=== PATIENT | male | born 1945 | race African-American/Black ===

== ENCOUNTER 2018-04-06 10:53 | Inpatient (IN) | payer MEDICARE, MEDICAID ==
[~2018-04-06] VITALS: Ht 198.1 cm; Wt 65.8 kg
[2018-04-06] VITALS (20 sets, daily range): BP systolic 74–128; BP diastolic 50–76
[2018-04-06] MEDS ORDERED: Acetaminophen 650 MG SUPP RECTAL ONE ×2 (11:09→11:15)
[2018-04-06] MEDS ORDERED: Vancomycin 1 GM in NS 275 ML IV ONE (11:15)
[2018-04-06] MEDS ORDERED: Cefepime HCl 1 GM in NS 55 ML IV SCH (11:15)
[2018-04-06] MEDS ORDERED: SENNA8.6 M2 PO (11:18)
[2018-04-06] MEDS ORDERED: POTASSIUM 25 M25 ME1 PO (11:18)
[2018-04-06] MEDS ORDERED: AMOX TR-K CLV1 EAC2 ORAL (11:18)
[2018-04-06] MEDS ORDERED: ALBUTEROL2.5 MG/3 M INH (11:18)
[2018-04-06] MEDS ORDERED: ASCORBIC ACID500 MG ORAL (11:18)
[2018-04-06] MEDS ORDERED: XIFAXAN550 MG ORAL (11:18)
[2018-04-06] MEDS ORDERED: ACETAMINOPHEN325 M1 ORAL (11:18)
[2018-04-06] MEDS ORDERED: PROTONIX40 MG ORAL (11:18)
[2018-04-06] MEDS ORDERED: LACTULOSE20 GM/301 ORAL (11:18)
[2018-04-06] MEDS ORDERED: COLACE100 MG ORAL (11:18)
[2018-04-06] MEDS ORDERED: VITAMIN B-1100 MG ORAL (11:18)
[2018-04-06 11:26] LABS: APPEARANCE,URINE SLIGHTLY CLOUDY; BILIRUBIN, URINE NEGATIVE (NEGATIVE); GLUCOSE, URINE (UA) NEGATIVE (NEGATIVE); KETONES,URINE 1+ (NEGATIVE); LEUKOCYTE ESTERASE ,URINE 2+ (NEGATIVE); NITRITE,URINE NEGATIVE (NEGATIVE); PH,URINE 5 (4.5-8.0); PROTEIN,URINE 3+ (NEGATIVE); UROBILINOGEN,URINE NORMAL MG/DL (0.0-1.0)
[2018-04-06 11:27] LABS: COLOR,URINE YELLOW
[2018-04-06] MEDS ORDERED: dilTIAZem HCl 25mg/5ml Inj IVP ONE ×2 (11:30→12:15)
[2018-04-06 11:31] LABS: HEMATOCRIT 33.4 % (42.0-52.0); HEMOGLOBIN 11.2 G/DL (14.2-18.0); MEAN CORPUSCULAR VOLUME 97 FL (80-99); PLATELET COUNT 102 K/UL (150-450); RED BLOOD COUNT 3.45 M/UL (4.70-6.10); RED CELL DISTRIBUTION WIDTH 13.7 % (11.6-14.8); WHITE BLOOD COUNT 20.8 K/UL (4.8-10.8)
[2018-04-06 11:38] LABS: ANION GAP 11 mmol/L (5-15); BLOOD UREA NITROGEN 17 mg/dL (7-18); CARBON DIOXIDE 19 MMOL/L (21-32); CHLORIDE 124 MMOL/L (98-107); CREATININE 1.5 MG/DL (0.55-1.30); POTASSIUM 3.8 MMOL/L (3.5-5.1); SODIUM 154 MMOL/L (136-145)
[2018-04-06 11:50] LABS: ALANINE AMINOTRANSFERASE 10 U/L (12-78); ALBUMIN 1.5 G/DL (3.4-5.0); ALBUMIN/GLOBULIN RATIO 0.3 (1.0-2.7); ALKALINE PHOSPHATASE 96 U/L (46-116); ASPARTATE AMINO TRANSFERASE 30 U/L (15-37); BILIRUBIN,DIRECT 0.2 MG/DL (0.0-0.3); BILIRUBIN,TOTAL 1.1 MG/DL (0.2-1.0); CKMB 0.9 NG/ML (0.0-3.6); CREATINE KINASE 66 U/L (26-308); INR 1.5 (0.9-1.1)
--- NOTE | 2018-04-06 12:09 | Diagnostic Imaging Report ---
Indication: Shortness of breath Technique: One view of the chest Comparison: none Findings: The right hemidiaphragm is elevated. This results in crowding of the bronchovascular markings. There is borderline interstitial congestion bilaterally. The heart is mildly enlarged Impression: Mild cardiomegaly Borderline interstitial congestive changes. Elevated right hemidiaphragm
[2018-04-06] MEDS ORDERED: dilTIAZem HCl 125mg/25ml Inj IVPB ONE (13:30)
[2018-04-06] MEDS ORDERED: Lidocaine 1% Plain 30 ml INJ ONE (13:45)
[2018-04-06] MEDS ORDERED: Heparin 2000 units/Ns 1000ml INJ ONE (13:45)
--- NOTE | 2018-04-06 14:51 | Emergency Room Report ---
History of Present Illness General Chief Complaint: Altered Level of Consciousness Source: Patient Present Illness HPI [facility]. The patient was recently discharged from [facility]. The patient has a history of cirrhosis and hepatic encephalopathy. He also has a history of pneumonia. He has a history of persistent hypernatremia. He has a history of GI bleed. Per report he has a history of alcoholism. He presents for being more altered than usual. EMS report that on their arrival at the [facility] facility he was hypotensive and tachycardic. The patient is unable to give a history. Allergies: Coded Allergies: No Known Allergies (Unverified , 04/06/18) Patient History Past Medical History: see triage record, HTN, CAD, pneumonia, psych hx, other - cirrhosis, encephalopathy Past Surgical History: unable to obtain Reviewed Nursing Documentation: PMH: Agreed; PSxH: Agreed Nursing Documentation-PMH Hx Hypertension: Yes Hx Gastrointestinal Problems: Yes - gi bleed,chronic alcoholism Review of Systems All Other Systems: limited Physical Exam Vital Signs Date Time Temp Pulse Resp B/P (MAP) Pulse Ox O2 Delivery O2 Flow Rate FiO2 04/06/18 10:49 160 22 74/56 96 Room Air 04/06/18 11:00 101.5 101.5 04/06/18 12:00 2.0 Sp02 EP Interpretation: reviewed, normal General Appearance: no apparent distress, other - Frail, elderly, minimally response, Chronically Ill Head: normocephalic, atraumatic Eyes: bilateral eye normal inspection, bilateral eye PERRL ENT: no angioedema Neck: full range of motion, supple/symm/no masses Respiratory: chest non-tender, no respiratory distress, no retraction, no accessory muscle use, speaking full sentences Cardiovascular #1: tachycardia, irregularly irregular Gastrointestinal: normal bowel sounds, non tender, soft, non-distended, no guarding, no rebound Rectal: deferred Musculoskeletal: back normal, gait/station normal, normal range of motion, non- tender Neurologic: other - Non-focal. Awake, mumbling words. Skin: warm/dry, well hydrated, other - See RN skin exam Lymphatic: no adenopathy Procedures Central Line Central Line : Consent: Emergent Central Line Lumen: triple Maximal Sterile Barrier Tech: yes cap, yes mask, yes sterile gown, yes sterile gloves, yes large sterile sheet, yes hand hygiene, yes chlorhexidine prep Central Line Postion: femoral (R) Anesthesia: local cc's of anesthesia: 10 Complications: none Central Line Post Position: sutured Attempts: One Patient Tolerated: Well Complications: None Medical Decision Making Diagnostic Impression: Primary Impression: Septic shock Additional Impressions: Pyelonephritis Leukocytosis Fever Hypernatremia Lactic acidosis ER Course This patient presents in septic shock. He appears to have urosepsis. He presented and atrial fibrillation with a rapid ventricular rate. His heart rate was in the 180s on arrival. He was hypotensive with systolic blood pressures in the high 60s. He was given aggressive IV fluids, broad-spectrum antibiotics, multiple doses of diltiazem and then started on a diltiazem drip because his heart rate continued to be out of control. His blood pressure improved but continued to be moderately low with systolics in the 80s. A central line was placed. The patient is admitted to the ICU. This patient is critically ill. This patient required complex medical decision- making, aggressive intervention, extensive laboratory workup and monitoring. Critical care time: 40 minutes. Laboratory Tests Test 04/06/18 10:55 04/06/18 11:00 White Blood Count 20.8 K/UL (4.8-10.8) H Red Blood Count 3.45 M/UL (4.70-6.10) L Hemoglobin 11.2 G/DL (14.2-18.0) L Hematocrit 33.4 % (42.0-52.0) L Mean Corpuscular Volume 97 FL (80-99) Mean Corpuscular Hemoglobin 32.4 PG (27.0-31.0) H Mean Corpuscular Hemoglobin Concent 33.6 G/DL (32.0-36.0) Red Cell Distribution Width 13.7 % (11.6-14.8) Platelet Count 102 K/UL (150-450) L Mean Platelet Volume 9.0 FL (6.5-10.1) Neutrophils (%) (Auto) % (45.0-75.0) Lymphocytes (%) (Auto) % (20.0-45.0) Monocytes (%) (Auto) % (1.0-10.0) Eosinophils (%) (Auto) % (0.0-3.0) Basophils (%) (Auto) % (0.0-2.0) Differential Total Cells Counted 100 Neutrophils % (Manual) 65 % (45-75) Lymphocytes % (Manual) 22 % (20-45) Monocytes % (Manual) 7 % (1-10) Eosinophils % (Manual) 6 % (0-3) H Basophils % (Manual) 0 % (0-2) Band Neutrophils 0 % (0-8) Platelet Estimate Decreased L Platelet Morphology Normal Hypochromasia 1+ Anisocytosis 1+ Prothrombin Time 15.3 SEC (9.30-11.50) H Prothrombin Time INR 1.5 (0.9-1.1) H PTT 23 SEC (23-33) Sodium Level 154 MMOL/L (136-145) H Potassium Level 3.8 MMOL/L (3.5-5.1) Chloride Level 124 MMOL/L (98-107) H Carbon Dioxide Level 19 MMOL/L (21-32) L Anion Gap 11 mmol/L (5-15) Blood Urea Nitrogen 17 mg/dL (7-18) Creatinine 1.5 MG/DL (0.55-1.30) H Estimate Glomerular Filtration Rate 46.3 mL/min (>60) Glucose Level 99 MG/DL (74-106) Lactic Acid Level 2.70 mmol/L (0.4-2.0) H Calcium Level 8.0 MG/DL (8.5-10.1) L Total Bilirubin 1.1 MG/DL (0.2-1.0) H Direct Bilirubin 0.2 MG/DL (0.0-0.3) Aspartate Amino Transferase (AST) 30 U/L (15-37) Alanine Aminotransferase (ALT) 10 U/L (12-78) L Alkaline Phosphatase 96 U/L (46-116) Ammonia 15 umol/L (11-32) Total Creatine Kinase 66 U/L (26-308) Creatine Kinase MB 0.9 NG/ML (0.0-3.6) Creatine Kinase MB Relative Index 1.3 Troponin I 0.027 ng/mL (0.000-0.056) Total Protein 6.4 G/DL (6.4-8.2) Albumin 1.5 G/DL (3.4-5.0) L Globulin 4.9 g/dL Albumin/Globulin Ratio 0.3 (1.0-2.7) L Urine Color Yellow Urine Appearance Slightly cloudy Urine pH 5 (4.5-8.0) Urine Specific [place] 1.015 (1.005-1.035) Urine Protein 3+ (NEGATIVE) H Urine Glucose (UA) Negative (NEGATIVE) Urine Ketones 1+ (NEGATIVE) H Urine Occult Blood 4+ (NEGATIVE) H Urine Nitrite Negative (NEGATIVE) Urine Bilirubin Negative (NEGATIVE) Urine Urobilinogen Normal MG/DL (0.0-1.0) Urine Leukocyte Esterase 2+ (NEGATIVE) H Urine RBC 20-30 /HPF (0 - 0) H Urine WBC Tntc /HPF (0 - 0) H Urine Squamous Epithelial Cells Occasional /LPF Urine Bacteria Occasional /HPF (NONE) Urine Yeast Few /HPF (NONE) H Microbiology Date/Time Source Procedure Growth Status 04/06/18 11:10 Nasal Nares Influenza Types A,B Antigen (STACY) - Final Complete EKG Diagnostic Results Rate: tachycardiac Rhythm: other - A.fib ST Segments: no acute changes Rhythm Strip Diag. Results EP Interpretation: yes Rate: 180's Rhythm: other - A.fib Chest X-Ray Diagnostic Results Chest X-Ray Diagnostic Results : Chest X-Ray Ordered: Yes # of Views/Limited/Complete: 1 View Indication: Other EP Interpretation: No Interpretation: other - Cardiomegaly. Impression: Other - See official report. Electronically Signed by: Moises Last Vital Signs Date Time Temp Pulse Resp B/P (MAP) Pulse Ox O2 Delivery O2 Flow Rate FiO2 04/06/18 13:33 148 88/60 04/06/18 12:50 24 99 04/06/18 12:12 Nasal Cannula 2.0 04/06/18 11:30 101.5 Status: improved Disposition: ADMITTED INPATIENT Condition: Critical Referrals: NON PHYSICIAN (PCP) WILLIE GARCÍA D.O. Apr 06, 2018 14:51
--- NOTE | 2018-04-06 16:07 | History & Physical ---
History and Physical History & Physicial dict ICU abx IVF pressors IV dilt Gene Wood MD Apr 06, 2018 16:07
[2018-04-06] MEDS ORDERED: Levophed 4mg/4mL Inj IV ONE (16:26)
--- NOTE | 2018-04-06 18:30 | History and Physical Report ---
DATE OF ADMISSION: 04/06/2018 CHIEF COMPLAINT: Weakness, transferred from a long-term. HISTORY OF PRESENT ILLNESS: The patient became poorly responsive at his long-term where he was recently admitted after discharge from [facility]. He has a history of cirrhosis and hepatic encephalopathy as well as pneumonia. He was evaluated in the emergency department and found to have hypotension and signs of septic shock with a high white blood count and lactic acidosis. He had rapid atrial fibrillation, was given intravenous medications to slow his heart rate. He can provide no additional history. The records were reviewed. PAST MEDICAL HISTORY: Pneumonia, cirrhosis with hepatic encephalopathy, coronary artery disease, pneumoniae, GI bleeding, alcoholism, and hypernatremia. MEDICATIONS: In the facility, he was on Tylenol, albuterol, Augmentin, vitamins, lactulose, Protonix, potassium, rifaximin, Senna and vitamin B. Since admission to the emergency department, he was given intravenous diltiazem, cefepime, vancomycin and heparin. ALLERGIES: None. REVIEW OF SYSTEMS: Cannot be obtained. PHYSICAL EXAMINATION: GENERAL: The patient is poorly responsive, moaning, lying in bed. VITAL SIGNS: Blood pressure of 78/55, the temperature is normal, the heart rate was 162 on admission, but came down to 118 at this time, in atrial fibrillation, respirations 24, and saturation is 100% on nasal oxygen. HEENT: The head is normocephalic. NECK: No jugular venous distention. CHEST: Rales. CARDIAC: Cardiac rhythm is rapid and irregular. ABDOMEN: Soft and nontender. EXTREMITIES: No clubbing, cyanosis, or edema. The Moreno catheter was in place, but was removed in the emergency department. LABORATORY AND DIAGNOSTIC DATA: The white count 20,800, hemoglobin 11.2, and platelets 102,000. Chemistry shows sodium 154, BUN 17, creatinine 1.5, and bicarbonate 19. Lactic acid 2.7. Albumin is 1.5. Liver enzymes are not elevated. INR is 1.5. Urine shows too numerous to count white cells. A chest x-ray shows carotid markings with an elevated right hemidiaphragm, but no focal infiltrates. IMPRESSIONS: 1. Septic shock. 2. Urinary tract infection causing sepsis. 3. Hypotension. 4. Lactic acidosis. 5. Hepatic encephalopathy. 6. Cirrhosis. 7. Coronary artery disease. 8. Rapid atrial fibrillation. PLAN: The patient will be admitted to ICU. He will be given intravenous fluids, vasopressors and diltiazem to slow the heart rate. Cardiology consultation has been requested. Antibiotics will be continued. His prognosis is guarded. He is currently Full Code. Gene Wood M.D. DR: JOVANI JOB#: [id number] CC: Gene Wood M.D.; Fax#: [phone] Lawrence Han M.D.
[2018-04-06] MEDS ORDERED: D5 1/2NS w/KCl 20mEq 1,000 ML IV SCH (19:00)
[2018-04-06] MEDS ORDERED: Vancomycin 500mg/D5W 110ml IVPB ONE ×2 (19:30)
[2018-04-06] MEDS ORDERED: Dyna-Hex 2% Top Sol 2oz TOPIC SCH (20:00)
[2018-04-06] MEDS: D5 1/2NS w/KCl 20mEq 1,000 ML IV SCH (20:09)
[2018-04-06] MEDS: Piperacillin/Tazobactam 3.375 GM in D5W 110 ML IVPB SCH (21:24)
--- NOTE | 2018-04-06 23:30 | Consultation ---
DATE OF CONSULTATION: 04/06/2018 CARDIOLOGY CONSULTATION CONSULTING PHYSICIAN: Lawrence Han M.D. REQUESTING PHYSICIAN: Gene Wood M.D. REASON FOR CONSULTATION: Atrial fibrillation with rapid ventricular response in the setting of shock. HISTORY OF PRESENT ILLNESS: This is a 72-year-old male. He has been convalescing at a prison facility. He became poorly responsive and was transferred to this emergency room for evaluation. On arrival, he was hypotensive, tachycardic, and noted to have rapid atrial fibrillation. He apparently was recently hospitalized at an outside facility. PAST MEDICAL HISTORY: Includes hepatic encephalopathy, cirrhosis, paroxysmal atrial fibrillation, alcoholism, and coronary artery disease. MEDICATIONS: Reviewed and reconciled. SOCIAL HISTORY: Not obtainable at this time. Although, there is a known history of alcohol abuse in the past. PHYSICAL EXAMINATION: VITAL SIGNS: Temperature 101.5, blood pressure 74/56, heart rate 160, and respiratory rate 22. GENERAL: Poorly responsive. HEENT: Temporal wasting. Dry mucous membranes. NECK: Supple. LUNGS: With coarse breath sounds. Scattered rhonchi. CARDIAC: Irregularly irregular rhythm. Rapid rate. Normal S1, S2. ABDOMEN: Soft. There is no obvious ascites. EXTREMITIES: Without edema. Capillary refill is diminished with the right femoral central line in place with no active bleeding noted. LABORATORY DATA: White count 20.8 and hemoglobin 11.2. Sodium 154, potassium 3.8, chloride 124, bicarb 19, BUN 17, and creatinine 1.5. Lactic acid 2.7. Ammonia is 15. Albumin 1.5. Urinalysis with too numerous to count white cells. EKG reveals atrial fibrillation with rapid ventricular response and nonspecific ST-T wave changes. Chest x-ray with cardiomegaly and no acute process. IMPRESSION: 1. Critical condition. 2. Guarded prognosis. 3. Case discussed with his daughter at bedside. 4. Sepsis. 5. Shock. 6. Urinary tract infection. 7. Hypovolemia. 8. Dehydration. 9. Severe protein-calorie malnutrition. 10. History of alcoholic cirrhosis. 11. Rapid atrial fibrillation. 12. Acute myocardial ischemia. 13. Lactic acidosis. 14. Sepsis with shock. PLAN: 1. Intensive care unit monitoring. 2. Intravenous fluid volume resuscitation. 3. Pressor support if as above has shown to be inadequate presently. 4. We will consider digitalization. 5. For now, the patient was given IV Cardizem x1. Until blood pressure stabilizes, additional doses cannot be given. 6. Broad-spectrum antibiotics. 7. DVT and stress ulcer prophylaxis. 8. Serial troponin levels. Lawrence Han M.D. DR: JED JOB#: [id number] CC:
[2018-04-07] VITALS (19 sets, daily range): BP systolic 84–132; BP diastolic 56–78
[2018-04-07] MEDS: Piperacillin/Tazobactam 3.375 GM in D5W 110 ML IVPB SCH ×4 (05:54→22:31)
[2018-04-07] MEDS: D5 1/2NS w/KCl 20mEq 1,000 ML IV SCH (05:54)
[2018-04-07 06:45] LABS: BASOPHILS % (AUTO) 0.8 % (0.0-2.0); EOSINOPHILS % (AUTO) 4.9 % (0.0-3.0); HEMATOCRIT 26.1 % (42.0-52.0); HEMOGLOBIN 8.8 G/DL (14.2-18.0); MEAN CORPUSCULAR VOLUME 95 FL (80-99); MONOCYTES % (AUTO) 8.3 % (1.0-10.0); PLATELET COUNT 102 K/UL (150-450); RED BLOOD COUNT 2.76 M/UL (4.70-6.10); RED CELL DISTRIBUTION WIDTH 13.7 % (11.6-14.8); WHITE BLOOD COUNT 14.1 K/UL (4.8-10.8)
[2018-04-07 07:15] LABS: ALANINE AMINOTRANSFERASE 11 U/L (12-78); ALBUMIN 1.3 G/DL (3.4-5.0); ALBUMIN/GLOBULIN RATIO 0.3 (1.0-2.7); ALKALINE PHOSPHATASE 85 U/L (46-116); ANION GAP 8 mmol/L (5-15); ASPARTATE AMINO TRANSFERASE 13 U/L (15-37); BILIRUBIN,TOTAL 0.7 MG/DL (0.2-1.0); BLOOD UREA NITROGEN 15 mg/dL (7-18); CALCIUM 7.2 MG/DL (8.5-10.1); CARBON DIOXIDE 21 MMOL/L (21-32); CHLORIDE 125 MMOL/L (98-107); CREATININE 1.2 MG/DL (0.55-1.30); POTASSIUM 2.7 MMOL/L (3.5-5.1); SODIUM 155 MMOL/L (136-145)
[2018-04-07] MEDS ORDERED: Pantoprazole Inj IVP SCH (09:00)
--- NOTE | 2018-04-07 09:11 | Pulmonology Progress Note ---
Assessment/Plan Assessment/Plan IMPRESSIONS: 1. Septic shock. 2. Urinary tract infection causing sepsis. 3. Hypotension. 4. Lactic acidosis. 5. Hepatic encephalopathy. 6. Cirrhosis. 7. Coronary artery disease. 8. Rapid atrial fibrillation. Now in NSR 9. Hypokalemia 10. Troponin leak. PLAN: Continue intravenous fluids, and vasopressors prn Seen by Cardiology Antibiotics will be continued. His prognosis is guarded. He is currently Full Code. Respiratory status is stable Discussed with RN Kannan Rogers M.D. Subjective Interval Events: Now in NSR; hypokalemic; Hgb down to 8.8 Constitutional: Reports: no symptoms HEENT: Repors: no symptoms Respiratory: Reports: no symptoms Cardiovascular: Reports: no symptoms Gastrointestinal/Abdominal: Reports: no symptoms Genitourinary: Reports: no symptoms Allergies: Coded Allergies: No Known Allergies (Unverified , 04/06/18) Objective Last 24 Hour Vital Signs Date Time Temp Pulse Resp B/P (MAP) Pulse Ox O2 Delivery O2 Flow Rate FiO2 04/07/18 07:00 91 16 128/78 100 Nasal Cannula 2.0 04/07/18 06:00 89 16 131/71 100 Nasal Cannula 2.0 04/07/18 05:00 88 15 125/72 100 Nasal Cannula 2.0 04/07/18 04:00 97.7 93 23 124/76 98 Nasal Cannula 2.0 97.7 04/07/18 04:00 92 04/07/18 03:00 89 17 110/64 100 Nasal Cannula 2.0 04/07/18 02:00 87 15 102/59 100 Nasal Cannula 2.0 04/07/18 01:00 81 15 98/58 100 Nasal Cannula 2.0 04/07/18 00:00 97.9 81 17 84/56 100 Nasal Cannula 2.0 97.9 04/07/18 00:00 83 04/06/18 23:00 86 17 91/52 100 Nasal Cannula 2.0 04/06/18 22:30 87 16 93/53 100 Nasal Cannula 2.0 04/06/18 22:21 95 Nasal Cannula 2.0 04/06/18 22:21 Nasal Cannula 2.0 04/06/18 22:15 90 20 92/56 100 Nasal Cannula 2.0 04/06/18 22:00 90 16 95/54 100 Nasal Cannula 2.0 04/06/18 21:45 92 17 97/61 100 Nasal Cannula 2.0 04/06/18 21:30 94 17 90/57 100 Nasal Cannula 2.0 04/06/18 21:15 96 20 122/72 100 Nasal Cannula 2.0 04/06/18 21:00 92 16 122/72 100 Nasal Cannula 2.0 04/06/18 21:00 122/72 04/06/18 20:45 94 19 125/75 100 Nasal Cannula 2.0 04/06/18 20:30 92 18 128/69 100 Nasal Cannula 2.0 04/06/18 20:15 95 18 117/67 100 Nasal Cannula 2.0 04/06/18 20:00 98.0 96 17 121/73 100 Nasal Cannula 2.0 98.0 04/06/18 20:00 96 04/06/18 20:00 121/73 04/06/18 19:45 96 18 128/76 100 Nasal Cannula 2.0 04/06/18 19:00 128/76 18 18:00 108/55 04/06/18 17:20 96.2 116 24 89/61 100 Room Air 2.0 98.0 04/06/18 16:47 89/61 04/06/18 16:42 80/55 18 15:46 98.0 118 24 80/55 100 Room Air 98.0 18 14:43 121 24 80/54 99 7/18 13:33 148 88/60 18 12:50 150 24 77/50 99 04/06/18 12:42 159 82/61 18 12:12 162 22 86/58 98 Nasal Cannula 2.0 18 12:00 156 24 88/57 100 Nasal Cannula 2.0 18 11:30 152 24 76/60 99 04/06/18 11:30 101.5 18 11:29 160 74/56 18 11:00 101.5 160 22 74/56 96 Room Air 101.5 04/06/18 10:49 160 22 74/56 96 Room Air Intake and Output 04/06/18 04/07/18 19:00 07:00 Intake Total 6 ml 1132.5 ml Output Total 80 ml 600 ml Balance -74 ml 532.5 ml Intake IV Total 6 ml 1132.5 ml Output Urine Total 80 ml 600 ml # Voids 1 General Appearance: no acute distress HEENT: normocephalic Respiratory/Chest: chest wall non-tender, lungs clear Cardiovascular: normal peripheral pulses, normal rate Abdomen: normal bowel sounds Microbiology Date/Time Source Procedure Growth Status 04/06/18 11:10 Nasal Nares Influenza Types A,B Antigen (STACY) - Final Complete 04/06/18 11:00 Urine,Clean Catch Urine Culture - Preliminary NO GROWTH Resulted Laboratory Tests 04/06/18 10:55: White Blood Count 20.8H, Red Blood Count 3.45L, Hemoglobin 11.2L, Hematocrit 33.4L, Mean Corpuscular Volume 97, Mean Corpuscular Hemoglobin 32.4H, Mean Corpuscular Hemoglobin Concent 33.6, Red Cell Distribution Width 13.7, Platelet Count 102L, Mean Platelet Volume 9.0, Neutrophils (%) (Auto) , Lymphocytes (%) ( Auto) , Monocytes (%) (Auto) , Eosinophils (%) (Auto) , Basophils (%) (Auto) , Differential Total Cells Counted 100, Neutrophils % (Manual) 65, Lymphocytes % ( Manual) 22, Monocytes % (Manual) 7, Eosinophils % (Manual) 6H, Basophils % ( Manual) 0, Band Neutrophils 0, Platelet Estimate DecreasedL, Platelet Morphology Normal, Hypochromasia 1+, Anisocytosis 1+, Prothrombin Time 15.3H, Prothromb Time International Ratio 1.5H, Activated Partial Thromboplast Time 23 , Sodium Level 154H, Potassium Level 3.8, Chloride Level 124H, Carbon Dioxide Level 19L, Anion Gap 11, Blood Urea Nitrogen 17, Creatinine 1.5H, Estimat Glomerular Filtration Rate 46.3, Glucose Level 99, Lactic Acid Level 2.70H, Calcium Level 8.0L, Total Bilirubin 1.1H, Direct Bilirubin 0.2, Aspartate Amino Transf (AST/SGOT) 30, Alanine Aminotransferase (ALT/SGPT) 10L, Alkaline Phosphatase 96, Ammonia 15, Total Creatine Kinase 66, Creatine Kinase MB 0.9, Creatine Kinase MB Relative Index 1.3, Troponin I 0.027, Total Protein 6.4, Albumin 1.5L, Globulin 4.9, Albumin/Globulin Ratio 0.3L 04/06/18 11:00: Urine Color Yellow, Urine Appearance Slightly cloudy, Urine pH 5, Urine Specific [place] 1.015, Urine Protein 3+H, Urine Glucose (UA) Negative, Urine Ketones 1+H, Urine Occult Blood 4+H, Urine Nitrite Negative, Urine Bilirubin Negative, Urine Urobilinogen Normal, Urine Leukocyte Esterase 2+H, Urine RBC 20- 30H, Urine WBC TntcH, Urine Squamous Epithelial Cells Occasional, Urine Bacteria Occasional, Urine Yeast FewH 04/06/18 16:00: Lactic Acid Level 1.20 04/07/18 05:00: White Blood Count 14.1H, Red Blood Count 2.76L, Hemoglobin 8.8L, Hematocrit 26.1L, Mean Corpuscular Volume 95, Mean Corpuscular Hemoglobin 31.9H, Mean Corpuscular Hemoglobin Concent 33.8, Red Cell Distribution Width 13.7, Platelet Count 102L, Mean Platelet Volume 6.8, Neutrophils (%) (Auto) 73.0, Lymphocytes ( %) (Auto) 13.0L, Monocytes (%) (Auto) 8.3, Eosinophils (%) (Auto) 4.9H, Basophils (%) (Auto) 0.8, Sodium Level 155H, Potassium Level 2.7*L, Chloride Level 125H, Carbon Dioxide Level 21, Anion Gap 8, Blood Urea Nitrogen 15, Creatinine 1.2, Estimat Glomerular Filtration Rate > 60, Glucose Level 112H, Lactic Acid Level 1.20, Calcium Level 7.2L, Total Bilirubin 0.7, Aspartate Amino Transf (AST/SGOT) 13L, Alanine Aminotransferase (ALT/SGPT) 11L, Alkaline Phosphatase 85, Troponin I 0.331H, Total Protein 5.5L, Albumin 1.3L, Globulin 4.2, Albumin/Globulin Ratio 0.3L, Magnesium Level 1.6L, Prostate Specific Antigen < 0.10L Current Medications Medications (Trade) Dose Ordered Sig/Anna Route PRN Reason Start Time Stop Time Status Last Admin Dose Admin Chlorhexidine Gluconate (Nel-Hex 2%) 1 applic DAILY@1999 TOPIC 04/07/18 20:00 05/07/18 19:59 Dextrose/ Electrolytes 1,000 ml @ 100 mls/hr Q10H IV 04/06/18 20:00 05/06/18 18:59 04/07/18 05:54 Norepinephrine Bitartrate 4 mg/ Dextrose 250 ml @ 0 mls/hr Q24H IV 04/07/18 20:00 05/06/18 19:59 04/06/18 19:00 Pantoprazole (Protonix) 40 mg DAILY IVP 04/07/18 09:00 05/07/18 08:59 Piperacillin Sod/ Tazobactam Sod 3.375 gm/Dextrose 110 ml @ 27.5 mls/hr Q8HR IVPB 04/06/18 21:00 04/13/18 20:59 04/07/18 05:54 Vancomycin HCl (Vanco rx to dose) 1 ea DAILY PRN MISC Per rx protocol 04/06/18 17:45 05/06/18 17:44 Kannan Rogers MD Apr 07, 2018 09:11
[2018-04-07 10:15] LABS: EOSINOPHILS % (AUTO) 4.6 % (0.0-3.0); HEMATOCRIT 28.5 % (42.0-52.0); HEMOGLOBIN 9.6 G/DL (14.2-18.0); MEAN CORPUSCULAR VOLUME 95 FL (80-99); MONOCYTES % (AUTO) 8.8 % (1.0-10.0); NEUTROPHILS % (AUTO) 71.6 % (45.0-75.0); PLATELET COUNT 115 K/UL (150-450); RED CELL DISTRIBUTION WIDTH 13.7 % (11.6-14.8); WHITE BLOOD COUNT 13.8 K/UL (4.8-10.8)
[2018-04-07 10:36] LABS: ANION GAP 11 mmol/L (5-15); BLOOD UREA NITROGEN 14 mg/dL (7-18); CALCIUM 7.5 MG/DL (8.5-10.1); CARBON DIOXIDE 20 MMOL/L (21-32); CHLORIDE 125 MMOL/L (98-107); CREATININE 1.3 MG/DL (0.55-1.30); POTASSIUM 2.9 MMOL/L (3.5-5.1); SODIUM 156 MMOL/L (136-145)
--- NOTE | 2018-04-07 12:40 | Diagnostic Imaging Report ---
Indication: Dyspnea Comparison: 04/06/2018 A single view chest radiograph was obtained. Findings: Accounting for some differences in technique there is little to no change. Interstitial edema is present with some minor airspace disease involving the right perihilar and left basilar regions. Heart size is stable. IMPRESSION: No significant change
[2018-04-07] MEDS ORDERED: D5W w/KCl 20mEq 1,000 ML IV SCH (13:00)
[2018-04-07] MEDS ORDERED: Vancomycin 1250mg/D5W 250ml IVPB SCH (17:00)
[2018-04-07] MEDS: Potassium Chloride 40 MEQ in D5 1/4NS 1000ml 1,000 ML IV SCH ×3 (17:30→22:21)
[2018-04-07] MEDS ORDERED: Lactulose 20gm/30ml UDC NG SCH (18:00)
[2018-04-07] MEDS ORDERED: Dyna-Hex 2% Top Sol 2oz TOPIC SCH (20:00)
[2018-04-07] MEDS: Dyna-Hex 2% Top Sol 2oz TOPIC SCH (22:20)
--- NOTE | 2018-04-08 00:45 | Consultation ---
DATE OF CONSULTATION: 04/07/2018 NEPHROLOGY CONSULTATION CONSULTING PHYSICIAN: Greg Hager M.D. REFERRING PHYSICIAN: Gene Wood M.D. REASON FOR CONSULTATION: Hypernatremia and hypokalemia. HISTORY OF PRESENT ILLNESS: The patient admitted for lethargy and confusion. He was recently in [facility] with cirrhosis and hepatic encephalopathy and pneumonia. In the emergency room, he was hypotensive and likely septic shock with leukocytosis and lactic acidosis and he had rapid atrial fibrillation. The patient is unreliable historian. In addition to the above problems, he has had coronary artery disease, prior gastrointestinal bleeding, and alcoholism. Past history, review of systems, again, the patient is unreliable historian. The transfer records could not give much of further insight. MEDICATIONS: From the long-term facility include Tylenol, albuterol inhalation, Augmentin, ascorbic acid, DSS, lactulose, Protonix, potassium, rifaximin, Senna, and . PHYSICAL EXAMINATION: GENERAL: The patient is lying in bed in the intensive care unit, in no acute distress. VITAL SIGNS: Temperature 98.3, pulse 94, respirations 16, and blood pressure 129/70. HEENT: Head, eyes, ears, nose, and throat, sclerae are nonicteric. Ocular motions intact in all directions. Oral mucosa slightly dry. NECK: No adenopathy or thyroid enlargement. LUNGS: Clear. HEART: Regular rhythm. No murmur. ABDOMEN: Soft. I am unable to feel liver or spleen. EXTREMITIES: Trace edema. NEUROLOGIC: There appears to be a left hemiparesis. He is alert, but slightly dysarthric and disoriented. LABORATORY AND DIAGNOSTIC DATA: Pertinent labs show white count 28.8, hemoglobin 11.2. On admission, sodium 154, potassium 3.8, chloride 17, CO2 is 1.5 with an albumin of 1.5. Most recent sodium 156, potassium 2.9, chloride 125, CO2 of 20, BUN 14, and creatinine 1.3. Troponin is 0.357. IMPRESSION: 1. Dehydration. 2. Hypernatremia, secondary to dehydration, likely lactulose contributes. 3. Hypokalemia. 4. Pyuria, possibly urinary tract infection. 5. Cirrhosis. 6. History of hepatic encephalopathy. 7. Left hemiparesis. PLAN: The patient will be hydrated with gradual correction of serum sodium event edema. We will try and replace his potassium. Watch him closely in view of his comorbidities. Continue treatment for sepsis. Greg Hager M.D. DR: YUNI JOB#: [id number] CC:
[2018-04-08] MEDS: Potassium Chloride 40 MEQ in D5 1/4NS 1000ml 1,000 ML IV SCH ×3 (03:40→20:52)
--- NOTE | 2018-04-08 04:15 | Progress Note ---
DATE: 04/07/2018 CARDIOLOGY PROGRESS NOTE SUBJECTIVE: The patient remains in the intensive care unit in critical condition with guarded prognosis. Pressor support is slowly being tapered off this morning. OBJECTIVE: VITAL SIGNS: Blood pressure 125/72, pulse 88, and respiratory rate 15. Earlier this morning, blood pressure is down to 84/56. Monitored rhythm, sinus. No recurring atrial fibrillation. Frequent atrial ectopics are noted. LUNGS: Coarse breath sounds with rhonchi. HEART: Regular rhythm and rate. Normal S1 and S2 with a fourth heart sound. ABDOMEN: Soft and nontender. EXTREMITIES: Trace edema. LABORATORY DATA: White count down from 20.8 to 13.8 and hemoglobin 9.6. Sodium 156, potassium 2.9, chloride 125, bicarbonate 20, BUN 14, and creatinine 1.3. Magnesium 1.6. Troponin is 0.357. IMPRESSION: 1. Acute myocardial infarction. 2. Hypomagnesemia. 3. Hypokalemia. 4. Dehydration. 5. Hypernatremia. 6. Hyperchloremia . 7. Lactic acidosis, recovering. 8. Metabolic acidosis and sepsis with shock, resolving. 9. History of alcoholic liver disease. PLAN: 1. Continue ICU care. 2. Hypotonic hydration. 3. Potassium and magnesium repletion. 4. Once taper off pressors and once stable, can have beta-isabel. 5. Continue anti-platelet therapy. 6. Swallow evaluation. 7. Continue antimicrobials with adjustments based on culture. Lawrence Han M.D. DR: BRANDON JOB#: [id number] CC:
[2018-04-08] MEDS: Piperacillin/Tazobactam 3.375 GM in D5W 110 ML IVPB SCH ×4 (06:19→21:49)
[2018-04-08 06:32] LABS: BASOPHILS % (AUTO) 1.1 % (0.0-2.0); EOSINOPHILS % (AUTO) 4.7 % (0.0-3.0); HEMATOCRIT 26.7 % (42.0-52.0); HEMOGLOBIN 9.3 G/DL (14.2-18.0); LYMPHOCYTES % (AUTO) 17.9 % (20.0-45.0); MEAN CORPUSCULAR VOLUME 95 FL (80-99); MONOCYTES % (AUTO) 10.2 % (1.0-10.0); PLATELET COUNT 116 K/UL (150-450); RED BLOOD COUNT 2.82 M/UL (4.70-6.10); WHITE BLOOD COUNT 14.6 K/UL (4.8-10.8)
[2018-04-08 06:45] LABS: ANION GAP 10 mmol/L (5-15); BLOOD UREA NITROGEN 11 mg/dL (7-18); CALCIUM 7.3 MG/DL (8.5-10.1); CARBON DIOXIDE 20 MMOL/L (21-32); CHLORIDE 124 MMOL/L (98-107); CREATININE 1.1 MG/DL (0.55-1.30); SODIUM 154 MMOL/L (136-145)
[2018-04-08 08:00] VITALS: BP 138/87
[2018-04-08] MEDS: Lactulose 20gm/30ml UDC NG SCH ×3 (08:32→16:20)
[2018-04-08] MEDS: Aspirin Baby 81mg ORAL SCH (08:34)
[2018-04-08] MEDS: Pantoprazole Inj IVP SCH (08:35)
[2018-04-08] MEDS ORDERED: Aspirin Baby 81mg ORAL SCH (09:00)
[2018-04-08] MEDS ORDERED: NS 500ML ONE ×2 (10:51→10:52)
[2018-04-08] MEDS ORDERED: Tubing IV Secondary IV ONE ×2 (10:52→16:17)
[2018-04-08 12:00] VITALS: BP 120/69
[2018-04-08 16:00] VITALS: BP 124/78
[2018-04-08] MEDS ORDERED: Sterile Water For Irrig 2000ml IRRIG ONE (16:17)
[2018-04-08] MEDS: Vancomycin 1250mg/D5W 250ml 250 ML IVPB SCH (16:26)
[2018-04-08 20:00] VITALS: BP 129/79
--- NOTE | 2018-04-08 20:28 | Pulmonology Progress Note ---
Assessment/Plan Assessment/Plan 1. Septic shock. 2. Urinary tract infection causing sepsis. 3. Hypotension. 4. Lactic acidosis. 5. Hepatic encephalopathy. 6. Cirrhosis. 7. Coronary artery disease. 8. Rapid atrial fibrillation. Now in NSR 9. Hypokalemia 10. Troponin leak. PLAN: watch io monitor uop IV abx cxr and labs in am prn abg Fu cutures nebs adn suction His prognosis is guarded. He is currently Full Code. Discussed with RN Subjective ROS Limited/Unobtainable: No Allergies: Coded Allergies: No Known Allergies (Unverified , 04/06/18) Subjective lethargic no distress no cp vn or bleeding no fever noted not getting oob Objective Last 24 Hour Vital Signs Date Time Temp Pulse Resp B/P (MAP) Pulse Ox O2 Delivery O2 Flow Rate FiO2 04/08/18 16:29 82 04/08/18 16:00 98.5 87 21 124/78 100 Nasal Cannula 3.0 98.5 04/08/18 12:00 98.1 87 20 120/69 98 Nasal Cannula 2.0 98.1 04/08/18 12:00 84 04/08/18 08:33 91 138/87 04/08/18 08:00 92 04/08/18 08:00 98.3 91 20 138/87 99 Nasal Cannula 2.0 98.3 04/08/18 04:00 89 04/08/18 00:00 93 04/07/18 22:20 92 101/63 Intake and Output 04/07/18 04/08/18 19:00 07:00 Intake Total 110 ml 1000.0 ml Output Total 980 ml 800 ml Balance -870 ml 200.0 ml Intake Oral 15 ml IV Total 110 ml 985.0 ml Output Urine Total 980 ml 550 ml Stool Total 250 ml # Bowel Movements 1 General Appearance: WD/WN Respiratory/Chest: rhonchi Cardiovascular: normal rate, murmur systolic, edema Abdomen: soft, non tender, no organomegaly Skin: no rash, no ulcers Neurologic/Psychiatric: disoriented Microbiology Date/Time Source Procedure Growth Status 04/06/18 10:55 Blood Blood Culture - Preliminary NO GROWTH AFTER 24 HOURS Resulted 04/06/18 10:50 Blood Blood Culture - Preliminary NO GROWTH AFTER 24 HOURS Resulted 04/06/18 11:10 Nasal Nares Influenza Types A,B Antigen (STACY) - Final Complete 04/06/18 11:00 Urine,Clean Catch Urine Culture - Final NO GROWTH AFTER 48 HOURS Complete Laboratory Tests 04/08/18 04:50: White Blood Count 14.6H, Red Blood Count 2.82L, Hemoglobin 9.3L, Hematocrit 26.7L, Mean Corpuscular Volume 95, Mean Corpuscular Hemoglobin 33.0H, Mean Corpuscular Hemoglobin Concent 34.9, Red Cell Distribution Width 14.0, Platelet Count 116L, Mean Platelet Volume 6.6, Neutrophils (%) (Auto) 66.0, Lymphocytes ( %) (Auto) 17.9L, Monocytes (%) (Auto) 10.2H, Eosinophils (%) (Auto) 4.7H, Basophils (%) (Auto) 1.1, Sodium Level 154H, Potassium Level 3.0L, Chloride Level 124H, Carbon Dioxide Level 20L, Anion Gap 10, Blood Urea Nitrogen 11, Creatinine 1.1, Estimat Glomerular Filtration Rate > 60, Glucose Level 68L, Calcium Level 7.3L, Ammonia 20, Troponin I 0.198H, Pro-B-Type Natriuretic Peptide 2504H Current Medications Medications (Trade) Dose Ordered Sig/Anna Route PRN Reason Start Time Stop Time Status Last Admin Dose Admin Aspirin (ASA) 81 mg DAILY ORAL 04/08/18 09:00 05/08/18 08:59 04/08/18 08:34 Carvedilol (Coreg) 6.25 mg EVERY 12 HOURS ORAL 04/08/18 21:00 05/08/18 20:59 Chlorhexidine Gluconate (Nel-Hex 2%) 1 applic DAILY@1999 TOPIC 04/07/18 20:00 05/07/18 19:59 04/07/18 22:20 Lactulose (Cephulac) 30 gm THREE TIMES A DAY NG 04/08/18 09:00 05/07/18 17:59 04/08/18 08:32 Pantoprazole (Protonix) 40 mg DAILY IVP 04/08/18 09:00 05/07/18 08:59 04/08/18 08:35 Piperacillin Sod/ Tazobactam Sod 3.375 gm/Dextrose 110 ml @ 27.5 mls/hr Q8HR IVPB 04/07/18 22:00 04/13/18 20:59 04/08/18 14:01 Potassium Chloride 40 meq/ Dextrose/Sodium Chloride 1,020 ml @ 125 mls/hr Q8H10M IV 04/07/18 19:30 05/07/18 19:29 04/08/18 12:41 Vancomycin HCl (Vanco rx to dose) 1 ea DAILY PRN MISC Per rx protocol 04/07/18 18:30 05/07/18 18:29 Vancomycin HCl/ Dextrose 250 ml @ 166.667 mls/hr Q24H IVPB 04/08/18 17:00 04/12/18 16:59 04/08/18 16:26 Gerda Oquendo DO Apr 08, 2018 20:28
[2018-04-08] MEDS: Dyna-Hex 2% Top Sol 2oz TOPIC SCH (20:51)
[2018-04-08] MEDS: Carvedilol 6.25mg Tab ORAL SCH (20:51)
[2018-04-09] VITALS: BP 108/68
[2018-04-09 04:00] VITALS: BP 122/77
--- NOTE | 2018-04-09 04:30 | Progress Note ---
DATE: 04/08/2018 CARDIOLOGY PROGRESS NOTE SUBJECTIVE: The patient remains in the intensive care unit. Condition remains critical. Prognosis guarded. The patient is off pressors. Blood pressure is improved. He continued to have significant metabolic abnormalities, but remains in sinus rhythm. OBJECTIVE: VITAL SIGNS: Blood pressure 120/69, pulse 87, respirations 20, and afebrile. LUNGS: Bilateral breath sounds. No wheezing. CARDIAC: Regular rhythm and rate. Normal S1 and S2. ABDOMEN: Soft. EXTREMITIES: Trace edema. LABORATORY DATA: White count 14.6, hemoglobin 9.3. Sodium 154, potassium , chloride 124, bicarbonate 20, BUN 11, and creatinine 1.1. Troponin 0.118. Pro-natriuretic peptide 2500. Ammonia 20. IMPRESSION: 1. Sepsis with recovered shock due to urinary tract infection. 2. Dehydration. 3. Hypernatremia. 4. Hypovolemia. 5. Acute on chronic renal failure. 6. Acute myocardial ischemia. 7. Paroxysmal atrial fibrillation. 8. Hypokalemia. PLAN: 1. Hypotonic IV fluids. 2. Potassium repletion. 3. Recheck magnesium. 4. Broad-spectrum antibiotics. 5. Off pressors. 6. DVT and stress ulcer prophylaxes. 7. Titrate beta-isabel. 8. Continue anti-platelet therapy with aspirin. Lawrence Han M.D. DR: CJ JOB#: [id number] CC:
[2018-04-09] MEDS: Potassium Chloride 40 MEQ in D5 1/4NS 1000ml 1,000 ML IV SCH ×3 (05:03→20:00)
[2018-04-09] MEDS: Piperacillin/Tazobactam 3.375 GM in D5W 110 ML IVPB SCH ×3 (05:03→21:24)
[2018-04-09 05:31] LABS: BASOPHILS % (AUTO) 0.7 % (0.0-2.0); EOSINOPHILS % (AUTO) 4.2 % (0.0-3.0); HEMATOCRIT 23.1 % (42.0-52.0); HEMOGLOBIN 8.2 G/DL (14.2-18.0); LYMPHOCYTES % (AUTO) 24.1 % (20.0-45.0); MEAN CORPUSCULAR VOLUME 93 FL (80-99); NEUTROPHILS % (AUTO) 61.9 % (45.0-75.0); PLATELET COUNT 123 K/UL (150-450); RED BLOOD COUNT 2.49 M/UL (4.70-6.10); RED CELL DISTRIBUTION WIDTH 14.1 % (11.6-14.8); WHITE BLOOD COUNT 14.9 K/UL (4.8-10.8)
[2018-04-09 06:02] LABS: ALANINE AMINOTRANSFERASE 12 U/L (12-78); ALBUMIN 1.2 G/DL (3.4-5.0); ALBUMIN/GLOBULIN RATIO 0.3 (1.0-2.7); ALKALINE PHOSPHATASE 92 U/L (46-116); ANION GAP 9 mmol/L (5-15); ASPARTATE AMINO TRANSFERASE 9 U/L (15-37); BILIRUBIN,TOTAL 0.7 MG/DL (0.2-1.0); BLOOD UREA NITROGEN 7 mg/dL (7-18); CALCIUM 6.9 MG/DL (8.5-10.1); CARBON DIOXIDE 20 MMOL/L (21-32); CHLORIDE 119 MMOL/L (98-107); POTASSIUM 3.8 MMOL/L (3.5-5.1); SODIUM 147 MMOL/L (136-145)
[2018-04-09 08:00] VITALS: BP 101/70
[2018-04-09] MEDS: Aspirin Baby 81mg ORAL SCH (08:50)
[2018-04-09] MEDS: Pantoprazole Inj IVP SCH (08:50)
[2018-04-09] MEDS: Lactulose 20gm/30ml UDC NG SCH ×3 (08:50→16:22)
[2018-04-09] MEDS: Carvedilol 6.25mg Tab ORAL SCH ×2 (08:51→20:02)
--- NOTE | 2018-04-09 09:05 | Diagnostic Imaging Report ---
PORTABLE AP CXR: HISTORY: 72-year-old male with COPD. COMPARISON: 04/07/2018, 04/06/2018. FINDINGS: Compared to the prior exams, and allowing for differences in patient position/technique, there has been no definite significant interval change. Lung volumes remain mildly low. There is ill-defined bilateral perihilar "fullness", as before, likely at least partially secondary to perihilar/infrahilar subsegmental atelectasis. There is a possible small amount of fluid in the right major fissure, versus minimal airspace opacity in the posterior segment of the right upper lobe abutting the fissure, as before. No definite evidence of significant interstitial edema. Heart size is grossly stable. No obvious pneumothorax. IMPRESSION: No significant interval change.
[2018-04-09 12:00] VITALS: BP 136/88
[2018-04-09 16:00] VITALS: BP 147/78
[2018-04-09] MEDS: Vancomycin 1250mg/D5W 250ml 250 ML IVPB SCH (16:22)
[2018-04-09] MEDS ORDERED: NS 500ML ONE (17:17)
--- NOTE | 2018-04-09 17:47 | Pulmonology Progress Note ---
Assessment/Plan Assessment/Plan 1. Septic shock. 2. Urinary tract infection causing sepsis. 3. Hypotension. 4. Lactic acidosis. 5. Hepatic encephalopathy. 6. Cirrhosis. 7. Coronary artery disease. 8. Rapid atrial fibrillation. Now in NSR 9. Hypokalemia 10. Troponin leak. PLAN: watch io may need prbc if hbg continues to decline monitor uop IV abx cxr and labs in am prn abg Fu cultures nebs andsuction His prognosis is slowly improving He is currently Full Code. Discussed with RN Subjective ROS Limited/Unobtainable: No Allergies: Coded Allergies: No Known Allergies (Unverified , 04/06/18) Subjective awake but confused follows some commands no distress no cp vn or bleeding no fever noted not getting oob Objective Last 24 Hour Vital Signs Date Time Temp Pulse Resp B/P (MAP) Pulse Ox O2 Delivery O2 Flow Rate FiO2 04/09/18 16:00 92 04/09/18 16:00 98.9 93 21 147/78 99 Nasal Cannula 3.0 98.9 04/09/18 12:00 98.5 88 22 136/88 99 Nasal Cannula 3.0 98.5 04/09/18 12:00 86 04/09/18 08:51 80 101/70 04/09/18 08:00 98.0 83 20 101/70 97 Nasal Cannula 3.0 98.0 04/09/18 08:00 89 04/09/18 04:00 81 04/09/18 04:00 98.1 85 20 122/77 97 Nasal Cannula 3.0 98.1 04/09/18 00:00 98.0 81 20 108/68 98 Nasal Cannula 3.0 98.0 04/09/18 00:00 82 04/08/18 20:51 90 129/75 04/08/18 20:00 98.0 90 18 129/79 100 Nasal Cannula 3.0 98.0 04/08/18 20:00 91 Intake and Output 04/08/18 04/09/18 19:00 07:00 Intake Total 1510.000 ml 1517.5 ml Output Total 400 ml 800 ml Balance 1110.000 ml 717.5 ml IV Total 1510.000 ml 1517.5 ml Output Urine Total 400 ml 800 ml # Bowel Movements 1 General Appearance: cachetic Respiratory/Chest: rhonchi Cardiovascular: normal rate, regular rhythm, murmur systolic, edema Abdomen: soft, non tender, no organomegaly Neurologic/Psychiatric: alert, disoriented Lymphatic: no groin adenopathy Laboratory Tests 04/09/18 04:00: White Blood Count 14.9H, Red Blood Count 2.49L, Hemoglobin 8.2L, Hematocrit 23.1L, Mean Corpuscular Volume 93, Mean Corpuscular Hemoglobin 33.0H, Mean Corpuscular Hemoglobin Concent 35.5, Red Cell Distribution Width 14.1, Platelet Count 123L, Mean Platelet Volume 6.8, Neutrophils (%) (Auto) 61.9, Lymphocytes ( %) (Auto) 24.1, Monocytes (%) (Auto) 9.0, Eosinophils (%) (Auto) 4.2H, Basophils (%) (Auto) 0.7, Sodium Level 147H, Potassium Level 3.8, Chloride Level 119H, Carbon Dioxide Level 20L, Anion Gap 9, Blood Urea Nitrogen 7, Creatinine 1.0, Estimat Glomerular Filtration Rate > 60, Glucose Level 151H, Calcium Level 6.9L, Magnesium Level 1.9, Total Bilirubin 0.7, Aspartate Amino Transf (AST/SGOT) 9L, Alanine Aminotransferase (ALT/SGPT) 12, Alkaline Phosphatase 92, Troponin I 0.079H, Total Protein 5.5L, Albumin 1.2L, Globulin 4.3, Albumin/Globulin Ratio 0.3L Current Medications Medications (Trade) Dose Ordered Sig/Anna Route PRN Reason Start Time Stop Time Status Last Admin Dose Admin Aspirin (ASA) 81 mg DAILY ORAL 04/08/18 09:00 05/08/18 08:59 04/09/18 08:50 Carvedilol (Coreg) 6.25 mg EVERY 12 HOURS ORAL 04/08/18 21:00 05/08/18 20:59 04/08/18 20:51 Chlorhexidine Gluconate (Nel-Hex 2%) 1 applic DAILY@1999 TOPIC 04/07/18 20:00 05/07/18 19:59 04/08/18 20:51 Lactulose (Cephulac) 30 gm THREE TIMES A DAY NG 04/08/18 09:00 05/07/18 17:59 04/08/18 08:32 Pantoprazole (Protonix) 40 mg DAILY IVP 04/08/18 09:00 7/8/18 08:59 04/09/18 08:50 Piperacillin Sod/ Tazobactam Sod 3.375 gm/Dextrose 110 ml @ 27.5 mls/hr Q8HR IVPB 04/07/18 22:00 04/13/18 20:59 04/09/18 13:15 Potassium Chloride 40 meq/ Dextrose/Sodium Chloride 1,020 ml @ 125 mls/hr Q8H10M IV 04/07/18 19:30 05/07/18 19:29 04/09/18 13:15 Vancomycin HCl (Vanco rx to dose) 1 ea DAILY PRN MISC Per rx protocol 04/07/18 18:30 05/07/18 18:29 Vancomycin HCl/ Dextrose 250 ml @ 166.667 mls/hr Q24H IVPB 04/08/18 17:00 04/12/18 16:59 04/09/18 16:22 Gerda Oquendo DO Apr 09, 2018 17:47
[2018-04-09] MEDS: Dyna-Hex 2% Top Sol 2oz TOPIC SCH (19:58)
[2018-04-09 20:00] VITALS: BP 135/77
[2018-04-10] VITALS: BP 125/70
--- NOTE | 2018-04-10 00:45 | Progress Note ---
DATE: 04/09/2018 CARDIOLOGY PROGRESS NOTE SUBJECTIVE: The patient is more alert. He is in no respiratory distress. He is remaining afebrile. Monitored rhythm sinus. Rare atrial ectopics, but no recurring episodes of atrial fibrillation. OBJECTIVE: VITAL SIGNS: Blood pressure 147/78, pulse 93, and respirations 21. LUNGS: Good breath sounds. HEART: Regular rhythm and rate. Normal S1, S2. ABDOMEN: Soft. EXTREMITIES: No edema. LABORATORY DATA: White count 14.9 and hemoglobin 8.2. Sodium 147, potassium 3.8, bicarbonate 20, BUN 7, and creatinine 1. Troponin 0.079. Albumin 1.2. IMPRESSION: 1. Sepsis with shock. 2. Paroxysmal atrial fibrillation. 3. Dehydration. 4. Hypernatremia. 5. Hyperchloremia. 6. Metabolic acidosis. 7. Acute myocardial infarction. 8. Severe protein-calorie malnutrition. 9. Acute on chronic diastolic congestive heart failure, which is clinically compensated now. 10. Remains with serious condition and guarded prognosis, but improved. PLAN: 1. Continue with hypotonic IV fluids. 2. No pressors. 3. Titrate beta-isabel. 4. Continue anti-platelet therapy with aspirin. 5. Follow up lipid panel. 6. Recheck magnesium. 7. Antimicrobials. 8. DVT prophylaxis. Lawrence Han M.D. DR: JED JOB#: [id number] CC:
[2018-04-10 04:00] VITALS: BP 122/71
[2018-04-10] MEDS: Potassium Chloride 40 MEQ in D5 1/4NS 1000ml 1,000 ML IV SCH ×4 (05:15→22:31)
[2018-04-10] MEDS: Piperacillin/Tazobactam 3.375 GM in D5W 110 ML IVPB SCH ×3 (05:15→22:32)
[2018-04-10 08:00] VITALS: BP 122/80
[2018-04-10 08:21] LABS: HEMATOCRIT 27.1 % (42.0-52.0); MEAN CORPUSCULAR VOLUME 93 FL (80-99); PLATELET COUNT 149 K/UL (150-450); RED BLOOD COUNT 2.92 M/UL (4.70-6.10); RED CELL DISTRIBUTION WIDTH 13.9 % (11.6-14.8); WHITE BLOOD COUNT 18.7 K/UL (4.8-10.8)
[2018-04-10 08:51] LABS: ANION GAP 11 mmol/L (5-15); BLOOD UREA NITROGEN 4 mg/dL (7-18); CALCIUM 7.3 MG/DL (8.5-10.1); CARBON DIOXIDE 19 MMOL/L (21-32); CHLORIDE 115 MMOL/L (98-107); CREATININE 0.9 MG/DL (0.55-1.30); PHOSPHORUS 2.8 MG/DL (2.5-4.9); POTASSIUM 3.8 MMOL/L (3.5-5.1); SODIUM 145 MMOL/L (136-145)
--- NOTE | 2018-04-10 09:38 | Pulmonology Progress Note ---
Assessment/Plan Assessment/Plan IMPRESSIONS: 1. Septic shock. Resolved 2. Urinary tract infection causing sepsis. 3. Hypotension. resolved. 4. Lactic acidosis. Monitored 5. Hepatic encephalopathy. 6. Cirrhosis. 7. Coronary artery disease. 8. Rapid atrial fibrillation. Now in NSR 9. Hypokalemia 10. Troponin leak. PLAN: Continue intravenous fluids WIll consult ID shiv worsening leucocytosis (Iftikhar) Seen by Cardiology Antibiotics will be continued. His prognosis is guarded. He is currently Full Code. Respiratory status is stable Discussed with RN Kannan Rogers M.D. Subjective Interval Events: Now in [facility] Constitutional: Reports: no symptoms HEENT: Repors: no symptoms Respiratory: Reports: no symptoms Cardiovascular: Reports: no symptoms Gastrointestinal/Abdominal: Reports: no symptoms Allergies: Coded Allergies: No Known Allergies (Unverified , 04/06/18) Objective Last 24 Hour Vital Signs Date Time Temp Pulse Resp B/P (MAP) Pulse Ox O2 Delivery O2 Flow Rate FiO2 04/10/18 08:00 98.1 87 18 122/80 100 Nasal Cannula 3.0 98.1 04/10/18 04:00 86 04/10/18 04:00 97.4 78 24 122/71 99 Nasal Cannula 3.0 97.4 04/10/18 00:00 87 04/10/18 00:00 98.2 94 18 125/70 99 Nasal Cannula 3.0 98.2 04/09/18 20:07 97 Nasal Cannula 2.0 28 04/09/18 20:07 Nasal Cannula 2.0 28 04/09/18 20:02 88 135/77 04/09/18 20:00 94 04/09/18 20:00 98.4 94 20 135/77 99 Nasal Cannula 3.0 98.4 04/09/18 16:00 92 04/09/18 16:00 98.9 93 21 147/78 99 Nasal Cannula 3.0 98.9 04/09/18 12:00 98.5 88 22 136/88 99 Nasal Cannula 3.0 98.5 04/09/18 12:00 86 Intake and Output 04/09/18 04/10/18 19:00 07:00 Intake Total 1692.5 ml 1512.5 ml Output Total 1000 ml 875 ml Balance 692.5 ml 637.5 ml IV Total 1692.5 ml 1512.5 ml Output Urine Total 1000 ml 875 ml # Bowel Movements 2 4 General Appearance: no acute distress HEENT: normocephalic Respiratory/Chest: chest wall non-tender, lungs clear Cardiovascular: normal peripheral pulses, normal rate Abdomen: normal bowel sounds Laboratory Tests 04/10/18 06:17: White Blood Count 18.7H, Red Blood Count 2.92L, Hemoglobin 9.0L, Hematocrit 27.1L, Mean Corpuscular Volume 93, Mean Corpuscular Hemoglobin 30.8, Mean Corpuscular Hemoglobin Concent 33.1, Red Cell Distribution Width 13.9, Platelet Count 149L, Mean Platelet Volume 6.3L, Neutrophils (%) (Auto) , Lymphocytes (%) (Auto) , Monocytes (%) (Auto) , Eosinophils (%) (Auto) , Basophils (%) (Auto) , Neutrophils % (Manual) [Pending], Lymphocytes % (Manual) [Pending], Platelet Estimate [Pending], Platelet Morphology [Pending], Sodium Level 145, Potassium Level 3.8, Chloride Level 115H, Carbon Dioxide Level 19L, Anion Gap 11, Blood Urea Nitrogen 4L, Creatinine 0.9, Estimat Glomerular Filtration Rate > 60, Glucose Level 77, Calcium Level 7.3L, Phosphorus Level 2.8, Magnesium Level 1.5L Current Medications Medications (Trade) Dose Ordered Sig/Anna Route PRN Reason Start Time Stop Time Status Last Admin Dose Admin Aspirin (ASA) 81 mg DAILY ORAL 04/08/18 09:00 05/08/18 08:59 04/09/18 08:50 Carvedilol (Coreg) 6.25 mg EVERY 12 HOURS ORAL 04/08/18 21:00 05/08/18 20:59 04/09/18 20:02 Chlorhexidine Gluconate (Nel-Hex 2%) 1 applic DAILY@1999 TOPIC 04/07/18 20:00 05/07/18 19:59 04/09/18 19:58 Lactulose (Cephulac) 30 gm THREE TIMES A DAY NG 04/08/18 09:00 05/07/18 17:59 04/08/18 08:32 Pantoprazole (Protonix) 40 mg DAILY IVP 04/08/18 09:00 05/07/18 08:59 04/09/18 08:50 Piperacillin Sod/ Tazobactam Sod 3.375 gm/Dextrose 110 ml @ 27.5 mls/hr Q8HR IVPB 04/07/18 22:00 04/13/18 20:59 04/10/18 05:15 Potassium Chloride 40 meq/ Dextrose/Sodium Chloride 1,020 ml @ 125 mls/hr Q8H10M IV 04/07/18 19:30 05/07/18 19:29 04/10/18 05:15 Vancomycin HCl (Vanco rx to dose) 1 ea DAILY PRN MISC Per rx protocol 04/07/18 18:30 05/07/18 18:29 Vancomycin HCl/ Dextrose 250 ml @ 166.667 mls/hr Q24H IVPB 04/08/18 17:00 04/12/18 16:59 04/09/18 16:22 Kannan Rogers MD Apr 10, 2018 09:38
[2018-04-10] MEDS: Lactulose 20gm/30ml UDC NG SCH ×3 (10:21→18:08)
[2018-04-10] MEDS: Aspirin Baby 81mg ORAL SCH (10:22)
[2018-04-10] MEDS: Carvedilol 6.25mg Tab ORAL SCH ×2 (10:22→20:48)
[2018-04-10] MEDS: Pantoprazole Inj IVP SCH (10:22)
[2018-04-10 12:00] VITALS: BP 102/68
[2018-04-10] MEDS ORDERED: metroNIDAZOLE 500mg tab ORAL SCH (14:00)
[2018-04-10 16:00] VITALS: BP 126/70
[2018-04-10] MEDS: Vancomycin 1250mg/D5W 250ml 250 ML IVPB SCH (18:07)
--- NOTE | 2018-04-10 19:15 | Consultation ---
DATE OF CONSULTATION: 04/10/2018 INFECTIOUS DISEASES CONSULTATION CONSULTING PHYSICIAN: Chester Buitrago M.D. REFERRING PHYSICIAN: Kannan Rogers M.D. REASON FOR CONSULTATION: Leukocytosis and urinary tract infection. HISTORY OF PRESENTING ILLNESS: This is a 72-year-old gentleman with history of cirrhosis and hepatic encephalopathy who came in with hypotension and septic shock, now he has increasing leukocytosis and an Infectious Diseases consultation has been obtained for antibiotics. PAST MEDICAL HISTORY: 1. History of pneumonia. 2. History of cirrhosis. 3. Hepatic encephalopathy. 4. Coronary artery disease. 5. Gastrointestinal bleeding. SOCIAL HISTORY: Unknown. FAMILY HISTORY: Unknown. REVIEW OF SYSTEMS: Unable to obtain currently. MEDICATIONS: As an inpatient, he is on carvedilol, vancomycin, aspirin, lactulose, Protonix, Zosyn, chlorhexidine, gluconate, and potassium. ALLERGIES: No known drug allergies. PHYSICAL EXAMINATION: VITAL SIGNS: Temperature of 98.1, T-max of 98.9, pulse of 87, respiratory rate of 18, blood pressure 122/80, and O2 saturation of 100%. HEENT: Pupils equally reactive to light and accommodation. Mouth appears clean without thrush. NECK: Supple. No adenopathy. No JVD. CARDIOVASCULAR: Regular rate and rhythm. No murmurs. LUNGS: Clear to auscultation bilaterally. No crackles. No wheezes. ABDOMEN: Soft and nontender. No organomegaly. EXTREMITIES: No cyanosis, no clubbing, no edema. LABORATORY AND DIAGNOSTIC DATA: White count of 18.7, hemoglobin 9, hematocrit 27, MCV 93, and platelet count of 149. Sodium 145, potassium 3.8, chloride 115, bicarbonate 19, BUN 4, creatinine 0.9, and glucose 77. Calcium 7.3. UA is showing too numerous to count white cells. Blood cultures are negative from 04/06/2018. 04/06/2018 urine cultures are negative. 04/06/2018 nasal swab was negative for influenza A and B. Chest x-ray is showing bilateral perihilar fullness with atelectasis. ASSESSMENT: This is a 72-year-old gentleman with history of cirrhosis and pneumonia who comes in with, 1. Pneumonia. 2. Increasing leukocytosis. 3. Gastrointestinal bleeding. 4. Rule out Clostridium difficile colitis as a possibility. PLAN: 1. We will order sputum for Gram stain and culture. 2. We will order stool for C. difficile colitis. 3. We will start the patient on Flagyl. 4. We will follow up cultures and adjust antibiotics. 5. Continue vancomycin and Zosyn. 6. We will follow up cultures and adjust antibiotics accordingly. I would like to thank Dr. Rogers for this consultation. Chester Buitrago M.D. DR: CECIL JOB#: [id number] CC: Kannan Rogers M.D.; Fax#: [phone]
[2018-04-10 20:00] VITALS: BP 121/83
[2018-04-10] MEDS: Dyna-Hex 2% Top Sol 2oz TOPIC SCH (20:47)
--- NOTE | 2018-04-10 21:25 | Nephrology Progress Note ---
Assessment/Plan Problem List: (1) Hepatic encephalopathy (2) Cirrhosis (3) Hypokalemia (4) Hypernatremia (5) Sepsis (6) Hypotension (7) Atrial fibrillation with RVR Plan lab trending better, continue hydration, Subjective ROS Limited/Unobtainable: Yes Objective Objective Last 24 Hour Vital Signs Date Time Temp Pulse Resp B/P (MAP) Pulse Ox O2 Delivery O2 Flow Rate FiO2 04/10/18 20:48 94 121/83 04/10/18 20:00 97.7 94 19 121/83 100 Nasal Cannula 3.0 97.7 04/10/18 16:00 97.5 95 18 126/70 99 Nasal Cannula 3.0 97.5 04/10/18 16:00 91 04/10/18 12:00 85 04/10/18 12:00 97.9 93 22 102/68 96 Nasal Cannula 3.0 97.9 04/10/18 10:22 87 122/80 04/10/18 08:00 98.1 87 18 122/80 100 Nasal Cannula 3.0 98.1 04/10/18 08:00 90 04/10/18 04:00 86 04/10/18 04:00 97.4 78 24 122/71 99 Nasal Cannula 3.0 97.4 04/10/18 00:00 87 04/10/18 00:00 98.2 94 18 125/70 99 Nasal Cannula 3.0 98.2 Intake and Output 04/09/18 04/10/18 19:00 07:00 Intake Total 1692.5 ml 1512.5 ml Output Total 1000 ml 875 ml Balance 692.5 ml 637.5 ml IV Total 1692.5 ml 1512.5 ml Output Urine Total 1000 ml 875 ml # Bowel Movements 2 4 Laboratory Tests 04/10/18 06:17: White Blood Count 18.7H, Red Blood Count 2.92L, Hemoglobin 9.0L, Hematocrit 27.1L, Mean Corpuscular Volume 93, Mean Corpuscular Hemoglobin 30.8, Mean Corpuscular Hemoglobin Concent 33.1, Red Cell Distribution Width 13.9, Platelet Count 149L, Mean Platelet Volume 6.3L, Neutrophils (%) (Auto) , Lymphocytes (%) (Auto) , Monocytes (%) (Auto) , Eosinophils (%) (Auto) , Basophils (%) (Auto) , Differential Total Cells Counted 100, Neutrophils % (Manual) 62, Lymphocytes % ( Manual) 24, Monocytes % (Manual) 13H, Eosinophils % (Manual) 0, Basophils % ( Manual) 1, Band Neutrophils 0, Reactive Lymphocytes 2+, Platelet Estimate DecreasedL, Platelet Morphology Normal, Sodium Level 145, Potassium Level 3.8, Chloride Level 115H, Carbon Dioxide Level 19L, Anion Gap 11, Blood Urea Nitrogen 4L, Creatinine 0.9, Estimat Glomerular Filtration Rate > 60, Glucose Level 77, Calcium Level 7.3L, Phosphorus Level 2.8, Magnesium Level 1.5L 04/10/18 17:00: Vancomycin Level Trough 16.3H Height (Feet): 6 Height (Inches): 0.00 Weight (Pounds): 181 General Appearance: alert, lethargic EENT: normal ENT inspection Neck: normal alignment Cardiovascular: normal rate Respiratory/Chest: lungs clear Abdomen: soft Extremities: trace edema Neurologic: motor weakness, disoriented CASSIE DIAZ Apr 10, 2018 21:25
[2018-04-10] MEDS: metroNIDAZOLE 500mg tab ORAL SCH (22:32)
[2018-04-11] VITALS: BP 130/77
--- NOTE | 2018-04-11 01:15 | Progress Note ---
DATE: 04/10/2018 CARDIOLOGY PROGRESS NOTE SUBJECTIVE: The patient is alert. No apparent distress. OBJECTIVE: VITAL SIGNS: Blood pressure 121/83, pulse 94, respirations 19, and afebrile. LUNGS: Bilateral breath sounds. HEART: Regular rhythm and rate. Normal S1, S2. No murmur. ABDOMEN: Soft. Slight distention. No ascites. EXTREMITIES: Trace edema. LABORATORY DATA: White count 18.7 and hemoglobin 9. Sodium 145, potassium 3.8, chloride 115, bicarb 19, BUN 4, and creatinine 0.9. Magnesium 1.5. Troponin yesterday 0.079. Albumin 1.2. IMPRESSION: 1. Acute myocardial infarction. 2. Paroxysmal atrial fibrillation. 3. Sepsis with shock. 4. Alcoholic liver disease. 5. Hepatic encephalopathy. 6. Urinary sepsis. 7. Healthcare-acquired pneumonia. 8. Dehydration. 9. Hypernatremia, improved. 10. Metabolic acidosis. 11. Hypomagnesemia. PLAN: 1. Antimicrobials per Infectious Disease business travel consultant. 2. IV magnesium. 3. Continue beta-blockade. 4. Anti-platelet therapy. 5. Adjust IV fluids. 6. DVT and stress ulcer prophylaxes. Lawrence Han M.D. DR: JDE JOB#: [id number] CC:
[2018-04-11 04:00] VITALS: BP 124/81
[2018-04-11] MEDS: Potassium Chloride 40 MEQ in D5 1/4NS 1000ml 1,000 ML IV SCH ×2 (06:07→14:25)
[2018-04-11] MEDS: Piperacillin/Tazobactam 3.375 GM in D5W 110 ML IVPB SCH ×3 (06:08→21:46)
[2018-04-11] MEDS: metroNIDAZOLE 500mg tab ORAL SCH ×3 (06:09→21:46)
[2018-04-11 07:37] LABS: ANION GAP 8 mmol/L (5-15); BLOOD UREA NITROGEN 4 mg/dL (7-18); CALCIUM 7.3 MG/DL (8.5-10.1); CARBON DIOXIDE 19 MMOL/L (21-32); CHLORIDE 115 MMOL/L (98-107); CREATININE 0.8 MG/DL (0.55-1.30); HEMATOCRIT 24.2 % (42.0-52.0); HEMOGLOBIN 8.2 G/DL (14.2-18.0); MEAN CORPUSCULAR VOLUME 92 FL (80-99); PLATELET COUNT 158 K/UL (150-450); POTASSIUM 3.9 MMOL/L (3.5-5.1); RED BLOOD COUNT 2.64 M/UL (4.70-6.10); RED CELL DISTRIBUTION WIDTH 13.6 % (11.6-14.8); SODIUM 142 MMOL/L (136-145); WHITE BLOOD COUNT 18.8 K/UL (4.8-10.8)
[2018-04-11 08:00] VITALS: BP 119/76
[2018-04-11] MEDS: Lactulose 20gm/30ml UDC NG SCH ×3 (08:30→18:39)
[2018-04-11] MEDS: Pantoprazole Inj IVP SCH (08:30)
[2018-04-11] MEDS: Aspirin Baby 81mg ORAL SCH (08:30)
[2018-04-11] MEDS: Carvedilol 6.25mg Tab ORAL SCH ×2 (08:31→20:59)
--- NOTE | 2018-04-11 10:54 | Infectious Diseases Prog Note ---
Assessment/Plan Assessment/Plan A: Pneumonia Cirrhosis Diarrhea Anemia Paroxysmal A fib P: Continue Vancomycin, Zosyn & Flagyl Will f/u cultures Subjective ROS Limited/Unobtainable: No Constitutional: Reports: no symptoms Respiratory: Reports: no symptoms Cardiovascular: Reports: no symptoms Gastrointestinal/Abdominal: Reports: no symptoms Genitourinary: Reports: no symptoms Allergies: Coded Allergies: No Known Allergies (Unverified , 04/06/18) Objective Vital Signs Last 24 Hour Vital Signs Date Time Temp Pulse Resp B/P (MAP) Pulse Ox O2 Delivery O2 Flow Rate FiO2 04/11/18 08:31 86 119/76 04/11/18 08:00 97.0 86 20 119/76 100 Nasal Cannula 3.0 97.0 04/11/18 04:00 97.1 89 19 124/81 100 Nasal Cannula 3.0 97.1 04/11/18 03:37 80 04/11/18 00:00 97.3 84 19 130/77 100 Nasal Cannula 3.0 97.3 04/10/18 23:45 87 04/10/18 20:48 94 121/83 04/10/18 20:00 97.7 94 19 121/83 100 Nasal Cannula 3.0 97.7 04/10/18 19:25 93 04/10/18 16:00 97.5 95 18 126/70 99 Nasal Cannula 3.0 97.5 04/10/18 16:00 91 04/10/18 12:00 85 04/10/18 12:00 97.9 93 22 102/68 96 Nasal Cannula 3.0 97.9 Height (Feet): 6 Height (Inches): 0.00 Weight (Pounds): 178 General Appearance: no acute distress HEENT: mucous membranes moist Respiratory/Chest: lungs clear Cardiovascular: normal rate Abdomen: soft, non tender Extremities: no edema Neurologic/Psychiatric: alert, responsive Laboratory Tests Test 04/10/18 17:00 04/11/18 06:05 Vancomycin Level Trough 16.3 ug/mL (5.0-12.0) H White Blood Count 18.8 K/UL (4.8-10.8) H Red Blood Count 2.64 M/UL (4.70-6.10) L Hemoglobin 8.2 G/DL (14.2-18.0) L Hematocrit 24.2 % (42.0-52.0) L Mean Corpuscular Volume 92 FL (80-99) Mean Corpuscular Hemoglobin 31.3 PG (27.0-31.0) H Mean Corpuscular Hemoglobin Concent 34.0 G/DL (32.0-36.0) Red Cell Distribution Width 13.6 % (11.6-14.8) Platelet Count 158 K/UL (150-450) Mean Platelet Volume 6.7 FL (6.5-10.1) Neutrophils (%) (Auto) % (45.0-75.0) Lymphocytes (%) (Auto) % (20.0-45.0) Monocytes (%) (Auto) % (1.0-10.0) Eosinophils (%) (Auto) % (0.0-3.0) Basophils (%) (Auto) % (0.0-2.0) Neutrophils % (Manual) Pending Lymphocytes % (Manual) Pending Platelet Estimate Pending Platelet Morphology Pending Sodium Level 142 MMOL/L (136-145) Potassium Level 3.9 MMOL/L (3.5-5.1) Chloride Level 115 MMOL/L (98-107) H Carbon Dioxide Level 19 MMOL/L (21-32) L Anion Gap 8 mmol/L (5-15) Blood Urea Nitrogen 4 mg/dL (7-18) L Creatinine 0.8 MG/DL (0.55-1.30) Estimat Glomerular Filtration Rate > 60 mL/min (>60) Glucose Level 113 MG/DL (74-106) H Calcium Level 7.3 MG/DL (8.5-10.1) L Ammonia 19 umol/L (11-32) Current Medications Medications (Trade) Dose Ordered Sig/Anna Route PRN Reason Start Time Stop Time Status Last Admin Dose Admin Aspirin (ASA) 81 mg DAILY ORAL 04/11/18 09:00 05/08/18 08:59 04/11/18 08:30 Carvedilol (Coreg) 6.25 mg EVERY 12 HOURS ORAL 04/10/18 21:00 05/08/18 20:59 04/11/18 08:31 Chlorhexidine Gluconate (Nel-Hex 2%) 1 applic DAILY@1999 TOPIC 04/10/18 20:00 05/07/18 19:59 04/10/18 20:47 Lactulose (Cephulac) 30 gm THREE TIMES A DAY NG 04/11/18 09:00 05/07/18 17:59 04/11/18 08:30 Metronidazole (Flagyl) 500 mg EVERY 8 HOURS ORAL 04/10/18 22:00 04/17/18 13:59 04/11/18 06:09 Pantoprazole (Protonix) 40 mg DAILY IVP 04/11/18 09:00 05/07/18 08:59 04/11/18 08:30 Piperacillin Sod/ Tazobactam Sod 3.375 gm/Dextrose 110 ml @ 27.5 mls/hr Q8HR IVPB 04/10/18 22:00 04/13/18 20:59 04/11/18 06:08 Potassium Chloride 40 meq/ Dextrose/Sodium Chloride 1,020 ml @ 125 mls/hr Q8H10M IV 04/10/18 21:31 05/07/18 21:30 04/11/18 06:07 Vancomycin HCl (Vanco rx to dose) 1 ea DAILY PRN MISC Per rx protocol 04/10/18 19:00 05/10/18 18:59 Vancomycin HCl/ Dextrose 250 ml @ 166.667 mls/hr Q24H IVPB 04/11/18 17:00 04/12/18 16:59 Dale Galindo MD Apr 11, 2018 10:54
--- NOTE | 2018-04-11 11:46 | Pulmonology Progress Note ---
Assessment/Plan Assessment/Plan 1. Acute myocardial infarction. 2. Paroxysmal atrial fibrillation. 3. Sepsis with shock. 4. Alcoholic liver disease. 5. Hepatic encephalopathy. 6. Urinary sepsis. 7. Healthcare-acquired pneumonia. 8. Dehydration. 9. Hypernatremia, improved. 10. Metabolic acidosis. 11. Hypomagnesemia. tolerates thickened diet; advance OT/PT cont abx, WBC still high CXR reviewed Subjective Constitutional: Denies: fever Respiratory: Reports: no symptoms Cardiovascular: Reports: no symptoms Allergies: Coded Allergies: No Known Allergies (Unverified , 04/06/18) Objective Last 24 Hour Vital Signs Date Time Temp Pulse Resp B/P (MAP) Pulse Ox O2 Delivery O2 Flow Rate FiO2 04/11/18 08:31 86 119/76 04/11/18 08:00 97.0 86 20 119/76 100 Nasal Cannula 3.0 97.0 04/11/18 04:00 97.1 89 19 124/81 100 Nasal Cannula 3.0 97.1 04/11/18 03:37 80 04/11/18 00:00 97.3 84 19 130/77 100 Nasal Cannula 3.0 97.3 04/10/18 23:45 87 04/10/18 20:48 94 121/83 04/10/18 20:00 97.7 94 19 121/83 100 Nasal Cannula 3.0 97.7 04/10/18 19:25 93 04/10/18 16:00 97.5 95 18 126/70 99 Nasal Cannula 3.0 97.5 04/10/18 16:00 91 04/10/18 12:00 85 04/10/18 12:00 97.9 93 22 102/68 96 Nasal Cannula 3.0 97.9 Intake and Output 04/10/18 04/11/18 19:00 07:00 Intake Total 1831.667 ml 769.167 ml Output Total 900 ml Balance 1831.667 ml -130.833 ml IV Total 1831.667 ml 769.167 ml Output Urine Total 900 ml # Voids 5 # Bowel Movements 3 1 General Appearance: no acute distress Respiratory/Chest: lungs clear Cardiovascular: normal rate Abdomen: soft, non tender Laboratory Tests 04/10/18 17:00: Vancomycin Level Trough 16.3H 04/11/18 06:05: White Blood Count 18.8H, Red Blood Count 2.64L, Hemoglobin 8.2L, Hematocrit 24.2L, Mean Corpuscular Volume 92, Mean Corpuscular Hemoglobin 31.3H, Mean Corpuscular Hemoglobin Concent 34.0, Red Cell Distribution Width 13.6, Platelet Count 158, Mean Platelet Volume 6.7, Neutrophils (%) (Auto) , Lymphocytes (%) ( Auto) , Monocytes (%) (Auto) , Eosinophils (%) (Auto) , Basophils (%) (Auto) , Differential Total Cells Counted 100, Neutrophils % (Manual) 47, Lymphocytes % ( Manual) 32, Monocytes % (Manual) 12H, Eosinophils % (Manual) 7H, Basophils % ( Manual) 2, Band Neutrophils 0, Platelet Estimate Adequate, Platelet Morphology Normal, Hypochromasia 2+, Anisocytosis 1+, Spherocytes 1+, Sodium Level 142, Potassium Level 3.9, Chloride Level 115H, Carbon Dioxide Level 19L, Anion Gap 8 , Blood Urea Nitrogen 4L, Creatinine 0.8, Estimat Glomerular Filtration Rate > 60, Glucose Level 113H, Calcium Level 7.3L, Ammonia 19 Current Medications Medications (Trade) Dose Ordered Sig/Anna Route PRN Reason Start Time Stop Time Status Last Admin Dose Admin Aspirin (ASA) 81 mg DAILY ORAL 04/11/18 09:00 05/08/18 08:59 04/11/18 08:30 Carvedilol (Coreg) 6.25 mg EVERY 12 HOURS ORAL 04/10/18 21:00 05/08/18 20:59 04/11/18 08:31 Chlorhexidine Gluconate (Nel-Hex 2%) 1 applic DAILY@1999 TOPIC 04/10/18 20:00 05/07/18 19:59 04/10/18 20:47 Lactulose (Cephulac) 30 gm THREE TIMES A DAY NG 04/11/18 09:00 05/07/18 17:59 04/11/18 08:30 Metronidazole (Flagyl) 500 mg EVERY 8 HOURS ORAL 04/10/18 22:00 04/17/18 13:59 04/11/18 06:09 Pantoprazole (Protonix) 40 mg DAILY IVP 04/11/18 09:00 05/07/18 08:59 04/11/18 08:30 Piperacillin Sod/ Tazobactam Sod 3.375 gm/Dextrose 110 ml @ 27.5 mls/hr Q8HR IVPB 04/10/18 22:00 04/13/18 20:59 04/11/18 06:08 Potassium Chloride 40 meq/ Dextrose/Sodium Chloride 1,020 ml @ 125 mls/hr Q8H10M IV 04/10/18 21:31 05/07/18 21:30 04/11/18 06:07 Vancomycin HCl (Vanco rx to dose) 1 ea DAILY PRN MISC Per rx protocol 04/10/18 19:00 05/10/18 18:59 Vancomycin HCl/ Dextrose 250 ml @ 166.667 mls/hr Q24H IVPB 04/11/18 17:00 04/12/18 16:59 Gene Wood MD Apr 11, 2018 11:46
[2018-04-11 12:00] VITALS: BP 121/82
[2018-04-11] MEDS ORDERED: Tubing IV Secondary IV ONE (15:50)
[2018-04-11 16:00] VITALS: BP 134/92
[2018-04-11] MEDS ORDERED: Vancomycin 1250mg/D5W 250ml 250 ML IVPB SCH (17:00)
[2018-04-11 20:00] VITALS: BP 151/88
--- NOTE | 2018-04-11 20:58 | Nephrology Progress Note ---
Assessment/Plan Problem List: (1) Hepatic encephalopathy (2) Cirrhosis (3) Hypokalemia (4) Hypernatremia (5) Sepsis (6) Hypotension (7) Atrial fibrillation with RVR (8) Acute myocardial infarction (9) Healthcare-associated pneumonia Plan lab trending better, reduce iv fluids Subjective ROS Limited/Unobtainable: Yes Objective Objective Last 24 Hour Vital Signs Date Time Temp Pulse Resp B/P (MAP) Pulse Ox O2 Delivery O2 Flow Rate FiO2 04/11/18 16:00 97.5 89 20 134/92 100 Nasal Cannula 3.0 97.5 04/11/18 16:00 93 04/11/18 12:00 83 04/11/18 12:00 98.0 64 20 121/82 100 Nasal Cannula 3.0 98.0 04/11/18 08:31 86 119/76 04/11/18 08:00 97.0 86 20 119/76 100 Nasal Cannula 3.0 97.0 04/11/18 08:00 81 04/11/18 04:00 97.1 89 19 124/81 100 Nasal Cannula 3.0 97.1 04/11/18 03:37 80 04/11/18 00:00 97.3 84 19 130/77 100 Nasal Cannula 3.0 97.3 04/10/18 23:45 87 Intake and Output 04/10/18 04/11/18 19:00 07:00 Intake Total 1831.667 ml 769.167 ml Output Total 900 ml Balance 1831.667 ml -130.833 ml IV Total 1831.667 ml 769.167 ml Output Urine Total 900 ml # Voids 5 # Bowel Movements 3 1 Laboratory Tests 04/11/18 06:05: White Blood Count 18.8H, Red Blood Count 2.64L, Hemoglobin 8.2L, Hematocrit 24.2L, Mean Corpuscular Volume 92, Mean Corpuscular Hemoglobin 31.3H, Mean Corpuscular Hemoglobin Concent 34.0, Red Cell Distribution Width 13.6, Platelet Count 158, Mean Platelet Volume 6.7, Neutrophils (%) (Auto) , Lymphocytes (%) ( Auto) , Monocytes (%) (Auto) , Eosinophils (%) (Auto) , Basophils (%) (Auto) , Differential Total Cells Counted 100, Neutrophils % (Manual) 47, Lymphocytes % ( Manual) 32, Monocytes % (Manual) 12H, Eosinophils % (Manual) 7H, Basophils % ( Manual) 2, Band Neutrophils 0, Platelet Estimate Adequate, Platelet Morphology Normal, Hypochromasia 2+, Anisocytosis 1+, Spherocytes 1+, Sodium Level 142, Potassium Level 3.9, Chloride Level 115H, Carbon Dioxide Level 19L, Anion Gap 8 , Blood Urea Nitrogen 4L, Creatinine 0.8, Estimat Glomerular Filtration Rate > 60, Glucose Level 113H, Calcium Level 7.3L, Ammonia 19 Height (Feet): 6 Height (Inches): 0.00 Weight (Pounds): 178 General Appearance: no apparent distress, confused EENT: normal ENT inspection Neck: normal alignment Cardiovascular: normal rate, regular rhythm Respiratory/Chest: lungs clear Abdomen: non tender Extremities: trace edema Neurologic: motor weakness CASSIE DIAZ Apr 11, 2018 20:58
[2018-04-11] MEDS: Dyna-Hex 2% Top Sol 2oz TOPIC SCH (20:59)
[2018-04-11] MEDS ORDERED: Potassium Chloride 40 MEQ in D5 1/4NS 1000ml 1,000 ML IV SCH (22:30)
[2018-04-12] VITALS: BP 121/77
[2018-04-12 04:00] VITALS: BP 137/76
--- NOTE | 2018-04-12 05:00 | Progress Note ---
DATE: 04/11/2018 SUBJECTIVE: The patient remains without any distress, still with congestion. OBJECTIVE: VITAL SIGNS: Blood pressure 119/76, pulse 86, respirations 20, and afebrile. LUNGS: With rhonchi. CARDIAC: Regular rhythm and rate. Normal S1, S2. ABDOMEN: Soft. EXTREMITIES: Trace edema. LABORATORY AND DIAGNOSTIC DATA: Monitor, sinus rhythm with rare atrial ectopics. White count 18.8, hemoglobin 8.2. Bicarbonate 19, BUN 4, and creatinine 0.8. IMPRESSION: 1. Acute myocardial infarction precipitated by septic shock. 2. Healthcare-acquired pneumonia. 3. Sepsis. 4. Leukocytosis. 5. Paroxysmal atrial fibrillation. PLAN: 1. Antimicrobials. 2. Maintenance hydration. 3. Continue and titrate beta-isabel. 4. Aspirin prophylaxis. Lawrence Han M.D. DR: CJ JOB#: [id number] CC:
[2018-04-12] MEDS: Piperacillin/Tazobactam 3.375 GM in D5W 110 ML IVPB SCH ×3 (05:42→21:37)
[2018-04-12] MEDS: metroNIDAZOLE 500mg tab ORAL SCH (05:42)
[2018-04-12 07:18] LABS: ALANINE AMINOTRANSFERASE 9 U/L (12-78); ALBUMIN 1.2 G/DL (3.4-5.0); ALBUMIN/GLOBULIN RATIO 0.3 (1.0-2.7); ALKALINE PHOSPHATASE 95 U/L (46-116); ANION GAP 8 mmol/L (5-15); ASPARTATE AMINO TRANSFERASE 14 U/L (15-37); BILIRUBIN,TOTAL 0.7 MG/DL (0.2-1.0); BLOOD UREA NITROGEN 3 mg/dL (7-18); CALCIUM 7.4 MG/DL (8.5-10.1); CARBON DIOXIDE 22 MMOL/L (21-32); CHLORIDE 113 MMOL/L (98-107); CREATININE 0.9 MG/DL (0.55-1.30); POTASSIUM 4.3 MMOL/L (3.5-5.1); SODIUM 143 MMOL/L (136-145)
[2018-04-12 07:33] LABS: HEMATOCRIT 24.8 % (42.0-52.0); HEMOGLOBIN 8.4 G/DL (14.2-18.0); MEAN CORPUSCULAR VOLUME 91 FL (80-99); PLATELET COUNT 189 K/UL (150-450); RED BLOOD COUNT 2.71 M/UL (4.70-6.10); RED CELL DISTRIBUTION WIDTH 13.8 % (11.6-14.8); WHITE BLOOD COUNT 19.7 K/UL (4.8-10.8)
[2018-04-12 08:00] VITALS: BP 146/99
[2018-04-12] MEDS: Lactulose 20gm/30ml UDC NG SCH ×3 (08:32→18:00)
[2018-04-12] MEDS: Pantoprazole Inj IVP SCH (08:36)
[2018-04-12] MEDS: Aspirin Baby 81mg ORAL SCH (08:36)
[2018-04-12] MEDS: Carvedilol 12.5mg tab ORAL SCH ×2 (08:36→20:40)
--- NOTE | 2018-04-12 10:37 | Infectious Diseases Prog Note ---
"Assessment/Plan Assessment/Plan antibiotics : vancomycin iv, zosyn, flagyl A 1. pneumonia 2. leucocytosis 3. cirrhosis 4. atrial fibrillation P 1. continue vancomycin iv, zosyn, flagyl 2. CT chest | abdomen | pelvis 3. will follow up cultures Subjective ROS Limited/Unobtainable: Yes Allergies: Coded Allergies: No Known Allergies (Unverified , 04/06/18) Objective Vital Signs Last 24 Hour Vital Signs Date Time Temp Pulse Resp B/P (MAP) Pulse Ox O2 Delivery O2 Flow Rate FiO2 04/12/18 08:36 86 146/99 04/12/18 08:00 88 04/12/18 08:00 97.2 86 20 146/99 100 Nasal Cannula 3.0 97.2 04/12/18 07:35 Nasal Cannula 2.0 28 04/12/18 07:35 96 Nasal Cannula 2.0 28 04/12/18 04:00 97.3 87 20 137/76 100 Nasal Cannula 3.0 97.3 04/12/18 03:49 88 04/12/18 00:00 87 04/12/18 00:00 97.2 87 20 121/77 97 Nasal Cannula 3.0 97.2 04/11/18 20:59 93 148/85 04/11/18 20:00 Nasal Cannula 2.0 28 04/11/18 20:00 97.7 93 22 151/88 100 Nasal Cannula 3.0 97.7 04/11/18 20:00 95 Nasal Cannula 2.0 28 04/11/18 19:52 95 04/11/18 16:00 97.5 89 20 134/92 100 Nasal Cannula 3.0 97.5 04/11/18 16:00 93 04/11/18 12:00 83 04/11/18 12:00 98.0 64 20 121/82 100 Nasal Cannula 3.0 98.0 Height (Feet): 6 Height (Inches): 0.00 Weight (Pounds): 177 Respiratory/Chest: lungs clear Cardiovascular: normal rate, regular rhythm, no gallop/murmur Abdomen: soft, non tender Extremities: no edema Laboratory Tests Test 04/12/18 05:50 White Blood Count 19.7 K/UL (4.8-10.8) H Red Blood Count 2.71 M/UL (4.70-6.10) L Hemoglobin 8.4 G/DL (14.2-18.0) L Hematocrit 24.8 % (42.0-52.0) L Mean Corpuscular Volume 91 FL (80-99) Mean Corpuscular Hemoglobin 31.1 PG (27.0-31.0) H Mean Corpuscular Hemoglobin Concent 34.0 G/DL (32.0-36.0) Red Cell Distribution Width 13.8 % (11.6-14.8) Platelet Count 189 K/UL (150-450) Mean Platelet Volume 7.3 FL (6.5-10.1) Neutrophils (%) (Auto) % (45.0-75.0) Lymphocytes (%) (Auto) % (20.0-45.0) Monocytes (%) (Auto) % (1.0-10.0) Eosinophils (%) (Auto) % (0.0-3.0) Basophils (%) (Auto) % (0.0-2.0) Differential Total Cells Counted 100 Neutrophils % (Manual) 34 % (45-75) L Lymphocytes % (Manual) 49 % (20-45) H Monocytes % (Manual) 13 % (1-10) H Eosinophils % (Manual) 3 % (0-3) Basophils % (Manual) 1 % (0-2) Band Neutrophils 0 % (0-8) Platelet Estimate Adequate Platelet Morphology Normal Hypochromasia 2+ Anisocytosis 1+ Spherocytes 1+ Sodium Level 143 MMOL/L (136-145) Potassium Level 4.3 MMOL/L (3.5-5.1) Chloride Level 113 MMOL/L (98-107) H Carbon Dioxide Level 22 MMOL/L (21-32) Anion Gap 8 mmol/L (5-15) Blood Urea Nitrogen 3 mg/dL (7-18) L Creatinine 0.9 MG/DL (0.55-1.30) Estimat Glomerular Filtration Rate > 60 mL/min (>60) Glucose Level 91 MG/DL (74-106) Calcium Level 7.4 MG/DL (8.5-10.1) L Total Bilirubin 0.7 MG/DL (0.2-1.0) Aspartate Amino Transf (AST/SGOT) 14 U/L (15-37) L Alanine Aminotransferase (ALT/SGPT) 9 U/L (12-78) L Alkaline Phosphatase 95 U/L (46-116) Total Protein 5.8 G/DL (6.4-8.2) L Albumin 1.2 G/DL (3.4-5.0) L Globulin 4.6 g/dL Albumin/Globulin Ratio 0.3 (1.0-2.7) L Current Medications Medications (Trade) Dose Ordered Sig/Anna Route PRN Reason Start Time Stop Time Status Last Admin Dose Admin Aspirin (ASA) 81 mg DAILY ORAL 04/11/18 09:00 05/08/18 08:59 04/12/18 08:36 Carvedilol (Coreg) 12.5 mg EVERY 12 HOURS ORAL 04/12/18 09:00 05/12/18 08:59 04/12/18 08:36 Chlorhexidine Gluconate (Nel-Hex 2%) 1 applic DAILY@2000 TOPIC 04/10/18 20:00 05/07/18 19:59 04/11/18 20:59 Lactulose (Cephulac) 30 gm THREE TIMES A DAY NG 04/11/18 09:00 05/07/18 17:59 04/11/18 18:39 Metronidazole (Flagyl) 500 mg EVERY 8 HOURS ORAL 04/10/18 22:00 04/17/18 13:59 04/12/18 05:42 Pantoprazole (Protonix) 40 mg DAILY IVP 04/11/18 09:00 05/07/18 08:59 04/12/18 08:36 Piperacillin Sod/ Tazobactam Sod 3.375 gm/Dextrose 110 ml @ 27.5 mls/hr Q8HR IVPB 04/10/18 22:00 04/13/18 20:59 04/12/18 05:42 Potassium Chloride 40 meq/ Dextrose/Sodium Chloride 1,020 ml @ 25 mls/hr Q24H IV 04/11/18 22:30 05/11/18 22:29 04/11/18 22:53 Vancomycin HCl (Vanco rx to dose) 1 ea DAILY PRN MISC Per rx protocol 04/10/18 19:00 05/10/18 18:59 Vancomycin HCl/ Dextrose 250 ml @ 166.667 mls/hr Q24H IVPB 04/11/18 17:00 04/12/18 16:59 04/11/18 18:39 Vancomycin HCl/ Dextrose 250 ml @ 166.667 mls/hr Q24H IVPB 04/12/18 17:00 04/13/18 16:59 VALENTINE ZARATE Apr 12, 2018 10:37"
[2018-04-12] MEDS ORDERED: Isovue-300 100ml vial INJ PRN (10:45)
--- NOTE | 2018-04-12 11:50 | Diagnostic Imaging Report ---
APPROVED REPORT CPT Code: 93289 Present Symptoms Shortness of breath Comments: Screening BILATERAL: Imaging reveals a patent deep venous system bilaterally. There is no evidence of thrombus within the femoral, popliteal or tibial segments. The greater saphenous veins are also within normal limits. Doppler indicates normal spontaneous flow within these segments.
[2018-04-12 11:59] VITALS: BP 121/72
--- NOTE | 2018-04-12 13:04 | Pulmonology Progress Note ---
Assessment/Plan Assessment/Plan 1. Acute myocardial infarction. 2. Paroxysmal atrial fibrillation. 3. Sepsis with shock. 4. Alcoholic liver disease. 5. Hepatic encephalopathy. 6. Urinary sepsis. 7. Healthcare-acquired pneumonia. 8. Dehydration. 9. Hypernatremia, improved. 10. Metabolic acidosis. 11. Hypomagnesemia. tolerates diet OT/PT cont abx WBC still high, high lymphocytes called heme dc plan to snf when bed available Subjective Constitutional: Reports: no symptoms Allergies: Coded Allergies: No Known Allergies (Unverified , 04/06/18) Objective Last 24 Hour Vital Signs Date Time Temp Pulse Resp B/P (MAP) Pulse Ox O2 Delivery O2 Flow Rate FiO2 04/12/18 12:00 81 04/12/18 11:59 97.2 83 20 121/72 97 Nasal Cannula 3.0 97.2 04/12/18 08:36 86 146/99 04/12/18 08:00 88 04/12/18 08:00 97.2 86 20 146/99 100 Nasal Cannula 3.0 97.2 04/12/18 07:35 Nasal Cannula 2.0 28 04/12/18 07:35 96 Nasal Cannula 2.0 28 04/12/18 04:00 97.3 87 20 137/76 100 Nasal Cannula 3.0 97.3 04/12/18 03:49 88 04/12/18 00:00 87 04/12/18 00:00 97.2 87 20 121/77 97 Nasal Cannula 3.0 97.2 04/11/18 20:59 93 148/85 04/11/18 20:00 Nasal Cannula 2.0 28 04/11/18 20:00 97.7 93 22 151/88 100 Nasal Cannula 3.0 97.7 04/11/18 20:00 95 Nasal Cannula 2.0 28 04/11/18 19:52 95 04/11/18 16:00 97.5 89 20 134/92 100 Nasal Cannula 3.0 97.5 04/11/18 16:00 93 Intake and Output 04/11/18 04/12/18 19:00 07:00 Intake Total 498.33 ml 333.334 ml Output Total 1200 ml 2000 ml Balance -701.67 ml -1666.666 ml Intake Oral 440 ml IV Total 58.33 ml 333.334 ml Output Urine Total 1200 ml 2000 ml # Bowel Movements 3 3 General Appearance: no acute distress Respiratory/Chest: lungs clear Cardiovascular: normal rate Laboratory Tests 04/12/18 05:50: White Blood Count 19.7H, Red Blood Count 2.71L, Hemoglobin 8.4L, Hematocrit 24.8L, Mean Corpuscular Volume 91, Mean Corpuscular Hemoglobin 31.1H, Mean Corpuscular Hemoglobin Concent 34.0, Red Cell Distribution Width 13.8, Platelet Count 189, Mean Platelet Volume 7.3, Neutrophils (%) (Auto) , Lymphocytes (%) ( Auto) , Monocytes (%) (Auto) , Eosinophils (%) (Auto) , Basophils (%) (Auto) , Differential Total Cells Counted 100, Neutrophils % (Manual) 34L, Lymphocytes % (Manual) 49H, Monocytes % (Manual) 13H, Eosinophils % (Manual) 3, Basophils % ( Manual) 1, Band Neutrophils 0, Platelet Estimate Adequate, Platelet Morphology Normal, Hypochromasia 2+, Anisocytosis 1+, Spherocytes 1+, Sodium Level 143, Potassium Level 4.3, Chloride Level 113H, Carbon Dioxide Level 22, Anion Gap 8, Blood Urea Nitrogen 3L, Creatinine 0.9, Estimat Glomerular Filtration Rate > 60 , Glucose Level 91, Calcium Level 7.4L, Total Bilirubin 0.7, Aspartate Amino Transf (AST/SGOT) 14L, Alanine Aminotransferase (ALT/SGPT) 9L, Alkaline Phosphatase 95, Total Protein 5.8L, Albumin 1.2L, Globulin 4.6, Albumin/ Globulin Ratio 0.3L Current Medications Medications (Trade) Dose Ordered Sig/Anna Route PRN Reason Start Time Stop Time Status Last Admin Dose Admin Aspirin (ASA) 81 mg DAILY ORAL 04/11/18 09:00 05/08/18 08:59 04/12/18 08:36 Carvedilol (Coreg) 12.5 mg EVERY 12 HOURS ORAL 04/12/18 09:00 05/12/18 08:59 04/12/18 08:36 Chlorhexidine Gluconate (Nel-Hex 2%) 1 applic DAILY@1999 TOPIC 04/10/18 20:00 05/07/18 19:59 04/11/18 20:59 Lactulose (Cephulac) 30 gm THREE TIMES A DAY NG 04/11/18 09:00 05/07/18 17:59 04/11/18 18:39 Metronidazole (Flagyl) 500 mg EVERY 8 HOURS ORAL 04/10/18 22:00 04/17/18 13:59 04/12/18 05:42 Pantoprazole (Protonix) 40 mg DAILY IVP 04/11/18 09:00 05/07/18 08:59 04/12/18 08:36 Piperacillin Sod/ Tazobactam Sod 3.375 gm/Dextrose 110 ml @ 27.5 mls/hr Q8HR IVPB 04/12/18 14:00 04/15/18 12:59 Potassium Chloride 40 meq/ Dextrose/Sodium Chloride 1,020 ml @ 25 mls/hr Q24H IV 04/11/18 22:30 05/11/18 22:29 04/11/18 22:53 Vancomycin HCl (Vanco rx to dose) 1 ea DAILY PRN MISC Per rx protocol 04/10/18 19:00 05/10/18 18:59 Vancomycin HCl/ Dextrose 250 ml @ 166.667 mls/hr Q24H IVPB 04/11/18 17:00 04/12/18 16:59 04/11/18 18:39 Vancomycin HCl/ Dextrose 250 ml @ 166.667 mls/hr Q24H IVPB 04/12/18 18:00 04/13/18 17:59 Gene Wood MD Apr 12, 2018 13:04
[2018-04-12] MEDS ORDERED: metroNIDAZOLE 500mg tab ORAL ONE (15:00)
[2018-04-12 16:00] VITALS: BP 129/84
--- NOTE | 2018-04-12 16:34 | Diagnostic Imaging Report ---
Indication: Reason For Exam: ABSCESS TECHNIQUE: No oral contrast, patient unable to tolerate. IV administration nonionic contrast. Multiphasic spiral acquisitions obtained through the chest, abdomen, and pelvis Multiplanar reconstructions were generated. Total dose length product 1063.13 mGycm. CTDIvol(s) 11.8,12.77 mGy. Radiation dose was minimized using automated exposure control COMPARISON: none FINDINGS Chest: There are small to moderate-sized bilateral pleural effusions. The lungs demonstrate mild interstitial septal thickening. There is some areas of groundglass opacity bilaterally. Some reticular opacities in the anterior right upper lobe are noted. There are compressive atelectatic changes at both lung bases. A few small nodular opacities measuring under 6 mm are seen in the left lower lobe. There is right hilar adenopathy, with a right hilar node measuring 21 mm in diameter. There are also prominent borderline enlarged based on those, with a precarinal node measuring 32 mm diameter, subcarinal node measuring 24 mm in diameter, and a prominent prevascular space node.. No axillary or chest wall mass or adenopathy. There is a moderate to large hiatal hernia. This appears to be a paraesophageal hiatal hernia. There is thoracolumbar dextroscoliotic deformity. Abdomen pelvis: The pancreas is markedly abnormal. Ill-defined area of low-attenuation is seen involving the pancreatic head and body, complex in shape and therefore difficult to measure. Main component of this measures approximately 4 cm long axis dimension. This is seen at and inferior to the pancreatic head body junction, extends caudad around the superior mesenteric vein and reaches the anterior aspect of the uncinate process. This has nodular superficial borders. There is also a minimal amount of peripancreatic fluid. There is peripancreatic lymphadenopathy, largest node measuring 4.3 x 2.3 cm, as well as numerous other nodes surrounding the pancreatic head and body. Prominent nodes are also seen posterior to the pancreatic tail. The gallbladder is distended and equivocally mildly thick-walled. It contains sludge and possible subtle gallstones. No biliary ductal dilatation. The liver is unremarkable. The spleen, adrenals are unremarkable. The right kidney demonstrates some renal sinus calculi. It is uncertain whether these are arterial or calyceal. No hydronephrosis. The left kidney demonstrates a 2.4 cm upper pole cyst. There is a lower pole parapelvic cysts. Renal sinus calcifications are probably arterial Other smaller subcentimeter low-attenuation renal lesions most likely represent benign simple cysts. There are prominent borderline enlarged periaortic and pericaval lymph nodes. These measure up to 13 mm in diameter. No pelvic mass or adenopathy. The bladder is empty, contains a Moreno catheter. An irregular near metallic density is seen within the rectal lumen, measures 2 cm in diameter. There is evidence of prior prostatectomy. There is edema of the right buttock subcutaneous fat and of the left flank subcutaneous fat. There is colonic diverticulosis. No evidence of diverticulitis. The appendix is not definitely demonstrated, but no findings to suggest acute appendicitis are evident. No small bowel distention. No free intraperitoneal air. No intraperitoneal fluid other than the minimal peripancreatic changes There is a small fat-containing right inguinal hernia. There is a right groin central venous catheter Impression: Unusual pancreatic head and body lesion. The shape is not that of a typical mass lesion, but the presence of extensive surrounding lymphadenopathy indicates that this is probably a pancreatic malignancy. The possibility of pancreatitis with surrounding phlegmon and reactive lymphadenopathy should also be considered. Borderline lymphadenopathy elsewhere, in the retroperitoneum and mediastinum and right pulmonary hilum. Although possibly related to the pancreatic process, distribution is not typical, and the possibility of a lymphoproliferative disorder should be considered. Distended equivocally mildly thick-walled gallbladder, without infiltration of the pericholecystic fat. There is evidence of gallbladder sludge and equivocal subtle gallstones. If there is clinical suspicion for acute cholecystitis, consider ultrasound for further evaluation [id number]-[id number] bilateral pleural effusions. Mild interstitial septal thickening and areas of groundglass opacity could indicate pulmonary edema, although are nonspecific Moderate to large paraesophageal hiatal hernia Unusual rectal density, appears to be intraluminal and likely reflects some sort of foreign body combination of which is uncertain. This could also represent inspissated contrast material if there is been a prior contrast study Left renal cysts. Subcentimeter low-attenuation renal lesions most likely represent benign simple cysts. No further follow-up necessary. Thoracolumbar scoliotic deformity. Other findings as noted, including small fat-containing right inguinal hernia, right groin central venous catheter, Moreno catheter Findings discussed by phone with Dr. Wood at the time of interpretation The CT scanner at [facility] is accredited by the [employer] and the scans are performed using protocols designed to limit radiation exposure to as low as reasonably achievable to attain images of sufficient resolution adequate for diagnostic evaluation.
[2018-04-12] MEDS ORDERED: Vancomycin 1250mg/D5W 250ml 250 ML IVPB SCH ×2 (17:00→18:00)
[2018-04-12] MEDS ORDERED: Tubing IV Secondary IV ONE (19:21)
[2018-04-12 20:00] VITALS: BP 136/83
[2018-04-12] MEDS: Dyna-Hex 2% Top Sol 2oz TOPIC SCH (20:38)
[2018-04-12] MEDS ORDERED: metroNIDAZOLE 500mg tab ORAL SCH (22:00)
--- NOTE | 2018-04-12 23:30 | Progress Note ---
DATE: 04/12/2018 CARDIOLOGY PROGRESS NOTE SUBJECTIVE: The patient is tolerating diet. OBJECTIVE: VITAL SIGNS: Vitals are stable. Blood pressure 121/72 to 151/88, heart rate 80 to 90, respiratory rate 20, and afebrile. LUNGS: Clear. CARDIAC: Regular. Normal S1, S2. ABDOMEN: Soft. EXTREMITIES: No edema. LABORATORY DATA: White count 19.7 and hemoglobin 8.4. Potassium 4.3, BUN 3, and creatinine 0.9. Albumin 1.2. CT scan of the chest, abdomen, and pelvis reviewed. IMPRESSION: 1. Possible pancreatic mass and associated adenopathy. 2. Acute myocardial infarction. 3. Paroxysmal atrial fibrillation. 4. Sepsis with shock, recovered. 5. Dehydration and hypernatremia, resolved. 6. Metabolic acidosis, corrected. 7. Hypomagnesemia, repleted. PLAN: 1. Antimicrobials. 2. Anti-platelet therapy with aspirin. 3. Titrate and advance beta isabel. 4. Consider statin therapy long-term once malignancy workup is completed. Lawrence Han M.D. DR: JED JOB#: [id number] CC:
[2018-04-13] VITALS: BP 115/70
[2018-04-13 04:00] VITALS: BP 117/71
[2018-04-13] MEDS: Piperacillin/Tazobactam 3.375 GM in D5W 110 ML IVPB SCH ×3 (05:44→21:40)
[2018-04-13] MEDS: metroNIDAZOLE 500mg tab ORAL SCH ×3 (05:44→21:41)
--- NOTE | 2018-04-13 06:33 | Consultation ---
Consult Note Consult Note [id number] job ID Parish Trevino MD Apr 13, 2018 06:33
[2018-04-13] MEDS ORDERED: Lidocaine 1% Plain 30 ml INJ PRN (07:00)
[2018-04-13 08:02] LABS: HEMATOCRIT 24.1 % (42.0-52.0); HEMOGLOBIN 7.9 G/DL (14.2-18.0); MEAN CORPUSCULAR VOLUME 91 FL (80-99); PLATELET COUNT 211 K/UL (150-450); RED BLOOD COUNT 2.64 M/UL (4.70-6.10); RED CELL DISTRIBUTION WIDTH 13.7 % (11.6-14.8); WHITE BLOOD COUNT 20.8 K/UL (4.8-10.8)
[2018-04-13 08:19] LABS: % IRON SATURATION 84 % (15-50); IRON 54 ug/dL (50-175); TOTAL IRON BINDING CAPACITY 64 ug/dL (250-450)
[2018-04-13 08:22] VITALS: BP 112/69
[2018-04-13 08:40] LABS: FERRITIN 1343 NG/ML (8-388)
[2018-04-13] MEDS: Lactulose 20gm/30ml UDC NG SCH ×3 (09:19→18:47)
[2018-04-13] MEDS: Aspirin Baby 81mg ORAL SCH (09:19)
[2018-04-13] MEDS: Pantoprazole Inj IVP SCH (09:19)
[2018-04-13] MEDS: Carvedilol 12.5mg tab ORAL SCH ×2 (09:20→21:41)
[2018-04-13 11:52] VITALS: BP 105/67
--- NOTE | 2018-04-13 12:01 | Infectious Diseases Prog Note ---
Assessment/Plan Assessment/Plan A: Pneumonia Leukocytosis with Lymphocytosis Peripancreatic adenopathy Cirrhosis Diarrhea Anemia Paroxysmal A fib P: Continue Vancomycin, Zosyn & Flagyl Will f/u cultures Subjective ROS Limited/Unobtainable: No Constitutional: Reports: no symptoms Respiratory: Reports: no symptoms Gastrointestinal/Abdominal: Reports: no symptoms Genitourinary: Reports: no symptoms Allergies: Coded Allergies: No Known Allergies (Unverified , 04/06/18) Objective Vital Signs Last 24 Hour Vital Signs Date Time Temp Pulse Resp B/P (MAP) Pulse Ox O2 Delivery O2 Flow Rate FiO2 04/13/18 11:52 96.8 88 18 105/67 100 Nasal Cannula 2.0 96.8 04/13/18 09:20 88 112/69 04/13/18 08:22 97.2 88 18 112/69 99 Nasal Cannula 2.0 97.2 04/13/18 04:00 97.3 83 20 117/71 100 Nasal Cannula 3.0 97.3 04/13/18 00:00 97.2 83 20 115/70 100 Nasal Cannula 3.0 97.2 04/12/18 20:40 90 136/83 04/12/18 20:00 98 Nasal Cannula 2.0 28 04/12/18 20:00 Nasal Cannula 2.0 28 04/12/18 20:00 97.9 90 20 136/83 100 Nasal Cannula 3.0 97.9 04/12/18 16:00 97.1 85 20 129/84 99 Nasal Cannula 3.0 97.1 04/12/18 16:00 86 04/12/18 12:00 81 04/12/18 11:59 97.2 83 20 121/72 97 Nasal Cannula 3.0 97.2 Height (Feet): 6 Height (Inches): 0.00 Weight (Pounds): 177 General Appearance: no acute distress HEENT: mucous membranes moist Respiratory/Chest: lungs clear Cardiovascular: normal rate Abdomen: soft, non tender Extremities: no edema Neurologic/Psychiatric: alert, responsive Laboratory Tests Test 04/13/18 06:50 White Blood Count 20.8 K/UL (4.8-10.8) H Red Blood Count 2.64 M/UL (4.70-6.10) L Hemoglobin 7.9 G/DL (14.2-18.0) L Hematocrit 24.1 % (42.0-52.0) L Mean Corpuscular Volume 91 FL (80-99) Mean Corpuscular Hemoglobin 29.9 PG (27.0-31.0) Mean Corpuscular Hemoglobin Concent 32.7 G/DL (32.0-36.0) Red Cell Distribution Width 13.7 % (11.6-14.8) Platelet Count 211 K/UL (150-450) Mean Platelet Volume 6.4 FL (6.5-10.1) L Neutrophils (%) (Auto) % (45.0-75.0) Lymphocytes (%) (Auto) % (20.0-45.0) Monocytes (%) (Auto) % (1.0-10.0) Eosinophils (%) (Auto) % (0.0-3.0) Basophils (%) (Auto) % (0.0-2.0) Differential Total Cells Counted 100 Neutrophils % (Manual) 35 % (45-75) L Lymphocytes % (Manual) 52 % (20-45) H Monocytes % (Manual) 9 % (1-10) Eosinophils % (Manual) 4 % (0-3) H Basophils % (Manual) 0 % (0-2) Band Neutrophils 0 % (0-8) Platelet Estimate Adequate Platelet Morphology Normal Hypochromasia 3+ Anisocytosis 1+ Spherocytes 1+ Reticulocyte Count 4.0 % (0.0-2.0) H Fibrinogen 326 mg/dL (200-400) Iron Level 54 ug/dL (50-175) Total Iron Binding Capacity 64 ug/dL (250-450) L Percent Iron Saturation 84 % (15-50) H Unsaturated Iron Binding 10 ug/dL (112-346) L Ferritin 1343 NG/ML (8-388) H Carcinoembryonic Antigen Pending CA 15-3 Antigen Pending CA 19-9 Antigen Pending Vitamin B12 Level 707 PG/ML (193-986) Methylmalonic Acid Pending Folate 2.9 NG/ML (8.6-58.9) L Homocystine Pending Thyroid Stimulating Hormone (TSH) 6.359 uiU/mL (0.358-3.740) Current Medications Medications (Trade) Dose Ordered Sig/Anna Route PRN Reason Start Time Stop Time Status Last Admin Dose Admin Aspirin (ASA) 81 mg DAILY ORAL 04/13/18 09:00 05/08/18 08:59 04/13/18 09:19 Carvedilol (Coreg) 12.5 mg EVERY 12 HOURS ORAL 04/13/18 09:00 05/12/18 08:59 04/13/18 09:20 Chlorhexidine Gluconate (Nel-Hex 2%) 1 applic DAILY@2000 TOPIC 04/13/18 20:00 05/07/18 19:59 Lactulose (Cephulac) 30 gm THREE TIMES A DAY NG 04/13/18 09:00 05/07/18 17:59 04/13/18 09:19 Metronidazole (Flagyl) 500 mg Q8HR ORAL 04/13/18 06:00 04/19/18 21:59 04/13/18 05:44 Pantoprazole (Protonix) 40 mg DAILY IVP 04/13/18 09:00 05/07/18 08:59 04/13/18 09:19 Piperacillin Sod/ Tazobactam Sod 3.375 gm/Dextrose 110 ml @ 27.5 mls/hr Q8HR IVPB 04/13/18 06:00 04/15/18 12:59 04/13/18 05:44 Vancomycin HCl (Vanco rx to dose) 1 ea DAILY PRN MISC Per rx protocol 04/13/18 09:00 05/10/18 18:59 Vancomycin HCl/ Dextrose 250 ml @ 166.667 mls/hr Q24H IVPB 04/13/18 18:00 04/13/18 19:00 Dale Galindo MD Apr 13, 2018 12:01
[2018-04-13 16:00] VITALS: BP 120/60
[2018-04-13 16:24] LABS: INR 1.5 (0.9-1.1)
--- NOTE | 2018-04-13 16:37 | Pulmonology Progress Note ---
Assessment/Plan Assessment/Plan 1. Acute myocardial infarction. 2. Paroxysmal atrial fibrillation. 3. Sepsis with shock. 4. Alcoholic liver disease. 5. Hepatic encephalopathy. 6. Urinary sepsis. 7. Healthcare-acquired pneumonia. 8. Dehydration. 9. Hypernatremia, improved. 10. Metabolic acidosis. 11. Hypomagnesemia. 12. Lymphocytosis w retroperitoneal lymphadenopathy 13. Pancreatic mass 14. Rectal mass vs foreign body 15. Pleural effusions tolerates diet OT/PT cont abx seen by joann, rec GI to bx pancreatic mass via endo US called GI Subjective Constitutional: Reports: fatigue, anorexia; Denies: fever Allergies: Coded Allergies: No Known Allergies (Unverified , 04/06/18) Objective Last 24 Hour Vital Signs Date Time Temp Pulse Resp B/P (MAP) Pulse Ox O2 Delivery O2 Flow Rate FiO2 04/13/18 11:52 96.8 88 18 105/67 100 Nasal Cannula 2.0 96.8 04/13/18 09:20 88 112/69 04/13/18 08:22 97.2 88 18 112/69 99 Nasal Cannula 2.0 97.2 04/13/18 04:00 97.3 83 20 117/71 100 Nasal Cannula 3.0 97.3 04/13/18 00:00 97.2 83 20 115/70 100 Nasal Cannula 3.0 97.2 04/12/18 20:40 90 136/83 04/12/18 20:00 98 Nasal Cannula 2.0 28 04/12/18 20:00 Nasal Cannula 2.0 28 04/12/18 20:00 97.9 90 20 136/83 100 Nasal Cannula 3.0 97.9 Intake and Output 04/12/18 04/13/18 19:00 07:00 Intake Total 27.5 ml 27.5 ml Output Total 1500 ml 450 ml Balance -1472.5 ml -422.5 ml IV Total 27.5 ml 27.5 ml Output Urine Total 1500 ml 450 ml General Appearance: no acute distress Respiratory/Chest: lungs clear, decreased breath sounds Cardiovascular: normal rate Abdomen: soft, non tender, no organomegaly Laboratory Tests 04/13/18 06:50: White Blood Count 20.8H, Red Blood Count 2.64L, Hemoglobin 7.9L, Hematocrit 24.1L, Mean Corpuscular Volume 91, Mean Corpuscular Hemoglobin 29.9, Mean Corpuscular Hemoglobin Concent 32.7, Red Cell Distribution Width 13.7, Platelet Count 211, Mean Platelet Volume 6.4L, Neutrophils (%) (Auto) , Lymphocytes (%) ( Auto) , Monocytes (%) (Auto) , Eosinophils (%) (Auto) , Basophils (%) (Auto) , Differential Total Cells Counted 100, Neutrophils % (Manual) 35L, Lymphocytes % (Manual) 52H, Monocytes % (Manual) 9, Eosinophils % (Manual) 4H, Basophils % ( Manual) 0, Band Neutrophils 0, Platelet Estimate Adequate, Platelet Morphology Normal, Hypochromasia 3+, Anisocytosis 1+, Spherocytes 1+, Reticulocyte Count 4.0H, Fibrinogen 326, Iron Level 54, Total Iron Binding Capacity 64L, Percent Iron Saturation 84H, Unsaturated Iron Binding 10L, Ferritin 1343H, Carcinoembryonic Antigen [Pending], CA 15-3 Antigen [Pending], CA 19-9 Antigen [ Pending], Vitamin B12 Level 707, Methylmalonic Acid [Pending], Folate 2.9L, Homocystine [Pending], Thyroid Stimulating Hormone (TSH) 6.359H 04/13/18 15:35: Prothrombin Time 15.8H, Prothromb Time International Ratio 1.5H Current Medications Medications (Trade) Dose Ordered Sig/Anna Route PRN Reason Start Time Stop Time Status Last Admin Dose Admin Aspirin (ASA) 81 mg DAILY ORAL 04/13/18 09:00 05/08/18 08:59 04/13/18 09:19 Carvedilol (Coreg) 12.5 mg EVERY 12 HOURS ORAL 04/13/18 09:00 05/12/18 08:59 04/13/18 09:20 Chlorhexidine Gluconate (Nel-Hex 2%) 1 applic DAILY@1999 TOPIC 04/13/18 20:00 05/07/18 19:59 Lactulose (Cephulac) 30 gm THREE TIMES A DAY NG 04/13/18 09:00 05/07/18 17:59 04/13/18 14:15 Metronidazole (Flagyl) 500 mg Q8HR ORAL 04/13/18 06:00 04/19/18 21:59 04/13/18 14:15 Pantoprazole (Protonix) 40 mg DAILY IVP 04/13/18 09:00 05/07/18 08:59 04/13/18 09:19 Piperacillin Sod/ Tazobactam Sod 3.375 gm/Dextrose 110 ml @ 27.5 mls/hr Q8HR IVPB 04/13/18 06:00 04/15/18 12:59 04/13/18 14:16 Vancomycin HCl (Vanco rx to dose) 1 ea DAILY PRN MISC Per rx protocol 04/13/18 09:00 05/10/18 18:59 Vancomycin HCl/ Dextrose 250 ml @ 166.667 mls/hr Q24H IVPB 04/13/18 18:00 04/17/18 17:59 Gene Wood MD Apr 13, 2018 16:37
--- NOTE | 2018-04-13 17:30 | Consultation ---
DATE OF CONSULTATION: 04/13/2018 HEMATOLOGY/ONCOLOGY CONSULTATION CONSULTING PHYSICIAN: Parish Trevino M.D. REQUESTING PHYSICIAN: Gene Wood M.D. REASON FOR CONSULTATION: Evaluation of pancreatic mass. IDENTIFYING DATA: Dear Dr. Wood: The patient is a pleasant 72-year-old male with past medical history, which is significant for pneumonia, cirrhosis, encephalopathy, CAD, history of GI bleeding at this time presents with encephalopathy to [facility]. He has been here for approximately a week and reviewed the patient's medical record at this time. He was initially with [facility] with shock, presented from [facility]. Poorly responsive. A CAT scan showed the patient did have evidence of malignancy potentially versus lymphoproliferative disorder with the main pancreatic mass. Tumor markers have been ordered. PAST MEDICAL HISTORY: Hepatic encephalopathy, cirrhosis, paroxysmal AFib, alcoholism, and CAD. MEDICATIONS: Reviewed. SOCIAL HISTORY: Difficult to obtain. The patient lives in a [facility] facility. History of alcohol abuse in the past. PAST SURGICAL HISTORY: None reported. REVIEW OF SYSTEMS: CONSTITUTIONAL: No fever or chills at this time, but did initially have them on presentation. HEENT: No headache, hearing or vision changes. BREASTS: No lumps, pain, or discharge. PULMONARY: No cough, sputum, or shortness of breath. GASTROINTESTINAL: No nausea, vomiting, or diarrhea. GENITOURINARY: No dysuria, frequency, or urgency. MUSCULOSKELETAL: No joint swelling, muscle pain, or trauma. PHYSICAL EXAMINATION: VITAL SIGNS: Reviewed. GENERAL: No distress. PULMONARY: Decreased breath sounds. CARDIOVASCULAR: Regular rate. No S3 or S4. ABDOMEN: Soft, nontender, and nondistended. EXTREMITIES: No cyanosis, swelling, or edema reported. LABORATORY AND DIAGNOSTIC DATA: Labs reviewed. Specifically did INR 1.5. WBC of 19.7, hemoglobin 8.4, hematocrit 25, and platelet count 189,000, initial platelet count 116,000. Toxicology reviewed. Vancomycin trough 16. INR 1.5. Imaging, CAT scan of the chest, abdomen, and pelvis shows borderline lymphadenopathy, unusual pancreatic head and body lesion. Shape is not that of a typical mass. Presence of extensive surrounding lymphadenopathy indicates probably pancreatic malignancy, possibly pancreatitis with surrounding including mild reactive lymphadenopathy should also to be considered. This can be equivocally mildly thickened wall of gallbladder without infiltration. ASSESSMENT AND RECOMMENDATIONS: 1. Pancreatic mass with borderline enlarged periaortic and pericaval lymph nodes, concerning for potential malignancy. Pancreatic lymphadenopathy noted. Most node is 4.3 x 2.3 cm as well as numerous other lymph nodes surrounding pancreatic body and head. At this time, obtain CT-guided biopsy as well as tumor markers. 2. Lymphadenopathy potentially related to malignancy versus lymphoproliferative disorder. We will order a flow cytometry and closely monitor for evaluation. 3. Coagulopathy likely secondary to underlying cirrhosis. 4. Anemia secondary to underlying chronic disease. Continue to closely monitor. We will obtain anemia workup, has not been completed yet. 5. Fever and chills, septic shock. 6. Atrial fibrillation initially has been treated. Dr. Han is on the case. I appreciate consultation. Parish Trevino M.D. DR: MARK ANTHONY JOB#: [id number] CC:
[2018-04-13] MEDS: Vancomycin 1250mg/D5W 250ml 250 ML IVPB SCH (18:47)
--- NOTE | 2018-04-13 19:59 | General Progress Note ---
Assessment/Plan Assessment/Plan GI CONSULT ATSP for abnormal pancreas and ? rectal mass Dictated Discussed with daughter, Ronan, re CT findings and recommendation of EUS/FNA to r/o pancreatic CA Daughter concerned about his deterioration and not willing to give consent for GI procedure at this time. Daughter to discuss matter with her sister tomorrow and get back to me with a decision. Rectal exam negative for mass. Will give laxative and repeat pelvic CT in few days. Thank you. Deepak Palma MD Subjective Allergies: Coded Allergies: No Known Allergies (Unverified , 04/06/18) Objective Last 24 Hour Vital Signs Date Time Temp Pulse Resp B/P (MAP) Pulse Ox O2 Delivery O2 Flow Rate FiO2 04/13/18 19:35 99 Nasal Cannula 2.0 28 04/13/18 19:35 Nasal Cannula 2.0 28 04/13/18 16:00 97.3 87 18 120/60 100 Nasal Cannula 2.0 97.3 04/13/18 11:52 96.8 88 18 105/67 100 Nasal Cannula 2.0 96.8 04/13/18 09:20 88 112/69 04/13/18 08:22 97.2 88 18 112/69 99 Nasal Cannula 2.0 97.2 04/13/18 04:00 97.3 83 20 117/71 100 Nasal Cannula 3.0 97.3 04/13/18 00:00 97.2 83 20 115/70 100 Nasal Cannula 3.0 97.2 04/12/18 20:40 90 136/83 04/12/18 20:00 98 Nasal Cannula 2.0 28 04/12/18 20:00 Nasal Cannula 2.0 28 04/12/18 20:00 97.9 90 20 136/83 100 Nasal Cannula 3.0 97.9 Intake and Output 04/12/18 04/13/18 19:00 07:00 Intake Total 27.5 ml 27.5 ml Output Total 1500 ml 450 ml Balance -1472.5 ml -422.5 ml IV Total 27.5 ml 27.5 ml Output Urine Total 1500 ml 450 ml Laboratory Tests 04/13/18 06:50: White Blood Count 20.8H, Red Blood Count 2.64L, Hemoglobin 7.9L, Hematocrit 24.1L, Mean Corpuscular Volume 91, Mean Corpuscular Hemoglobin 29.9, Mean Corpuscular Hemoglobin Concent 32.7, Red Cell Distribution Width 13.7, Platelet Count 211, Mean Platelet Volume 6.4L, Neutrophils (%) (Auto) , Lymphocytes (%) ( Auto) , Monocytes (%) (Auto) , Eosinophils (%) (Auto) , Basophils (%) (Auto) , Differential Total Cells Counted 100, Neutrophils % (Manual) 35L, Lymphocytes % (Manual) 52H, Monocytes % (Manual) 9, Eosinophils % (Manual) 4H, Basophils % ( Manual) 0, Band Neutrophils 0, Platelet Estimate Adequate, Platelet Morphology Normal, Hypochromasia 3+, Anisocytosis 1+, Spherocytes 1+, Reticulocyte Count 4.0H, Fibrinogen 326, Iron Level 54, Total Iron Binding Capacity 64L, Percent Iron Saturation 84H, Unsaturated Iron Binding 10L, Ferritin 1343H, Carcinoembryonic Antigen [Pending], CA 15-3 Antigen [Pending], CA 19-9 Antigen [ Pending], Vitamin B12 Level 707, Methylmalonic Acid [Pending], Folate 2.9L, Homocystine [Pending], Thyroid Stimulating Hormone (TSH) 6.359H 04/13/18 15:35: Prothrombin Time 15.8H, Prothromb Time International Ratio 1.5H Height (Feet): 6 Height (Inches): 0.00 Weight (Pounds): 177 Lina Palma MD Apr 13, 2018 19:59
[2018-04-13 20:00] VITALS: BP 153/91
[2018-04-13] MEDS ORDERED: Phytonadione 10 mg/mL 1ml amp SUBQ ONE ×2 (21:00→21:30)
[2018-04-13] MEDS ORDERED: Lactulose 20gm/30ml UDC ORAL ONE (21:00)
[2018-04-13] MEDS: Dyna-Hex 2% Top Sol 2oz TOPIC SCH (21:41)
[2018-04-14] VITALS: BP 110/67
--- NOTE | 2018-04-14 | Consultation ---
DATE OF CONSULTATION: 04/13/2018 GASTROENTEROLOGY CONSULTATION CONSULTING PHYSICIAN: Lina Palma M.D. REFERRING PHYSICIAN: Gene Wood M.D. CHIEF COMPLAINT: I was asked to see this patient by Dr. Gene Wood for evaluation of abnormal CT scan. HISTORY OF PRESENT ILLNESS: The patient is an unfortunate, debilitated, 72-year-old man, who became poorly responsive at the halfway and was brought into the hospital. He does have a history of cirrhosis and hepatic encephalopathy, but the details are not clear. The patient came in with elevated white count and lactic acidosis. He is doing better now, but the CT scan of the abdomen and pelvis done showed pancreatic mass or lymphadenopathy and also some other lymphadenopathy. There was also a questionable rectal density mass or possibly residual contrast. The patient himself is a poor historian and hardly provides much useful history. Most of the information is only available from the chart. PAST MEDICAL HISTORY: History of pneumonia, cirrhosis, hepatic encephalopathy, coronary artery disease, gastrointestinal bleeding, alcoholism, and hypernatremia. MEDICATIONS: See the chart list for details. ALLERGIES: None. FAMILY HISTORY: Noncontributory. SOCIAL HISTORY: The patient currently resides in a halfway. His daughter looks after his affairs, her name is Latisha. REVIEW OF SYSTEMS: Otherwise negative. PHYSICAL EXAMINATION: GENERAL: Debilitated man, seen in his room. HEENT: Normocephalic and atraumatic. Dentition was fair. NECK: Supple. CHEST: Clear to auscultation. CARDIOVASCULAR: Revealed regular rate. ABDOMEN: Soft. Good bowel sounds. There is no organomegaly or tenderness. EXTREMITIES: Revealed no edema. RECTAL: Did not show any mass. LABORATORY AND DIAGNOSTIC DATA: Laboratory data and CT scan were noted. ASSESSMENT: This patient presents with a worrisome picture on the CT scan concerning for possible pancreatic malignancy. Given the appearance of the pancreas and the surrounding lymphadenopathy, endoscopic ultrasound of the pancreas with fine-needle aspiration would be indicated to obtain tissue pathology to rule out cancer. This was discussed with the patient's daughter at length and all questions were answered. Daughter, Latisha, is somewhat concerned with her father's poor health and deterioration and wants to hold off on any endoscopy until she has had a chance to discuss the matter with her sister and with her father. The density seen on the rectum on CT scan is likely artifactual. It may represent old contrast material. I will give the patient some lactulose and repeat a CT of the pelvis to document this. The patient's cirrhosis can be evaluated with alpha fetoprotein level and pneumonia measurements and the usual medications needed for this indication. RECOMMENDATIONS: Per above discussion and per orders written in the chart. Thank you for asking me to participate in the care of this patient. Lina Palma M.D. DR: WOODY JOB#: [id number] CC: [email or web address]
[2018-04-14 04:00] VITALS: BP 111/77
[2018-04-14] MEDS: Piperacillin/Tazobactam 3.375 GM in D5W 110 ML IVPB SCH ×3 (05:49→21:33)
[2018-04-14] MEDS: metroNIDAZOLE 500mg tab ORAL SCH ×3 (05:49→21:33)
[2018-04-14 06:36] LABS: BASOPHILS % (AUTO) 1.2 % (0.0-2.0); EOSINOPHILS % (AUTO) 1.8 % (0.0-3.0); HEMATOCRIT 24.8 % (42.0-52.0); HEMOGLOBIN 8.2 G/DL (14.2-18.0); LYMPHOCYTES % (AUTO) 54.8 % (20.0-45.0); MEAN CORPUSCULAR VOLUME 91 FL (80-99); MONOCYTES % (AUTO) 8.2 % (1.0-10.0); PLATELET COUNT 207 K/UL (150-450); RED BLOOD COUNT 2.74 M/UL (4.70-6.10); RED CELL DISTRIBUTION WIDTH 13.6 % (11.6-14.8); WHITE BLOOD COUNT 15.1 K/UL (4.8-10.8)
[2018-04-14 07:00] LABS: ALANINE AMINOTRANSFERASE 10 U/L (12-78); ALBUMIN 1.3 G/DL (3.4-5.0); ALBUMIN/GLOBULIN RATIO 0.3 (1.0-2.7); ALKALINE PHOSPHATASE 94 U/L (46-116); ANION GAP 9 mmol/L (5-15); ASPARTATE AMINO TRANSFERASE 18 U/L (15-37); BILIRUBIN,TOTAL 0.8 MG/DL (0.2-1.0); BLOOD UREA NITROGEN 4 mg/dL (7-18); CALCIUM 7.6 MG/DL (8.5-10.1); CARBON DIOXIDE 21 MMOL/L (21-32); CHLORIDE 113 MMOL/L (98-107); CREATININE 0.9 MG/DL (0.55-1.30); POTASSIUM 3.4 MMOL/L (3.5-5.1); SODIUM 143 MMOL/L (136-145)
[2018-04-14 08:00] VITALS: BP 126/77
--- NOTE | 2018-04-14 08:43 | General Progress Note ---
Assessment/Plan Status: unchanged Assessment/Plan 1. Pancreatic mass noted on CT abdomen and chest --> Unusual pancreatic head and body lesion. The shape is not that of a typical mass lesion, but the presence of extensive surrounding lymphadenopathy indicates that this is probably a pancreatic malignancy. The possibility of pancreatitis with surrounding phlegmon and reactive lymphadenopathy should also be considered. --> eus with egd have discussed with Dr. Wood and RN --> tumor markers have been sent and are pending 2. Lymphadenopathy --> potentially related to malignancy --> ordered a flow cytometry and closely monitor for evaluation --> f/u and have discussed with pathology 3. Coagulopathy likely secondary to underlying cirrhosis. --> INR elevated, given vit K 4. Anemia secondary to underlying chronic disease. --> Continue to closely monitor. hgb at 8.2 04/14/18 --> Anemia w/u has been reviewed. Will trend cbc prn --> consider transfusion if hgb <7 5. Fever and chills, septic shock. --> improving 6. Atrial fibrillation initially has been treated. Dr. Han is on the case. Subjective Date patient seen: Apr 14, 2018 ROS Limited/Unobtainable: Yes Allergies: Coded Allergies: No Known Allergies (Unverified , 04/06/18) All Systems: reviewed and negative except above Subjective Pt is awake and in no apparent distress. No c/o pain or distress. No overnight events. CT of abd, chest performed. Objective Last 24 Hour Vital Signs Date Time Temp Pulse Resp B/P (MAP) Pulse Ox O2 Delivery O2 Flow Rate FiO2 04/14/18 04:00 97.0 80 18 111/77 98 Nasal Cannula 2.0 97.0 04/14/18 00:00 96.4 82 18 110/67 96 Nasal Cannula 2.0 96.4 04/13/18 21:41 87 120/60 04/13/18 20:00 96.1 81 18 153/91 100 Nasal Cannula 2.0 96.1 04/13/18 19:35 99 Nasal Cannula 2.0 28 04/13/18 19:35 Nasal Cannula 2.0 28 04/13/18 16:00 97.3 87 18 120/60 100 Nasal Cannula 2.0 97.3 04/13/18 11:52 96.8 88 18 105/67 100 Nasal Cannula 2.0 96.8 04/13/18 09:20 88 112/69 Intake and Output 04/13/18 04/14/18 19:00 07:00 Intake Total 137.5 ml Output Total 300 ml 800 ml Balance -300 ml -662.5 ml IV Total 137.5 ml Output Urine Total 300 ml 800 ml # Bowel Movements 1 Laboratory Tests 04/13/18 15:35: Prothrombin Time 15.8H, Prothromb Time International Ratio 1.5H 04/14/18 04:30: Stool Occult Blood [Pending] 04/14/18 06:00: White Blood Count 15.1H, Red Blood Count 2.74L, Hemoglobin 8.2L, Hematocrit 24.8L, Mean Corpuscular Volume 91, Mean Corpuscular Hemoglobin 29.8, Mean Corpuscular Hemoglobin Concent 32.9, Red Cell Distribution Width 13.6, Platelet Count 207, Mean Platelet Volume 6.7, Neutrophils (%) (Auto) 34.0L, Lymphocytes ( %) (Auto) 54.8H, Monocytes (%) (Auto) 8.2, Eosinophils (%) (Auto) 1.8, Basophils (%) (Auto) 1.2, Sodium Level 143, Potassium Level 3.4L, Chloride Level 113H, Carbon Dioxide Level 21, Anion Gap 9, Blood Urea Nitrogen 4L, Creatinine 0.9, Estimat Glomerular Filtration Rate > 60, Glucose Level 94, Calcium Level 7.6L, Total Bilirubin 0.8, Aspartate Amino Transf (AST/SGOT) 18, Alanine Aminotransferase (ALT/SGPT) 10L, Alkaline Phosphatase 94, Total Protein 5.6L, Albumin 1.3L, Globulin 4.3, Albumin/Globulin Ratio 0.3L, Alpha Fetoprotein [Pending] Height (Feet): 6 Height (Inches): 0.00 Weight (Pounds): 177 General Appearance: WD/WN, no apparent distress EENT: PERRL/EOMI Neck: normal alignment Cardiovascular: normal peripheral pulses Respiratory/Chest: no respiratory distress Abdomen: normal bowel sounds Parish Trevino MD Apr 14, 2018 08:43
--- NOTE | 2018-04-14 08:48 | Pulmonology Progress Note ---
Assessment/Plan Assessment/Plan 1. Acute myocardial infarction. 2. Paroxysmal atrial fibrillation. 3. Sepsis with shock. 4. Alcoholic liver disease. 5. Hepatic encephalopathy. 6. Urinary sepsis. 7. Healthcare-acquired pneumonia. 8. Dehydration. 9. Hypernatremia, improved. 10. Metabolic acidosis. 11. Hypomagnesemia. 12. Lymphocytosis w retroperitoneal lymphadenopathy 13. Pancreatic mass 14. Rectal mass vs foreign body 15. Pleural effusions tolerates diet OT/PT cont abx not competent to make decisions spoke with dtr and consents to EGD/EUS w bx pancreas or CT bx disc w RN, GI, insurance MD Subjective ROS Limited/Unobtainable: Yes Allergies: Coded Allergies: No Known Allergies (Unverified , 04/06/18) Objective Last 24 Hour Vital Signs Date Time Temp Pulse Resp B/P (MAP) Pulse Ox O2 Delivery O2 Flow Rate FiO2 04/14/18 04:00 97.0 80 18 111/77 98 Nasal Cannula 2.0 97.0 04/14/18 00:00 96.4 82 18 110/67 96 Nasal Cannula 2.0 96.4 04/13/18 21:41 87 120/60 04/13/18 20:00 96.1 81 18 153/91 100 Nasal Cannula 2.0 96.1 04/13/18 19:35 99 Nasal Cannula 2.0 28 04/13/18 19:35 Nasal Cannula 2.0 28 04/13/18 16:00 97.3 87 18 120/60 100 Nasal Cannula 2.0 97.3 04/13/18 11:52 96.8 88 18 105/67 100 Nasal Cannula 2.0 96.8 04/13/18 09:20 88 112/69 Intake and Output 04/13/18 04/14/18 19:00 07:00 Intake Total 137.5 ml Output Total 300 ml 800 ml Balance -300 ml -662.5 ml IV Total 137.5 ml Output Urine Total 300 ml 800 ml # Bowel Movements 1 General Appearance: no acute distress Respiratory/Chest: lungs clear Cardiovascular: normal rate Abdomen: soft, non tender, no organomegaly Laboratory Tests 04/13/18 15:35: Prothrombin Time 15.8H, Prothromb Time International Ratio 1.5H 04/14/18 04:30: Stool Occult Blood [Pending] 04/14/18 06:00: White Blood Count 15.1H, Red Blood Count 2.74L, Hemoglobin 8.2L, Hematocrit 24.8L, Mean Corpuscular Volume 91, Mean Corpuscular Hemoglobin 29.8, Mean Corpuscular Hemoglobin Concent 32.9, Red Cell Distribution Width 13.6, Platelet Count 207, Mean Platelet Volume 6.7, Neutrophils (%) (Auto) 34.0L, Lymphocytes ( %) (Auto) 54.8H, Monocytes (%) (Auto) 8.2, Eosinophils (%) (Auto) 1.8, Basophils (%) (Auto) 1.2, Sodium Level 143, Potassium Level 3.4L, Chloride Level 113H, Carbon Dioxide Level 21, Anion Gap 9, Blood Urea Nitrogen 4L, Creatinine 0.9, Estimat Glomerular Filtration Rate > 60, Glucose Level 94, Calcium Level 7.6L, Total Bilirubin 0.8, Aspartate Amino Transf (AST/SGOT) 18, Alanine Aminotransferase (ALT/SGPT) 10L, Alkaline Phosphatase 94, Total Protein 5.6L, Albumin 1.3L, Globulin 4.3, Albumin/Globulin Ratio 0.3L, Alpha Fetoprotein [Pending] Current Medications Medications (Trade) Dose Ordered Sig/Anna Route PRN Reason Start Time Stop Time Status Last Admin Dose Admin Aspirin (ASA) 81 mg DAILY ORAL 04/13/18 09:00 05/08/18 08:59 04/13/18 09:19 Carvedilol (Coreg) 12.5 mg EVERY 12 HOURS ORAL 04/13/18 09:00 05/12/18 08:59 04/13/18 21:41 Chlorhexidine Gluconate (Nel-Hex 2%) 1 applic DAILY@1999 TOPIC 04/13/18 20:00 05/07/18 19:59 04/13/18 21:41 Lactulose (Cephulac) 30 gm THREE TIMES A DAY NG 04/13/18 09:00 05/07/18 17:59 04/13/18 18:47 Metronidazole (Flagyl) 500 mg Q8HR ORAL 04/13/18 06:00 04/19/18 21:59 04/14/18 05:49 Pantoprazole (Protonix) 40 mg DAILY IVP 04/13/18 09:00 05/07/18 08:59 04/13/18 09:19 Piperacillin Sod/ Tazobactam Sod 3.375 gm/Dextrose 110 ml @ 27.5 mls/hr Q8HR IVPB 04/13/18 06:00 04/15/18 12:59 04/14/18 05:49 Vancomycin HCl (Vanco rx to dose) 1 ea DAILY PRN MISC Per rx protocol 04/13/18 09:00 05/10/18 18:59 Vancomycin HCl/ Dextrose 250 ml @ 166.667 mls/hr Q24H IVPB 04/13/18 18:00 04/17/18 17:59 04/13/18 18:47 Gene Wood MD Apr 14, 2018 08:48
[2018-04-14] MEDS: Aspirin Baby 81mg ORAL SCH (09:00)
[2018-04-14] MEDS: Lactulose 20gm/30ml UDC NG SCH ×3 (09:02→17:32)
[2018-04-14] MEDS: Carvedilol 12.5mg tab ORAL SCH ×2 (09:02→20:54)
[2018-04-14] MEDS: Pantoprazole Inj IVP SCH (09:03)
[2018-04-14 12:00] VITALS: BP_SYST 116; BP_SYST 134; BP_DIAS 67; BP_DIAS 79
--- NOTE | 2018-04-14 12:21 | Infectious Diseases Prog Note ---
Assessment/Plan Assessment/Plan A: Pneumonia Leukocytosis with Lymphocytosis Peripancreatic adenopathy, ? malignancy Cirrhosis Diarrhea Anemia Paroxysmal A fib P: Continue Vancomycin, Zosyn & Flagyl Will f/u cultures Subjective ROS Limited/Unobtainable: Yes Allergies: Coded Allergies: No Known Allergies (Unverified , 04/06/18) Objective Vital Signs Last 24 Hour Vital Signs Date Time Temp Pulse Resp B/P (MAP) Pulse Ox O2 Delivery O2 Flow Rate FiO2 04/14/18 09:02 80 126/77 04/14/18 08:00 97.1 80 20 126/77 97 Nasal Cannula 2.0 97.1 04/14/18 04:00 97.0 80 18 111/77 98 Nasal Cannula 2.0 97.0 04/14/18 00:00 96.4 82 18 110/67 96 Nasal Cannula 2.0 96.4 04/13/18 21:41 87 120/60 04/13/18 20:00 96.1 81 18 153/91 100 Nasal Cannula 2.0 96.1 04/13/18 19:35 99 Nasal Cannula 2.0 28 04/13/18 19:35 Nasal Cannula 2.0 28 04/13/18 16:00 97.3 87 18 120/60 100 Nasal Cannula 2.0 97.3 Height (Feet): 6 Height (Inches): 0.00 Weight (Pounds): 170 General Appearance: no acute distress HEENT: mucous membranes moist Respiratory/Chest: lungs clear Cardiovascular: normal rate Abdomen: soft, non tender Extremities: no edema Neurologic/Psychiatric: alert, responsive Laboratory Tests Test 04/13/18 15:35 04/14/18 04:30 04/14/18 06:00 Prothrombin Time 15.8 SEC (9.30-11.50) H Prothromb Time International Ratio 1.5 (0.9-1.1) H Stool Occult Blood Negative (NEGATIVE) White Blood Count 15.1 K/UL (4.8-10.8) H Red Blood Count 2.74 M/UL (4.70-6.10) L Hemoglobin 8.2 G/DL (14.2-18.0) L Hematocrit 24.8 % (42.0-52.0) L Mean Corpuscular Volume 91 FL (80-99) Mean Corpuscular Hemoglobin 29.8 PG (27.0-31.0) Mean Corpuscular Hemoglobin Concent 32.9 G/DL (32.0-36.0) Red Cell Distribution Width 13.6 % (11.6-14.8) Platelet Count 207 K/UL (150-450) Mean Platelet Volume 6.7 FL (6.5-10.1) Neutrophils (%) (Auto) 34.0 % (45.0-75.0) L Lymphocytes (%) (Auto) 54.8 % (20.0-45.0) H Monocytes (%) (Auto) 8.2 % (1.0-10.0) Eosinophils (%) (Auto) 1.8 % (0.0-3.0) Basophils (%) (Auto) 1.2 % (0.0-2.0) Sodium Level 143 MMOL/L (136-145) Potassium Level 3.4 MMOL/L (3.5-5.1) L Chloride Level 113 MMOL/L (98-107) H Carbon Dioxide Level 21 MMOL/L (21-32) Anion Gap 9 mmol/L (5-15) Blood Urea Nitrogen 4 mg/dL (7-18) L Creatinine 0.9 MG/DL (0.55-1.30) Estimat Glomerular Filtration Rate > 60 mL/min (>60) Glucose Level 94 MG/DL (74-106) Calcium Level 7.6 MG/DL (8.5-10.1) L Total Bilirubin 0.8 MG/DL (0.2-1.0) Aspartate Amino Transf (AST/SGOT) 18 U/L (15-37) Alanine Aminotransferase (ALT/SGPT) 10 U/L (12-78) L Alkaline Phosphatase 94 U/L (46-116) Total Protein 5.6 G/DL (6.4-8.2) L Albumin 1.3 G/DL (3.4-5.0) L Globulin 4.3 g/dL Albumin/Globulin Ratio 0.3 (1.0-2.7) L Alpha Fetoprotein Pending Current Medications Medications (Trade) Dose Ordered Sig/Anna Route PRN Reason Start Time Stop Time Status Last Admin Dose Admin Aspirin (ASA) 81 mg DAILY ORAL 04/13/18 09:00 05/08/18 08:59 04/13/18 09:19 Carvedilol (Coreg) 12.5 mg EVERY 12 HOURS ORAL 04/13/18 09:00 05/12/18 08:59 04/14/18 09:02 Chlorhexidine Gluconate (Nel-Hex 2%) 1 applic DAILY@2000 TOPIC 04/13/18 20:00 05/07/18 19:59 04/13/18 21:41 Lactulose (Cephulac) 30 gm THREE TIMES A DAY NG 04/13/18 09:00 05/07/18 17:59 04/14/18 09:02 Metronidazole (Flagyl) 500 mg Q8HR ORAL 04/13/18 06:00 04/19/18 21:59 04/14/18 05:49 Pantoprazole (Protonix) 40 mg DAILY IVP 04/13/18 09:00 05/07/18 08:59 04/14/18 09:03 Piperacillin Sod/ Tazobactam Sod 3.375 gm/Dextrose 110 ml @ 27.5 mls/hr Q8HR IVPB 04/13/18 06:00 04/17/18 05:59 04/14/18 05:49 Vancomycin HCl (Vanco rx to dose) 1 ea DAILY PRN MISC Per rx protocol 04/13/18 09:00 05/10/18 18:59 Vancomycin HCl/ Dextrose 250 ml @ 166.667 mls/hr Q24H IVPB 04/13/18 18:00 04/17/18 17:59 04/13/18 18:47 Dale Galindo MD Apr 14, 2018 12:21
[2018-04-14] MEDS ORDERED: NS 275ml ONE (15:56)
[2018-04-14 16:00] VITALS: BP 110/59
[2018-04-14] MEDS: Vancomycin 1250mg/D5W 250ml 250 ML IVPB SCH (17:32)
--- NOTE | 2018-04-14 19:33 | General Progress Note ---
Assessment/Plan Assessment/Plan Assessment - abnormal pancreas CT - negative tumor markers - ? autoimmune pancreatitis Recommendations - check autoimmune markers and IgG4 - EUS/FNA Tuesday Subjective Allergies: Coded Allergies: No Known Allergies (Unverified , 04/06/18) Subjective Did not get EUS/FNA or CT/FNA today no new complaints Objective Last 24 Hour Vital Signs Date Time Temp Pulse Resp B/P (MAP) Pulse Ox O2 Delivery O2 Flow Rate FiO2 04/14/18 16:00 98.3 70 19 110/59 99 Nasal Cannula 2.0 98.3 04/14/18 12:00 97.0 70 18 116/67 97 Nasal Cannula 2.0 97.0 04/14/18 09:02 80 126/77 04/14/18 08:00 97.1 80 20 126/77 97 Nasal Cannula 2.0 97.1 04/14/18 04:00 97.0 80 18 111/77 98 Nasal Cannula 2.0 97.0 04/14/18 00:00 96.4 82 18 110/67 96 Nasal Cannula 2.0 96.4 04/13/18 21:41 87 120/60 04/13/18 20:00 96.1 81 18 153/91 100 Nasal Cannula 2.0 96.1 04/13/18 19:35 99 Nasal Cannula 2.0 28 04/13/18 19:35 Nasal Cannula 2.0 28 Intake and Output 04/13/18 04/14/18 19:00 07:00 Intake Total 137.5 ml Output Total 300 ml 800 ml Balance -300 ml -662.5 ml IV Total 137.5 ml Output Urine Total 300 ml 800 ml # Bowel Movements 1 Laboratory Tests 04/14/18 04:30: Stool Occult Blood Negative 04/14/18 06:00: White Blood Count 15.1H, Red Blood Count 2.74L, Hemoglobin 8.2L, Hematocrit 24.8L, Mean Corpuscular Volume 91, Mean Corpuscular Hemoglobin 29.8, Mean Corpuscular Hemoglobin Concent 32.9, Red Cell Distribution Width 13.6, Platelet Count 207, Mean Platelet Volume 6.7, Neutrophils (%) (Auto) 34.0L, Lymphocytes ( %) (Auto) 54.8H, Monocytes (%) (Auto) 8.2, Eosinophils (%) (Auto) 1.8, Basophils (%) (Auto) 1.2, Sodium Level 143, Potassium Level 3.4L, Chloride Level 113H, Carbon Dioxide Level 21, Anion Gap 9, Blood Urea Nitrogen 4L, Creatinine 0.9, Estimat Glomerular Filtration Rate > 60, Glucose Level 94, Calcium Level 7.6L, Total Bilirubin 0.8, Aspartate Amino Transf (AST/SGOT) 18, Alanine Aminotransferase (ALT/SGPT) 10L, Alkaline Phosphatase 94, Total Protein 5.6L, Albumin 1.3L, Globulin 4.3, Albumin/Globulin Ratio 0.3L, Alpha Fetoprotein [Pending] Height (Feet): 6 Height (Inches): 0.00 Weight (Pounds): 170 Objective Thin AA man NCAT supple CTA RRR soft NT ND no edema OBS Lina Palma MD Apr 14, 2018 19:32
[2018-04-14 20:00] VITALS: BP 103/58
[2018-04-14] MEDS: Dyna-Hex 2% Top Sol 2oz TOPIC SCH (20:54)
[2018-04-15] VITALS: BP 117/69
[2018-04-15 04:00] VITALS: BP 114/70
[2018-04-15] MEDS: metroNIDAZOLE 500mg tab ORAL SCH ×3 (05:31→21:11)
[2018-04-15] MEDS: Piperacillin/Tazobactam 3.375 GM in D5W 110 ML IVPB SCH ×3 (05:31→21:12)
[2018-04-15 08:00] VITALS: BP 109/72
[2018-04-15] MEDS: Carvedilol 12.5mg tab ORAL SCH ×2 (09:00→21:12)
[2018-04-15] MEDS: Pantoprazole Inj IVP SCH (09:43)
[2018-04-15] MEDS: Aspirin Baby 81mg ORAL SCH (09:44)
[2018-04-15] MEDS: Lactulose 20gm/30ml UDC NG SCH ×3 (09:44→17:32)
--- NOTE | 2018-04-15 10:13 | Pulmonology Progress Note ---
Assessment/Plan Assessment/Plan 1. Acute myocardial infarction. 2. Paroxysmal atrial fibrillation. 3. Sepsis with shock. 4. Alcoholic liver disease. 5. Hepatic encephalopathy. 6. Urinary sepsis. 7. Healthcare-acquired pneumonia. 8. Dehydration. 9. Hypernatremia, improved. 10. Metabolic acidosis. 11. Hypomagnesemia. 12. Lymphocytosis w retroperitoneal lymphadenopathy 13. Pancreatic mass 14. Rectal mass vs foreign body 15. Pleural effusions NPO OT/PT cont abx not competent to make decisions consents to EGD/EUS w bx pancreas bx tuesday check am labs disc w RN, GI, insurance MD Subjective ROS Limited/Unobtainable: Yes Constitutional: Reports: no symptoms HEENT: Repors: no symptoms Respiratory: Reports: no symptoms Gastrointestinal/Abdominal: Reports: diarrhea Genitourinary: Reports: no symptoms Neurologic: Reports: no symptoms Allergies: Coded Allergies: No Known Allergies (Unverified , 04/06/18) Subjective awake but confused follows some commands no distress no cp vn or bleeding no fever noted not getting oob estrella in place Objective Last 24 Hour Vital Signs Date Time Temp Pulse Resp B/P (MAP) Pulse Ox O2 Delivery O2 Flow Rate FiO2 04/15/18 09:00 76 109/72 04/15/18 08:00 93.4 76 16 109/72 98 Nasal Cannula 2.0 93.4 04/15/18 04:00 97.0 75 20 114/70 98 Room Air 97.0 04/15/18 00:00 96.6 79 20 117/69 100 Nasal Cannula 2.0 96.6 04/14/18 21:25 99 Nasal Cannula 2.0 28 04/14/18 21:25 Nasal Cannula 2.0 28 04/14/18 20:54 82 103/58 04/14/18 20:00 97.8 82 20 103/58 100 Nasal Cannula 2.0 97.8 04/14/18 16:00 98.3 70 19 110/59 99 Nasal Cannula 2.0 98.3 04/14/18 12:00 97.0 70 18 116/67 97 Nasal Cannula 2.0 97.0 Intake and Output 04/14/18 04/15/18 19:00 07:00 Intake Total 432.5 ml 110.0 ml Output Total 1400 ml 400 ml Balance -967.5 ml -290.0 ml Intake Oral 240 ml IV Total 192.5 ml 110.0 ml Output Urine Total 1400 ml 400 ml # Bowel Movements 2 2 General Appearance: cachetic HEENT: normocephalic, atraumatic, anicteric Respiratory/Chest: normal breath sounds, no respiratory distress, no accessory muscle use Cardiovascular: normal rate, regular rhythm Extremities: no clubbing Skin: no rash Neurologic/Psychiatric: alert, disoriented Lymphatic: no neck adenopathy, no groin adenopathy Laboratory Tests 04/15/18 05:40: Erythrocyte Sedimentation Rate 78H, C-Reactive Protein, Quantitative 1.5H, Immunoglobulin G [Pending], Immunoglobulin G1 [Pending], Immunoglobulin G2 [ Pending], Immunoglobulin G3 [Pending], Immunoglobulin G4 [Pending] Current Medications Medications (Trade) Dose Ordered Sig/Anna Route PRN Reason Start Time Stop Time Status Last Admin Dose Admin Aspirin (ASA) 81 mg DAILY ORAL 04/13/18 09:00 05/08/18 08:59 04/15/18 09:44 Carvedilol (Coreg) 12.5 mg EVERY 12 HOURS ORAL 04/13/18 09:00 05/12/18 08:59 04/14/18 20:54 Chlorhexidine Gluconate (Nel-Hex 2%) 1 applic DAILY@2000 TOPIC 04/13/18 20:00 05/07/18 19:59 04/14/18 20:54 Folic Acid (Folate) 1 mg DAILY ORAL 04/15/18 09:00 05/15/18 08:59 04/15/18 09:44 Lactulose (Cephulac) 30 gm THREE TIMES A DAY NG 04/13/18 09:00 05/07/18 17:59 04/15/18 09:44 Metronidazole (Flagyl) 500 mg Q8HR ORAL 04/13/18 06:00 04/19/18 21:59 04/15/18 05:31 Pantoprazole (Protonix) 40 mg DAILY IVP 04/13/18 09:00 05/07/18 08:59 04/15/18 09:43 Piperacillin Sod/ Tazobactam Sod 3.375 gm/Dextrose 110 ml @ 27.5 mls/hr Q8HR IVPB 04/13/18 06:00 04/17/18 05:59 04/15/18 05:31 Potassium Chloride (K-Dur) 20 meq TWICE A DAY ORAL 04/14/18 18:00 04/17/18 17:59 04/15/18 09:44 Vancomycin HCl (Vanco rx to dose) 1 ea DAILY PRN MISC Per rx protocol 04/13/18 09:00 05/10/18 18:59 Vancomycin HCl/ Dextrose 250 ml @ 166.667 mls/hr Q24H IVPB 04/13/18 18:00 04/17/18 17:59 04/14/18 17:32 Gerda Oquendo DO Apr 15, 2018 10:13
--- NOTE | 2018-04-15 11:01 | Infectious Diseases Prog Note ---
Assessment/Plan Assessment/Plan antibiotics : vancomycin iv, zosyn A 1. pneumonia 2. leucocytosis improving 3. cirrhosis 4. atrial fibrillation 5. UTI 6. pancreatic mass P 1. continue zosyn 2. d/c iv vancomycin 3. will follow up cultures Subjective ROS Limited/Unobtainable: Yes Allergies: Coded Allergies: No Known Allergies (Unverified , 04/06/18) Objective Vital Signs Last 24 Hour Vital Signs Date Time Temp Pulse Resp B/P (MAP) Pulse Ox O2 Delivery O2 Flow Rate FiO2 04/15/18 09:00 76 109/72 04/15/18 08:00 93.4 76 16 109/72 98 Nasal Cannula 2.0 93.4 04/15/18 04:00 97.0 75 20 114/70 98 Room Air 97.0 04/15/18 00:00 96.6 79 20 117/69 100 Nasal Cannula 2.0 96.6 04/14/18 21:25 99 Nasal Cannula 2.0 28 04/14/18 21:25 Nasal Cannula 2.0 28 04/14/18 20:54 82 103/58 04/14/18 20:00 97.8 82 20 103/58 100 Nasal Cannula 2.0 97.8 04/14/18 16:00 98.3 70 19 110/59 99 Nasal Cannula 2.0 98.3 04/14/18 12:00 97.0 70 18 116/67 97 Nasal Cannula 2.0 97.0 Height (Feet): 6 Height (Inches): 0.00 Weight (Pounds): 166 Respiratory/Chest: lungs clear Cardiovascular: normal rate, regular rhythm, no gallop/murmur Abdomen: soft, non tender Extremities: no edema Laboratory Tests Test 04/15/18 05:40 Erythrocyte Sedimentation Rate 78 MM/HR (0-20) H C-Reactive Protein, Quantitative 1.5 mg/dL (0.00-0.90) H Immunoglobulin G Pending Immunoglobulin G1 Pending Immunoglobulin G2 Pending Immunoglobulin G3 Pending Immunoglobulin G4 Pending Current Medications Medications (Trade) Dose Ordered Sig/Anna Route PRN Reason Start Time Stop Time Status Last Admin Dose Admin Aspirin (ASA) 81 mg DAILY ORAL 04/13/18 09:00 05/08/18 08:59 04/15/18 09:44 Carvedilol (Coreg) 12.5 mg EVERY 12 HOURS ORAL 04/13/18 09:00 05/12/18 08:59 04/14/18 20:54 Chlorhexidine Gluconate (Nel-Hex 2%) 1 applic DAILY@2000 TOPIC 04/13/18 20:00 05/07/18 19:59 04/14/18 20:54 Folic Acid (Folate) 1 mg DAILY ORAL 04/15/18 09:00 05/15/18 08:59 04/15/18 09:44 Lactulose (Cephulac) 30 gm THREE TIMES A DAY NG 04/13/18 09:00 05/07/18 17:59 04/15/18 09:44 Metronidazole (Flagyl) 500 mg Q8HR ORAL 04/13/18 06:00 04/19/18 21:59 04/15/18 05:31 Pantoprazole (Protonix) 40 mg DAILY IVP 04/13/18 09:00 05/07/18 08:59 04/15/18 09:43 Piperacillin Sod/ Tazobactam Sod 3.375 gm/Dextrose 110 ml @ 27.5 mls/hr Q8HR IVPB 04/13/18 06:00 04/17/18 05:59 04/15/18 05:31 Potassium Chloride (K-Dur) 20 meq TWICE A DAY ORAL 04/14/18 18:00 04/17/18 17:59 04/15/18 09:44 Vancomycin HCl (Vanco rx to dose) 1 ea DAILY PRN MISC Per rx protocol 04/13/18 09:00 05/10/18 18:59 Vancomycin HCl/ Dextrose 250 ml @ 166.667 mls/hr Q24H IVPB 04/13/18 18:00 04/17/18 17:59 04/14/18 17:32 VALENTINE ZARATE Apr 15, 2018 11:01
[2018-04-15 12:00] VITALS: BP 108/70
--- NOTE | 2018-04-15 12:51 | General Progress Note ---
Assessment/Plan Assessment/Plan Assessment - abnormal pancreas CT - negative tumor markers - ? autoimmune pancreatitis Recommendations - check autoimmune markers and IgG4 (ESR elevated at 78) - EUS/FNA Tuesday Subjective Allergies: Coded Allergies: No Known Allergies (Unverified , 04/06/18) Subjective NAD no new complaints Objective Last 24 Hour Vital Signs Date Time Temp Pulse Resp B/P (MAP) Pulse Ox O2 Delivery O2 Flow Rate FiO2 04/15/18 09:00 76 109/72 04/15/18 08:00 93.4 76 16 109/72 98 Nasal Cannula 2.0 93.4 04/15/18 04:00 97.0 75 20 114/70 98 Room Air 97.0 04/15/18 00:00 96.6 79 20 117/69 100 Nasal Cannula 2.0 96.6 04/14/18 21:25 99 Nasal Cannula 2.0 28 04/14/18 21:25 Nasal Cannula 2.0 28 04/14/18 20:54 82 103/58 04/14/18 20:00 97.8 82 20 103/58 100 Nasal Cannula 2.0 97.8 04/14/18 16:00 98.3 70 19 110/59 99 Nasal Cannula 2.0 98.3 Intake and Output 04/14/18 04/15/18 19:00 07:00 Intake Total 432.5 ml 110.0 ml Output Total 1400 ml 400 ml Balance -967.5 ml -290.0 ml Intake Oral 240 ml IV Total 192.5 ml 110.0 ml Output Urine Total 1400 ml 400 ml # Bowel Movements 2 2 Laboratory Tests 04/15/18 05:40: Erythrocyte Sedimentation Rate 78H, C-Reactive Protein, Quantitative 1.5H, Immunoglobulin G [Pending], Immunoglobulin G1 [Pending], Immunoglobulin G2 [ Pending], Immunoglobulin G3 [Pending], Immunoglobulin G4 [Pending] Height (Feet): 6 Height (Inches): 0.00 Weight (Pounds): 166 Objective Thin AA man NCAT supple CTA RRR soft NT ND no edema OBS Lina Palma MD Apr 15, 2018 12:51
[2018-04-15] MEDS ORDERED: NS 500ML ONE (15:12)
[2018-04-15] MEDS ORDERED: Tubing IV Secondary IV ONE (15:12)
[2018-04-15 15:52] VITALS: BP 123/84
[2018-04-15] MEDS ORDERED: Vancomycin 1250mg/D5W 250ml 250 ML IVPB SCH (18:00)
[2018-04-15 20:00] VITALS: BP 133/87
[2018-04-15] MEDS: Dyna-Hex 2% Top Sol 2oz TOPIC SCH (21:11)
[2018-04-16] VITALS: BP 111/75
[2018-04-16 04:00] VITALS: BP 129/88
[2018-04-16 04:48] LABS: BASOPHILS % (AUTO) 1.7 % (0.0-2.0); EOSINOPHILS % (AUTO) 2.5 % (0.0-3.0); HEMATOCRIT 25.6 % (42.0-52.0); HEMOGLOBIN 8.3 G/DL (14.2-18.0); LYMPHOCYTES % (AUTO) 52.8 % (20.0-45.0); MEAN CORPUSCULAR VOLUME 91 FL (80-99); MONOCYTES % (AUTO) 8.9 % (1.0-10.0); NEUTROPHILS % (AUTO) 34.2 % (45.0-75.0); PLATELET COUNT 248 K/UL (150-450); RED BLOOD COUNT 2.81 M/UL (4.70-6.10); RED CELL DISTRIBUTION WIDTH 13.4 % (11.6-14.8); WHITE BLOOD COUNT 12.7 K/UL (4.8-10.8)
[2018-04-16] MEDS: metroNIDAZOLE 500mg tab ORAL SCH ×3 (05:43→21:39)
[2018-04-16] MEDS: Piperacillin/Tazobactam 3.375 GM in D5W 110 ML IVPB SCH (05:44)
[2018-04-16 06:12] LABS: ANION GAP 9 mmol/L (5-15); BLOOD UREA NITROGEN 3 mg/dL (7-18); CALCIUM 8.3 MG/DL (8.5-10.1); CARBON DIOXIDE 22 MMOL/L (21-32); CHLORIDE 119 MMOL/L (98-107); CREATININE 0.9 MG/DL (0.55-1.30); POTASSIUM 3.3 MMOL/L (3.5-5.1); SODIUM 149 MMOL/L (136-145)
[2018-04-16 08:00] VITALS: BP 135/86
--- NOTE | 2018-04-16 08:12 | General Progress Note ---
Assessment/Plan Status: stable Assessment/Plan 1. Pancreatic mass noted on CT abdomen and chest --> Unusual pancreatic head and body lesion. The shape is not that of a typical mass lesion, but the presence of extensive surrounding lymphadenopathy indicates that this is probably a pancreatic malignancy. The possibility of pancreatitis with surrounding phlegmon and reactive lymphadenopathy should also be considered. --> eus with egd have discussed with Dr. Wood and RN potentially tuesday --> tumor markers have been sent and are pending 2. Lymphadenopathy --> potentially related to malignancy --> ordered a flow cytometry and closely monitor for evaluation --> f/u and have discussed with pathology 3. Coagulopathy likely secondary to underlying cirrhosis. --> INR elevated, given vit K 4. Anemia secondary to underlying chronic disease. --> Continue to closely monitor. hgb at 8.2 04/14/18 --> Anemia w/u has been reviewed. Will trend cbc prn --> consider transfusion if hgb <7 5. Fever and chills, septic shock. --> resolved 6. Atrial fibrillation initially has been treated. Dr. Han is on the case. Subjective Date patient seen: Apr 15, 2018 ROS Limited/Unobtainable: Yes Allergies: Coded Allergies: No Known Allergies (Unverified , 04/06/18) All Systems: reviewed and negative except above Subjective Pt is awake and confused but in no apparent distress. No c/o pain or distress. No overnight events. Objective Last 24 Hour Vital Signs Date Time Temp Pulse Resp B/P (MAP) Pulse Ox O2 Delivery O2 Flow Rate FiO2 04/16/18 04:00 97.1 83 20 129/88 100 Nasal Cannula 2.0 97.1 04/16/18 00:00 97.4 81 19 111/75 100 Nasal Cannula 2.0 97.4 04/15/18 21:12 92 133/87 04/15/18 20:00 98.2 92 20 133/87 100 Nasal Cannula 2.0 98.2 04/15/18 19:30 Nasal Cannula 2.0 28 04/15/18 19:30 99 Nasal Cannula 2.0 28 04/15/18 15:52 98.0 92 20 123/84 99 Nasal Cannula 2.0 98.0 04/15/18 12:00 98.2 85 19 108/70 98 Nasal Cannula 2.0 98.2 04/15/18 09:00 76 109/72 Intake and Output 04/15/18 04/16/18 19:00 07:00 Intake Total 571.2 ml Output Total 600 ml 950 ml Balance -28.8 ml -950 ml Intake Oral 420 ml IV Total 151.2 ml Output Urine Total 600 ml 950 ml # Bowel Movements 3 3 Laboratory Tests 04/16/18 03:30: White Blood Count 12.7H, Red Blood Count 2.81L, Hemoglobin 8.3L, Hematocrit 25.6L, Mean Corpuscular Volume 91, Mean Corpuscular Hemoglobin 29.5, Mean Corpuscular Hemoglobin Concent 32.4, Red Cell Distribution Width 13.4, Platelet Count 248, Mean Platelet Volume 6.5, Neutrophils (%) (Auto) 34.2L, Lymphocytes ( %) (Auto) 52.8H, Monocytes (%) (Auto) 8.9, Eosinophils (%) (Auto) 2.5, Basophils (%) (Auto) 1.7, Sodium Level 149H, Potassium Level 3.3L, Chloride Level 119H, Carbon Dioxide Level 22, Anion Gap 9, Blood Urea Nitrogen 3L, Creatinine 0.9, Estimat Glomerular Filtration Rate > 60, Glucose Level 95, Calcium Level 8.3L Height (Feet): 6 Height (Inches): 0.00 Weight (Pounds): 166 General Appearance: no apparent distress, alert EENT: PERRL/EOMI Neck: normal alignment Cardiovascular: normal peripheral pulses Respiratory/Chest: no respiratory distress Abdomen: soft Parish Trevino MD Apr 16, 2018 08:12
[2018-04-16] MEDS: Aspirin Baby 81mg ORAL SCH (09:56)
[2018-04-16] MEDS: Pantoprazole Inj IVP SCH (09:56)
[2018-04-16] MEDS: Lactulose 20gm/30ml UDC NG SCH ×3 (09:56→18:02)
[2018-04-16] MEDS: Carvedilol 12.5mg tab ORAL SCH ×2 (09:56→21:39)
--- NOTE | 2018-04-16 10:03 | Infectious Diseases Prog Note ---
Assessment/Plan Assessment/Plan A: Pneumonia Leukocytosis with Lymphocytosis Peripancreatic adenopathy/mass ? malignancy Cirrhosis Diarrhea Anemia Paroxysmal A fib P: Continue Zosyn Will f/u cultures Subjective ROS Limited/Unobtainable: Yes Allergies: Coded Allergies: No Known Allergies (Unverified , 04/06/18) Objective Vital Signs Last 24 Hour Vital Signs Date Time Temp Pulse Resp B/P (MAP) Pulse Ox O2 Delivery O2 Flow Rate FiO2 04/16/18 09:56 79 135/86 04/16/18 08:00 97.9 79 20 135/86 100 Nasal Cannula 2.0 97.9 04/16/18 04:00 97.1 83 20 129/88 100 Nasal Cannula 2.0 97.1 04/16/18 00:00 97.4 81 19 111/75 100 Nasal Cannula 2.0 97.4 04/15/18 21:12 92 133/87 04/15/18 20:00 98.2 92 20 133/87 100 Nasal Cannula 2.0 98.2 04/15/18 19:30 Nasal Cannula 2.0 28 04/15/18 19:30 99 Nasal Cannula 2.0 28 04/15/18 15:52 98.0 92 20 123/84 99 Nasal Cannula 2.0 98.0 04/15/18 12:00 98.2 85 19 108/70 98 Nasal Cannula 2.0 98.2 Height (Feet): 6 Height (Inches): 0.00 Weight (Pounds): 166 General Appearance: no acute distress HEENT: other - poor dentitian Respiratory/Chest: lungs clear Cardiovascular: normal rate Abdomen: soft, non tender Extremities: no edema Neurologic/Psychiatric: alert, responsive Laboratory Tests Test 04/16/18 03:30 White Blood Count 12.7 K/UL (4.8-10.8) H Red Blood Count 2.81 M/UL (4.70-6.10) L Hemoglobin 8.3 G/DL (14.2-18.0) L Hematocrit 25.6 % (42.0-52.0) L Mean Corpuscular Volume 91 FL (80-99) Mean Corpuscular Hemoglobin 29.5 PG (27.0-31.0) Mean Corpuscular Hemoglobin Concent 32.4 G/DL (32.0-36.0) Red Cell Distribution Width 13.4 % (11.6-14.8) Platelet Count 248 K/UL (150-450) Mean Platelet Volume 6.5 FL (6.5-10.1) Neutrophils (%) (Auto) 34.2 % (45.0-75.0) L Lymphocytes (%) (Auto) 52.8 % (20.0-45.0) H Monocytes (%) (Auto) 8.9 % (1.0-10.0) Eosinophils (%) (Auto) 2.5 % (0.0-3.0) Basophils (%) (Auto) 1.7 % (0.0-2.0) Sodium Level 149 MMOL/L (136-145) H Potassium Level 3.3 MMOL/L (3.5-5.1) L Chloride Level 119 MMOL/L (98-107) H Carbon Dioxide Level 22 MMOL/L (21-32) Anion Gap 9 mmol/L (5-15) Blood Urea Nitrogen 3 mg/dL (7-18) L Creatinine 0.9 MG/DL (0.55-1.30) Estimat Glomerular Filtration Rate > 60 mL/min (>60) Glucose Level 95 MG/DL (74-106) Calcium Level 8.3 MG/DL (8.5-10.1) L Current Medications Medications (Trade) Dose Ordered Sig/Anna Route PRN Reason Start Time Stop Time Status Last Admin Dose Admin Aspirin (ASA) 81 mg DAILY ORAL 04/13/18 09:00 05/08/18 08:59 04/16/18 09:56 Carvedilol (Coreg) 12.5 mg EVERY 12 HOURS ORAL 04/13/18 09:00 05/12/18 08:59 04/16/18 09:56 Chlorhexidine Gluconate (Nel-Hex 2%) 1 applic DAILY@1999 TOPIC 04/13/18 20:00 05/07/18 19:59 04/15/18 21:11 Folic Acid (Folate) 1 mg DAILY ORAL 04/15/18 09:00 05/15/18 08:59 04/16/18 09:56 Lactulose (Cephulac) 30 gm THREE TIMES A DAY NG 04/13/18 09:00 05/07/18 17:59 04/16/18 09:56 Metronidazole (Flagyl) 500 mg Q8HR ORAL 04/13/18 06:00 04/19/18 21:59 04/16/18 05:43 Pantoprazole (Protonix) 40 mg DAILY IVP 04/13/18 09:00 05/07/18 08:59 04/16/18 09:56 Piperacillin Sod/ Tazobactam Sod 3.375 gm/Dextrose 110 ml @ 27.5 mls/hr Q8HR IVPB 04/15/18 14:00 04/19/18 13:59 04/16/18 05:44 Potassium Chloride (K-Dur) 20 meq TWICE A DAY ORAL 04/14/18 18:00 04/17/18 17:59 04/16/18 09:56 Dale Galindo MD Apr 16, 2018 10:03
[2018-04-16 12:00] VITALS: BP 110/86
[2018-04-16 13:50] LABS: AMYLASE 35 U/L (25-115)
[2018-04-16] MEDS: Piperacillin/Tazobactam 3.375 GM in NS 110 ML IVPB SCH ×2 (14:03→21:39)
--- NOTE | 2018-04-16 14:12 | General Progress Note ---
Assessment/Plan Assessment/Plan Assessment - abnormal pancreas CT - negative tumor markers - ? autoimmune pancreatitis Recommendations - check autoimmune markers and IgG4 (ESR elevated at 78) - EUS/FNA Tuesday - check pelvic film, 1 view Subjective Allergies: Coded Allergies: No Known Allergies (Unverified , 04/06/18) Subjective NAD no new complaints Objective Last 24 Hour Vital Signs Date Time Temp Pulse Resp B/P (MAP) Pulse Ox O2 Delivery O2 Flow Rate FiO2 04/16/18 12:00 97.7 70 20 110/86 100 Nasal Cannula 2.0 97.7 04/16/18 09:56 79 135/86 04/16/18 08:00 97.9 79 20 135/86 100 Nasal Cannula 2.0 97.9 04/16/18 07:30 Nasal Cannula 2.0 28 04/16/18 07:30 99 Nasal Cannula 2.0 28 04/16/18 04:00 97.1 83 20 129/88 100 Nasal Cannula 2.0 97.1 04/16/18 00:00 97.4 81 19 111/75 100 Nasal Cannula 2.0 97.4 04/15/18 21:12 92 133/87 04/15/18 20:00 98.2 92 20 133/87 100 Nasal Cannula 2.0 98.2 04/15/18 19:30 Nasal Cannula 2.0 28 04/15/18 19:30 99 Nasal Cannula 2.0 28 04/15/18 15:52 98.0 92 20 123/84 99 Nasal Cannula 2.0 98.0 Intake and Output 04/15/18 04/16/18 19:00 07:00 Intake Total 571.2 ml Output Total 600 ml 950 ml Balance -28.8 ml -950 ml Intake Oral 420 ml IV Total 151.2 ml Output Urine Total 600 ml 950 ml # Bowel Movements 3 3 Laboratory Tests 04/16/18 03:30: White Blood Count 12.7H, Red Blood Count 2.81L, Hemoglobin 8.3L, Hematocrit 25.6L, Mean Corpuscular Volume 91, Mean Corpuscular Hemoglobin 29.5, Mean Corpuscular Hemoglobin Concent 32.4, Red Cell Distribution Width 13.4, Platelet Count 248, Mean Platelet Volume 6.5, Neutrophils (%) (Auto) 34.2L, Lymphocytes ( %) (Auto) 52.8H, Monocytes (%) (Auto) 8.9, Eosinophils (%) (Auto) 2.5, Basophils (%) (Auto) 1.7, Sodium Level 149H, Potassium Level 3.3L, Chloride Level 119H, Carbon Dioxide Level 22, Anion Gap 9, Blood Urea Nitrogen 3L, Creatinine 0.9, Estimat Glomerular Filtration Rate > 60, Glucose Level 95, Calcium Level 8.3L, Amylase Level 35, Lipase 85 Height (Feet): 6 Height (Inches): 0.00 Weight (Pounds): 164 Objective Thin AA man NCAT supple CTA RRR soft NT ND no edema OBS Lina Palma MD Apr 16, 2018 14:12
--- NOTE | 2018-04-16 14:50 | Pulmonology Progress Note ---
Assessment/Plan Assessment/Plan 1. Acute myocardial infarction. 2. Paroxysmal atrial fibrillation. 3. Sepsis with shock. 4. Alcoholic liver disease. 5. Hepatic encephalopathy. 6. Urinary sepsis. 7. Healthcare-acquired pneumonia. 8. Dehydration. 9. Hypernatremia, improved. 10. Metabolic acidosis. 11. Hypomagnesemia. 12. Lymphocytosis w retroperitoneal lymphadenopathy 13. Pancreatic mass 14. Rectal mass vs foreign body 15. Pleural effusions NPO OT/PT cont abx for uti replaced lytes not competent to make decisions consents to EGD/EUS w bx pancreas bx tuesday check am labs disc w RN, GI, insurance MD Subjective ROS Limited/Unobtainable: Yes Allergies: Coded Allergies: No Known Allergies (Unverified , 04/06/18) Subjective awake but confused follows some commands no distress no cp vn or bleeding no fever noted not getting oob estrella in place Objective Last 24 Hour Vital Signs Date Time Temp Pulse Resp B/P (MAP) Pulse Ox O2 Delivery O2 Flow Rate FiO2 04/16/18 12:00 97.7 70 20 110/86 100 Nasal Cannula 2.0 97.7 04/16/18 09:56 79 135/86 04/16/18 08:00 97.9 79 20 135/86 100 Nasal Cannula 2.0 97.9 04/16/18 07:30 Nasal Cannula 2.0 28 04/16/18 07:30 99 Nasal Cannula 2.0 28 04/16/18 04:00 97.1 83 20 129/88 100 Nasal Cannula 2.0 97.1 04/16/18 00:00 97.4 81 19 111/75 100 Nasal Cannula 2.0 97.4 04/15/18 21:12 92 133/87 04/15/18 20:00 98.2 92 20 133/87 100 Nasal Cannula 2.0 98.2 04/15/18 19:30 Nasal Cannula 2.0 28 04/15/18 19:30 99 Nasal Cannula 2.0 28 04/15/18 15:52 98.0 92 20 123/84 99 Nasal Cannula 2.0 98.0 Intake and Output 04/15/18 04/16/18 19:00 07:00 Intake Total 571.2 ml Output Total 600 ml 950 ml Balance -28.8 ml -950 ml Intake Oral 420 ml IV Total 151.2 ml Output Urine Total 600 ml 950 ml # Bowel Movements 3 3 General Appearance: cachetic HEENT: atraumatic Respiratory/Chest: normal breath sounds, no accessory muscle use Cardiovascular: regular rhythm, regularly irregular Abdomen: soft, non tender, no organomegaly Extremities: no clubbing Skin: no rash Neurologic/Psychiatric: responsive Laboratory Tests 04/16/18 03:30: White Blood Count 12.7H, Red Blood Count 2.81L, Hemoglobin 8.3L, Hematocrit 25.6L, Mean Corpuscular Volume 91, Mean Corpuscular Hemoglobin 29.5, Mean Corpuscular Hemoglobin Concent 32.4, Red Cell Distribution Width 13.4, Platelet Count 248, Mean Platelet Volume 6.5, Neutrophils (%) (Auto) 34.2L, Lymphocytes ( %) (Auto) 52.8H, Monocytes (%) (Auto) 8.9, Eosinophils (%) (Auto) 2.5, Basophils (%) (Auto) 1.7, Sodium Level 149H, Potassium Level 3.3L, Chloride Level 119H, Carbon Dioxide Level 22, Anion Gap 9, Blood Urea Nitrogen 3L, Creatinine 0.9, Estimat Glomerular Filtration Rate > 60, Glucose Level 95, Calcium Level 8.3L, Amylase Level 35, Lipase 85 Current Medications Medications (Trade) Dose Ordered Sig/Anna Route PRN Reason Start Time Stop Time Status Last Admin Dose Admin Aspirin (ASA) 81 mg DAILY ORAL 04/13/18 09:00 05/08/18 08:59 04/16/18 09:56 Carvedilol (Coreg) 12.5 mg EVERY 12 HOURS ORAL 04/13/18 09:00 05/12/18 08:59 04/16/18 09:56 Chlorhexidine Gluconate (Nel-Hex 2%) 1 applic DAILY@1999 TOPIC 04/13/18 20:00 05/07/18 19:59 04/15/18 21:11 Folic Acid (Folate) 1 mg DAILY ORAL 04/15/18 09:00 05/15/18 08:59 04/16/18 09:56 Lactulose (Cephulac) 30 gm THREE TIMES A DAY NG 04/13/18 09:00 05/07/18 17:59 04/16/18 14:03 Metronidazole (Flagyl) 500 mg Q8HR ORAL 04/13/18 06:00 04/19/18 21:59 04/16/18 14:04 Pantoprazole (Protonix) 40 mg DAILY IVP 04/13/18 09:00 05/07/18 08:59 04/16/18 09:56 Piperacillin Sod/ Tazobactam Sod 3.375 gm/Sodium Chloride 110 ml @ 27.5 mls/hr Q8HR IVPB 04/16/18 14:00 04/23/18 13:59 04/16/18 14:03 Potassium Chloride (K-Dur) 20 meq TWICE A DAY ORAL 04/14/18 18:00 04/17/18 17:59 04/16/18 09:56 Potassium Chloride (K-Dur) 40 meq ONCE ORAL 04/16/18 14:30 04/16/18 16:30 Gerda Oquendo DO Apr 16, 2018 14:50
[2018-04-16 16:00] VITALS: BP 112/72
--- NOTE | 2018-04-16 17:36 | General Progress Note ---
Assessment/Plan Status: unchanged Assessment/Plan 1. Pancreatic mass noted on CT abdomen and chest --> Unusual pancreatic head and body lesion. The shape is not that of a typical mass lesion, but the presence of extensive surrounding lymphadenopathy indicates that this is probably a pancreatic malignancy. The possibility of pancreatitis with surrounding phlegmon and reactive lymphadenopathy should also be considered. --> eus with egd have discussed with Dr. Wood and RN potentially tuesday --> tumor markers have been sent and are pending 2. Lymphadenopathy --> potentially related to malignancy --> ordered a flow cytometry and closely monitor for evaluation --> f/u and have discussed with pathology 3. Coagulopathy likely secondary to underlying cirrhosis. --> INR elevated, given vit K 4. Anemia secondary to underlying chronic disease. --> Continue to closely monitor. hgb at 8.2 04/14/18 --> Anemia w/u has been reviewed. Will trend cbc prn --> consider transfusion if hgb <7 5. Fever and chills, septic shock. --> resolved 6. Atrial fibrillation initially has been treated. Dr. Han is on the case. Subjective Date patient seen: Apr 16, 2018 ROS Limited/Unobtainable: Yes Allergies: Coded Allergies: No Known Allergies (Unverified , 04/06/18) All Systems: reviewed and negative except above Subjective No overnight events. No c/o pain or discomfort. Objective Last 24 Hour Vital Signs Date Time Temp Pulse Resp B/P (MAP) Pulse Ox O2 Delivery O2 Flow Rate FiO2 04/16/18 16:00 97.0 76 20 112/72 100 Nasal Cannula 2.0 97.0 04/16/18 12:00 97.7 70 20 110/86 100 Nasal Cannula 2.0 97.7 04/16/18 09:56 79 135/86 04/16/18 08:00 97.9 79 20 135/86 100 Nasal Cannula 2.0 97.9 04/16/18 07:30 Nasal Cannula 2.0 28 04/16/18 07:30 99 Nasal Cannula 2.0 28 04/16/18 04:00 97.1 83 20 129/88 100 Nasal Cannula 2.0 97.1 04/16/18 00:00 97.4 81 19 111/75 100 Nasal Cannula 2.0 97.4 04/15/18 21:12 92 133/87 04/15/18 20:00 98.2 92 20 133/87 100 Nasal Cannula 2.0 98.2 04/15/18 19:30 Nasal Cannula 2.0 28 04/15/18 19:30 99 Nasal Cannula 2.0 28 Intake and Output 04/15/18 04/16/18 19:00 07:00 Intake Total 571.2 ml Output Total 600 ml 950 ml Balance -28.8 ml -950 ml Intake Oral 420 ml IV Total 151.2 ml Output Urine Total 600 ml 950 ml # Bowel Movements 3 3 Laboratory Tests 04/16/18 03:30: White Blood Count 12.7H, Red Blood Count 2.81L, Hemoglobin 8.3L, Hematocrit 25.6L, Mean Corpuscular Volume 91, Mean Corpuscular Hemoglobin 29.5, Mean Corpuscular Hemoglobin Concent 32.4, Red Cell Distribution Width 13.4, Platelet Count 248, Mean Platelet Volume 6.5, Neutrophils (%) (Auto) 34.2L, Lymphocytes ( %) (Auto) 52.8H, Monocytes (%) (Auto) 8.9, Eosinophils (%) (Auto) 2.5, Basophils (%) (Auto) 1.7, Sodium Level 149H, Potassium Level 3.3L, Chloride Level 119H, Carbon Dioxide Level 22, Anion Gap 9, Blood Urea Nitrogen 3L, Creatinine 0.9, Estimat Glomerular Filtration Rate > 60, Glucose Level 95, Calcium Level 8.3L, Amylase Level 35, Lipase 85 Height (Feet): 6 Height (Inches): 0.00 Weight (Pounds): 164 General Appearance: WD/WN, no apparent distress, confused EENT: PERRL/EOMI Neck: normal alignment, supple Cardiovascular: normal peripheral pulses, regular rhythm Respiratory/Chest: normal breath sounds, no respiratory distress Abdomen: soft Parish Trevino MD Apr 16, 2018 17:36
[2018-04-16 20:00] VITALS: BP 130/84
[2018-04-16] MEDS: Dyna-Hex 2% Top Sol 2oz TOPIC SCH (20:16)
[2018-04-16] MEDS ORDERED: Piperacillin/Tazobactam 3.375 GM in NS 110 ML IVPB SCH (22:00)
[2018-04-17] VITALS (9 sets, daily range): BP systolic 93–147; BP diastolic 66–93
[2018-04-17] MEDS: metroNIDAZOLE 500mg tab ORAL SCH ×3 (05:34→22:00)
[2018-04-17] MEDS: Piperacillin/Tazobactam 3.375 GM in NS 110 ML IVPB SCH (05:34)
--- NOTE | 2018-04-17 08:02 | General Progress Note ---
Assessment/Plan Assessment/Plan Assessment - abnormal pancreas CT - negative tumor markers - ? autoimmune pancreatitis Recommendations - check autoimmune markers and IgG4 (ESR elevated at 78) - EUS/FNA Today - check pelvic film, 1 view - pending Subjective Allergies: Coded Allergies: No Known Allergies (Unverified , 04/06/18) Subjective NAD no new complaints Objective Last 24 Hour Vital Signs Date Time Temp Pulse Resp B/P (MAP) Pulse Ox O2 Delivery O2 Flow Rate FiO2 04/17/18 04:00 97.5 73 19 132/86 100 Nasal Cannula 2.0 97.5 04/17/18 00:00 97.9 78 20 110/71 100 Nasal Cannula 2.0 97.9 04/16/18 21:39 72 130/84 04/16/18 20:00 98.1 72 17 130/84 100 Nasal Cannula 2.0 98.1 04/16/18 19:30 Nasal Cannula 2.0 28 04/16/18 19:30 99 Nasal Cannula 2.0 28 04/16/18 16:00 97.0 76 20 112/72 100 Nasal Cannula 2.0 97.0 04/16/18 12:00 97.7 70 20 110/86 100 Nasal Cannula 2.0 97.7 04/16/18 09:56 79 135/86 Intake and Output 04/16/18 04/17/18 19:00 07:00 Intake Total 120 ml 237.5 ml Output Total 400 ml 550 ml Balance -280 ml -312.5 ml Intake Oral 120 ml 100 ml IV Total 137.5 ml Output Urine Total 400 ml 550 ml # Bowel Movements 1 3 Height (Feet): 6 Height (Inches): 0.00 Weight (Pounds): 164 Objective Thin AA man NCAT supple CTA RRR soft NT ND no edema OBS Lina Palma MD Apr 17, 2018 08:02
--- NOTE | 2018-04-17 08:51 | Anethesia Preoperative Eval ---
Anesthesia Pre-op PMH/ROS General Date of Evaluation: Apr 17, 2018 Time of Evaluation: 10:14 Anesthesiologist: Stella ASA Score: ASA 4 Mallampati Score Class I : Soft palate, uvula, fauces, pillars visible Class II: Soft palate, uvula, fauces visible Class III: Soft palate, base of uvula visible Class IV: Only hard plate visible Mallampati Classification: Class III Surgeon: Perico Diagnosis: Abd Pain Surgical Procedure: EGD/EUS Anesthesia History: none Family History: no anesthesia problems Allergies: Coded Allergies: No Known Allergies (Unverified , 04/06/18) Medications: see eMAR Past Medical History Cardiovascular: Reports: HTN, arrhythmia Pulmonary: Reports: other - Pneumonia Gastrointestinal/Genitourinary: Reports: other - Cirrhosis, Toxic Enchephalopathy Neurologic/Psychiatric: Reports: dementia - AMS Hematology/Immune: Reports: anemia, other - Hyponatremia Anesthesia Pre-op Phys. Exam Physician Exam Last Vital Signs Date Time Temp Pulse Resp B/P (MAP) Pulse Ox O2 Delivery O2 Flow Rate FiO2 04/17/18 08:00 97.1 86 22 140/92 100 Nasal Cannula 2.0 97.1 04/16/18 19:30 28 Constitutional: NAD Neurologic: CN 2-12 intact Cardiovascular: RRR Respiratory: CTA Gastrointestinal: S/NT/ND Airway Exam Mallampati Score: Class III MO: limited ROM: limited Teeth: missing, intact Anesthesia Pre-op A/P Risk Assessment & Plan Assessment: ASA 4 Plan: GA Status Change Before Surgery: No Nuno Douglas MD Apr 17, 2018 08:51
--- NOTE | 2018-04-17 08:57 | General Progress Note ---
Assessment/Plan Assessment/Plan 1. Pancreatic mass noted on CT abdomen and chest --> Unusual pancreatic head and body lesion. The shape is not that of a typical mass lesion, but the presence of extensive surrounding lymphadenopathy indicates that this is probably a pancreatic malignancy. The possibility of pancreatitis with surrounding phlegmon and reactive lymphadenopathy should also be considered. --> eus with egd have discussed with Dr. Wood and RN heronyl today --> tumor markers have been sent and are pending --> autoimmune markers are pending 2. Lymphadenopathy --> potentially related to malignancy --> flow reviewed and final results pending --> f/u and have discussed with pathology 3. Coagulopathy likely secondary to underlying cirrhosis. --> INR elevated, given vit K 4. Anemia secondary to underlying chronic disease. --> Continue to closely monitor. hgb at 8.2 04/14/18 --> Anemia w/u has been reviewed. Will trend cbc prn --> consider transfusion if hgb <7 5. Fever and chills, septic shock. --> resolved 6. Atrial fibrillation initially has been treated. Dr. Han is on the case. Subjective Allergies: Coded Allergies: No Known Allergies (Unverified , 04/06/18) All Systems: reviewed and negative except above Subjective No overnight events. No c/o pain or discomfort. Objective Last 24 Hour Vital Signs Date Time Temp Pulse Resp B/P (MAP) Pulse Ox O2 Delivery O2 Flow Rate FiO2 04/17/18 08:00 97.1 86 22 140/92 100 Nasal Cannula 2.0 97.1 04/17/18 04:00 97.5 73 19 132/86 100 Nasal Cannula 2.0 97.5 04/17/18 00:00 97.9 78 20 110/71 100 Nasal Cannula 2.0 97.9 04/16/18 21:39 72 130/84 04/16/18 20:00 98.1 72 17 130/84 100 Nasal Cannula 2.0 98.1 04/16/18 19:30 Nasal Cannula 2.0 28 04/16/18 19:30 99 Nasal Cannula 2.0 28 04/16/18 16:00 97.0 76 20 112/72 100 Nasal Cannula 2.0 97.0 04/16/18 12:00 97.7 70 20 110/86 100 Nasal Cannula 2.0 97.7 04/16/18 09:56 79 135/86 Intake and Output 04/16/18 04/17/18 19:00 07:00 Intake Total 120 ml 237.5 ml Output Total 400 ml 550 ml Balance -280 ml -312.5 ml Intake Oral 120 ml 100 ml IV Total 137.5 ml Output Urine Total 400 ml 550 ml # Bowel Movements 1 3 Height (Feet): 6 Height (Inches): 0.00 Weight (Pounds): 164 General Appearance: alert EENT: TMs normal Neck: normal alignment Cardiovascular: regular rhythm Respiratory/Chest: lungs clear Abdomen: soft Extremities: non-tender Edema: 1+ Leg (L), 1+ Leg (R) Neurologic: alert Skin: warm/dry Parish Trevino MD Apr 17, 2018 08:57
[2018-04-17] MEDS: Lactulose 20gm/30ml UDC NG SCH ×3 (09:00→18:49)
[2018-04-17] MEDS: Pantoprazole Inj IVP SCH (09:00)
[2018-04-17] MEDS: Aspirin Baby 81mg ORAL SCH (09:00)
--- NOTE | 2018-04-17 09:07 | Immediate Post-Op Evaluation ---
Immediate Post-Op Evalulation Immediate Post-Op Evalulation Procedure: EGD/EUS Date of Evaluation: Apr 17, 2018 Time of Evaluation: 11:59 IV Fluids: 400 LR Blood Products: 0 Estimated Blood Loss: 4 Urinary Output: 0 Blood Pressure Systolic: 99 Blood Pressure Diastolic: 70 Pulse Rate: 67 Respiratory Rate: 16 O2 Sat by Pulse Oximetry: 100 Pain Score (1-10): 3 Nausea: No Vomiting: No Complications 0 Patient Status: awake, reacts, patent, none Hydration Status: adequate Nuno Douglas MD Apr 17, 2018 09:07
--- NOTE | 2018-04-17 09:08 | 48 Hour Post Anesthesia Eval ---
Post Anesthesia Evaluation Procedure: EGD/EUS Date of Evaluation: Apr 17, 2018 Time of Evaluation: 13:59 Blood Pressure Systolic: 134 0: 89 Pulse Rate: 78 Respiratory Rate: 18 Temperature (Fahrenheit): 97.4 O2 Sat by Pulse Oximetry: 100 Airway: patent Nausea: No Vomiting: No Pain Intensity: 3 Hydration Status: adequate Cardiopulmonary Status: Stable Mental Status/LOC: patient returned to baseline Follow-up Care/Observations: 0 Post-Anesthesia Complications: 0 Follow-up care needed: N/A Nuno Douglas MD Apr 17, 2018 09:08
[2018-04-17] MEDS ORDERED: LR 1000ml 1,000 ML IVLG SCH (09:12)
[2018-04-17] MEDS ORDERED: Atropine Inj 1mg/10ml Syr IV PRN (09:15)
[2018-04-17] MEDS ORDERED: Hydromorphone 0.5mg/0.5ml inj IVP PRN (09:15)
[2018-04-17] MEDS ORDERED: HYDROcodone/Acetamin 7.5/325 tab ORAL PRN (09:15)
[2018-04-17] MEDS ORDERED: DiphenhydrAMINE 50mg/ml Inj IVP PRN (09:15)
[2018-04-17] MEDS ORDERED: Metoclopramide 10mg/2ml Inj IVP PRN (09:15)
[2018-04-17] MEDS ORDERED: fentaNYL 100 mcg/2 mL IV PRN (09:15)
[2018-04-17] MEDS ORDERED: Labetalol 5mg/ml 20ml vial IV PRN (09:15)
[2018-04-17] MEDS ORDERED: LORazepam Inj 2mg/ml 1ml IV PRN (09:15)
[2018-04-17] MEDS ORDERED: oxyCODONE HCL/Acetaminophen 5/325mg ORAL PRN (09:15)
[2018-04-17] MEDS ORDERED: Norco 5mg/325mg tab ORAL PRN (09:15)
[2018-04-17] MEDS ORDERED: Midazolam 2mg/2ml Inj IVP PRN (09:15)
[2018-04-17] MEDS: Carvedilol 12.5mg tab ORAL SCH ×2 (09:17→20:39)
--- NOTE | 2018-04-17 09:47 | Pre-Procedure Note/Attestation ---
Pre-Procedure Note/Attestation Complete Prior to Procedure Planned Procedure: not applicable Procedure Narrative: eus/FNA Indications for Procedure Pre-Operative Diagnosis: pancreatic mass Attestation I attest that I discussed the nature of the procedure; its benefits; risks and complications; and alternatives (and the risks and benefits of such alternatives ), prior to the procedure, with the patient (or the patient's legal international representative). I attest that, if there was a reasonable possibility of needing a blood transfusion, the patient (or the patient's legal international representative) was given the [facility] standardized written summary, pursuant to the [place] Blood Safety Act ([place] Health and Safety Code # 1645, as amended). I attest that I re-evaluated the patient just prior to the surgery and that there has been no change in the patient's H&P, except as documented below: Bonifacio River MD Apr 17, 2018 09:47
[2018-04-17] MEDS ORDERED: LR 1000ml ONE (10:00)
[2018-04-17] MEDS ORDERED: Midazolam 2mg/2ml Inj ONE (10:00)
[2018-04-17] MEDS ORDERED: Propofol 200mg/20ml IV ONE (10:00)
[2018-04-17] MEDS ORDERED: Lidocaine 1% MPF 10mg/ml 5ml ONE (10:00)
[2018-04-17] MEDS ORDERED: Alfentanil 2ml Inj ONE (10:00)
[2018-04-17] MEDS ORDERED: Heplock Flush 100 units/ml 3 ml syr ONE (10:29)
[2018-04-17] MEDS ORDERED: NS 500ML IVPB ONE (10:40)
--- NOTE | 2018-04-17 12:19 | Endoscopy Procedure Note ---
Endoscopy Procedure Note General Indication for Procedure: panc mass Procedures Performed: other - EUS Operative Findings/Diagnosis: pancreatitis Specimen: yes Pt Tolerated Procedure Well: Yes Estimated Blood Loss: none Anesthesia Anesthesiologist: fina Anesthesia: MAC Inserted Devices Implant(s) used?: No GI Core Measures 50 yrs or older w/o bx or poly: Not Applicable 10yrs. F/U not recommended: Not Applicable Bonifacio River MD Apr 17, 2018 12:19
--- NOTE | 2018-04-17 12:39 | Infectious Diseases Prog Note ---
Assessment/Plan Assessment/Plan A: Pneumonia Leukocytosis with Lymphocytosis Peripancreatic adenopathy, pancreatitis Cirrhosis Diarrhea Anemia Paroxysmal A fib P: discontinue Zosyn observe off antibiotic Subjective ROS Limited/Unobtainable: Yes Gastrointestinal/Abdominal: Reports: other - had EUS today Allergies: Coded Allergies: No Known Allergies (Unverified , 04/06/18) Objective Vital Signs Last 24 Hour Vital Signs Date Time Temp Pulse Resp B/P (MAP) Pulse Ox O2 Delivery O2 Flow Rate FiO2 04/17/18 12:15 97.2 68 17 101/69 98 Room Air 97.2 04/17/18 12:00 67 17 93/66 100 Nasal Cannula 3 04/17/18 11:55 68 15 94/66 100 Nasal Cannula 3 04/17/18 11:49 207.3 78 18 100 04/17/18 11:48 97 67 16 99/70 100 Nasal Cannula 3 97.0 04/17/18 09:17 86 140/92 04/17/18 08:00 97.1 86 22 140/92 100 Nasal Cannula 2.0 97.1 04/17/18 04:00 97.5 73 19 132/86 100 Nasal Cannula 2.0 97.5 04/17/18 00:00 97.9 78 20 110/71 100 Nasal Cannula 2.0 97.9 04/16/18 21:39 72 130/84 04/16/18 20:00 98.1 72 17 130/84 100 Nasal Cannula 2.0 98.1 04/16/18 19:30 Nasal Cannula 2.0 28 04/16/18 19:30 99 Nasal Cannula 2.0 28 04/16/18 16:00 97.0 76 20 112/72 100 Nasal Cannula 2.0 97.0 Height (Feet): 6 Height (Inches): 3.00 Weight (Pounds): 163 HEENT: mucous membranes moist Respiratory/Chest: lungs clear Cardiovascular: normal rate Abdomen: soft, non tender Extremities: no edema Neurologic/Psychiatric: other - sleeping Current Medications Medications (Trade) Dose Ordered Sig/Anna Route PRN Reason Start Time Stop Time Status Last Admin Dose Admin Acetaminophen/ Hydrocodone Bitart (Agate 5/325) 1 tab Q1H PRN ORAL Mild Pain (Pain Scale 1-3) 04/17/18 09:15 04/17/18 16:00 Acetaminophen/ Hydrocodone Bitart (Agate 7.5/325) 1 tab Q1H PRN ORAL Moderate Pain (Pain Scale 4-6) 04/17/18 09:15 04/17/18 16:00 Al Hydroxide/Mg Hydroxide (Mylanta) 15 ml Q1H PRN ORAL gi upset 04/17/18 09:15 04/17/18 16:00 Aspirin (ASA) 81 mg DAILY ORAL 04/13/18 09:00 05/08/18 08:59 04/16/18 09:56 Atropine Sulfate (Atropine) 0.5 mg Q5M PRN IV HR <40 04/17/18 09:15 04/17/18 16:00 Carvedilol (Coreg) 12.5 mg EVERY 12 HOURS ORAL 04/13/18 09:00 05/12/18 08:59 04/17/18 09:17 Chlorhexidine Gluconate (Nel-Hex 2%) 1 applic DAILY@2000 TOPIC 04/13/18 20:00 05/07/18 19:59 04/16/18 20:16 Diphenhydramine HCl (Benadryl) 25 mg Q15M PRN IVP Itching 04/17/18 09:15 04/17/18 16:00 Fentanyl Citrate (Sublimaze 100 mcg/2 mL) 25 mcg Q10M PRN IV Moderate Pain (Pain Scale 4-6) 04/17/18 09:15 04/17/18 16:00 Folic Acid (Folate) 1 mg DAILY ORAL 04/15/18 09:00 05/15/18 08:59 04/16/18 09:56 Hydralazine HCl (Apresoline) 5 mg Q30M PRN IV SBP>160 / DBP>90 04/17/18 09:15 04/17/18 16:00 Hydromorphone HCl (Dilaudid) 0.5 mg Q15M PRN IVP Severe Pain (Pain Scale 7-10) 04/17/18 09:15 04/17/18 16:00 Labetalol HCl (Normodyne) 5 mg Q10M PRN IV SBP>160 / DBP>90 04/17/18 09:15 04/17/18 16:00 Lactated Ringer's 1,000 ml @ 10 mls/hr Q24H IVLG 04/17/18 09:12 04/17/18 16:00 Lactulose (Cephulac) 30 gm THREE TIMES A DAY NG 04/13/18 09:00 05/07/18 17:59 04/16/18 18:02 Lorazepam (Ativan 2mg/ml 1ml) 1 mg Q15M PRN IV For Anxiety 04/17/18 09:15 04/17/18 16:00 Metoclopramide HCl (Reglan) 10 mg Q1H PRN IVP Nausea & Vomiting 04/17/18 09:15 04/17/18 16:00 Metronidazole (Flagyl) 500 mg Q8HR ORAL 04/13/18 06:00 04/19/18 21:59 04/17/18 05:34 Midazolam HCl (Versed 2mg/2ml vial) 1 mg Q15M PRN IVP For Anxiety 04/17/18 09:15 04/17/18 16:00 Ondansetron HCl (Zofran) 4 mg Q1H PRN IVP Nausea & Vomiting 04/17/18 09:15 04/17/18 16:00 Oxycodone/ Acetaminophen (Percocet 5-325) 1 tab Q1H PRN ORAL Severe Pain (Pain Scale 7-10) 04/17/18 09:15 04/17/18 16:00 Pantoprazole (Protonix) 40 mg DAILY IVP 04/13/18 09:00 05/07/18 08:59 04/16/18 09:56 Piperacillin Sod/ Tazobactam Sod 3.375 gm/Sodium Chloride 110 ml @ 27.5 mls/hr Q8HR IVPB 04/16/18 14:00 04/23/18 13:59 04/17/18 05:34 Potassium Chloride (K-Dur) 20 meq TWICE A DAY ORAL 04/14/18 18:00 04/17/18 17:59 04/17/18 09:17 Dale Galindo MD Apr 17, 2018 12:39
--- NOTE | 2018-04-17 13:05 | Pulmonology Progress Note ---
Assessment/Plan Assessment/Plan 1. Acute myocardial infarction. 2. Paroxysmal atrial fibrillation. 3. Sepsis with shock. 4. Alcoholic liver disease. 5. Hepatic encephalopathy. 6. Urinary sepsis. 7. Healthcare-acquired pneumonia. 8. Dehydration. 9. Hypernatremia, improved. 10. Metabolic acidosis. 11. Hypomagnesemia. 12. Lymphocytosis w retroperitoneal lymphadenopathy 13. Pancreatic mass 14. Rectal mass vs foreign body 15. Pleural effusions NPO for EUS and bx Na high, D5w dc plan pending biopsy result Subjective ROS Limited/Unobtainable: Yes Allergies: Coded Allergies: No Known Allergies (Unverified , 04/06/18) Objective Last 24 Hour Vital Signs Date Time Temp Pulse Resp B/P (MAP) Pulse Ox O2 Delivery O2 Flow Rate FiO2 04/17/18 12:15 97.2 68 17 101/69 98 Room Air 97.2 04/17/18 12:00 67 17 93/66 100 Nasal Cannula 3 04/17/18 11:55 68 15 94/66 100 Nasal Cannula 3 04/17/18 11:49 207.3 78 18 100 04/17/18 11:48 97 67 16 99/70 100 Nasal Cannula 3 97.0 04/17/18 09:17 86 140/92 04/17/18 08:00 97.1 86 22 140/92 100 Nasal Cannula 2.0 97.1 04/17/18 04:00 97.5 73 19 132/86 100 Nasal Cannula 2.0 97.5 04/17/18 00:00 97.9 78 20 110/71 100 Nasal Cannula 2.0 97.9 04/16/18 21:39 72 130/84 04/16/18 20:00 98.1 72 17 130/84 100 Nasal Cannula 2.0 98.1 04/16/18 19:30 Nasal Cannula 2.0 28 04/16/18 19:30 99 Nasal Cannula 2.0 28 04/16/18 16:00 97.0 76 20 112/72 100 Nasal Cannula 2.0 97.0 Intake and Output 04/16/18 04/17/18 19:00 07:00 Intake Total 120 ml 237.5 ml Output Total 400 ml 550 ml Balance -280 ml -312.5 ml Intake Oral 120 ml 100 ml IV Total 137.5 ml Output Urine Total 400 ml 550 ml # Bowel Movements 1 3 General Appearance: no acute distress Respiratory/Chest: lungs clear Cardiovascular: normal rate Abdomen: soft, non tender Current Medications Medications (Trade) Dose Ordered Sig/Anna Route PRN Reason Start Time Stop Time Status Last Admin Dose Admin Acetaminophen/ Hydrocodone Bitart ([place] 5/325) 1 tab Q1H PRN ORAL Mild Pain (Pain Scale 1-3) 04/17/18 09:15 04/17/18 16:00 Acetaminophen/ Hydrocodone Bitart ([place] 7.5/325) 1 tab Q1H PRN ORAL Moderate Pain (Pain Scale 4-6) 04/17/18 09:15 04/17/18 16:00 Al Hydroxide/Mg Hydroxide (Mylanta) 15 ml Q1H PRN ORAL gi upset 04/17/18 09:15 04/17/18 16:00 Aspirin (ASA) 81 mg DAILY ORAL 04/13/18 09:00 05/08/18 08:59 04/16/18 09:56 Atropine Sulfate (Atropine) 0.5 mg Q5M PRN IV HR <40 04/17/18 09:15 04/17/18 16:00 Carvedilol (Coreg) 12.5 mg EVERY 12 HOURS ORAL 04/13/18 09:00 05/12/18 08:59 04/17/18 09:17 Chlorhexidine Gluconate (Nel-Hex 2%) 1 applic DAILY@1999 TOPIC 04/13/18 20:00 05/07/18 19:59 04/16/18 20:16 Diphenhydramine HCl (Benadryl) 25 mg Q15M PRN IVP Itching 04/17/18 09:15 04/17/18 16:00 Fentanyl Citrate (Sublimaze 100 mcg/2 mL) 25 mcg Q10M PRN IV Moderate Pain (Pain Scale 4-6) 04/17/18 09:15 04/17/18 16:00 Folic Acid (Folate) 1 mg DAILY ORAL 04/15/18 09:00 05/15/18 08:59 04/16/18 09:56 Hydralazine HCl (Apresoline) 5 mg Q30M PRN IV SBP>160 / DBP>90 04/17/18 09:15 04/17/18 16:00 Hydromorphone HCl (Dilaudid) 0.5 mg Q15M PRN IVP Severe Pain (Pain Scale 7-10) 04/17/18 09:15 04/17/18 16:00 Labetalol HCl (Normodyne) 5 mg Q10M PRN IV SBP>160 / DBP>90 04/17/18 09:15 04/17/18 16:00 Lactated Ringer's 1,000 ml @ 10 mls/hr Q24H IVLG 04/17/18 09:12 04/17/18 16:00 Lactulose (Cephulac) 30 gm THREE TIMES A DAY NG 04/13/18 09:00 05/07/18 17:59 04/16/18 18:02 Lorazepam (Ativan 2mg/ml 1ml) 1 mg Q15M PRN IV For Anxiety 04/17/18 09:15 04/17/18 16:00 Metoclopramide HCl (Reglan) 10 mg Q1H PRN IVP Nausea & Vomiting 04/17/18 09:15 04/17/18 16:00 Metronidazole (Flagyl) 500 mg Q8HR ORAL 04/13/18 06:00 04/19/18 21:59 04/17/18 05:34 Midazolam HCl (Versed 2mg/2ml vial) 1 mg Q15M PRN IVP For Anxiety 04/17/18 09:15 04/17/18 16:00 Ondansetron HCl (Zofran) 4 mg Q1H PRN IVP Nausea & Vomiting 04/17/18 09:15 04/17/18 16:00 Oxycodone/ Acetaminophen (Percocet 5-325) 1 tab Q1H PRN ORAL Severe Pain (Pain Scale 7-10) 04/17/18 09:15 04/17/18 16:00 Pantoprazole (Protonix) 40 mg DAILY IVP 04/13/18 09:00 05/07/18 08:59 04/16/18 09:56 Potassium Chloride (K-Dur) 20 meq TWICE A DAY ORAL 04/14/18 18:00 04/17/18 17:59 04/17/18 09:17 Gene Wood MD Apr 17, 2018 13:05
[2018-04-17] MEDS ORDERED: Tubing IV Secondary IV ONE (15:41)
--- NOTE | 2018-04-17 16:30 | Procedure Note ---
DATE OF PROCEDURE: 02/15/2018 SURGEON: Bonifacio River M.D. ANESTHESIA: Per Dr. Douglas. REFERRING PHYSICIAN: Lina Palma M.D. INSTRUMENT: Olympus adult EUS scope. INDICATION: Pancreatic mass. The procedure, risks, benefits, and possible consequences, including hemorrhage, aspiration, perforation and infection, and alternative treatments, were explained to the patient/legal guardian by Dr. Bonifacio River and the patient/legal guardian understood and accepted these risks. DESCRIPTION OF PROCEDURE: After informed consent was obtained and the patient was adequately sedated, EUS radial scope was advanced from mouth into the second portion of the duodenum. Pancreatic parenchyma was carefully examined through the gastroduodenal mucosa. Starting at GE junction, celiac axis was examined. No obvious celiac axis adenopathy. No dilated pancreatic duct in the body or tail of the pancreas. Then, the scope was advanced through the pylorus into the duodenal bulb. Gallbladder was seen, full of sludge. Common bile duct was measured to be about 6 mm. No obvious stone was seen in the common bile duct. There was evidence of inflammatory changes in the pancreas, highly suspicious of pancreatitis. I doubt this is a mass, although sometimes it is difficult to differentiate. At this time, the EUS radial scope was removed and linear scope was introduced and a 25-gauge needle was used to do 2 FNA passes through the pancreatic head. The patient tolerated the procedure very well without any complication. SUMMARY OF FINDINGS: 1. Distended gallbladder with lots of sludge and stone in the gallbladder. 2. Evidence of pancreatic inflammation extending to the duodenum, bulb, highly suspicious for pancreatitis, doubt the patient has pancreatic mass 01:30 , but there was FNA x2. RECOMMENDATIONS: Follow FNA results and treat accordingly. I want to thank Dr. Palma for this kind referral. Bonifacio River M.D. DR: BUNNY JOB#: [id number] CC: Lina Palma M.D.; Fax#: [phone]
--- NOTE | 2018-04-17 18:54 | Diagnostic Imaging Report ---
Indication: Reason For Exam: MASS Technique: XRAY Pelvis 1v Comparison: CT abdomen and pelvis 04/12/2018 Findings: Right transfemoral central venous catheter has its tip projecting at the level of L5. No acute fracture or dislocation is identified. There are atherosclerotic vascular calcifications. The described density in the rectum seen on CT 04/12/2018 is not definitively identified radiographically. Impression: Rectal density described on CT 04/12/2018 not definitively identified radiographically. Correlate for interval passage.
[2018-04-17] MEDS: Dyna-Hex 2% Top Sol 2oz TOPIC SCH (20:39)
[2018-04-18] VITALS: BP 138/97
[2018-04-18 04:00] VITALS: BP 141/89
[2018-04-18] MEDS: metroNIDAZOLE 500mg tab ORAL SCH (05:10)
[2018-04-18 06:52] LABS: BASOPHILS % (AUTO) 1.7 % (0.0-2.0); EOSINOPHILS % (AUTO) 2.2 % (0.0-3.0); HEMATOCRIT 27.7 % (42.0-52.0); HEMOGLOBIN 8.8 G/DL (14.2-18.0); LYMPHOCYTES % (AUTO) 39.5 % (20.0-45.0); MEAN CORPUSCULAR VOLUME 92 FL (80-99); MONOCYTES % (AUTO) 8.5 % (1.0-10.0); NEUTROPHILS % (AUTO) 48.2 % (45.0-75.0); PLATELET COUNT 252 K/UL (150-450); RED CELL DISTRIBUTION WIDTH 13.4 % (11.6-14.8); WHITE BLOOD COUNT 10.3 K/UL (4.8-10.8)
[2018-04-18 07:15] LABS: ALANINE AMINOTRANSFERASE 12 U/L (12-78); ALBUMIN 1.8 G/DL (3.4-5.0); ALBUMIN/GLOBULIN RATIO 0.4 (1.0-2.7); ALKALINE PHOSPHATASE 94 U/L (46-116); ANION GAP 8 mmol/L (5-15); ASPARTATE AMINO TRANSFERASE 20 U/L (15-37); BILIRUBIN,TOTAL 0.7 MG/DL (0.2-1.0); BLOOD UREA NITROGEN 5 mg/dL (7-18); CALCIUM 8.4 MG/DL (8.5-10.1); CARBON DIOXIDE 23 MMOL/L (21-32); CHLORIDE 123 MMOL/L (98-107); CREATININE 0.9 MG/DL (0.55-1.30); POTASSIUM 3.1 MMOL/L (3.5-5.1); SODIUM 154 MMOL/L (136-145)
[2018-04-18 08:00] VITALS: BP 126/80
[2018-04-18] MEDS: Carvedilol 12.5mg tab ORAL SCH ×2 (09:46→21:22)
[2018-04-18] MEDS: Lactulose 20gm/30ml UDC NG SCH ×3 (09:46→17:14)
[2018-04-18] MEDS: Pantoprazole Inj IVP SCH (09:46)
[2018-04-18] MEDS: Aspirin Baby 81mg ORAL SCH (09:46)
--- NOTE | 2018-04-18 10:36 | Infectious Diseases Prog Note ---
Assessment/Plan Assessment/Plan antibiotics : flagyl A 1. pneumonia s/p rx 2. leucocytosis resolved 3. cirrhosis 4. atrial fibrillation 5. UTI s/p rx 6. pancreatic mass s/p FNA biopsy P 1. d/c flagyl 2. observe off antibiotics Subjective Constitutional: Denies: fever, chills Respiratory: Denies: shortness of breath, dry cough Gastrointestinal/Abdominal: Denies: nausea, vomiting, diarrhea Musculoskeletal: Denies: pain Allergies: Coded Allergies: No Known Allergies (Unverified , 04/06/18) Objective Vital Signs Last 24 Hour Vital Signs Date Time Temp Pulse Resp B/P (MAP) Pulse Ox O2 Delivery O2 Flow Rate FiO2 04/18/18 09:46 78 126/80 04/18/18 08:00 97.6 78 19 126/80 100 Room Air 97.6 04/18/18 04:00 97.2 69 19 141/89 100 Room Air 97.2 04/18/18 00:00 97.5 68 18 138/97 100 Room Air 97.5 04/17/18 20:39 70 147/93 04/17/18 20:00 97.9 70 19 147/93 100 Room Air 97.9 04/17/18 16:00 96.5 75 22 135/88 100 Room Air 96.5 04/17/18 12:15 97.2 68 17 101/69 98 Room Air 97.2 04/17/18 12:00 67 17 93/66 100 Nasal Cannula 3 04/17/18 11:55 68 15 94/66 100 Nasal Cannula 3 04/17/18 11:49 207.3 78 18 100 04/17/18 11:48 97 67 16 99/70 100 Nasal Cannula 3 97.0 Height (Feet): 6 Height (Inches): 3.00 Weight (Pounds): 163 Respiratory/Chest: lungs clear Cardiovascular: normal rate, regular rhythm, no gallop/murmur Abdomen: soft, non tender Extremities: no edema Laboratory Tests Test 04/18/18 04:45 White Blood Count 10.3 K/UL (4.8-10.8) Red Blood Count 3.00 M/UL (4.70-6.10) L Hemoglobin 8.8 G/DL (14.2-18.0) L Hematocrit 27.7 % (42.0-52.0) L Mean Corpuscular Volume 92 FL (80-99) Mean Corpuscular Hemoglobin 29.5 PG (27.0-31.0) Mean Corpuscular Hemoglobin Concent 32.0 G/DL (32.0-36.0) Red Cell Distribution Width 13.4 % (11.6-14.8) Platelet Count 252 K/UL (150-450) Mean Platelet Volume 6.2 FL (6.5-10.1) L Neutrophils (%) (Auto) 48.2 % (45.0-75.0) Lymphocytes (%) (Auto) 39.5 % (20.0-45.0) Monocytes (%) (Auto) 8.5 % (1.0-10.0) Eosinophils (%) (Auto) 2.2 % (0.0-3.0) Basophils (%) (Auto) 1.7 % (0.0-2.0) Sodium Level 154 MMOL/L (136-145) H Potassium Level 3.1 MMOL/L (3.5-5.1) L Chloride Level 123 MMOL/L (98-107) H Carbon Dioxide Level 23 MMOL/L (21-32) Anion Gap 8 mmol/L (5-15) Blood Urea Nitrogen 5 mg/dL (7-18) L Creatinine 0.9 MG/DL (0.55-1.30) Estimat Glomerular Filtration Rate > 60 mL/min (>60) Glucose Level 104 MG/DL (74-106) Calcium Level 8.4 MG/DL (8.5-10.1) L Total Bilirubin 0.7 MG/DL (0.2-1.0) Aspartate Amino Transf (AST/SGOT) 20 U/L (15-37) Alanine Aminotransferase (ALT/SGPT) 12 U/L (12-78) Alkaline Phosphatase 94 U/L (46-116) Total Protein 6.3 G/DL (6.4-8.2) L Albumin 1.8 G/DL (3.4-5.0) L Globulin 4.5 g/dL Albumin/Globulin Ratio 0.4 (1.0-2.7) L Current Medications Medications (Trade) Dose Ordered Sig/Anna Route PRN Reason Start Time Stop Time Status Last Admin Dose Admin Aspirin (ASA) 81 mg DAILY ORAL 04/13/18 09:00 05/08/18 08:59 04/18/18 09:46 Carvedilol (Coreg) 12.5 mg EVERY 12 HOURS ORAL 04/13/18 09:00 05/12/18 08:59 04/18/18 09:46 Chlorhexidine Gluconate (Nel-Hex 2%) 1 applic DAILY@2000 TOPIC 04/13/18 20:00 05/07/18 19:59 04/17/18 20:39 Dextrose 1,000 ml @ 50 mls/hr Q20H IV 04/17/18 13:15 05/17/18 13:14 04/18/18 04:37 Folic Acid (Folate) 1 mg DAILY ORAL 04/15/18 09:00 05/15/18 08:59 04/18/18 09:46 Lactulose (Cephulac) 30 gm THREE TIMES A DAY NG 04/13/18 09:00 05/07/18 17:59 04/18/18 09:46 Metronidazole (Flagyl) 500 mg Q8HR ORAL 04/13/18 06:00 04/19/18 21:59 04/18/18 05:10 Pantoprazole (Protonix) 40 mg DAILY IVP 04/13/18 09:00 05/07/18 08:59 04/18/18 09:46 VALENTINE ZARATE Apr 18, 2018 10:35
--- NOTE | 2018-04-18 11:51 | General Progress Note ---
Assessment/Plan Status: unchanged Assessment/Plan 1. Pancreatic mass noted on CT abdomen and chest --> Unusual pancreatic head and body lesion. The shape is not that of a typical mass lesion, but the presence of extensive surrounding lymphadenopathy indicates that this is probably a pancreatic malignancy. The possibility of pancreatitis with surrounding phlegmon and reactive lymphadenopathy should also be considered. --> eus with egd have discussed with Dr. Wood and RN heronyl today --> tumor markers have been sent and are pending --> autoimmune markers are pending 2. Lymphadenopathy --> potentially related to malignancy --> flow reviewed and final results pending --> f/u and have discussed with pathology 3. Coagulopathy likely secondary to underlying cirrhosis. --> INR elevated, given vit K 4. Anemia secondary to underlying chronic disease. --> Continue to closely monitor. hgb at 8.2 04/14/18 --> Anemia w/u has been reviewed. Will trend cbc prn --> consider transfusion if hgb <7 5. Fever and chills, septic shock. --> resolved 6. Atrial fibrillation initially has been treated. Dr. Han is on the case. Subjective Date patient seen: Apr 18, 2018 Allergies: Coded Allergies: No Known Allergies (Unverified , 04/06/18) All Systems: reviewed and negative except above Subjective No overnight events. No c/o pain or discomfort. Objective Last 24 Hour Vital Signs Date Time Temp Pulse Resp B/P (MAP) Pulse Ox O2 Delivery O2 Flow Rate FiO2 04/18/18 09:46 78 126/80 04/18/18 08:00 97.6 78 19 126/80 100 Room Air 97.6 04/18/18 04:00 97.2 69 19 141/89 100 Room Air 97.2 04/18/18 00:00 97.5 68 18 138/97 100 Room Air 97.5 04/17/18 20:39 70 147/93 04/17/18 20:00 97.9 70 19 147/93 100 Room Air 97.9 04/17/18 16:00 96.5 75 22 135/88 100 Room Air 96.5 04/17/18 12:15 97.2 68 17 101/69 98 Room Air 97.2 04/17/18 12:00 67 17 93/66 100 Nasal Cannula 3 6/18/18 11:55 68 15 94/66 100 Nasal Cannula 3 Intake and Output 04/17/18 04/18/18 19:00 07:00 Intake Total 500 ml 1003 ml Output Total 750 ml 700 ml Balance -250 ml 303 ml IV Total 500 ml 1003 ml Output Urine Total 750 ml 700 ml Estimated Blood Loss 0 ml # Bowel Movements 4 1 Laboratory Tests 04/18/18 04:45: White Blood Count 10.3, Red Blood Count 3.00L, Hemoglobin 8.8L, Hematocrit 27.7L , Mean Corpuscular Volume 92, Mean Corpuscular Hemoglobin 29.5, Mean Corpuscular Hemoglobin Concent 32.0, Red Cell Distribution Width 13.4, Platelet Count 252, Mean Platelet Volume 6.2L, Neutrophils (%) (Auto) 48.2, Lymphocytes ( %) (Auto) 39.5, Monocytes (%) (Auto) 8.5, Eosinophils (%) (Auto) 2.2, Basophils (%) (Auto) 1.7, Sodium Level 154H, Potassium Level 3.1L, Chloride Level 123H, Carbon Dioxide Level 23, Anion Gap 8, Blood Urea Nitrogen 5L, Creatinine 0.9, Estimat Glomerular Filtration Rate > 60, Glucose Level 104, Calcium Level 8.4L, Total Bilirubin 0.7, Aspartate Amino Transf (AST/SGOT) 20, Alanine Aminotransferase (ALT/SGPT) 12, Alkaline Phosphatase 94, Total Protein 6.3L, Albumin 1.8L, Globulin 4.5, Albumin/Globulin Ratio 0.4L Height (Feet): 6 Height (Inches): 3.00 Weight (Pounds): 163 General Appearance: WD/WN, no apparent distress EENT: PERRL/EOMI Neck: normal alignment, supple Cardiovascular: normal peripheral pulses, normal rate Respiratory/Chest: lungs clear, normal breath sounds Abdomen: soft Parish Trevino MD Apr 18, 2018 11:51
[2018-04-18 12:00] VITALS: BP 140/90
--- NOTE | 2018-04-18 15:05 | Pulmonology Progress Note ---
Assessment/Plan Assessment/Plan 1. Acute myocardial infarction. 2. Paroxysmal atrial fibrillation. 3. Sepsis with shock. 4. Alcoholic liver disease. 5. Hepatic encephalopathy. 6. Urinary sepsis. 7. Healthcare-acquired pneumonia. 8. Dehydration. 9. Hypernatremia, improved. 10. Metabolic acidosis. 11. Hypomagnesemia. 12. Lymphocytosis w retroperitoneal lymphadenopathy 13. Pancreatic mass 14. Rectal mass vs foreign body 15. Pleural effusions EUS and bx done yesterday resume diet per GI dc plan pending biopsy result Subjective ROS Limited/Unobtainable: Yes Allergies: Coded Allergies: No Known Allergies (Unverified , 04/06/18) Objective Last 24 Hour Vital Signs Date Time Temp Pulse Resp B/P (MAP) Pulse Ox O2 Delivery O2 Flow Rate FiO2 04/18/18 12:00 96.0 75 19 140/90 100 Room Air 96.0 04/18/18 09:46 78 126/80 04/18/18 08:00 97.6 78 19 126/80 100 Room Air 97.6 04/18/18 04:00 97.2 69 19 141/89 100 Room Air 97.2 04/18/18 00:00 97.5 68 18 138/97 100 Room Air 97.5 04/17/18 20:39 70 147/93 04/17/18 20:00 97.9 70 19 147/93 100 Room Air 97.9 04/17/18 16:00 96.5 75 22 135/88 100 Room Air 96.5 Intake and Output 04/17/18 04/18/18 19:00 07:00 Intake Total 500 ml 1003 ml Output Total 750 ml 700 ml Balance -250 ml 303 ml IV Total 500 ml 1003 ml Output Urine Total 750 ml 700 ml Estimated Blood Loss 0 ml # Bowel Movements 4 1 General Appearance: no acute distress HEENT: atraumatic Respiratory/Chest: lungs clear Cardiovascular: normal rate Abdomen: soft, non tender Laboratory Tests 04/18/18 04:45: White Blood Count 10.3, Red Blood Count 3.00L, Hemoglobin 8.8L, Hematocrit 27.7L , Mean Corpuscular Volume 92, Mean Corpuscular Hemoglobin 29.5, Mean Corpuscular Hemoglobin Concent 32.0, Red Cell Distribution Width 13.4, Platelet Count 252, Mean Platelet Volume 6.2L, Neutrophils (%) (Auto) 48.2, Lymphocytes ( %) (Auto) 39.5, Monocytes (%) (Auto) 8.5, Eosinophils (%) (Auto) 2.2, Basophils (%) (Auto) 1.7, Sodium Level 154H, Potassium Level 3.1L, Chloride Level 123H, Carbon Dioxide Level 23, Anion Gap 8, Blood Urea Nitrogen 5L, Creatinine 0.9, Estimat Glomerular Filtration Rate > 60, Glucose Level 104, Calcium Level 8.4L, Total Bilirubin 0.7, Aspartate Amino Transf (AST/SGOT) 20, Alanine Aminotransferase (ALT/SGPT) 12, Alkaline Phosphatase 94, Total Protein 6.3L, Albumin 1.8L, Globulin 4.5, Albumin/Globulin Ratio 0.4L Current Medications Medications (Trade) Dose Ordered Sig/Anna Route PRN Reason Start Time Stop Time Status Last Admin Dose Admin Aspirin (ASA) 81 mg DAILY ORAL 04/13/18 09:00 05/08/18 08:59 04/18/18 09:46 Carvedilol (Coreg) 12.5 mg EVERY 12 HOURS ORAL 04/13/18 09:00 05/12/18 08:59 04/18/18 09:46 Chlorhexidine Gluconate (Nel-Hex 2%) 1 applic DAILY@2000 TOPIC 04/13/18 20:00 05/07/18 19:59 04/17/18 20:39 Dextrose 1,000 ml @ 50 mls/hr Q20H IV 04/17/18 13:15 05/17/18 13:14 04/18/18 04:37 Folic Acid (Folate) 1 mg DAILY ORAL 04/15/18 09:00 05/15/18 08:59 04/18/18 09:46 Lactulose (Cephulac) 30 gm THREE TIMES A DAY NG 04/13/18 09:00 05/07/18 17:59 04/18/18 13:06 Pantoprazole (Protonix) 40 mg DAILY IVP 04/13/18 09:00 05/07/18 08:59 04/18/18 09:46 Gene Wood MD Apr 18, 2018 15:05
[2018-04-18 16:00] VITALS: BP 137/62
[2018-04-18 20:00] VITALS: BP 125/73
[2018-04-18] MEDS: Dyna-Hex 2% Top Sol 2oz TOPIC SCH (21:21)
--- NOTE | 2018-04-18 22:30 | General Progress Note ---
Assessment/Plan Assessment/Plan Assessment - abnormal pancreas CT - ? pancreatitis (but normal amylase and lipase) - Negative IgG4 assay for autoimmune pancreatitis - negative tumor markers Recommendations - Follow conservatively - Push po Subjective Allergies: Coded Allergies: No Known Allergies (Unverified , 04/06/18) Subjective NAD no new complaints Objective Last 24 Hour Vital Signs Date Time Temp Pulse Resp B/P (MAP) Pulse Ox O2 Delivery O2 Flow Rate FiO2 04/18/18 21:22 74 125/73 04/18/18 16:00 97.8 68 19 137/62 100 Room Air 97.8 04/18/18 12:00 96.0 75 19 140/90 100 Room Air 96.0 04/18/18 09:46 78 126/80 04/18/18 08:00 97.6 78 19 126/80 100 Room Air 97.6 04/18/18 04:00 97.2 69 19 141/89 100 Room Air 97.2 04/18/18 00:00 97.5 68 18 138/97 100 Room Air 97.5 Intake and Output 04/17/18 04/18/18 19:00 07:00 Intake Total 500 ml 1003 ml Output Total 750 ml 700 ml Balance -250 ml 303 ml IV Total 500 ml 1003 ml Output Urine Total 750 ml 700 ml Estimated Blood Loss 0 ml # Bowel Movements 4 1 Laboratory Tests 04/18/18 04:45: White Blood Count 10.3, Red Blood Count 3.00L, Hemoglobin 8.8L, Hematocrit 27.7L , Mean Corpuscular Volume 92, Mean Corpuscular Hemoglobin 29.5, Mean Corpuscular Hemoglobin Concent 32.0, Red Cell Distribution Width 13.4, Platelet Count 252, Mean Platelet Volume 6.2L, Neutrophils (%) (Auto) 48.2, Lymphocytes ( %) (Auto) 39.5, Monocytes (%) (Auto) 8.5, Eosinophils (%) (Auto) 2.2, Basophils (%) (Auto) 1.7, Sodium Level 154H, Potassium Level 3.1L, Chloride Level 123H, Carbon Dioxide Level 23, Anion Gap 8, Blood Urea Nitrogen 5L, Creatinine 0.9, Estimat Glomerular Filtration Rate > 60, Glucose Level 104, Calcium Level 8.4L, Total Bilirubin 0.7, Aspartate Amino Transf (AST/SGOT) 20, Alanine Aminotransferase (ALT/SGPT) 12, Alkaline Phosphatase 94, Total Protein 6.3L, Albumin 1.8L, Globulin 4.5, Albumin/Globulin Ratio 0.4L Height (Feet): 6 Height (Inches): 3.00 Weight (Pounds): 160 Objective Thin AA man NCAT supple CTA RRR soft NT ND no edema OBS Lina Palma MD Apr 18, 2018 22:30
[2018-04-19] VITALS (8 sets, daily range): BP systolic 90–137; BP diastolic 65–78
[2018-04-19 08:22] LABS: ANION GAP 7 mmol/L (5-15); BLOOD UREA NITROGEN 5 mg/dL (7-18); CARBON DIOXIDE 22 MMOL/L (21-32); CHLORIDE 120 MMOL/L (98-107); CREATININE 0.9 MG/DL (0.55-1.30); SODIUM 149 MMOL/L (136-145)
[2018-04-19 08:30] LABS: POTASSIUM 2.7 MMOL/L (3.5-5.1)
--- NOTE | 2018-04-19 09:30 | Pulmonology Progress Note ---
Assessment/Plan Assessment/Plan 1. Acute myocardial infarction. 2. Paroxysmal atrial fibrillation. 3. Sepsis with shock. 4. Alcoholic liver disease. 5. Hepatic encephalopathy. 6. Urinary sepsis. 7. Healthcare-acquired pneumonia. 8. Dehydration. 9. Hypernatremia, improved. 10. Metabolic acidosis. 11. Hypomagnesemia. 12. Lymphocytosis w retroperitoneal lymphadenopathy 13. Pancreatic mass 14. Rectal mass vs foreign body 15. Pleural effusions now poorly responsive although awake possible hepatic encephalopathy K low, rx will disc w consultants may need PEG not ready for dc biopsy result pdg Subjective ROS Limited/Unobtainable: Yes Allergies: Coded Allergies: No Known Allergies (Unverified , 04/06/18) Objective Last 24 Hour Vital Signs Date Time Temp Pulse Resp B/P (MAP) Pulse Ox O2 Delivery O2 Flow Rate FiO2 04/19/18 08:00 97.7 78 20 101/75 100 Room Air 97.7 04/19/18 04:00 98.2 69 20 137/78 100 Room Air 98.2 04/19/18 00:02 98.2 77 20 130/77 100 Room Air 98.2 04/18/18 21:22 74 125/73 04/18/18 20:00 97.4 74 20 125/73 100 Room Air 97.4 04/18/18 16:00 97.8 68 19 137/62 100 Room Air 97.8 04/18/18 12:00 96.0 75 19 140/90 100 Room Air 96.0 04/18/18 09:46 78 126/80 Intake and Output 04/18/18 04/19/18 19:00 07:00 Intake Total 600 ml Output Total 550 ml Balance 50 ml Intake Oral 600 ml Output Urine Total 550 ml General Appearance: no acute distress HEENT: atraumatic Cardiovascular: normal rate Abdomen: soft, non tender Neurologic/Psychiatric: motor weakness, disoriented, depressed affect Laboratory Tests 04/19/18 06:10: Sodium Level 149H, Potassium Level 2.7*L, Chloride Level 120H, Carbon Dioxide Level 22, Anion Gap 7, Blood Urea Nitrogen 5L, Creatinine 0.9, Estimat Glomerular Filtration Rate > 60, Glucose Level 94, Calcium Level 8.0L Current Medications Medications (Trade) Dose Ordered Sig/Anna Route PRN Reason Start Time Stop Time Status Last Admin Dose Admin Aspirin (ASA) 81 mg DAILY ORAL 04/13/18 09:00 05/08/18 08:59 04/18/18 09:46 Carvedilol (Coreg) 12.5 mg EVERY 12 HOURS ORAL 04/13/18 09:00 05/12/18 08:59 04/18/18 21:22 Chlorhexidine Gluconate (Nel-Hex 2%) 1 applic DAILY@2000 TOPIC 04/13/18 20:00 05/07/18 19:59 04/18/18 21:21 Folic Acid (Folate) 1 mg DAILY ORAL 04/15/18 09:00 05/15/18 08:59 04/18/18 09:46 Lactulose (Cephulac) 30 gm THREE TIMES A DAY NG 04/13/18 09:00 05/07/18 17:59 04/18/18 17:14 Pantoprazole (Protonix) 40 mg DAILY IVP 04/13/18 09:00 05/07/18 08:59 04/18/18 09:46 Potassium Chloride 40 meq/ Dextrose 1,020 ml @ 100 mls/hr [id number] IV 04/19/18 10:30 05/19/18 10:29 Gene Wood MD Apr 19, 2018 09:30
[2018-04-19] MEDS ORDERED: Isovue-300 100ml vial INJ PRN (10:15)
--- NOTE | 2018-04-19 10:20 | General Progress Note ---
Assessment/Plan Assessment/Plan Assessment - abnormal pancreas CT - ? lymphoma, ? pancreatitis - Negative IgG4 assay for autoimmune pancreatitis - negative tumor markers - h/o EtOH cirrhosis per chart records (but normal platelets and non cirrhotic liver on CT) - AMS - ? etiology - ? heptic encephalopahty (but recent NH3 normal, platelets normal, liver not cirrhotic on CT) - ? 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 RELIEF WORKER inflammatory process (elevated ESR) Recommendations - NGT for feeds for now - check swallow eval - check head CT - re check NH3, platelets, and INR - continue Lactulose - add xifaxan trial - consider neuro opinion Subjective Allergies: Coded Allergies: No Known Allergies (Unverified , 04/06/18) Subjective above noted arousable but less responsive today poor po d/w PMD Objective Last 24 Hour Vital Signs Date Time Temp Pulse Resp B/P (MAP) Pulse Ox O2 Delivery O2 Flow Rate FiO2 04/19/18 08:00 97.7 78 20 101/75 100 Room Air 97.7 04/19/18 04:00 98.2 69 20 137/78 100 Room Air 98.2 04/19/18 00:02 98.2 77 20 130/77 100 Room Air 98.2 04/18/18 21:22 74 125/73 04/18/18 20:00 97.4 74 20 125/73 100 Room Air 97.4 04/18/18 16:00 97.8 68 19 137/62 100 Room Air 97.8 04/18/18 12:00 96.0 75 19 140/90 100 Room Air 96.0 Intake and Output 04/18/18 04/19/18 19:00 07:00 Intake Total 600 ml Output Total 550 ml Balance 50 ml Intake Oral 600 ml Output Urine Total 550 ml Laboratory Tests 04/19/18 06:10: Sodium Level 149H, Potassium Level 2.7*L, Chloride Level 120H, Carbon Dioxide Level 22, Anion Gap 7, Blood Urea Nitrogen 5L, Creatinine 0.9, Estimat Glomerular Filtration Rate > 60, Glucose Level 94, Calcium Level 8.0L Height (Feet): 6 Height (Inches): 3.00 Weight (Pounds): 160 Objective Thin AA man NCAT supple CTA RRR soft NT ND no edema OBS, awake, not interactive Lina Palma MD Apr 19, 2018 10:20
[2018-04-19] MEDS: Lactulose 20gm/30ml UDC NG SCH ×3 (11:02→18:00)
[2018-04-19] MEDS: Aspirin Baby 81mg ORAL SCH (11:02)
[2018-04-19] MEDS: Carvedilol 12.5mg tab ORAL SCH ×2 (11:02→20:18)
[2018-04-19] MEDS: Pantoprazole Inj IVP SCH (11:02)
[2018-04-19 11:26] LABS: BASOPHILS % (AUTO) 0.6 % (0.0-2.0); EOSINOPHILS % (AUTO) 2.4 % (0.0-3.0); HEMATOCRIT 28.4 % (42.0-52.0); HEMOGLOBIN 8.9 G/DL (14.2-18.0); LYMPHOCYTES % (AUTO) 34.6 % (20.0-45.0); MEAN CORPUSCULAR VOLUME 92 FL (80-99); NEUTROPHILS % (AUTO) 53.4 % (45.0-75.0); PLATELET COUNT 226 K/UL (150-450); RED CELL DISTRIBUTION WIDTH 13.4 % (11.6-14.8); WHITE BLOOD COUNT 13.2 K/UL (4.8-10.8)
--- NOTE | 2018-04-19 11:29 | General Progress Note ---
Assessment/Plan Status: stable Assessment/Plan 1. Pancreatic mass noted on CT abdomen and chest --> unusual pancreatic head and body lesion. The shape is not that of a typical mass lesion, but the presence of extensive surrounding lymphadenopathy indicates that this is probably a pancreatic malignancy. The possibility of pancreatitis with surrounding phlegmon and reactive lymphadenopathy should also be considered. --> eus with egd completed and results are pending --> tumor markers have been sent and are pending --> autoimmune markers are pending 2. Lymphadenopathy --> potentially related to malignancy --> flow reviewed and final results reviewed in "pathology" is not significant at this time 3. Coagulopathy likely secondary to underlying cirrhosis. --> INR elevated, given vit K already 4. Anemia secondary to underlying chronic disease. --> Continue to closely monitor. hgb at 8.2 04/14/18 --> Anemia w/u has been reviewed. Will trend cbc prn --> consider transfusion if hgb <7 5. Fever and chills, septic shock. --> resolved 6. Atrial fibrillation initially has been treated. Dr. Han is on the case. Subjective Date patient seen: Apr 19, 2018 ROS Limited/Unobtainable: Yes Allergies: Coded Allergies: No Known Allergies (Unverified , 04/06/18) All Systems: reviewed and negative except above Subjective Pt arousable but less responsive today, poor po. Head CT pending. NAD. Objective Last 24 Hour Vital Signs Date Time Temp Pulse Resp B/P (MAP) Pulse Ox O2 Delivery O2 Flow Rate FiO2 04/19/18 11:02 78 101/75 04/19/18 08:00 97.7 78 20 101/75 100 Room Air 97.7 04/19/18 04:00 98.2 69 20 137/78 100 Room Air 98.2 04/19/18 00:02 98.2 77 20 130/77 100 Room Air 98.2 04/18/18 21:22 74 125/73 04/18/18 20:00 97.4 74 20 125/73 100 Room Air 97.4 04/18/18 16:00 97.8 68 19 137/62 100 Room Air 97.8 04/18/18 12:00 96.0 75 19 140/90 100 Room Air 96.0 Intake and Output 04/18/18 04/19/18 19:00 07:00 Intake Total 600 ml Output Total 550 ml Balance 50 ml Intake Oral 600 ml Output Urine Total 550 ml Laboratory Tests 04/19/18 06:10: Sodium Level 149H, Potassium Level 2.7*L, Chloride Level 120H, Carbon Dioxide Level 22, Anion Gap 7, Blood Urea Nitrogen 5L, Creatinine 0.9, Estimat Glomerular Filtration Rate > 60, Glucose Level 94, Calcium Level 8.0L 04/19/18 11:00: Sodium Level [Pending], Potassium Level [Pending], Chloride Level [Pending], Carbon Dioxide Level [Pending], Blood Urea Nitrogen [Pending], Creatinine [ Pending], Estimat Glomerular Filtration Rate [Pending], Glucose Level [Pending] , Calcium Level [Pending], White Blood Count [Pending], Red Blood Count [Pending ], Hemoglobin [Pending], Hematocrit [Pending], Mean Corpuscular Volume [Pending] , Mean Corpuscular Hemoglobin [Pending], Mean Corpuscular Hemoglobin Concent [ Pending], Red Cell Distribution Width [Pending], Platelet Count [Pending], Mean Platelet Volume [Pending], Neutrophils (%) (Auto) [Pending], Lymphocytes (%) ( Auto) [Pending], Monocytes (%) (Auto) [Pending], Eosinophils (%) (Auto) [Pending ], Basophils (%) (Auto) [Pending], Magnesium Level [Pending], Total Bilirubin [ Pending], Aspartate Amino Transf (AST/SGOT) [Pending], Alanine Aminotransferase (ALT/SGPT) [Pending], Alkaline Phosphatase [Pending], Ammonia [Pending], Total Protein [Pending], Albumin [Pending], Globulin [Pending] Height (Feet): 6 Height (Inches): 3.00 Weight (Pounds): 160 General Appearance: WD/WN, no apparent distress EENT: PERRL/EOMI Neck: non-tender Cardiovascular: normal peripheral pulses Respiratory/Chest: no respiratory distress Abdomen: normal bowel sounds Parish Trevino MD Apr 19, 2018 11:29
[2018-04-19 11:39] LABS: AMMONIA 22 umol/L (11-32)
[2018-04-19 11:41] LABS: ALANINE AMINOTRANSFERASE 9 U/L (12-78); ALBUMIN 1.7 G/DL (3.4-5.0); ALBUMIN/GLOBULIN RATIO 0.4 (1.0-2.7); ALKALINE PHOSPHATASE 82 U/L (46-116); ANION GAP 7 mmol/L (5-15); ASPARTATE AMINO TRANSFERASE 13 U/L (15-37); BILIRUBIN,TOTAL 0.7 MG/DL (0.2-1.0); BLOOD UREA NITROGEN 4 mg/dL (7-18); CALCIUM 7.8 MG/DL (8.5-10.1); CARBON DIOXIDE 24 MMOL/L (21-32); CHLORIDE 119 MMOL/L (98-107); CREATININE 0.8 MG/DL (0.55-1.30); POTASSIUM 2.8 MMOL/L (3.5-5.1); SODIUM 150 MMOL/L (136-145)
--- NOTE | 2018-04-19 13:37 | Infectious Diseases Prog Note ---
Assessment/Plan Assessment/Plan A: Pneumonia Leukocytosis with Lymphocytosis Peripancreatic adenopathy, pancreatitis Cirrhosis Diarrhea Anemia Paroxysmal A fib P: repeat UA & UC observe off antibiotic Subjective ROS Limited/Unobtainable: Yes Allergies: Coded Allergies: No Known Allergies (Unverified , 04/06/18) Objective Vital Signs Last 24 Hour Vital Signs Date Time Temp Pulse Resp B/P (MAP) Pulse Ox O2 Delivery O2 Flow Rate FiO2 04/19/18 12:00 97.7 76 20 115/77 100 Room Air 97.7 04/19/18 11:02 78 101/75 04/19/18 08:00 97.7 78 20 101/75 100 Room Air 97.7 04/19/18 04:00 98.2 69 20 137/78 100 Room Air 98.2 04/19/18 00:02 98.2 77 20 130/77 100 Room Air 98.2 04/18/18 21:22 74 125/73 04/18/18 20:00 97.4 74 20 125/73 100 Room Air 97.4 04/18/18 16:00 97.8 68 19 137/62 100 Room Air 97.8 Height (Feet): 6 Height (Inches): 3.00 Weight (Pounds): 160 General Appearance: no acute distress HEENT: mucous membranes moist Respiratory/Chest: lungs clear Cardiovascular: normal rate, other - R femoral line Abdomen: soft, non tender Extremities: no edema Neurologic/Psychiatric: other - lethargic Laboratory Tests Test 04/19/18 06:10 04/19/18 11:00 Sodium Level 149 MMOL/L (136-145) H 150 MMOL/L (136-145) H Potassium Level 2.7 MMOL/L (3.5-5.1) *L 2.8 MMOL/L (3.5-5.1) L Chloride Level 120 MMOL/L (98-107) H 119 MMOL/L (98-107) H Carbon Dioxide Level 22 MMOL/L (21-32) 24 MMOL/L (21-32) Anion Gap 7 mmol/L (5-15) 7 mmol/L (5-15) Blood Urea Nitrogen 5 mg/dL (7-18) L 4 mg/dL (7-18) L Creatinine 0.9 MG/DL (0.55-1.30) 0.8 MG/DL (0.55-1.30) Estimat Glomerular Filtration Rate > 60 mL/min (>60) > 60 mL/min (>60) Glucose Level 94 MG/DL (74-106) 92 MG/DL (74-106) Calcium Level 8.0 MG/DL (8.5-10.1) L 7.8 MG/DL (8.5-10.1) L White Blood Count 13.2 K/UL (4.8-10.8) H Red Blood Count 3.10 M/UL (4.70-6.10) L Hemoglobin 8.9 G/DL (14.2-18.0) L Hematocrit 28.4 % (42.0-52.0) L Mean Corpuscular Volume 92 FL (80-99) Mean Corpuscular Hemoglobin 28.7 PG (27.0-31.0) Mean Corpuscular Hemoglobin Concent 31.3 G/DL (32.0-36.0) L Red Cell Distribution Width 13.4 % (11.6-14.8) Platelet Count 226 K/UL (150-450) Mean Platelet Volume 6.0 FL (6.5-10.1) L Neutrophils (%) (Auto) 53.4 % (45.0-75.0) Lymphocytes (%) (Auto) 34.6 % (20.0-45.0) Monocytes (%) (Auto) 9.0 % (1.0-10.0) Eosinophils (%) (Auto) 2.4 % (0.0-3.0) Basophils (%) (Auto) 0.6 % (0.0-2.0) Magnesium Level 1.6 MG/DL (1.8-2.4) L Total Bilirubin 0.7 MG/DL (0.2-1.0) Aspartate Amino Transf (AST/SGOT) 13 U/L (15-37) L Alanine Aminotransferase (ALT/SGPT) 9 U/L (12-78) L Alkaline Phosphatase 82 U/L (46-116) Ammonia 22 umol/L (11-32) Total Protein 5.7 G/DL (6.4-8.2) L Albumin 1.7 G/DL (3.4-5.0) L Globulin 4.0 g/dL Albumin/Globulin Ratio 0.4 (1.0-2.7) L Current Medications Medications (Trade) Dose Ordered Sig/Anna Route PRN Reason Start Time Stop Time Status Last Admin Dose Admin Aspirin (ASA) 81 mg DAILY ORAL 04/13/18 09:00 05/08/18 08:59 04/19/18 11:02 Carvedilol (Coreg) 12.5 mg EVERY 12 HOURS ORAL 04/13/18 09:00 05/12/18 08:59 04/19/18 11:02 Chlorhexidine Gluconate (Enl-Hex 2%) 1 applic DAILY@2000 TOPIC 04/13/18 20:00 05/07/18 19:59 04/18/18 21:21 Folic Acid (Folate) 1 mg DAILY ORAL 04/15/18 09:00 05/15/18 08:59 04/19/18 11:02 Iopamidol (Isovue-300 100ml) 100 ml NOW PRN INJ Radiology Procedure 04/19/18 10:15 04/21/18 10:01 Lactulose (Cephulac) 30 gm THREE TIMES A DAY NG 04/13/18 09:00 05/07/18 17:59 04/19/18 12:44 Pantoprazole (Protonix) 40 mg DAILY IVP 04/13/18 09:00 05/07/18 08:59 04/19/18 11:02 Potassium Chloride 40 meq/ Dextrose 1,020 ml @ 100 mls/hr [id number] IV 04/19/18 10:30 05/19/18 10:29 04/19/18 11:01 Rifaximin (Xifaxan) 550 mg EVERY 12 HOURS ORAL 04/19/18 10:30 04/26/18 10:29 04/19/18 11:02 Dale Galindo MD Apr 19, 2018 13:37
--- NOTE | 2018-04-19 16:45 | Diagnostic Imaging Report ---
Indication: Altered level of consciousness Technique: Spiral acquisitions obtained through the brain pre- and post-IV contrast administration. Angled axial and coronal 5 x 5 mm slices reconstructed. Total dose length product 3005.37 mGycm. CTDIvol(s) 70.38,70.38 mGy. Dose reduction achieved using automated exposure control Comparison: none Findings: There is encephalomalacia of the bilateral inferior frontal lobes. No acute intrarenal hemorrhage or edema. No mass effect nor midline shift. There is minimal encephalomalacia in the high right parasagittal parietal lobe near the vertex. Old lacunar infarcts are seen in the region of the right external capsule. There is age-related enlargement of the ventricles and extra-axial CSF spaces. There is periventricular deep white matter chronic low-attenuation. No acute intracranial hemorrhage or edema. No mass effect nor midline shift. Otherwise normal emanuel-white differentiation. No unusual contrast enhancing lesion demonstrated. The sinuses demonstrate minimal disease within the right sphenoid sinus. The mastoids are clear. The calvarium is intact. Impression: Bilateral frontal encephalomalacia. This could represent old bilateral anterior cerebral artery distribution infarcts, or could be due to prior trauma Right high parietal encephalomalacia, likely an old focal infarct. Other chronic and age-related changes, as described Negative for acute intracranial bleed or mass effect The CT scanner at [facility] is accredited by the [employer] and the scans are performed using protocols designed to limit radiation exposure to as low as reasonably achievable to attain images of sufficient resolution adequate for diagnostic evaluation.
[2018-04-19] MEDS: Dyna-Hex 2% Top Sol 2oz TOPIC SCH (20:17)
[2018-04-19 21:51] LABS: APPEARANCE,URINE CLEAR; BILIRUBIN, URINE NEGATIVE (NEGATIVE); GLUCOSE, URINE (UA) NEGATIVE (NEGATIVE); KETONES,URINE NEGATIVE (NEGATIVE); LEUKOCYTE ESTERASE ,URINE 3+ (NEGATIVE); NITRITE,URINE NEGATIVE (NEGATIVE); PH,URINE 5 (4.5-8.0); PROTEIN,URINE 2+ (NEGATIVE); UROBILINOGEN,URINE NORMAL MG/DL (0.0-1.0)
[2018-04-19 21:55] LABS: COLOR,URINE YELLOW
[2018-04-20 04:52] VITALS: BP 117/74
[2018-04-20 06:47] LABS: BASOPHILS % (AUTO) 1.1 % (0.0-2.0); EOSINOPHILS % (AUTO) 3.3 % (0.0-3.0); HEMOGLOBIN 8.7 G/DL (14.2-18.0); LYMPHOCYTES % (AUTO) 34.7 % (20.0-45.0); MEAN CORPUSCULAR VOLUME 92 FL (80-99); MONOCYTES % (AUTO) 9.1 % (1.0-10.0); NEUTROPHILS % (AUTO) 51.7 % (45.0-75.0); PLATELET COUNT 218 K/UL (150-450); RED BLOOD COUNT 2.94 M/UL (4.70-6.10); RED CELL DISTRIBUTION WIDTH 13.6 % (11.6-14.8); WHITE BLOOD COUNT 12.7 K/UL (4.8-10.8)
[2018-04-20 08:00] VITALS: BP 134/88
--- NOTE | 2018-04-20 08:16 | General Progress Note ---
Assessment/Plan Status: unchanged Assessment/Plan 1. Pancreatic mass noted on CT abdomen and chest --> unusual pancreatic head and body lesion. The shape is not that of a typical mass lesion, but the presence of extensive surrounding lymphadenopathy indicates that this is probably a pancreatic malignancy. The possibility of pancreatitis with surrounding phlegmon and reactive lymphadenopathy should also be considered. --> eus with egd completed and results are pending --> tumor markers have been sent and are pending --> autoimmune markers are pending 2. Lymphadenopathy --> potentially related to malignancy --> flow reviewed and final results reviewed in "pathology" is not significant at this time 3. Coagulopathy likely secondary to underlying cirrhosis. --> INR elevated, given vit K already 4. Anemia secondary to underlying chronic disease. --> Continue to closely monitor. hgb at 8.2 04/14/18 --> Anemia w/u has been reviewed. Will trend cbc prn --> consider transfusion if hgb <7 5. Fever and chills, septic shock. --> resolved 6. Atrial fibrillation initially has been treated. Dr. Han is on the case. Subjective Date patient seen: Apr 20, 2018 ROS Limited/Unobtainable: Yes Allergies: Coded Allergies: No Known Allergies (Unverified , 04/06/18) All Systems: reviewed and negative except above Subjective Head CT performed yesterday --> neg. for acute intracranial bleed or mass. No c/ o pain or discomfort. NGT feeding. Objective Last 24 Hour Vital Signs Date Time Temp Pulse Resp B/P (MAP) Pulse Ox O2 Delivery O2 Flow Rate FiO2 04/20/18 04:52 98.8 85 19 117/74 98 98.8 04/19/18 23:46 98.6 76 16 95/73 100 98.6 04/19/18 20:51 98.9 82 17 98/69 100 98.9 04/19/18 20:18 72 90/65 04/19/18 16:00 97.3 72 20 90/65 100 Room Air 97.3 04/19/18 12:00 97.7 76 20 115/77 100 Room Air 97.7 04/19/18 11:02 78 101/75 Intake and Output 04/19/18 04/20/18 19:00 07:00 Intake Total 100 ml 1240 ml Output Total 550 ml 350 ml Balance -450 ml 890 ml Intake Oral 240 ml IV Total 100 ml 1000 ml Output Urine Total 550 ml 350 ml # Voids 1 Laboratory Tests 04/19/18 11:00: White Blood Count 13.2H, Red Blood Count 3.10L, Hemoglobin 8.9L, Hematocrit 28.4L, Mean Corpuscular Volume 92, Mean Corpuscular Hemoglobin 28.7, Mean Corpuscular Hemoglobin Concent 31.3L, Red Cell Distribution Width 13.4, Platelet Count 226, Mean Platelet Volume 6.0L, Neutrophils (%) (Auto) 53.4, Lymphocytes (%) (Auto) 34.6, Monocytes (%) (Auto) 9.0, Eosinophils (%) (Auto) 2.4, Basophils (%) (Auto) 0.6, Sodium Level 150H, Potassium Level 2.8L, Chloride Level 119H, Carbon Dioxide Level 24, Anion Gap 7, Blood Urea Nitrogen 4L, Creatinine 0.8, Estimat Glomerular Filtration Rate > 60, Glucose Level 92, Calcium Level 7.8L, Magnesium Level 1.6L, Total Bilirubin 0.7, Aspartate Amino Transf (AST/SGOT) 13L, Alanine Aminotransferase (ALT/SGPT) 9L, Alkaline Phosphatase 82, Ammonia 22, Total Protein 5.7L, Albumin 1.7L, Globulin 4.0, Albumin/Globulin Ratio 0.4L 04/19/18 21:25: Urine Color Yellow, Urine Appearance Clear, Urine pH 5, Urine Specific [place] 1.010, Urine Protein 2+H, Urine Glucose (UA) Negative, Urine Ketones Negative, Urine Occult Blood 4+H, Urine Nitrite Negative, Urine Bilirubin Negative, Urine Urobilinogen Normal, Urine Leukocyte Esterase 3+H, Urine RBC 15-20H, Urine WBC TntcH, Urine Squamous Epithelial Cells None, Urine Bacteria Few 04/20/18 05:10: White Blood Count 12.7H, Red Blood Count 2.94L, Hemoglobin 8.7L, Hematocrit 27.0L, Mean Corpuscular Volume 92, Mean Corpuscular Hemoglobin 29.6, Mean Corpuscular Hemoglobin Concent 32.2, Red Cell Distribution Width 13.6, Platelet Count 218, Mean Platelet Volume 7.2, Neutrophils (%) (Auto) 51.7, Lymphocytes (% ) (Auto) 34.7, Monocytes (%) (Auto) 9.1, Eosinophils (%) (Auto) 3.3H, Basophils (%) (Auto) 1.1 Height (Feet): 6 Height (Inches): 3.00 Weight (Pounds): 160 General Appearance: WD/WN, no apparent distress, confused EENT: PERRL/EOMI Neck: normal alignment, supple Cardiovascular: normal peripheral pulses Respiratory/Chest: no respiratory distress Abdomen: soft Neurologic: oriented x 3 Parish Trevino MD Apr 20, 2018 08:16
[2018-04-20] MEDS: Aspirin Baby 81mg ORAL SCH ×2 (09:00→09:26)
[2018-04-20] MEDS: Lactulose 20gm/30ml UDC NG SCH ×4 (09:00→19:03)
[2018-04-20] MEDS: Carvedilol 12.5mg tab ORAL SCH ×3 (09:00→21:51)
[2018-04-20] MEDS: Pantoprazole Inj IVP SCH (09:26)
[2018-04-20 11:42] VITALS: BP 120/81
[2018-04-20 12:00] VITALS: BP 135/65
--- NOTE | 2018-04-20 12:25 | Infectious Diseases Prog Note ---
Assessment/Plan Assessment/Plan A: Pneumonia Leukocytosis Peripancreatic adenopathy, pancreatitis Cirrhosis Diarrhea Anemia Paroxysmal A fib Pyuria, ? UTI P: will f/u UC Subjective ROS Limited/Unobtainable: Yes Allergies: Coded Allergies: No Known Allergies (Unverified , 04/06/18) Objective Vital Signs Last 24 Hour Vital Signs Date Time Temp Pulse Resp B/P (MAP) Pulse Ox O2 Delivery O2 Flow Rate FiO2 04/20/18 11:42 97.5 82 20 120/81 99 Room Air 97.5 04/20/18 09:00 76 134/88 04/20/18 08:00 97.1 76 20 134/88 100 Room Air 97.1 04/20/18 04:52 98.8 85 19 117/74 98 98.8 04/19/18 23:46 98.6 76 16 95/73 100 98.6 04/19/18 20:51 98.9 82 17 98/69 100 98.9 04/19/18 20:18 72 90/65 04/19/18 16:00 97.3 72 20 90/65 100 Room Air 97.3 Height (Feet): 6 Height (Inches): 3.00 Weight (Pounds): 159 HEENT: mucous membranes moist Respiratory/Chest: lungs clear Cardiovascular: normal rate Abdomen: soft, non tender Extremities: no edema Neurologic/Psychiatric: other - lethargic Microbiology Date/Time Source Procedure Growth Status 04/19/18 21:25 Indwelling Cath Urine Culture - Preliminary Resulted Laboratory Tests Test 04/19/18 21:25 04/20/18 05:10 Urine Color Yellow Urine Appearance Clear Urine pH 5 (4.5-8.0) Urine Specific [place] 1.010 (1.005-1.035) Urine Protein 2+ (NEGATIVE) H Urine Glucose (UA) Negative (NEGATIVE) Urine Ketones Negative (NEGATIVE) Urine Occult Blood 4+ (NEGATIVE) H Urine Nitrite Negative (NEGATIVE) Urine Bilirubin Negative (NEGATIVE) Urine Urobilinogen Normal MG/DL (0.0-1.0) Urine Leukocyte Esterase 3+ (NEGATIVE) H Urine RBC 15-20 /HPF (0 - 0) H Urine WBC Tntc /HPF (0 - 0) H Urine Squamous Epithelial Cells None /LPF (NONE/OCC) Urine Bacteria Few /HPF (NONE) White Blood Count 12.7 K/UL (4.8-10.8) H Red Blood Count 2.94 M/UL (4.70-6.10) L Hemoglobin 8.7 G/DL (14.2-18.0) L Hematocrit 27.0 % (42.0-52.0) L Mean Corpuscular Volume 92 FL (80-99) Mean Corpuscular Hemoglobin 29.6 PG (27.0-31.0) Mean Corpuscular Hemoglobin Concent 32.2 G/DL (32.0-36.0) Red Cell Distribution Width 13.6 % (11.6-14.8) Platelet Count 218 K/UL (150-450) Mean Platelet Volume 7.2 FL (6.5-10.1) Neutrophils (%) (Auto) 51.7 % (45.0-75.0) Lymphocytes (%) (Auto) 34.7 % (20.0-45.0) Monocytes (%) (Auto) 9.1 % (1.0-10.0) Eosinophils (%) (Auto) 3.3 % (0.0-3.0) H Basophils (%) (Auto) 1.1 % (0.0-2.0) Current Medications Medications (Trade) Dose Ordered Sig/Anna Route PRN Reason Start Time Stop Time Status Last Admin Dose Admin Aspirin (ASA) 81 mg DAILY ORAL 04/13/18 09:00 05/08/18 08:59 04/19/18 11:02 Carvedilol (Coreg) 12.5 mg EVERY 12 HOURS ORAL 04/13/18 09:00 05/12/18 08:59 04/19/18 11:02 Chlorhexidine Gluconate (Nel-Hex 2%) 1 applic DAILY@1999 TOPIC 04/13/18 20:00 05/07/18 19:59 04/19/18 20:17 Folic Acid (Folate) 1 mg DAILY ORAL 04/15/18 09:00 05/15/18 08:59 04/19/18 11:02 Iopamidol (Isovue-300 100ml) 100 ml NOW PRN INJ Radiology Procedure 04/19/18 10:15 04/21/18 10:01 Lactulose (Cephulac) 30 gm THREE TIMES A DAY NG 04/13/18 09:00 05/07/18 17:59 04/19/18 12:44 Pantoprazole (Protonix) 40 mg DAILY IVP 04/13/18 09:00 05/07/18 08:59 04/20/18 09:26 Potassium Chloride 40 meq/ Dextrose 1,020 ml @ 100 mls/hr [id number] IV 04/19/18 10:30 05/19/18 10:29 04/20/18 11:49 Rifaximin (Xifaxan) 550 mg EVERY 12 HOURS ORAL 04/19/18 10:30 04/26/18 10:29 04/19/18 11:02 Dale Galindo MD Apr 20, 2018 12:25
[2018-04-20 15:50] VITALS: BP 118/78
--- NOTE | 2018-04-20 16:58 | Pulmonology Progress Note ---
Assessment/Plan Assessment/Plan 1. Acute myocardial infarction. 2. Paroxysmal atrial fibrillation. 3. Sepsis with shock. 4. Alcoholic liver disease. 5. Hepatic encephalopathy. 6. Urinary sepsis. 7. Healthcare-acquired pneumonia. 8. Dehydration. 9. Hypernatremia, improved. 10. Metabolic acidosis. 11. Hypomagnesemia. 12. Lymphocytosis w retroperitoneal lymphadenopathy 13. Pancreatic mass, possible neuroendocrine tumor 14. Rectal mass vs foreign body, resolved 15. Pleural effusions lethargic, no neurologist available at this hospital possible hepatic encephalopathy disc w GI and ordered NGT for lactulose but RN could not place K low, Na high, rx path possible neuroendocrine tumor may need PEG not ready for dc disc w consultants Subjective ROS Limited/Unobtainable: Yes Allergies: Coded Allergies: No Known Allergies (Unverified , 04/06/18) Objective Last 24 Hour Vital Signs Date Time Temp Pulse Resp B/P (MAP) Pulse Ox O2 Delivery O2 Flow Rate FiO2 04/20/18 15:50 97.6 80 20 118/78 100 Room Air 97.6 04/20/18 11:42 97.5 82 20 120/81 99 Room Air 97.5 04/20/18 09:00 76 134/88 04/20/18 08:00 97.1 76 20 134/88 100 Room Air 97.1 04/20/18 04:52 98.8 85 19 117/74 98 98.8 04/19/18 23:46 98.6 76 16 95/73 100 98.6 04/19/18 20:51 98.9 82 17 98/69 100 98.9 04/19/18 20:18 72 90/65 Intake and Output 04/19/18 04/20/18 19:00 07:00 Intake Total 100 ml 1240 ml Output Total 550 ml 350 ml Balance -450 ml 890 ml Intake Oral 240 ml IV Total 100 ml 1000 ml Output Urine Total 550 ml 350 ml # Voids 1 General Appearance: no acute distress HEENT: atraumatic Respiratory/Chest: lungs clear Cardiovascular: normal rate Abdomen: soft, non tender Microbiology Date/Time Source Procedure Growth Status 04/19/18 21:25 Indwelling Cath Urine Culture - Preliminary Resulted Laboratory Tests 04/19/18 21:25: Urine Color Yellow, Urine Appearance Clear, Urine pH 5, Urine Specific Bureau 1.010, Urine Protein 2+H, Urine Glucose (UA) Negative, Urine Ketones Negative, Urine Occult Blood 4+H, Urine Nitrite Negative, Urine Bilirubin Negative, Urine Urobilinogen Normal, Urine Leukocyte Esterase 3+H, Urine RBC 15-20H, Urine WBC TntcH, Urine Squamous Epithelial Cells None, Urine Bacteria Few 04/20/18 05:10: White Blood Count 12.7H, Red Blood Count 2.94L, Hemoglobin 8.7L, Hematocrit 27.0L, Mean Corpuscular Volume 92, Mean Corpuscular Hemoglobin 29.6, Mean Corpuscular Hemoglobin Concent 32.2, Red Cell Distribution Width 13.6, Platelet Count 218, Mean Platelet Volume 7.2, Neutrophils (%) (Auto) 51.7, Lymphocytes (% ) (Auto) 34.7, Monocytes (%) (Auto) 9.1, Eosinophils (%) (Auto) 3.3H, Basophils (%) (Auto) 1.1 Current Medications Medications (Trade) Dose Ordered Sig/Anna Route PRN Reason Start Time Stop Time Status Last Admin Dose Admin Aspirin (ASA) 81 mg DAILY ORAL 04/13/18 09:00 05/08/18 08:59 04/19/18 11:02 Carvedilol (Coreg) 12.5 mg EVERY 12 HOURS ORAL 04/13/18 09:00 05/12/18 08:59 04/19/18 11:02 Chlorhexidine Gluconate (Nel-Hex 2%) 1 applic DAILY@2000 TOPIC 04/13/18 20:00 05/07/18 19:59 04/19/18 20:17 Folic Acid (Folate) 1 mg DAILY ORAL 04/15/18 09:00 05/15/18 08:59 04/19/18 11:02 Iopamidol (Isovue-300 100ml) 100 ml NOW PRN INJ Radiology Procedure 04/19/18 10:15 04/21/18 10:01 Lactulose (Cephulac) 30 gm THREE TIMES A DAY NG 04/13/18 09:00 05/07/18 17:59 04/20/18 13:20 Pantoprazole (Protonix) 40 mg DAILY IVP 04/13/18 09:00 05/07/18 08:59 04/20/18 09:26 Potassium Chloride 40 meq/ Dextrose 1,020 ml @ 100 mls/hr [id number] IV 04/19/18 10:30 05/19/18 10:29 04/20/18 11:49 Rifaximin (Xifaxan) 550 mg EVERY 12 HOURS ORAL 04/19/18 10:30 04/26/18 10:29 04/19/18 11:02 Gene Wood MD Apr 20, 2018 16:58
[2018-04-20 19:47] VITALS: BP 136/86
[2018-04-20] MEDS: Dyna-Hex 2% Top Sol 2oz TOPIC SCH (21:16)
--- NOTE | 2018-04-20 22:25 | General Progress Note ---
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 etiology - ? heptic encephalopahty (but recent NH3 normal, platelets normal, liver not cirrhotic on CT) - ? paraneoplastic syndrome Recommendations - NGT - I will try to place one myself in am - continue Lactulose and xifaxan - DTR to decide on PEG Subjective Allergies: Coded Allergies: No Known Allergies (Unverified , 04/06/18) Subjective above noted arousable poor po RN failed to place NGT x 3 d/w PMD re ? PEG d/w DTR re diagnosis of neuroendocrine tumor on bx PEG offered - DTR refused wants MD to retry NGT in am understands NGT is temporary DTR wants more time to think things over Objective Last 24 Hour Vital Signs Date Time Temp Pulse Resp B/P (MAP) Pulse Ox O2 Delivery O2 Flow Rate FiO2 04/20/18 21:51 92 136/86 04/20/18 19:47 97.3 92 17 136/86 100 Room Air 97.3 04/20/18 15:50 97.6 80 20 118/78 100 Room Air 97.6 04/20/18 11:42 97.5 82 20 120/81 99 Room Air 97.5 04/20/18 09:00 76 134/88 04/20/18 08:00 97.1 76 20 134/88 100 Room Air 97.1 04/20/18 04:52 98.8 85 19 117/74 98 98.8 04/19/18 23:46 98.6 76 16 95/73 100 98.6 Intake and Output 04/19/18 04/20/18 19:00 07:00 Intake Total 100 ml 1240 ml Output Total 550 ml 350 ml Balance -450 ml 890 ml Intake Oral 240 ml IV Total 100 ml 1000 ml Output Urine Total 550 ml 350 ml # Voids 1 Laboratory Tests 04/20/18 05:10: White Blood Count 12.7H, Red Blood Count 2.94L, Hemoglobin 8.7L, Hematocrit 27.0L, Mean Corpuscular Volume 92, Mean Corpuscular Hemoglobin 29.6, Mean Corpuscular Hemoglobin Concent 32.2, Red Cell Distribution Width 13.6, Platelet Count 218, Mean Platelet Volume 7.2, Neutrophils (%) (Auto) 51.7, Lymphocytes (% ) (Auto) 34.7, Monocytes (%) (Auto) 9.1, Eosinophils (%) (Auto) 3.3H, Basophils (%) (Auto) 1.1 Height (Feet): 6 Height (Inches): 3.00 Weight (Pounds): 159 Objective Thin AA man NCAT supple CTA RRR soft NT ND no edema OBS, awake, not interactive Lina Palma MD Apr 20, 2018 22:25
[2018-04-21] VITALS: BP 117/80
[2018-04-21 04:00] VITALS: BP 126/85
[2018-04-21 06:11] LABS: ANION GAP 7 mmol/L (5-15); BLOOD UREA NITROGEN 3 mg/dL (7-18); CARBON DIOXIDE 20 MMOL/L (21-32); CHLORIDE 115 MMOL/L (98-107); CREATININE 0.8 MG/DL (0.55-1.30); POTASSIUM 3.7 MMOL/L (3.5-5.1); SODIUM 142 MMOL/L (136-145)
[2018-04-21 08:00] VITALS: BP 132/88
[2018-04-21] MEDS: Aspirin Baby 81mg ORAL SCH (08:54)
[2018-04-21] MEDS: Pantoprazole Inj IVP SCH (08:54)
[2018-04-21] MEDS: Carvedilol 12.5mg tab ORAL SCH ×2 (08:55→20:42)
[2018-04-21] MEDS: Lactulose 20gm/30ml UDC NG SCH ×3 (08:56→17:14)
--- NOTE | 2018-04-21 09:09 | Pulmonology Progress Note ---
Assessment/Plan Assessment/Plan 1. Acute myocardial infarction. 2. Paroxysmal atrial fibrillation. 3. Sepsis with shock. 4. Alcoholic liver disease. 5. Hepatic encephalopathy. 6. Urinary sepsis. 7. Healthcare-acquired pneumonia. 8. Dehydration. 9. Hypernatremia, improved. 10. Metabolic acidosis. 11. Hypomagnesemia. 12. Lymphocytosis w retroperitoneal lymphadenopathy 13. Pancreatic mass, metastatic neuroendocrine tumor 14. Rectal mass vs foreign body, resolved 15. Pleural effusions more alert unlikely hepatic encephalopathy per GI notes, reviewed NGT placed for feeds today K low, Na high, resolved; dc IVF discussed PEG with dtr; will decide today start dc process Subjective ROS Limited/Unobtainable: Yes Allergies: Coded Allergies: No Known Allergies (Unverified , 04/06/18) Objective Last 24 Hour Vital Signs Date Time Temp Pulse Resp B/P (MAP) Pulse Ox O2 Delivery O2 Flow Rate FiO2 04/21/18 08:55 85 132/88 04/21/18 08:00 97.1 85 20 132/88 100 97.1 04/21/18 04:00 98.0 85 18 126/85 100 Room Air 98.0 04/21/18 00:00 98.3 88 20 117/80 100 Room Air 98.3 04/20/18 21:51 92 136/86 04/20/18 19:47 97.3 92 17 136/86 100 Room Air 97.3 04/20/18 15:50 97.6 80 20 118/78 100 Room Air 97.6 04/20/18 11:42 97.5 82 20 120/81 99 Room Air 97.5 Intake and Output 04/20/18 04/21/18 19:00 07:00 Intake Total 1200 ml 1100 ml Output Total 450 ml 550 ml Balance 750 ml 550 ml Intake Oral 0 ml IV Total 1200 ml 1100 ml Output Urine Total 450 ml 550 ml # Bowel Movements 2 General Appearance: no acute distress HEENT: atraumatic Respiratory/Chest: lungs clear Cardiovascular: normal rate Abdomen: soft, non tender Microbiology Date/Time Source Procedure Growth Status 04/19/18 21:25 Indwelling Cath Urine Culture - Preliminary Resulted Laboratory Tests 04/21/18 05:20: Sodium Level 142, Potassium Level 3.7, Chloride Level 115H, Carbon Dioxide Level 20L, Anion Gap 7, Blood Urea Nitrogen 3L, Creatinine 0.8, Estimat Glomerular Filtration Rate > 60, Glucose Level 94, Calcium Level 8.0L Current Medications Medications (Trade) Dose Ordered Sig/Anna Route PRN Reason Start Time Stop Time Status Last Admin Dose Admin Aspirin (ASA) 81 mg DAILY ORAL 04/13/18 09:00 05/08/18 08:59 04/21/18 08:54 Carvedilol (Coreg) 12.5 mg EVERY 12 HOURS ORAL 04/13/18 09:00 05/12/18 08:59 04/21/18 08:55 Chlorhexidine Gluconate (Nel-Hex 2%) 1 applic DAILY@2000 TOPIC 04/13/18 20:00 05/07/18 19:59 04/20/18 21:16 Folic Acid (Folate) 1 mg DAILY ORAL 04/15/18 09:00 05/15/18 08:59 04/21/18 08:54 Iopamidol (Isovue-300 100ml) 100 ml NOW PRN INJ Radiology Procedure 04/19/18 10:15 04/21/18 10:01 Lactulose (Cephulac) 30 gm THREE TIMES A DAY NG 04/13/18 09:00 05/07/18 17:59 04/21/18 08:56 Pantoprazole (Protonix) 40 mg DAILY IVP 04/13/18 09:00 05/07/18 08:59 04/21/18 08:54 Potassium Chloride 40 meq/ Dextrose 1,020 ml @ 100 mls/hr [id number] IV 04/19/18 10:30 05/19/18 10:29 04/20/18 22:00 Rifaximin (Xifaxan) 550 mg EVERY 12 HOURS ORAL 04/19/18 10:30 04/26/18 10:29 04/21/18 08:54 Gene Wood MD Apr 21, 2018 09:09
--- NOTE | 2018-04-21 09:16 | General Progress Note ---
Assessment/Plan Status: unchanged Assessment/Plan 1. 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 The shape is not that of a typical mass lesion, but the presence of extensive surrounding lymphadenopathy indicates that this is probably a pancreatic malignancy. The possibility of pancreatitis with surrounding phlegmon and reactive lymphadenopathy should also be considered. Biopsy report has been reviewed --> eus with egd completed and PRELIM bx shows neuroendocrine low grade --> have discussed above with pathologist, final report STILL PENDING --> tumor markers reviewed, none particularly elevated --> autoimmune markers reviewed --> If low-grade neuroendocrine pathology is final, do not recommend AGGRESSIVE chemotherapy given poor clinical status and inability to tolerate aggressive treatment, again will need to make decision with help of primary once pathology resulted as FINAL DIAGNOSIS 2. Lymphadenopathy --> likely related to malignancy --> initial pathology report shows low-grade neuroendocrine tumor 3. Coagulopathy likely secondary to underlying cirrhosis. --> INR elevated, given vit K already 4. Anemia secondary to underlying chronic disease. --> Continue to closely monitor. hgb at 8.2 04/14/18 --> Anemia w/u has been reviewed. Will trend cbc prn --> consider transfusion if hgb <7 5. Fever and chills, septic shock. --> resolved 6. Atrial fibrillation initially has been treated. --> Dr. Han is on the case. Subjective Date patient seen: Apr 21, 2018 ROS Limited/Unobtainable: Yes Allergies: Coded Allergies: No Known Allergies (Unverified , 04/06/18) All Systems: reviewed and negative except above Subjective Pt awaiting NGT placement. Vitals are stable, no c/o pain or discomfort. NAD. Re -diagnosis of neuroendocrine tumor on bx. Objective Last 24 Hour Vital Signs Date Time Temp Pulse Resp B/P (MAP) Pulse Ox O2 Delivery O2 Flow Rate FiO2 04/21/18 08:55 85 132/88 04/21/18 08:00 97.1 85 20 132/88 100 97.1 04/21/18 04:00 98.0 85 18 126/85 100 Room Air 98.0 04/21/18 00:00 98.3 88 20 117/80 100 Room Air 98.3 04/20/18 21:51 92 136/86 04/20/18 19:47 97.3 92 17 136/86 100 Room Air 97.3 04/20/18 15:50 97.6 80 20 118/78 100 Room Air 97.6 04/20/18 11:42 97.5 82 20 120/81 99 Room Air 97.5 Intake and Output 04/20/18 04/21/18 19:00 07:00 Intake Total 1200 ml 1100 ml Output Total 450 ml 550 ml Balance 750 ml 550 ml Intake Oral 0 ml IV Total 1200 ml 1100 ml Output Urine Total 450 ml 550 ml # Bowel Movements 2 Laboratory Tests 04/21/18 05:20: Sodium Level 142, Potassium Level 3.7, Chloride Level 115H, Carbon Dioxide Level 20L, Anion Gap 7, Blood Urea Nitrogen 3L, Creatinine 0.8, Estimat Glomerular Filtration Rate > 60, Glucose Level 94, Calcium Level 8.0L Height (Feet): 6 Height (Inches): 3.00 Weight (Pounds): 159 General Appearance: WD/WN, no apparent distress EENT: PERRL/EOMI Neck: supple Cardiovascular: normal peripheral pulses Respiratory/Chest: normal breath sounds, no respiratory distress, no accessory muscle use Abdomen: soft Parish Trevino MD Apr 21, 2018 09:16
--- NOTE | 2018-04-21 11:02 | Infectious Diseases Prog Note ---
Assessment/Plan Assessment/Plan antibiotics : rifaximin A 1. pneumonia s/p rx 2. leucocytosis resolved 3. cirrhosis 4. atrial fibrillation 5. UTI s/p rx 6. pancreatic mass s/p FNA biopsy P 1. observe off antibiotics Subjective ROS Limited/Unobtainable: Yes Allergies: Coded Allergies: No Known Allergies (Unverified , 04/06/18) Objective Vital Signs Last 24 Hour Vital Signs Date Time Temp Pulse Resp B/P (MAP) Pulse Ox O2 Delivery O2 Flow Rate FiO2 04/21/18 08:55 85 132/88 04/21/18 08:00 97.1 85 20 132/88 100 97.1 04/21/18 04:00 98.0 85 18 126/85 100 Room Air 98.0 04/21/18 00:00 98.3 88 20 117/80 100 Room Air 98.3 04/20/18 21:51 92 136/86 04/20/18 19:47 97.3 92 17 136/86 100 Room Air 97.3 04/20/18 15:50 97.6 80 20 118/78 100 Room Air 97.6 04/20/18 11:42 97.5 82 20 120/81 99 Room Air 97.5 Height (Feet): 6 Height (Inches): 3.00 Weight (Pounds): 158 Respiratory/Chest: lungs clear Cardiovascular: normal rate, regular rhythm, no gallop/murmur Abdomen: soft, non tender Extremities: no edema Microbiology Date/Time Source Procedure Growth Status 04/19/18 21:25 Indwelling Cath Urine Culture - Preliminary Resulted Laboratory Tests Test 04/21/18 05:20 Sodium Level 142 MMOL/L (136-145) Potassium Level 3.7 MMOL/L (3.5-5.1) Chloride Level 115 MMOL/L (98-107) H Carbon Dioxide Level 20 MMOL/L (21-32) L Anion Gap 7 mmol/L (5-15) Blood Urea Nitrogen 3 mg/dL (7-18) L Creatinine 0.8 MG/DL (0.55-1.30) Estimat Glomerular Filtration Rate > 60 mL/min (>60) Glucose Level 94 MG/DL (74-106) Calcium Level 8.0 MG/DL (8.5-10.1) L Current Medications Medications (Trade) Dose Ordered Sig/Anna Route PRN Reason Start Time Stop Time Status Last Admin Dose Admin Aspirin (ASA) 81 mg DAILY ORAL 04/13/18 09:00 05/08/18 08:59 04/21/18 08:54 Carvedilol (Coreg) 12.5 mg EVERY 12 HOURS ORAL 04/13/18 09:00 05/12/18 08:59 04/21/18 08:55 Chlorhexidine Gluconate (Nel-Hex 2%) 1 applic DAILY@2000 TOPIC 04/13/18 20:00 05/07/18 19:59 04/20/18 21:16 Folic Acid (Folate) 1 mg DAILY ORAL 04/15/18 09:00 05/15/18 08:59 04/21/18 08:54 Lactulose (Cephulac) 30 gm THREE TIMES A DAY NG 04/13/18 09:00 05/07/18 17:59 04/21/18 08:56 Pantoprazole (Protonix) 40 mg DAILY IVP 04/13/18 09:00 05/07/18 08:59 04/21/18 08:54 Potassium Chloride 40 meq/ Dextrose 1,020 ml @ 100 mls/hr [id number] IV 04/19/18 10:30 05/19/18 10:29 04/20/18 22:00 Rifaximin (Xifaxan) 550 mg EVERY 12 HOURS ORAL 04/19/18 10:30 04/26/18 10:29 04/21/18 08:54 VALENTINE ZARATE Apr 21, 2018 11:02
[2018-04-21 12:00] VITALS: BP 116/75
[2018-04-21 16:00] VITALS: BP 118/81
--- NOTE | 2018-04-21 17:35 | General Progress Note ---
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 etiology - ? heptic encephalopahty (but recent NH3 normal, platelets normal, liver not cirrhotic on CT) - ? paraneoplastic syndrome Recommendations - NGT - placed - continue Lactulose and xifaxan - DTR to decide on PEG Subjective Allergies: Coded Allergies: No Known Allergies (Unverified , 04/06/18) Subjective above noted arousable NGT placed by GI and position verified by air and suction Objective Last 24 Hour Vital Signs Date Time Temp Pulse Resp B/P (MAP) Pulse Ox O2 Delivery O2 Flow Rate FiO2 04/21/18 16:00 97.5 94 20 118/81 98 97.5 04/21/18 12:00 97.7 90 20 116/75 98 97.7 04/21/18 08:55 85 132/88 04/21/18 08:00 97.1 85 20 132/88 100 97.1 04/21/18 04:00 98.0 85 18 126/85 100 Room Air 98.0 04/21/18 00:00 98.3 88 20 117/80 100 Room Air 98.3 04/20/18 21:51 92 136/86 04/20/18 19:47 97.3 92 17 136/86 100 Room Air 97.3 Intake and Output 04/20/18 04/21/18 19:00 07:00 Intake Total 1200 ml 1100 ml Output Total 450 ml 550 ml Balance 750 ml 550 ml Intake Oral 0 ml IV Total 1200 ml 1100 ml Output Urine Total 450 ml 550 ml # Bowel Movements 2 Laboratory Tests 04/21/18 05:20: Sodium Level 142, Potassium Level 3.7, Chloride Level 115H, Carbon Dioxide Level 20L, Anion Gap 7, Blood Urea Nitrogen 3L, Creatinine 0.8, Estimat Glomerular Filtration Rate > 60, Glucose Level 94, Calcium Level 8.0L Height (Feet): 6 Height (Inches): 3.00 Weight (Pounds): 158 Objective Thin AA man NCAT supple CTA RRR soft NT ND no edema OBS, awake, not interactive Lina Palma MD Apr 21, 2018 17:35
[2018-04-21 20:10] VITALS: BP 123/78
[2018-04-21] MEDS: Dyna-Hex 2% Top Sol 2oz TOPIC SCH (20:41)
[2018-04-22] VITALS (7 sets, daily range): BP systolic 114–134; BP diastolic 72–86
[2018-04-22 06:49] LABS: ANION GAP 8 mmol/L (5-15); BLOOD UREA NITROGEN 6 mg/dL (7-18); CALCIUM 8.4 MG/DL (8.5-10.1); CARBON DIOXIDE 21 MMOL/L (21-32); CHLORIDE 113 MMOL/L (98-107); CREATININE 0.8 MG/DL (0.55-1.30); POTASSIUM 3.7 MMOL/L (3.5-5.1); SODIUM 142 MMOL/L (136-145)
[2018-04-22] MEDS: Carvedilol 12.5mg tab ORAL SCH ×3 (09:03→21:00)
[2018-04-22] MEDS: Aspirin Baby 81mg ORAL SCH (09:03)
[2018-04-22] MEDS: Pantoprazole Inj IVP SCH (09:03)
[2018-04-22] MEDS: Lactulose 20gm/30ml UDC NG SCH ×3 (09:03→17:32)
--- NOTE | 2018-04-22 09:03 | General Progress Note ---
Assessment/Plan Problem List: (1) pancreatic nueroendocrine tumor (2) Atrial fibrillation with RVR ICD Codes: I48.91 - Unspecified atrial fibrillation SNOMED: 171558238796725 (3) Dysphagia ICD Codes: R13.10 - Dysphagia, unspecified SNOMED: 52890659, 395491657 Assessment/Plan NGTF swallow eval on lactulose and xifaxan fu oncology eval for panc tumor Subjective ROS Limited/Unobtainable: Yes Allergies: Coded Allergies: No Known Allergies (Unverified , 04/06/18) Subjective more alert Objective Last 24 Hour Vital Signs Date Time Temp Pulse Resp B/P (MAP) Pulse Ox O2 Delivery O2 Flow Rate FiO2 04/22/18 07:51 98.0 95 21 134/85 98 Room Air 98.0 04/22/18 04:00 97.3 93 20 128/86 100 Room Air 97.3 04/22/18 00:00 98.2 90 20 117/72 100 Room Air 98.2 04/21/18 20:42 95 123/78 04/21/18 20:10 97.8 95 20 123/78 98 Room Air 97.8 04/21/18 16:00 97.5 94 20 118/81 98 97.5 04/21/18 12:00 97.7 90 20 116/75 98 97.7 Intake and Output 04/21/18 04/22/18 19:00 07:00 Intake Total 580 ml 860 ml Output Total 800 ml Balance -220 ml 860 ml Free Water 150 ml 250 ml Tube Feeding 430 ml 610 ml Output Urine Total 800 ml # Bowel Movements 1 1 Laboratory Tests 04/22/18 05:50: Sodium Level 142, Potassium Level 3.7, Chloride Level 113H, Carbon Dioxide Level 21, Anion Gap 8, Blood Urea Nitrogen 6L, Creatinine 0.8, Estimat Glomerular Filtration Rate > 60, Glucose Level 94, Calcium Level 8.4L Height (Feet): 6 Height (Inches): 3.00 Weight (Pounds): 158 General Appearance: no apparent distress EENT: normal ENT inspection Neck: supple Cardiovascular: normal rate Respiratory/Chest: decreased breath sounds Abdomen: normal bowel sounds, non tender, soft Extremities: non-tender Bonifacio River MD Apr 22, 2018 09:03
--- NOTE | 2018-04-22 19:08 | Pulmonology Progress Note ---
Assessment/Plan Assessment/Plan 1. Acute myocardial infarction. 2. Paroxysmal atrial fibrillation. 3. Sepsis with shock. 4. Alcoholic liver disease. 5. Hepatic encephalopathy. 6. Urinary sepsis. 7. Healthcare-acquired pneumonia. 8. Dehydration. 9. Hypernatremia, improved. 10. Metabolic acidosis. 11. Hypomagnesemia. 12. Lymphocytosis w retroperitoneal lymphadenopathy 13. Pancreatic mass, metastatic neuroendocrine tumor 14. Rectal mass vs foreign body, resolved 15. Pleural effusions PLAN: FU final path from bx and HO recommendations OT/PT cont abx NPO and NGT feeds replaced lytes not competent to make decisions check am labs disc w RN, GI, insurance MD Subjective Constitutional: Reports: no symptoms HEENT: Repors: no symptoms Respiratory: Reports: no symptoms Allergies: Coded Allergies: No Known Allergies (Unverified , 04/06/18) Subjective awake but confused follows some commands Tolerating TF no distress no cp vn or bleeding no fever noted not getting oob estrella in place Objective Last 24 Hour Vital Signs Date Time Temp Pulse Resp B/P (MAP) Pulse Ox O2 Delivery O2 Flow Rate FiO2 04/22/18 18:27 98.7 90 20 114/81 100 Room Air 98.7 04/22/18 16:00 98.2 77 20 131/76 95 Room Air 98.2 04/22/18 12:43 97.7 92 21 129/81 99 Room Air 97.7 04/22/18 09:03 95 134/85 04/22/18 07:51 98.0 95 21 134/85 98 Room Air 98.0 04/22/18 04:00 97.3 93 20 128/86 100 Room Air 97.3 04/22/18 00:00 98.2 90 20 117/72 100 Room Air 98.2 04/21/18 20:42 95 123/78 04/21/18 20:10 97.8 95 20 123/78 98 Room Air 97.8 Intake and Output 04/21/18 04/22/18 19:00 07:00 Intake Total 580 ml 920 ml Output Total 800 ml Balance -220 ml 920 ml Free Water 150 ml 250 ml Tube Feeding 430 ml 670 ml Output Urine Total 800 ml # Bowel Movements 1 1 General Appearance: cachetic HEENT: atraumatic, anicteric Respiratory/Chest: rhonchi Cardiovascular: normal rate, regular rhythm Abdomen: no organomegaly, non distended Extremities: no clubbing Neurologic/Psychiatric: responsive Lymphatic: no groin adenopathy Musculoskeletal: normal muscle bulk Microbiology Date/Time Source Procedure Growth Status 04/19/18 21:25 Indwelling Cath Urine Culture - Preliminary Yeast Species Resulted Laboratory Tests 04/22/18 05:50: Sodium Level 142, Potassium Level 3.7, Chloride Level 113H, Carbon Dioxide Level 21, Anion Gap 8, Blood Urea Nitrogen 6L, Creatinine 0.8, Estimat Glomerular Filtration Rate > 60, Glucose Level 94, Calcium Level 8.4L Current Medications Medications (Trade) Dose Ordered Sig/Anna Route PRN Reason Start Time Stop Time Status Last Admin Dose Admin Aspirin (ASA) 81 mg DAILY ORAL 04/13/18 09:00 05/08/18 08:59 04/22/18 09:03 Carvedilol (Coreg) 12.5 mg EVERY 12 HOURS ORAL 04/13/18 09:00 05/12/18 08:59 04/22/18 09:03 Chlorhexidine Gluconate (Nel-Hex 2%) 1 applic DAILY@1999 TOPIC 04/13/18 20:00 05/07/18 19:59 04/21/18 20:41 Folic Acid (Folate) 1 mg DAILY ORAL 04/15/18 09:00 05/15/18 08:59 04/22/18 09:03 Lactulose (Cephulac) 30 gm THREE TIMES A DAY NG 04/13/18 09:00 05/07/18 17:59 04/22/18 17:32 Pantoprazole (Protonix) 40 mg DAILY IVP 04/13/18 09:00 05/07/18 08:59 04/22/18 09:03 Rifaximin (Xifaxan) 550 mg EVERY 12 HOURS ORAL 04/19/18 10:30 04/26/18 10:29 04/22/18 09:03 Gerda Oquendo DO Apr 22, 2018 19:08
--- NOTE | 2018-04-22 19:50 | General Progress Note ---
Assessment/Plan Status: stable, unchanged Assessment/Plan 1. 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 The shape is not that of a typical mass lesion, but the presence of extensive surrounding lymphadenopathy indicates that this is probably a pancreatic malignancy. The possibility of pancreatitis with surrounding phlegmon and reactive lymphadenopathy should also be considered. Biopsy report has been reviewed --> eus with egd completed and PRELIM bx shows neuroendocrine low grade --> have discussed above with pathologist, final report STILL PENDING --> tumor markers reviewed, none particularly elevated --> autoimmune markers reviewed --> If low-grade neuroendocrine pathology is final, do not recommend AGGRESSIVE chemotherapy given poor clinical status and inability to tolerate aggressive treatment, again will need to make decision with help of primary once pathology resulted as FINAL DIAGNOSIS 2. Lymphadenopathy --> likely related to malignancy --> initial pathology report shows low-grade neuroendocrine tumor 3. Coagulopathy likely secondary to underlying cirrhosis. --> INR elevated, given vit K already 4. Anemia secondary to underlying chronic disease. --> Continue to closely monitor. hgb at 8.2 04/14/18 --> Anemia w/u has been reviewed. Will trend cbc prn --> consider transfusion if hgb <7 5. Fever and chills, septic shock. --> resolved 6. Atrial fibrillation initially has been treated. --> Dr. Han is on the case. Subjective Date patient seen: Apr 22, 2018 ROS Limited/Unobtainable: Yes Allergies: Coded Allergies: No Known Allergies (Unverified , 04/06/18) All Systems: reviewed and negative except above Subjective Pt awake and alert. No overnight events. NAD. Objective Last 24 Hour Vital Signs Date Time Temp Pulse Resp B/P (MAP) Pulse Ox O2 Delivery O2 Flow Rate FiO2 04/22/18 18:27 98.7 90 20 114/81 100 Room Air 98.7 04/22/18 16:00 98.2 77 20 131/76 95 Room Air 98.2 04/22/18 12:43 97.7 92 21 129/81 99 Room Air 97.7 04/22/18 09:03 95 134/85 04/22/18 07:51 98.0 95 21 134/85 98 Room Air 98.0 04/22/18 04:00 97.3 93 20 128/86 100 Room Air 97.3 04/22/18 00:00 98.2 90 20 117/72 100 Room Air 98.2 04/21/18 20:42 95 123/78 04/21/18 20:10 97.8 95 20 123/78 98 Room Air 97.8 Intake and Output 04/21/18 04/22/18 19:00 07:00 Intake Total 580 ml 920 ml Output Total 800 ml Balance -220 ml 920 ml Free Water 150 ml 250 ml Tube Feeding 430 ml 670 ml Output Urine Total 800 ml # Bowel Movements 1 1 Laboratory Tests 04/22/18 05:50: Sodium Level 142, Potassium Level 3.7, Chloride Level 113H, Carbon Dioxide Level 21, Anion Gap 8, Blood Urea Nitrogen 6L, Creatinine 0.8, Estimat Glomerular Filtration Rate > 60, Glucose Level 94, Calcium Level 8.4L Height (Feet): 6 Height (Inches): 3.00 Weight (Pounds): 155 General Appearance: WD/WN, no apparent distress EENT: PERRL/EOMI Neck: supple Cardiovascular: normal peripheral pulses Respiratory/Chest: normal breath sounds, no respiratory distress Abdomen: soft Parish Trevino MD Apr 22, 2018 19:50
[2018-04-22] MEDS: Dyna-Hex 2% Top Sol 2oz TOPIC SCH (20:15)
[2018-04-23] VITALS: BP 117/80
[2018-04-23 04:00] VITALS: BP 117/78
[2018-04-23 05:41] LABS: BASOPHILS % (AUTO) 1.3 % (0.0-2.0); EOSINOPHILS % (AUTO) 4.5 % (0.0-3.0); HEMATOCRIT 27.9 % (42.0-52.0); LYMPHOCYTES % (AUTO) 31.2 % (20.0-45.0); MEAN CORPUSCULAR VOLUME 91 FL (80-99); MONOCYTES % (AUTO) 8.9 % (1.0-10.0); NEUTROPHILS % (AUTO) 54.1 % (45.0-75.0); PLATELET COUNT 221 K/UL (150-450); RED BLOOD COUNT 3.08 M/UL (4.70-6.10); RED CELL DISTRIBUTION WIDTH 13.7 % (11.6-14.8); WHITE BLOOD COUNT 11.6 K/UL (4.8-10.8)
[2018-04-23 06:25] LABS: ALANINE AMINOTRANSFERASE 12 U/L (12-78); ALBUMIN 1.9 G/DL (3.4-5.0); ALBUMIN/GLOBULIN RATIO 0.4 (1.0-2.7); ALKALINE PHOSPHATASE 96 U/L (46-116); ANION GAP 7 mmol/L (5-15); ASPARTATE AMINO TRANSFERASE 15 U/L (15-37); BILIRUBIN,TOTAL 0.5 MG/DL (0.2-1.0); BLOOD UREA NITROGEN 8 mg/dL (7-18); CALCIUM 8.4 MG/DL (8.5-10.1); CARBON DIOXIDE 24 MMOL/L (21-32); CHLORIDE 112 MMOL/L (98-107); CREATININE 0.8 MG/DL (0.55-1.30); POTASSIUM 3.5 MMOL/L (3.5-5.1); SODIUM 143 MMOL/L (136-145)
[2018-04-23 08:00] VITALS: BP 121/71
--- NOTE | 2018-04-23 08:40 | General Progress Note ---
Assessment/Plan Problem List: (1) pancreatic nueroendocrine tumor (2) Atrial fibrillation with RVR ICD Codes: I48.91 - Unspecified atrial fibrillation SNOMED: 898997599105587 (3) Dysphagia ICD Codes: R13.10 - Dysphagia, unspecified SNOMED: 23989592, [id number] Assessment/Plan NGTF swallow eval on lactulose and xifaxan fu oncology eval for panc tumor Subjective ROS Limited/Unobtainable: No Allergies: Coded Allergies: No Known Allergies (Unverified , 04/06/18) Subjective more alert Objective Last 24 Hour Vital Signs Date Time Temp Pulse Resp B/P (MAP) Pulse Ox O2 Delivery O2 Flow Rate FiO2 04/23/18 08:00 97.5 96 21 121/71 100 Room Air 97.5 04/23/18 04:51 Room Air 04/23/18 04:00 97.5 94 20 117/78 98 Room Air 97.5 04/23/18 00:00 97.9 93 18 117/80 100 Room Air 97.9 04/22/18 22:49 Room Air 04/22/18 20:12 98.7 96 20 117/76 94 Room Air 98.7 04/22/18 18:27 98.7 90 20 114/81 100 Room Air 98.7 04/22/18 16:00 98.2 77 20 131/76 95 Room Air 98.2 04/22/18 12:43 97.7 92 21 129/81 99 Room Air 97.7 04/22/18 09:03 95 134/85 Intake and Output 04/22/18 04/23/18 19:00 07:00 Intake Total 970 ml 730 ml Output Total 800 ml 400 ml Balance 170 ml 330 ml Free Water 250 ml 250 ml Tube Feeding 720 ml 480 ml Output Urine Total 800 ml 400 ml # Voids 1 # Bowel Movements 3 Laboratory Tests 04/23/18 05:07: White Blood Count 11.6H, Red Blood Count 3.08L, Hemoglobin 9.0L, Hematocrit 27.9L, Mean Corpuscular Volume 91, Mean Corpuscular Hemoglobin 29.3, Mean Corpuscular Hemoglobin Concent 32.3, Red Cell Distribution Width 13.7, Platelet Count 221, Mean Platelet Volume 7.4, Neutrophils (%) (Auto) 54.1, Lymphocytes (% ) (Auto) 31.2, Monocytes (%) (Auto) 8.9, Eosinophils (%) (Auto) 4.5H, Basophils (%) (Auto) 1.3, Sodium Level 143, Potassium Level 3.5, Chloride Level 112H, Carbon Dioxide Level 24, Anion Gap 7, Blood Urea Nitrogen 8, Creatinine 0.8, Estimat Glomerular Filtration Rate > 60, Glucose Level 112H, Calcium Level 8.4L , Total Bilirubin 0.5, Aspartate Amino Transf (AST/SGOT) 15, Alanine Aminotransferase (ALT/SGPT) 12, Alkaline Phosphatase 96, Total Protein 6.4, Albumin 1.9L, Globulin 4.5, Albumin/Globulin Ratio 0.4L Height (Feet): 6 Height (Inches): 3.00 Weight (Pounds): 155 General Appearance: no apparent distress EENT: normal ENT inspection Neck: supple Cardiovascular: normal rate Respiratory/Chest: decreased breath sounds Abdomen: normal bowel sounds, non tender, soft Extremities: non-tender Bonifacio River MD Apr 23, 2018 08:40
[2018-04-23] MEDS: Aspirin Baby 81mg ORAL SCH (08:53)
[2018-04-23] MEDS: Pantoprazole Inj IVP SCH (08:53)
[2018-04-23] MEDS: Lactulose 20gm/30ml UDC NG SCH ×3 (08:54→17:52)
[2018-04-23] MEDS: Carvedilol 12.5mg tab ORAL SCH ×2 (08:54→20:36)
--- NOTE | 2018-04-23 10:32 | Infectious Diseases Prog Note ---
Assessment/Plan Assessment/Plan A: Pneumonia Leukocytosis Peripancreatic adenopathy, pancreatic tumor Cirrhosis Diarrhea Anemia Paroxysmal A fib Pyuria, ? UTI P: observe off antibiotic Subjective ROS Limited/Unobtainable: Yes Allergies: Coded Allergies: No Known Allergies (Unverified , 04/06/18) Objective Vital Signs Last 24 Hour Vital Signs Date Time Temp Pulse Resp B/P (MAP) Pulse Ox O2 Delivery O2 Flow Rate FiO2 04/23/18 08:54 96 121/71 04/23/18 08:00 97.5 96 21 121/71 100 Room Air 97.5 04/23/18 04:51 Room Air 04/23/18 04:00 97.5 94 20 117/78 98 Room Air 97.5 04/23/18 00:00 97.9 93 18 117/80 100 Room Air 97.9 04/22/18 22:49 Room Air 04/22/18 20:12 98.7 96 20 117/76 94 Room Air 98.7 04/22/18 18:27 98.7 90 20 114/81 100 Room Air 98.7 04/22/18 16:00 98.2 77 20 131/76 95 Room Air 98.2 04/22/18 12:43 97.7 92 21 129/81 99 Room Air 97.7 Height (Feet): 6 Height (Inches): 3.00 Weight (Pounds): 155 General Appearance: no acute distress HEENT: mucous membranes moist Respiratory/Chest: lungs clear Cardiovascular: normal rate Abdomen: soft, non tender, other - NG tube feeding Extremities: no edema Neurologic/Psychiatric: alert, other - awake Laboratory Tests Test 04/23/18 05:07 White Blood Count 11.6 K/UL (4.8-10.8) H Red Blood Count 3.08 M/UL (4.70-6.10) L Hemoglobin 9.0 G/DL (14.2-18.0) L Hematocrit 27.9 % (42.0-52.0) L Mean Corpuscular Volume 91 FL (80-99) Mean Corpuscular Hemoglobin 29.3 PG (27.0-31.0) Mean Corpuscular Hemoglobin Concent 32.3 G/DL (32.0-36.0) Red Cell Distribution Width 13.7 % (11.6-14.8) Platelet Count 221 K/UL (150-450) Mean Platelet Volume 7.4 FL (6.5-10.1) Neutrophils (%) (Auto) 54.1 % (45.0-75.0) Lymphocytes (%) (Auto) 31.2 % (20.0-45.0) Monocytes (%) (Auto) 8.9 % (1.0-10.0) Eosinophils (%) (Auto) 4.5 % (0.0-3.0) H Basophils (%) (Auto) 1.3 % (0.0-2.0) Sodium Level 143 MMOL/L (136-145) Potassium Level 3.5 MMOL/L (3.5-5.1) Chloride Level 112 MMOL/L (98-107) H Carbon Dioxide Level 24 MMOL/L (21-32) Anion Gap 7 mmol/L (5-15) Blood Urea Nitrogen 8 mg/dL (7-18) Creatinine 0.8 MG/DL (0.55-1.30) Estimat Glomerular Filtration Rate > 60 mL/min (>60) Glucose Level 112 MG/DL (74-106) H Calcium Level 8.4 MG/DL (8.5-10.1) L Total Bilirubin 0.5 MG/DL (0.2-1.0) Aspartate Amino Transf (AST/SGOT) 15 U/L (15-37) Alanine Aminotransferase (ALT/SGPT) 12 U/L (12-78) Alkaline Phosphatase 96 U/L (46-116) Total Protein 6.4 G/DL (6.4-8.2) Albumin 1.9 G/DL (3.4-5.0) L Globulin 4.5 g/dL Albumin/Globulin Ratio 0.4 (1.0-2.7) L Current Medications Medications (Trade) Dose Ordered Sig/Anna Route PRN Reason Start Time Stop Time Status Last Admin Dose Admin Aspirin (ASA) 81 mg DAILY ORAL 04/13/18 09:00 05/08/18 08:59 04/23/18 08:53 Carvedilol (Coreg) 12.5 mg EVERY 12 HOURS ORAL 04/13/18 09:00 05/12/18 08:59 04/23/18 08:54 Chlorhexidine Gluconate (Nel-Hex 2%) 1 applic DAILY@1999 [facility] 04/13/18 20:00 05/07/18 19:59 04/22/18 20:15 Folic Acid (Folate) 1 mg DAILY ORAL 04/15/18 09:00 05/15/18 08:59 04/23/18 08:53 Lactulose (Cephulac) 30 gm THREE TIMES A DAY NG 04/13/18 09:00 05/07/18 17:59 04/23/18 08:54 Pantoprazole (Protonix) 40 mg DAILY IVP 04/13/18 09:00 05/07/18 08:59 04/23/18 08:53 Rifaximin (Xifaxan) 550 mg EVERY 12 HOURS ORAL 04/19/18 10:30 04/26/18 10:29 04/23/18 08:53 Dale Galindo MD Apr 23, 2018 10:32
[2018-04-23 12:00] VITALS: BP 110/60
--- NOTE | 2018-04-23 12:03 | General Progress Note ---
Assessment/Plan Status: stable Assessment/Plan 1. 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 The shape is not that of a typical mass lesion, but the presence of extensive surrounding lymphadenopathy indicates that this is probably a pancreatic malignancy. The possibility of pancreatitis with surrounding phlegmon and reactive lymphadenopathy should also be considered. Biopsy report has been reviewed --> eus with egd completed and PRELIM bx shows neuroendocrine low grade --> have discussed above with pathologist, final report STILL PENDING --> tumor markers reviewed, none particularly elevated --> autoimmune markers reviewed --> If low-grade neuroendocrine pathology is final, do not recommend AGGRESSIVE chemotherapy given poor clinical status and inability to tolerate aggressive treatment, again will need to make decision with help of primary once pathology resulted as FINAL DIAGNOSIS 2. Lymphadenopathy --> likely related to malignancy --> initial pathology report shows low-grade neuroendocrine tumor 3. Coagulopathy likely secondary to underlying cirrhosis. --> INR elevated, given vit K already 4. Anemia secondary to underlying chronic disease. --> Continue to closely monitor. hgb at 8.2 04/14/18 --> Anemia w/u has been reviewed. Will trend cbc prn --> consider transfusion if hgb <7 5. Fever and chills, septic shock. --> resolved 6. Atrial fibrillation initially has been treated. --> Dr. Han is on the case. Subjective Date patient seen: Apr 23, 2018 ROS Limited/Unobtainable: Yes Allergies: Coded Allergies: No Known Allergies (Unverified , 04/06/18) All Systems: reviewed and negative except above Subjective Pt awake and alert. No overnight events. NAD. Objective Last 24 Hour Vital Signs Date Time Temp Pulse Resp B/P (MAP) Pulse Ox O2 Delivery O2 Flow Rate FiO2 04/23/18 08:54 96 121/71 04/23/18 08:00 97.5 96 21 121/71 100 Room Air 97.5 04/23/18 04:51 Room Air 04/23/18 04:00 97.5 94 20 117/78 98 Room Air 97.5 04/23/18 00:00 97.9 93 18 117/80 100 Room Air 97.9 04/22/18 22:49 Room Air 04/22/18 20:12 98.7 96 20 117/76 94 Room Air 98.7 04/22/18 18:27 98.7 90 20 114/81 100 Room Air 98.7 04/22/18 16:00 98.2 77 20 131/76 95 Room Air 98.2 04/22/18 12:43 97.7 92 21 129/81 99 Room Air 97.7 Intake and Output 04/22/18 04/23/18 19:00 07:00 Intake Total 970 ml 730 ml Output Total 800 ml 400 ml Balance 170 ml 330 ml Free Water 250 ml 250 ml Tube Feeding 720 ml 480 ml Output Urine Total 800 ml 400 ml # Voids 1 # Bowel Movements 3 Laboratory Tests 04/23/18 05:07: White Blood Count 11.6H, Red Blood Count 3.08L, Hemoglobin 9.0L, Hematocrit 27.9L, Mean Corpuscular Volume 91, Mean Corpuscular Hemoglobin 29.3, Mean Corpuscular Hemoglobin Concent 32.3, Red Cell Distribution Width 13.7, Platelet Count 221, Mean Platelet Volume 7.4, Neutrophils (%) (Auto) 54.1, Lymphocytes (% ) (Auto) 31.2, Monocytes (%) (Auto) 8.9, Eosinophils (%) (Auto) 4.5H, Basophils (%) (Auto) 1.3, Sodium Level 143, Potassium Level 3.5, Chloride Level 112H, Carbon Dioxide Level 24, Anion Gap 7, Blood Urea Nitrogen 8, Creatinine 0.8, Estimat Glomerular Filtration Rate > 60, Glucose Level 112H, Calcium Level 8.4L , Total Bilirubin 0.5, Aspartate Amino Transf (AST/SGOT) 15, Alanine Aminotransferase (ALT/SGPT) 12, Alkaline Phosphatase 96, Total Protein 6.4, Albumin 1.9L, Globulin 4.5, Albumin/Globulin Ratio 0.4L Height (Feet): 6 Height (Inches): 3.00 Weight (Pounds): 155 General Appearance: WD/WN, no apparent distress, alert EENT: PERRL/EOMI Neck: normal alignment Cardiovascular: tachycardia Respiratory/Chest: no respiratory distress Abdomen: non tender Parish Trevino MD Apr 23, 2018 12:03
[2018-04-23 16:00] VITALS: BP 102/61
--- NOTE | 2018-04-23 16:55 | Pulmonology Progress Note ---
Assessment/Plan Assessment/Plan 1. Acute myocardial infarction. 2. Paroxysmal atrial fibrillation. 3. Sepsis with shock. 4. Alcoholic liver disease. 5. Hepatic encephalopathy. 6. Urinary sepsis. 7. Healthcare-acquired pneumonia. 8. Dehydration. 9. Hypernatremia, improved. 10. Metabolic acidosis. 11. Hypomagnesemia. 12. Lymphocytosis w retroperitoneal lymphadenopathy 13. Pancreatic mass, metastatic neuroendocrine tumor 14. Rectal mass vs foreign body, resolved 15. Pleural effusions PLAN: FU final path from bx and HO recommendations OT/PT cont abx NPO and NGT feeds replaced lytes not competent to make decisions check am labs disc w RN, GI, insurance MD Subjective ROS Limited/Unobtainable: Yes Cardiovascular: Reports: no symptoms Gastrointestinal/Abdominal: Reports: no symptoms Genitourinary: Reports: no symptoms Allergies: Coded Allergies: No Known Allergies (Unverified , 04/06/18) Subjective awake still confused follows some commands Tolerating TF no distress no cp vn or bleeding no fever noted not getting oob estrella in place Objective Last 24 Hour Vital Signs Date Time Temp Pulse Resp B/P (MAP) Pulse Ox O2 Delivery O2 Flow Rate FiO2 04/23/18 16:00 97.5 94 19 102/61 96 Room Air 97.5 04/23/18 12:00 97.6 89 20 110/60 99 Room Air 97.6 04/23/18 08:54 96 121/71 04/23/18 08:00 97.5 96 21 121/71 100 Room Air 97.5 04/23/18 04:51 Room Air 04/23/18 04:00 97.5 94 20 117/78 98 Room Air 97.5 04/23/18 00:00 97.9 93 18 117/80 100 Room Air 97.9 04/22/18 22:49 Room Air 04/22/18 20:12 98.7 96 20 117/76 94 Room Air 98.7 04/22/18 18:27 98.7 90 20 114/81 100 Room Air 98.7 Intake and Output 04/22/18 04/23/18 19:00 07:00 Intake Total 970 ml 790 ml Output Total 800 ml 400 ml Balance 170 ml 390 ml Free Water 250 ml 250 ml Tube Feeding 720 ml 540 ml Output Urine Total 800 ml 400 ml # Voids 1 # Bowel Movements 3 General Appearance: cachetic HEENT: normocephalic, anicteric Respiratory/Chest: rhonchi Cardiovascular: normal rate, regularly irregular Abdomen: soft, non tender, no organomegaly, no mass Extremities: no cyanosis Skin: no lesions Neurologic/Psychiatric: responsive Laboratory Tests 04/23/18 05:07: White Blood Count 11.6H, Red Blood Count 3.08L, Hemoglobin 9.0L, Hematocrit 27.9L, Mean Corpuscular Volume 91, Mean Corpuscular Hemoglobin 29.3, Mean Corpuscular Hemoglobin Concent 32.3, Red Cell Distribution Width 13.7, Platelet Count 221, Mean Platelet Volume 7.4, Neutrophils (%) (Auto) 54.1, Lymphocytes (% ) (Auto) 31.2, Monocytes (%) (Auto) 8.9, Eosinophils (%) (Auto) 4.5H, Basophils (%) (Auto) 1.3, Sodium Level 143, Potassium Level 3.5, Chloride Level 112H, Carbon Dioxide Level 24, Anion Gap 7, Blood Urea Nitrogen 8, Creatinine 0.8, Estimat Glomerular Filtration Rate > 60, Glucose Level 112H, Calcium Level 8.4L , Total Bilirubin 0.5, Aspartate Amino Transf (AST/SGOT) 15, Alanine Aminotransferase (ALT/SGPT) 12, Alkaline Phosphatase 96, Total Protein 6.4, Albumin 1.9L, Globulin 4.5, Albumin/Globulin Ratio 0.4L Current Medications Medications (Trade) Dose Ordered Sig/Anna Route PRN Reason Start Time Stop Time Status Last Admin Dose Admin Aspirin (ASA) 81 mg DAILY ORAL 04/13/18 09:00 05/08/18 08:59 04/23/18 08:53 Carvedilol (Coreg) 12.5 mg EVERY 12 HOURS ORAL 04/13/18 09:00 05/12/18 08:59 04/23/18 08:54 Chlorhexidine Gluconate (Nel-Hex 2%) 1 applic DAILY@1999 [facility] 04/13/18 20:00 05/07/18 19:59 04/22/18 20:15 Folic Acid (Folate) 1 mg DAILY ORAL 04/15/18 09:00 05/15/18 08:59 04/23/18 08:53 Lactulose (Cephulac) 30 gm THREE TIMES A DAY NG 04/13/18 09:00 05/07/18 17:59 04/23/18 14:10 Pantoprazole (Protonix) 40 mg DAILY IVP 04/13/18 09:00 05/07/18 08:59 04/23/18 08:53 Rifaximin (Xifaxan) 550 mg EVERY 12 HOURS ORAL 04/19/18 10:30 04/26/18 10:29 04/23/18 08:53 Gerda Oquendo DO Apr 23, 2018 16:55
[2018-04-23 20:00] VITALS: BP 117/78
[2018-04-23] MEDS: Dyna-Hex 2% Top Sol 2oz TOPIC SCH (20:36)
[2018-04-24] VITALS (7 sets, daily range): BP systolic 92–127; BP diastolic 65–95
[2018-04-24] MEDS: Lactulose 20gm/30ml UDC NG SCH ×3 (09:55→17:03)
[2018-04-24] MEDS: Aspirin Baby 81mg ORAL SCH (09:55)
[2018-04-24] MEDS: Carvedilol 12.5mg tab ORAL SCH ×3 (09:55→20:06)
[2018-04-24] MEDS: Pantoprazole Inj IVP SCH (09:56)
--- NOTE | 2018-04-24 11:06 | Diagnostic Imaging Report ---
Indication: Cough Technique: One view of the chest Comparison: 04/09/2018 Findings: Interim placement of a nasogastric tube, tip coiled above the left hemidiaphragm, presumably within previously described large hiatal hernia. The lungs and pleural spaces are clear, and previously demonstrated interstitial congestion has resolved. There is thoracic scoliotic deformity. The heart size is normal. Prominent right paratracheal region is demonstrated on prior CT to be due to tortuous ectatic neck vessels Impression: Hiatal hernia. Nasogastric tube is coiled within supradiaphragmatic gastric fundus No acute process This agrees with the preliminary interpretation provided overnight by [facility] teleradiology service.
--- NOTE | 2018-04-24 11:56 | General Progress Note ---
Assessment/Plan Status: unchanged Assessment/Plan 1. 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 The shape is not that of a typical mass lesion, but the presence of extensive surrounding lymphadenopathy indicates that this is probably a pancreatic malignancy. The possibility of pancreatitis with surrounding phlegmon and reactive lymphadenopathy should also be considered. Biopsy report has been reviewed --> eus with egd completed and PRELIM bx shows neuroendocrine low grade --> have discussed above with pathologist, final report STILL PENDING --> tumor markers reviewed, none particularly elevated --> autoimmune markers reviewed --> If low-grade neuroendocrine pathology is final, do not recommend AGGRESSIVE chemotherapy given poor clinical status and inability to tolerate aggressive treatment, again will need to make decision with help of primary once pathology resulted as FINAL DIAGNOSIS 2. Lymphadenopathy --> likely related to malignancy --> initial pathology report shows low-grade neuroendocrine tumor 3. Coagulopathy likely secondary to underlying cirrhosis. --> INR elevated, given vit K already 4. Anemia secondary to underlying chronic disease. --> Continue to closely monitor. hgb at 8.2 04/14/18 --> Anemia w/u has been reviewed. Will trend cbc prn --> consider transfusion if hgb <7 5. Fever and chills, septic shock. --> resolved 6. Atrial fibrillation initially has been treated. --> Dr. Han is on the case. Subjective Date patient seen: Apr 24, 2018 ROS Limited/Unobtainable: Yes Allergies: Coded Allergies: No Known Allergies (Unverified , 04/06/18) All Systems: reviewed and negative except above Subjective Pt awake and alert. No overnight events. Sitter at bedside. NAD. Objective Last 24 Hour Vital Signs Date Time Temp Pulse Resp B/P (MAP) Pulse Ox O2 Delivery O2 Flow Rate FiO2 04/24/18 09:58 87 103/65 04/24/18 07:50 96.8 87 18 103/65 98 Room Air 96.8 04/24/18 04:00 97.4 89 18 108/95 99 97.4 04/24/18 00:00 97.8 89 17 99/66 100 97.8 04/23/18 20:36 89 117/78 04/23/18 20:00 97.2 89 17 117/78 100 97.2 04/23/18 16:00 97.5 94 19 102/61 96 Room Air 97.5 04/23/18 12:00 97.6 89 20 110/60 99 Room Air 97.6 Intake and Output 04/23/18 04/24/18 19:00 07:00 Intake Total 790 ml Output Total 300 ml Balance 790 ml -300 ml Tube Feeding 480 ml Blood Product 310 ml Output Urine Total 300 ml # Bowel Movements 3 Height (Feet): 6 Height (Inches): 3.00 Weight (Pounds): 157 General Appearance: WD/WN, no apparent distress, confused EENT: PERRL/EOMI Neck: normal alignment Cardiovascular: bradycardia Respiratory/Chest: no respiratory distress Abdomen: no mass Parish Trevino MD Apr 24, 2018 11:55
--- NOTE | 2018-04-24 13:05 | Pulmonology Progress Note ---
Assessment/Plan Assessment/Plan 1. Acute myocardial infarction. 2. Paroxysmal atrial fibrillation. 3. Sepsis with shock. 4. Alcoholic liver disease. 5. Hepatic encephalopathy. 6. Urinary sepsis. 7. Healthcare-acquired pneumonia. 8. Dehydration. 9. Hypernatremia, improved. 10. Metabolic acidosis. 11. Hypomagnesemia. 12. Lymphocytosis w retroperitoneal lymphadenopathy 13. Pancreatic mass, metastatic neuroendocrine tumor 14. Rectal mass vs foreign body, resolved 15. Pleural effusions not alert unlikely hepatic encephalopathy NGT in place, restrained to prevent pulling disc w daughter today and the family desires a G tube] called GI and will schedule dc after PEG Subjective ROS Limited/Unobtainable: Yes Allergies: Coded Allergies: No Known Allergies (Unverified , 04/06/18) Objective Last 24 Hour Vital Signs Date Time Temp Pulse Resp B/P (MAP) Pulse Ox O2 Delivery O2 Flow Rate FiO2 04/24/18 11:53 97.3 92 18 92/68 100 Room Air 97.3 04/24/18 09:58 87 103/65 04/24/18 07:50 96.8 87 18 103/65 98 Room Air 96.8 04/24/18 04:00 97.4 89 18 108/95 99 97.4 04/24/18 00:00 97.8 89 17 99/66 100 97.8 04/23/18 20:36 89 117/78 04/23/18 20:00 97.2 89 17 117/78 100 97.2 04/23/18 16:00 97.5 94 19 102/61 96 Room Air 97.5 Intake and Output 04/23/18 04/24/18 19:00 07:00 Intake Total 790 ml Output Total 300 ml Balance 790 ml -300 ml Tube Feeding 480 ml Blood Product 310 ml Output Urine Total 300 ml # Bowel Movements 3 General Appearance: no acute distress HEENT: normocephalic Respiratory/Chest: lungs clear Cardiovascular: normal rate Abdomen: soft, non tender, no organomegaly, non distended, no mass Current Medications Medications (Trade) Dose Ordered Sig/Anna Route PRN Reason Start Time Stop Time Status Last Admin Dose Admin Aspirin (ASA) 81 mg DAILY ORAL 04/13/18 09:00 05/08/18 08:59 04/24/18 09:55 Carvedilol (Coreg) 12.5 mg EVERY 12 HOURS ORAL 04/13/18 09:00 05/12/18 08:59 04/24/18 09:58 Chlorhexidine Gluconate (Nel-Hex 2%) 1 applic DAILY@2000 [facility] 04/13/18 20:00 05/07/18 19:59 04/23/18 20:36 Folic Acid (Folate) 1 mg DAILY ORAL 04/15/18 09:00 05/15/18 08:59 04/24/18 09:56 Lactulose (Cephulac) 30 gm THREE TIMES A DAY NG 04/13/18 09:00 05/07/18 17:59 04/24/18 09:55 Pantoprazole (Protonix) 40 mg DAILY IVP 04/13/18 09:00 05/07/18 08:59 04/24/18 09:56 Rifaximin (Xifaxan) 550 mg EVERY 12 HOURS ORAL 04/19/18 10:30 04/26/18 10:29 04/24/18 09:56 Gene Wood MD Apr 24, 2018 13:05
--- NOTE | 2018-04-24 15:20 | Infectious Diseases Prog Note ---
Assessment/Plan Assessment/Plan antibiotics : none A 1. fungal UTI 2. leucocytosis resolved 3. cirrhosis 4. atrial fibrillation 5. UTI s/p rx 6. metastatic neuroendocrine tumor of pancreas P 1. start fluconazole 2. will follow up cultures Subjective ROS Limited/Unobtainable: Yes Allergies: Coded Allergies: No Known Allergies (Unverified , 04/06/18) Objective Vital Signs Last 24 Hour Vital Signs Date Time Temp Pulse Resp B/P (MAP) Pulse Ox O2 Delivery O2 Flow Rate FiO2 04/24/18 11:53 97.3 92 18 92/68 100 Room Air 97.3 04/24/18 09:58 87 103/65 04/24/18 07:50 96.8 87 18 103/65 98 Room Air 96.8 04/24/18 04:00 97.4 89 18 108/95 99 97.4 04/24/18 00:00 97.8 89 17 99/66 100 97.8 04/23/18 20:36 89 117/78 04/23/18 20:00 97.2 89 17 117/78 100 97.2 04/23/18 16:00 97.5 94 19 102/61 96 Room Air 97.5 Height (Feet): 6 Height (Inches): 3.00 Weight (Pounds): 157 Respiratory/Chest: lungs clear Cardiovascular: normal rate, regular rhythm, no gallop/murmur Abdomen: soft, non tender Extremities: no edema Current Medications Medications (Trade) Dose Ordered Sig/Anna Route PRN Reason Start Time Stop Time Status Last Admin Dose Admin Aspirin (ASA) 81 mg DAILY ORAL 04/13/18 09:00 05/08/18 08:59 04/24/18 09:55 Carvedilol (Coreg) 12.5 mg EVERY 12 HOURS ORAL 04/13/18 09:00 05/12/18 08:59 04/24/18 09:58 Chlorhexidine Gluconate (Nel-Hex 2%) 1 applic DAILY@1999 TOPIC 04/13/18 20:00 05/07/18 19:59 04/23/18 20:36 Folic Acid (Folate) 1 mg DAILY ORAL 04/15/18 09:00 05/15/18 08:59 04/24/18 09:56 Lactulose (Cephulac) 30 gm THREE TIMES A DAY NG 04/13/18 09:00 05/07/18 17:59 04/24/18 13:25 Pantoprazole (Protonix) 40 mg DAILY IVP 04/13/18 09:00 05/07/18 08:59 04/24/18 09:56 Rifaximin (Xifaxan) 550 mg EVERY 12 HOURS ORAL 04/19/18 10:30 04/26/18 10:29 04/24/18 09:56 VALENTINE ZARATE Apr 24, 2018 15:20
[2018-04-24] MEDS ORDERED: Fluconazole 100mg tab ORAL SCH (16:00)
[2018-04-24] MEDS: D5 1/2NS 1,000 ML IV SCH (16:58)
[2018-04-24] MEDS: Dyna-Hex 2% Top Sol 2oz TOPIC SCH (19:53)
--- NOTE | 2018-04-24 23:24 | General Progress Note ---
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 etiology - ? heptic encephalopahty (but recent NH3 normal, platelets normal, liver not cirrhotic on CT) - ? paraneoplastic syndrome Recommendations - NPO after MN - PEG placement in am - d/c planning Subjective Allergies: Coded Allergies: No Known Allergies (Unverified , 04/06/18) Subjective above noted d/w next of kin now agreeable to PEG accepts and understands risks, including bleeding risk scheduled for am Objective Last 24 Hour Vital Signs Date Time Temp Pulse Resp B/P (MAP) Pulse Ox O2 Delivery O2 Flow Rate FiO2 04/24/18 20:06 77 127/84 04/24/18 19:24 98.1 77 20 127/84 98 Room Air 98.1 04/24/18 16:00 98.6 98 20 108/72 100 98.6 04/24/18 11:53 97.3 92 18 92/68 100 Room Air 97.3 04/24/18 09:58 87 103/65 04/24/18 07:50 96.8 87 18 103/65 98 Room Air 96.8 04/24/18 04:00 97.4 89 18 108/95 99 97.4 04/24/18 00:00 97.8 89 17 99/66 100 97.8 Intake and Output 04/23/18 04/24/18 19:00 07:00 Intake Total 790 ml Output Total 300 ml Balance 790 ml -300 ml Tube Feeding 480 ml Blood Product 310 ml Output Urine Total 300 ml # Bowel Movements 3 Height (Feet): 6 Height (Inches): 3.00 Weight (Pounds): 157 Objective Thin AA man NCAT supple CTA RRR soft NT ND no edema OBS, awake, not interactive Lina Palma MD Apr 24, 2018 23:24
[2018-04-25] VITALS (10 sets, daily range): BP systolic 97–141; BP diastolic 69–89
[2018-04-25] MEDS: D5 1/2NS 1,000 ML IV SCH (04:35)
[2018-04-25] MEDS ORDERED: ceFAZolin sod 1 GM in D5W 110 ML IVPB ONE (06:00)
--- NOTE | 2018-04-25 06:34 | Pre-Procedure Note/Attestation ---
Pre-Procedure Note/Attestation Complete Prior to Procedure Planned Procedure: not applicable Procedure Narrative: EGD/PEG Indications for Procedure Pre-Operative Diagnosis: dysphagia Attestation I attest that I discussed the nature of the procedure; its benefits; risks and complications; and alternatives (and the risks and benefits of such alternatives ), prior to the procedure, with the patient (or the patient's legal logistics service representative). I attest that, if there was a reasonable possibility of needing a blood transfusion, the patient (or the patient's legal logistics service representative) was given the [facility] standardized written summary, pursuant to the Miles Vanessa Blood Safety Act ([place] Health and Safety Code # 1645, as amended). I attest that I re-evaluated the patient just prior to the surgery and that there has been no change in the patient's H&P, except as documented below: Lina Palma MD Apr 25, 2018 06:34
[2018-04-25] MEDS ORDERED: fentaNYL 100 mcg/2 mL IV ONE (06:37)
[2018-04-25] MEDS ORDERED: Midazolam 2mg/2ml Inj ONE (06:37)
[2018-04-25] MEDS ORDERED: Propofol 200mg/20ml IV ONE (06:38)
--- NOTE | 2018-04-25 06:38 | General Progress Note ---
Assessment/Plan Assessment/Plan Assessment - abnormal pancreas CT - pancreatic neuroendocrine tumor - h/o EtOH cirrhosis per chart records, but no clear evidence for this: - normal INR - normal platelets - no cirrhosis or portal HTN on CT - AMS - ? etiology - ? heptic encephalopahty - does not appear cirrhotic - ? other - dysphagia - for PEG today Recommendations - NPO - PEG placement today - d/c planning for tomorrow - will d/c lactulose and xifaxan, and watch mental status and re check NH3 at later date Subjective Allergies: Coded Allergies: No Known Allergies (Unverified , 04/06/18) Subjective above noted no events overnight INR normal last pm Objective Last 24 Hour Vital Signs Date Time Temp Pulse Resp B/P (MAP) Pulse Ox O2 Delivery O2 Flow Rate FiO2 04/25/18 04:00 97.5 98 18 128/89 99 Room Air 97.5 04/24/18 23:48 98.1 87 20 117/73 100 Room Air 98.1 04/24/18 20:06 77 127/84 04/24/18 19:24 98.1 77 20 127/84 98 Room Air 98.1 04/24/18 16:00 98.6 98 20 108/72 100 98.6 04/24/18 11:53 97.3 92 18 92/68 100 Room Air 97.3 04/24/18 09:58 87 103/65 04/24/18 07:50 96.8 87 18 103/65 98 Room Air 96.8 Intake and Output 04/24/18 04/25/18 19:00 07:00 Intake Total 720 ml Balance 720 ml Free Water 300 ml Tube Feeding 420 ml Laboratory Tests 04/24/18 23:39: Prothrombin Time 10.7, Prothromb Time International Ratio 1.0 Height (Feet): 6 Height (Inches): 6.00 Weight (Pounds): 157 Objective Thin AA man NCAT supple CTA RRR soft NT ND no edema OBS, awake, not interactive Lina Palma MD Apr 25, 2018 06:37
[2018-04-25] MEDS ORDERED: Ketamine 500mg Inj ONE (06:58)
[2018-04-25] MEDS ORDERED: Glycopyrrolate 0.2mg/ml 1ml Vial ONE (07:00)
[2018-04-25] MEDS ORDERED: Lidocaine 1% MPF 10mg/ml 5ml ONE (07:00)
--- NOTE | 2018-04-25 07:13 | Pulmonology Progress Note ---
Assessment/Plan Assessment/Plan 1. Acute myocardial infarction. 2. Paroxysmal atrial fibrillation. 3. Sepsis with shock. 4. Alcoholic liver disease. 5. Hepatic encephalopathy. 6. Urinary sepsis. 7. Healthcare-acquired pneumonia. 8. Dehydration. 9. Hypernatremia, improved. 10. Metabolic acidosis. 11. Hypomagnesemia. 12. Lymphocytosis w retroperitoneal lymphadenopathy 13. Pancreatic mass, metastatic neuroendocrine tumor 14. Rectal mass vs foreign body, resolved 15. Pleural effusions more alert, responsive G tube planned this AM disc w GI dc tomorrow after PEG Subjective ROS Limited/Unobtainable: Yes Allergies: Coded Allergies: No Known Allergies (Unverified , 04/06/18) Objective Last 24 Hour Vital Signs Date Time Temp Pulse Resp B/P (MAP) Pulse Ox O2 Delivery O2 Flow Rate FiO2 04/25/18 04:00 97.5 98 18 128/89 99 Room Air 97.5 04/24/18 23:48 98.1 87 20 117/73 100 Room Air 98.1 04/24/18 20:06 77 127/84 04/24/18 19:24 98.1 77 20 127/84 98 Room Air 98.1 04/24/18 16:00 98.6 98 20 108/72 100 98.6 04/24/18 11:53 97.3 92 18 92/68 100 Room Air 97.3 04/24/18 09:58 87 103/65 04/24/18 07:50 96.8 87 18 103/65 98 Room Air 96.8 Intake and Output 04/24/18 04/25/18 19:00 07:00 Intake Total 720 ml Output Total 550 ml Balance 720 ml -550 ml Free Water 300 ml Tube Feeding 420 ml Output Urine Total 550 ml General Appearance: no acute distress HEENT: atraumatic, anicteric Respiratory/Chest: lungs clear Cardiovascular: normal rate Abdomen: soft, non tender Laboratory Tests 04/24/18 23:39: Prothrombin Time 10.7, Prothromb Time International Ratio 1.0 Current Medications Medications (Trade) Dose Ordered Sig/Anna Route PRN Reason Start Time Stop Time Status Last Admin Dose Admin Aspirin (ASA) 81 mg DAILY ORAL 04/13/18 09:00 05/08/18 08:59 04/24/18 09:55 Carvedilol (Coreg) 12.5 mg EVERY 12 HOURS ORAL 04/13/18 09:00 05/12/18 08:59 04/24/18 09:58 Chlorhexidine Gluconate (Nel-Hex 2%) 1 applic DAILY@2000 TOPIC 04/13/18 20:00 05/07/18 19:59 04/24/18 19:53 Dextrose/Sodium Chloride 1,000 ml @ 75 mls/hr [id number] IV 04/24/18 16:15 05/24/18 16:14 04/25/18 04:35 Fluconazole (Diflucan) 100 mg DAILY ORAL 04/25/18 09:00 05/02/18 08:59 Folic Acid (Folate) 1 mg DAILY ORAL 04/15/18 09:00 05/15/18 08:59 04/24/18 09:56 Pantoprazole (Protonix) 40 mg DAILY IVP 04/13/18 09:00 05/07/18 08:59 04/24/18 09:56 Gene Wood MD Apr 25, 2018 07:13
[2018-04-25] MEDS ORDERED: NS 500ML IVPB ONE (07:40)
--- NOTE | 2018-04-25 08:16 | Endoscopy Procedure Note ---
Endoscopy Procedure Note General Indication for Procedure: dysphagia Procedures Performed: EGD Operative Findings/Diagnosis: procedure abored due to vital signs Specimen: none Pt Tolerated Procedure Well: No Estimated Blood Loss: none Anesthesia Anesthesiologist: see report Anesthesia: MAC Medications Medication Given: see anesthesia record Inserted Devices Implant(s) used?: No GI Core Measures 50 yrs or older w/o bx or poly: Not Applicable 10yrs. F/U not recommended: Not Applicable If not recommended, why?: Lina Palma MD Apr 25, 2018 08:16
--- NOTE | 2018-04-25 08:18 | Brief Operative Note ---
Immediate Post Operative Note Operative Note Chief Complaint: dysphagia Pre-op Diagnosis: dysphagia Procedure: EGD (aborted PEG) Post-op Diagnosis: Procedure aborted due to bradycardia and subsequent hypotension Surgeon: tre Anesthesiologist: see report Anesthesia: MAC Specimen: none Complications: yes - see dictation Condition: stable Fluids: per anesthesia record Estimated Blood Loss: none Drains: none Implant(s) used?: No Lina Palma MD Apr 25, 2018 08:18
[2018-04-25] MEDS: Carvedilol 12.5mg tab ORAL SCH (09:00)
[2018-04-25] MEDS ORDERED: Fluconazole 100mg tab ORAL SCH (09:00)
--- NOTE | 2018-04-25 09:00 | Anethesia Preoperative Eval ---
Anesthesia Pre-op PMH/ROS General Date of Evaluation: Apr 25, 2018 Time of Evaluation: 06:45 Anesthesiologist: ASA Score: ASA 4 Mallampati Score Class I : Soft palate, uvula, fauces, pillars visible Class II: Soft palate, uvula, fauces visible Class III: Soft palate, base of uvula visible Class IV: Only hard plate visible Mallampati Classification: Class II Surgeon: tre Diagnosis: dysphagia Surgical Procedure: PEG placement Anesthesia History: none Allergies: Coded Allergies: No Known Allergies (Unverified , 04/06/18) Past Medical History Cardiovascular: Reports: RI, arrhythmia, other - h/o hypotension , septic shock , afib Pulmonary: Reports: other - h/o pneumonia Gastrointestinal/Genitourinary: Reports: other - pyelonephritis, cirrhosis, pancreatic tumor, hiatal hernia Neurologic/Psychiatric: Reports: other - confused, encphalomalacia Hematology/Immune: Reports: anemia Anesthesia Pre-op Phys. Exam Physician Exam Last Vital Signs Date Time Temp Pulse Resp B/P (MAP) Pulse Ox O2 Delivery O2 Flow Rate FiO2 04/25/18 04:00 97.5 98 18 128/89 99 Room Air 97.5 04/17/18 12:00 3 04/16/18 19:30 28 Constitutional: other Cardiovascular: RRR, other Respiratory: CTA Gastrointestinal: other Airway Exam Mallampati Score: Class III MO: full ROM: full Teeth: missing Dentures: no upper, no lower Anesthesia Pre-op A/P Labs Coagulation Test 04/24/18 23:39 Prothrombin Time 10.7 SEC (9.30-11.50) Prothromb Time International Ratio 1.0 (0.9-1.1) Risk Assessment & Plan Assessment: asa 4 Plan: MAC Status Change Before Surgery: No Pre-Antibiotics Drug: none Racquel Ewing M.D. Apr 25, 2018 09:00
--- NOTE | 2018-04-25 09:24 | Immediate Post-Op Evaluation ---
Immediate Post-Op Evalulation Immediate Post-Op Evalulation Procedure: PEG placement cancelled Date of Evaluation: Apr 25, 2018 Time of Evaluation: 08:45 IV Fluids: NS 200ml Blood Products: 0 Estimated Blood Loss: 0 Urinary Output: 0 Blood Pressure Systolic: 102 Blood Pressure Diastolic: 77 Pulse Rate: 98 Respiratory Rate: 18 O2 Sat by Pulse Oximetry: 100 Temperature (Fahrenheit): 97.6 Pain Score (1-10): 0 Nausea: No Vomiting: No Complications patient became bradycardic when procedure began. Procedure stopped, Pt treated with glycopyrrolate 0.4 mg. 12 lead EKG taken, showed NSR, rate 98. Pt's Systolic Bp dropped about 10mins later from 120's to 80-90's. Returned to 115/ 65 after Normal Saline 200ml bolus given. Vitals remained stable. Patient transported to PACU awake and conversant. Patient Status: awake, patent, none Hydration Status: adequate Drug: none Racquel Ewing M.D. Apr 25, 2018 09:24
[2018-04-25] MEDS ORDERED: D5 1/2NS 1,000 ML IV SCH ×2 (09:30→13:15)
--- NOTE | 2018-04-25 10:13 | Consultation ---
Consult Note Consult Note Anesthesia Addendum Assessment/Plan Patient scheduled for PEG placement. Phone consent obtained from pt's daughter. Monitors on, O2 NC BP 122/ 88 HR 86. Pt sedated with propofol 20+10+10+10=50mg. Spontaneous breathing, positive ETCO2 monitoring. In first minutes of procedure patient had slowing HR to 50s then upper 30s. Glycopyrrolate 0.4mg given. HR increased prior to atropine drawn up and therefore atropine was not administered. Patient returned to NSR, rate 80's. Possible vasovagal response. Plan for 12 lead EKG before continuing procedure. Over 20 minutes to get functioning EKG machine. 1st 12 lead EKG showed Afib with competing junctional pacemaker rate 95, however on anesthesia monitor, patient was in obvious sinus rhythm. 2nd 12 lead EKG done with different machine by senior electronics technician showed normal sinus rhythm HR 90. During this time, patient's SBp dropped to 80-90's. I decided to cancel case today. Normal saline fluid bolus of 200ml given. BP returned and remained good while in the OR and throughout PACU stay. Patient admitted to telemetry from PACU Racquel Ewing M.D. Apr 25, 2018 10:13
[2018-04-25] MEDS: Pantoprazole Inj IVP SCH (11:14)
[2018-04-25] MEDS: Aspirin Baby 81mg ORAL SCH (11:22)
--- NOTE | 2018-04-25 12:17 | General Progress Note ---
Assessment/Plan Status: unchanged Assessment/Plan 1. 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 The shape is not that of a typical mass lesion, but the presence of extensive surrounding lymphadenopathy indicates that this is probably a pancreatic malignancy. The possibility of pancreatitis with surrounding phlegmon and reactive lymphadenopathy should also be considered. Biopsy report has been reviewed --> eus with egd completed and PRELIM bx shows neuroendocrine low grade --> have discussed above with pathologist, final report STILL PENDING --> tumor markers reviewed, none particularly elevated --> autoimmune markers reviewed --> If low-grade neuroendocrine pathology is final, do not recommend AGGRESSIVE chemotherapy given poor clinical status and inability to tolerate aggressive treatment, again will need to make decision with help of primary once pathology resulted as FINAL DIAGNOSIS 2. Lymphadenopathy --> likely related to malignancy --> initial pathology report shows low-grade neuroendocrine tumor 3. Coagulopathy likely secondary to underlying cirrhosis. --> INR elevated, given vit K already 4. Anemia secondary to underlying chronic disease. --> Continue to closely monitor. hgb at 8.2 04/14/18 --> Anemia w/u has been reviewed. Will trend cbc prn --> consider transfusion if hgb <7 5. Fever and chills, septic shock. --> resolved 6. Atrial fibrillation initially has been treated. --> Dr. Han is on the case. Subjective Date patient seen: Apr 25, 2018 Allergies: Coded Allergies: No Known Allergies (Unverified , 04/06/18) All Systems: reviewed and negative except above Subjective Peg placement cancelled due to bradycardia, transferred to PACU. Objective Last 24 Hour Vital Signs Date Time Temp Pulse Resp B/P (MAP) Pulse Ox O2 Delivery O2 Flow Rate FiO2 04/25/18 09:24 207.7 98 18 100 04/25/18 09:12 98.5 100 20 103/73 100 Room Air 98.5 04/25/18 09:05 98 20 101/78 100 Simple Mask 2.0 04/25/18 09:00 98 20 99/74 100 Simple Mask 2.0 04/25/18 08:55 97 20 97/76 100 Simple Mask 10 04/25/18 08:50 96 20 99/77 100 Simple Mask 10 04/25/18 08:45 97.6 98 20 102/77 100 Simple Mask 10 97.6 04/25/18 04:00 97.5 98 18 128/89 99 Room Air 97.5 04/24/18 23:48 98.1 87 20 117/73 100 Room Air 98.1 04/24/18 20:06 77 127/84 04/24/18 19:24 98.1 77 20 127/84 98 Room Air 98.1 04/24/18 16:00 98.6 98 20 108/72 100 98.6 Intake and Output 04/24/18 04/25/18 19:00 07:00 Intake Total 795 ml 825 ml Output Total 550 ml Balance 795 ml 275 ml Free Water 300 ml IV Total 75 ml 825 ml Tube Feeding 420 ml Output Urine Total 550 ml Laboratory Tests 04/24/18 23:39: Prothrombin Time 10.7, Prothromb Time International Ratio 1.0 Height (Feet): 6 Height (Inches): 6.00 Weight (Pounds): 157 General Appearance: WD/WN, no apparent distress EENT: PERRL/EOMI Neck: normal alignment Cardiovascular: bradycardia Respiratory/Chest: no respiratory distress Abdomen: no mass Parish Trevino MD Apr 25, 2018 12:17
--- NOTE | 2018-04-25 13:46 | Infectious Diseases Prog Note ---
Assessment/Plan Assessment/Plan antibiotics : fluconazole .. - A 1. fungal UTI 2. leucocytosis resolved 3. cirrhosis 4. atrial fibrillation 5. UTI s/p rx 6. metastatic neuroendocrine tumor of pancreas P 1. continue fluconazole 5 more days 2. will follow up cultures Subjective ROS Limited/Unobtainable: Yes Allergies: Coded Allergies: No Known Allergies (Unverified , 04/06/18) Objective Vital Signs Last 24 Hour Vital Signs Date Time Temp Pulse Resp B/P (MAP) Pulse Ox O2 Delivery O2 Flow Rate FiO2 04/25/18 09:24 207.7 98 18 100 04/25/18 09:12 98.5 100 20 103/73 100 Room Air 98.5 04/25/18 09:05 98 20 101/78 100 Simple Mask 2.0 04/25/18 09:00 98 20 99/74 100 Simple Mask 2.0 04/25/18 08:55 97 20 97/76 100 Simple Mask 10 04/25/18 08:50 96 20 99/77 100 Simple Mask 10 04/25/18 08:45 97.6 98 20 102/77 100 Simple Mask 10 97.6 04/25/18 04:00 97.5 98 18 128/89 99 Room Air 97.5 04/24/18 23:48 98.1 87 20 117/73 100 Room Air 98.1 04/24/18 20:06 77 127/84 04/24/18 19:24 98.1 77 20 127/84 98 Room Air 98.1 04/24/18 16:00 98.6 98 20 108/72 100 98.6 Height (Feet): 6 Height (Inches): 6.00 Weight (Pounds): 157 Respiratory/Chest: lungs clear Cardiovascular: normal rate, regular rhythm, no gallop/murmur Abdomen: soft, non tender Extremities: no edema Laboratory Tests Test 04/24/18 23:39 Prothrombin Time 10.7 SEC (9.30-11.50) Prothromb Time International Ratio 1.0 (0.9-1.1) Current Medications Medications (Trade) Dose Ordered Sig/Anna Route PRN Reason Start Time Stop Time Status Last Admin Dose Admin Aspirin (ASA) 81 mg DAILY ORAL 04/26/18 09:00 05/08/18 08:59 Carvedilol (Coreg) 12.5 mg EVERY 12 HOURS ORAL 04/25/18 21:00 05/12/18 08:59 Chlorhexidine Gluconate (Nel-Hex 2%) 1 applic DAILY@2000 TOPIC 04/25/18 20:00 05/07/18 19:59 Dextrose/Sodium Chloride 1,000 ml @ 125 mls/hr Q8H IV 04/25/18 13:15 05/25/18 13:14 Fluconazole (Diflucan) 100 mg DAILY ORAL 04/26/18 09:00 05/02/18 08:59 Folic Acid (Folate) 1 mg DAILY ORAL 04/26/18 09:00 05/15/18 08:59 Pantoprazole (Protonix) 40 mg DAILY IVP 04/26/18 09:00 05/07/18 08:59 VALENTINE ZARATE Apr 25, 2018 13:45
[2018-04-25] MEDS: D5 1/2NS w/KCl 20mEq 1,000 ML IV SCH (18:49)
[2018-04-25] MEDS ORDERED: Carvedilol 12.5mg tab ORAL SCH (21:00)
[2018-04-25] MEDS: Dyna-Hex 2% Top Sol 2oz TOPIC SCH (21:03)
--- NOTE | 2018-04-25 23:09 | Consultation ---
History of Present Illness General Date patient seen: Apr 25, 2018 Chief Complaint: Altered Level of Consciousness Present Illness HPI 72-year-old male [facility] He became poorly responsive and was transferred for further evaluation. the pt is confused and agitated. the pt is unable to provide hx. the pt attempts to pull out his IV access. the pt is not engaged. the pt is cognitively impaired Allergies: Coded Allergies: No Known Allergies (Unverified , 04/06/18) Medication History Scheduled Amoxicillin/Potassium Clav 875-125 Mg Tab* (Amox Tr-K Clv 875-125 Mg Tab*), 1 TAB ORAL EVERY 12 HOURS, (Reported) Ascorbic Acid* (Ascorbic Acid*), 500 MG ORAL DAILY, (Reported) Docusate Sodium* (Colace*), 100 MG ORAL DAILY, (Reported) Pantoprazole* (Protonix*), 40 MG ORAL DAILY, (Reported) Rifaximin* (Xifaxan*), 550 MG ORAL TWICE A DAY, (Reported) Thiamine Hcl* (Vitamin B-1*), 100 MG ORAL DAILY, (Reported) Scheduled PRN Acetaminophen* (Acetaminophen 325MG Tablet*), 650 MG ORAL EVERY 8 HOURS PRN for Pain Scale (3-5), (Reported) Albuterol Sulfate* (Albuterol Sulfate Hhn*), 3 ML INH Q4H PRN for Shortness of Breath, (Reported) Miscellaneous Medications Lactulose (Lactulose*), 30 ML ORAL, (Reported) Potassium Bicarbonate/Cit Ac (Potassium 25 Meq Tablet Eff), 25 MEQ PO, (Reported ) Sennosides (Senna), 8.6 MG PO, (Reported) Patient History Limited by: medical condition History Provided By: Medical Record, PMD Healthcare decision maker Resuscitation status Advanced Directive on File Past Medical/Surgical History Past Medical/Surgical History: (1) Septic shock (2) Lactic acidosis (3) Fever (4) Hypernatremia (5) Leukocytosis (6) Pyelonephritis (7) Hepatic encephalopathy (8) Hypokalemia (9) Cirrhosis (10) Sepsis (11) Hypotension (12) Atrial fibrillation with RVR (13) Acute myocardial infarction (14) Healthcare-associated pneumonia (15) pancreatic nueroendocrine tumor (16) Dysphagia Review of Systems Psychiatric: Reports: prior hx, anxiety, hallucinations Physical Exam General Appearance: no apparent distress, alert, confused, agitated Last 24 Hour Vital Signs Date Time Temp Pulse Resp B/P (MAP) Pulse Ox O2 Delivery O2 Flow Rate FiO2 04/25/18 21:03 89 109/74 04/25/18 16:00 84 04/25/18 16:00 96.8 74 20 101/69 100 Room Air 96.8 04/25/18 12:00 98.2 73 18 141/83 99 Room Air 98.2 04/25/18 09:24 207.7 98 18 100 04/25/18 09:12 98.5 100 20 103/73 100 Room Air 98.5 04/25/18 09:05 98 20 101/78 100 Simple Mask 2.0 04/25/18 09:00 98 20 99/74 100 Simple Mask 2.0 04/25/18 08:55 97 20 97/76 100 Simple Mask 10 04/25/18 08:50 96 20 99/77 100 Simple Mask 10 04/25/18 08:45 97.6 98 20 102/77 100 Simple Mask 10 97.6 04/25/18 04:00 97.5 98 18 128/89 99 Room Air 97.5 04/24/18 23:48 98.1 87 20 117/73 100 Room Air 98.1 Intake and Output 04/24/18 04/25/18 19:00 07:00 Intake Total 795 ml 825 ml Output Total 550 ml Balance 795 ml 275 ml Free Water 300 ml IV Total 75 ml 825 ml Tube Feeding 420 ml Output Urine Total 550 ml Laboratory Tests Test 04/24/18 23:39 Prothrombin Time 10.7 SEC (9.30-11.50) Prothromb Time International Ratio 1.0 (0.9-1.1) Height (Feet): 6 Height (Inches): 6.00 Weight (Pounds): 130 Medications Current Medications Medications (Trade) Dose Ordered Sig/Anna Route PRN Reason Start Time Stop Time Status Last Admin Dose Admin Aspirin (ASA) 81 mg DAILY ORAL 04/26/18 09:00 05/08/18 08:59 Carvedilol (Coreg) 12.5 mg EVERY 12 HOURS ORAL 04/25/18 21:00 05/12/18 08:59 04/25/18 21:03 Chlorhexidine Gluconate (Nel-Hex 2%) 1 applic DAILY@1999 TOPIC 04/25/18 20:00 05/07/18 19:59 04/25/18 21:03 Dextrose/ Electrolytes 1,000 ml @ 125 mls/hr Q8H IV 04/25/18 18:30 05/25/18 18:29 04/25/18 18:49 Fluconazole (Diflucan) 100 mg DAILY ORAL 04/26/18 09:00 05/02/18 08:59 Folic Acid (Folate) 1 mg DAILY ORAL 04/26/18 09:00 05/15/18 08:59 Pantoprazole (Protonix) 40 mg DAILY IVP 04/26/18 09:00 05/07/18 08:59 Quetiapine Fumarate (SEROquel) 25 mg Q6H PRN ORAL For Anxiety 04/25/18 15:15 05/25/18 15:14 Assessment/Plan Assessment/Plan Dementia with behavioral dist Encephalopathy seroquel prn ativan prn cont restraints. Ana Cristina Wilson M.D. Apr 25, 2018 23:09
[2018-04-26] VITALS: BP 114/72
[2018-04-26] MEDS: D5 1/2NS w/KCl 20mEq 1,000 ML IV SCH ×3 (03:22→17:40)
--- NOTE | 2018-04-26 03:30 | Operative Note - Dictated ---
DATE OF OPERATION: 04/25/2018 GASTROENTEROLOGY PROCEDURE REPORT PROCEDURE: Upper gastroendoscopy. PRE-ENDOSCOPIC DIAGNOSIS: Dysphagia, needing gastrostomy tube placement. POSTOPERATIVE DIAGNOSIS: Upper gastroendoscopy with aborted portion related to gastrostomy tube placement due to unstable vital signs. SURGEON: Lina Palma M.D. ANESTHESIA: Please see the separate anesthesiologist notes for details. DESCRIPTION OF PROCEDURE: The procedure, its risks, indications, alternatives, and possible complications were explained to the patient's family and an informed consent was obtained. The patient was then sedated in the supine position. A diagnostic upper endoscope was introduced through the oropharynx and advanced to the duodenum. This process took about 30 seconds or so. At this juncture, the patient became severely bradycardic and therefore, the procedure was aborted and the endoscope was removed. Subsequent evaluation was done by the anesthesia services with respect to the medications given and vital signs observed. The endoscopy was completed to the duodenum. Brief view of the upper gastrointestinal mucosa did not reveal any bleeding the gastrostomy was not placed. CONDITION ON DISCHARGE: Guarded. PLAN: 1. Transfer the patient to telemetry. 2. Cardiology evaluation. 3. Re-evaluate swallow study. Lina Palma M.D. DR: Fermin JOB#: [id number] CC:
[2018-04-26 04:00] VITALS: BP 102/65
--- NOTE | 2018-04-26 05:15 | Progress Note ---
DATE: 04/25/2018 CARDIOLOGY PROGRESS NOTE SUBJECTIVE: The patient was scheduled for endoscopy with percutaneous endoscopic gastrostomy placement today. The procedure was terminated after the patient developed slow atrial fibrillation and hypotension during anesthesia induction. At this time, the patient is stabilized with no complaints. He is awake and alert and has monitored rhythm of sinus with stable blood pressure. PHYSICAL EXAMINATION: VITAL SIGNS: Blood pressure 109/74, pulse 88, and respiratory rate 19. NECK: Supple. LUNGS: Clear. CARDIAC: Regular, normal S1, S2. ABDOMEN: Soft. EXTREMITIES: No edema. LABORATORY DATA: Labs most recently from 04/23/2018 reviewed. IMPRESSION: 1. mediated bradyarrhythmia and hypotension. 2. Status post acute myocardial infarction. 3. Paroxysmal atrial fibrillation. 4. Sepsis with recovered shock. 5. Alcoholic liver disease. 6. Dysphagia. 7. Hypomagnesemia. 8. Pancreatic mass suggesting metastatic neuroendocrine tumor. PLAN: 1. Recheck laboratories. 2. Maintain adequate hydration. 3. Defer procedure additional 24 hours until metabolic status stabilized. 4. Hold beta-isabel and aspirin at this time. Chepe Hernandez JOB#: [id number] CC:
--- NOTE | 2018-04-26 05:15 | Consultation ---
DATE OF CONSULTATION: 04/25/2018 NOTE: "INCOMPLETE DICTATION" CARDIOLOGY CONSULT CONSULTING PHYSICIAN: Lawrence Han M.D. REQUESTING PHYSICIAN: Gene Wood M.D. REASON FOR CONSULTATION: Atrial fibrillation with slow ventricular response and hypoxia during anesthesia induction for endoscopy and PEG placement. HISTORY OF PRESENT ILLNESS: Lawrence Han M.D. DR: WES JOB#: [id number] CC:
[2018-04-26 07:52] LABS: HEMATOCRIT 24.1 % (42.0-52.0); HEMOGLOBIN 7.9 G/DL (14.2-18.0); MEAN CORPUSCULAR VOLUME 90 FL (80-99); PLATELET COUNT 187 K/UL (150-450); RED BLOOD COUNT 2.66 M/UL (4.70-6.10); RED CELL DISTRIBUTION WIDTH 13.6 % (11.6-14.8); WHITE BLOOD COUNT 12.3 K/UL (4.8-10.8)
[2018-04-26 08:00] VITALS: BP 99/59
[2018-04-26 08:55] LABS: ALANINE AMINOTRANSFERASE 15 U/L (12-78); ALBUMIN 1.8 G/DL (3.4-5.0); ALBUMIN/GLOBULIN RATIO 0.4 (1.0-2.7); ALKALINE PHOSPHATASE 78 U/L (46-116); ANION GAP 11 mmol/L (5-15); ASPARTATE AMINO TRANSFERASE 18 U/L (15-37); BILIRUBIN,TOTAL 0.5 MG/DL (0.2-1.0); BLOOD UREA NITROGEN 4 mg/dL (7-18); CALCIUM 7.9 MG/DL (8.5-10.1); CARBON DIOXIDE 21 MMOL/L (21-32); CHLORIDE 113 MMOL/L (98-107); CREATININE 0.7 MG/DL (0.55-1.30); POTASSIUM 3.4 MMOL/L (3.5-5.1); SODIUM 144 MMOL/L (136-145)
[2018-04-26] MEDS ORDERED: Aspirin Baby 81mg ORAL SCH (09:00)
--- NOTE | 2018-04-26 09:51 | 48 Hour Post Anesthesia Eval ---
Post Anesthesia Evaluation Procedure: PEG placement cancelled Date of Evaluation: Apr 26, 2018 Time of Evaluation: 04:00 Blood Pressure Systolic: 102 0: 65 Pulse Rate: 79 Respiratory Rate: 19 Temperature (Fahrenheit): 98.0 O2 Sat by Pulse Oximetry: 100 Airway: patent Nausea: No Vomiting: No Pain Intensity: 0 Hydration Status: adequate Mental Status/LOC: patient returned to baseline Post-Anesthesia Complications: none Follow-up care needed: N/A Racquel Ewing M.D. Apr 26, 2018 09:51
[2018-04-26] MEDS: Pantoprazole Inj IVP SCH (10:04)
[2018-04-26] MEDS: Fluconazole 100mg tab ORAL SCH (10:04)
--- NOTE | 2018-04-26 10:29 | General Progress Note ---
Assessment/Plan Status: stable Assessment/Plan 1. 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 The shape is not that of a typical mass lesion, but the presence of extensive surrounding lymphadenopathy indicates that this is probably a pancreatic malignancy. The possibility of pancreatitis with surrounding phlegmon and reactive lymphadenopathy should also be considered. Biopsy report has been reviewed --> eus with egd completed and PRELIM bx shows neuroendocrine low grade --> have discussed above with pathologist, final report STILL PENDING --> tumor markers reviewed, none particularly elevated --> autoimmune markers reviewed --> If low-grade neuroendocrine pathology is final, do not recommend AGGRESSIVE chemotherapy given poor clinical status and inability to tolerate aggressive treatment, again will need to make decision with help of primary once pathology resulted as FINAL DIAGNOSIS 2. Lymphadenopathy --> likely related to malignancy --> initial pathology report shows low-grade neuroendocrine tumor 3. Coagulopathy likely secondary to underlying cirrhosis. --> INR elevated, given vit K already 4. Anemia secondary to underlying chronic disease. --> Continue to closely monitor. hgb at 8.2 04/14/18 --> Anemia w/u has been reviewed. Will trend cbc prn --> consider transfusion if hgb <7 5. Fever and chills, septic shock. --> resolved 6. Atrial fibrillation initially has been treated. --> Dr. Han is on the case. Subjective Date patient seen: Apr 26, 2018 ROS Limited/Unobtainable: Yes Allergies: Coded Allergies: No Known Allergies (Unverified , 04/06/18) All Systems: reviewed and negative except above Subjective Pt experienced over night, a 4.5 second arrest noted @ 0420. Another arrest of 4.9 seconds occurred at 0423. BP checked and noted to be 102/65. Currently stable. Objective Last 24 Hour Vital Signs Date Time Temp Pulse Resp B/P (MAP) Pulse Ox O2 Delivery O2 Flow Rate FiO2 04/26/18 09:51 208.4 79 19 100 04/26/18 04:00 79 04/26/18 04:00 98.0 79 19 102/65 100 Room Air 98.0 04/26/18 00:00 98.2 81 19 114/72 100 Room Air 98.2 04/26/18 00:00 88 04/25/18 21:03 89 109/74 04/25/18 20:00 97.8 88 19 109/74 100 Room Air 97.8 04/25/18 20:00 89 04/25/18 16:00 84 04/25/18 16:00 96.8 74 20 101/69 100 Room Air 96.8 04/25/18 12:00 98.2 73 18 141/83 99 Room Air 98.2 Intake and Output 04/25/18 04/26/18 19:00 07:00 Intake Total 320 ml Output Total 150 ml 650 ml Balance 170 ml -650 ml Intake Oral 120 ml IV Total 200 ml Output Urine Total 150 ml 650 ml # Bowel Movements 1 1 Laboratory Tests 04/26/18 05:15: White Blood Count 12.3H, Red Blood Count 2.66L, Hemoglobin 7.9L, Hematocrit 24.1L, Mean Corpuscular Volume 90, Mean Corpuscular Hemoglobin 29.5, Mean Corpuscular Hemoglobin Concent 32.6, Red Cell Distribution Width 13.6, Platelet Count 187, Mean Platelet Volume 7.0, Neutrophils (%) (Auto) , Lymphocytes (%) ( Auto) , Monocytes (%) (Auto) , Eosinophils (%) (Auto) , Basophils (%) (Auto) , Neutrophils % (Manual) [Pending], Lymphocytes % (Manual) [Pending], Platelet Estimate [Pending], Platelet Morphology [Pending], Sodium Level 144, Potassium Level 3.4L, Chloride Level 113H, Carbon Dioxide Level 21, Anion Gap 11, Blood Urea Nitrogen 4L, Creatinine 0.7, Estimat Glomerular Filtration Rate > 60, Glucose Level 92, Calcium Level 7.9L, Magnesium Level 2.0, Total Bilirubin 0.5, Aspartate Amino Transf (AST/SGOT) 18, Alanine Aminotransferase (ALT/SGPT) 15, Alkaline Phosphatase 78, Troponin I 0.019, Pro-B-Type Natriuretic Peptide 1075H , Total Protein 5.8L, Albumin 1.8L, Globulin 4.0, Albumin/Globulin Ratio 0.4L Height (Feet): 6 Height (Inches): 6.00 Weight (Pounds): 133 General Appearance: no apparent distress, alert EENT: PERRL/EOMI Neck: normal alignment Cardiovascular: normal peripheral pulses Respiratory/Chest: no respiratory distress Abdomen: soft Parish Trevino MD Apr 26, 2018 10:29
--- NOTE | 2018-04-26 10:37 | Infectious Diseases Prog Note ---
Assessment/Plan Assessment/Plan A: Pneumonia Leukocytosis Peripancreatic adenopathy, pancreatic tumor Cirrhosis Diarrhea Anemia Paroxysmal A fib Fungal UTI P: Continue Fluconazole X 4 days Subjective ROS Limited/Unobtainable: Yes Neurologic: Reports: confusion, other - on restraint Allergies: Coded Allergies: No Known Allergies (Unverified , 04/06/18) Objective Vital Signs Last 24 Hour Vital Signs Date Time Temp Pulse Resp B/P (MAP) Pulse Ox O2 Delivery O2 Flow Rate FiO2 04/26/18 09:51 208.4 79 19 100 04/26/18 04:00 79 04/26/18 04:00 98.0 79 19 102/65 100 Room Air 98.0 04/26/18 00:00 98.2 81 19 114/72 100 Room Air 98.2 04/26/18 00:00 88 04/25/18 21:03 89 109/74 04/25/18 20:00 97.8 88 19 109/74 100 Room Air 97.8 04/25/18 20:00 89 04/25/18 16:00 84 04/25/18 16:00 96.8 74 20 101/69 100 Room Air 96.8 04/25/18 12:00 98.2 73 18 141/83 99 Room Air 98.2 Height (Feet): 6 Height (Inches): 6.00 Weight (Pounds): 133 HEENT: mucous membranes moist Respiratory/Chest: lungs clear Cardiovascular: normal rate Abdomen: soft, non tender Extremities: no edema Neurologic/Psychiatric: other - sleeping Laboratory Tests Test 04/26/18 05:15 White Blood Count 12.3 K/UL (4.8-10.8) H Red Blood Count 2.66 M/UL (4.70-6.10) L Hemoglobin 7.9 G/DL (14.2-18.0) L Hematocrit 24.1 % (42.0-52.0) L Mean Corpuscular Volume 90 FL (80-99) Mean Corpuscular Hemoglobin 29.5 PG (27.0-31.0) Mean Corpuscular Hemoglobin Concent 32.6 G/DL (32.0-36.0) Red Cell Distribution Width 13.6 % (11.6-14.8) Platelet Count 187 K/UL (150-450) Mean Platelet Volume 7.0 FL (6.5-10.1) Neutrophils (%) (Auto) % (45.0-75.0) Lymphocytes (%) (Auto) % (20.0-45.0) Monocytes (%) (Auto) % (1.0-10.0) Eosinophils (%) (Auto) % (0.0-3.0) Basophils (%) (Auto) % (0.0-2.0) Neutrophils % (Manual) Pending Lymphocytes % (Manual) Pending Platelet Estimate Pending Platelet Morphology Pending Sodium Level 144 MMOL/L (136-145) Potassium Level 3.4 MMOL/L (3.5-5.1) L Chloride Level 113 MMOL/L (98-107) H Carbon Dioxide Level 21 MMOL/L (21-32) Anion Gap 11 mmol/L (5-15) Blood Urea Nitrogen 4 mg/dL (7-18) L Creatinine 0.7 MG/DL (0.55-1.30) Estimat Glomerular Filtration Rate > 60 mL/min (>60) Glucose Level 92 MG/DL (74-106) Calcium Level 7.9 MG/DL (8.5-10.1) L Magnesium Level 2.0 MG/DL (1.8-2.4) Total Bilirubin 0.5 MG/DL (0.2-1.0) Aspartate Amino Transf (AST/SGOT) 18 U/L (15-37) Alanine Aminotransferase (ALT/SGPT) 15 U/L (12-78) Alkaline Phosphatase 78 U/L (46-116) Troponin I 0.019 ng/mL (0.000-0.056) Pro-B-Type Natriuretic Peptide 1075 pg/mL (0-125) H Total Protein 5.8 G/DL (6.4-8.2) L Albumin 1.8 G/DL (3.4-5.0) L Globulin 4.0 g/dL Albumin/Globulin Ratio 0.4 (1.0-2.7) L Current Medications Medications (Trade) Dose Ordered Sig/Anna Route PRN Reason Start Time Stop Time Status Last Admin Dose Admin Chlorhexidine Gluconate (Enl-Hex 2%) 1 applic DAILY@2000 TOPIC 04/25/18 20:00 05/07/18 19:59 04/25/18 21:03 Dextrose/ Electrolytes 1,000 ml @ 125 mls/hr Q8H IV 04/25/18 18:30 05/25/18 18:29 04/26/18 10:05 Fluconazole (Diflucan) 100 mg DAILY ORAL 04/26/18 09:00 05/02/18 08:59 04/26/18 10:04 Folic Acid (Folate) 1 mg DAILY ORAL 04/26/18 09:00 05/15/18 08:59 04/26/18 10:04 Pantoprazole (Protonix) 40 mg DAILY IVP 04/26/18 09:00 05/07/18 08:59 04/26/18 10:04 Quetiapine Fumarate (SEROquel) 25 mg Q6H PRN ORAL For Anxiety 04/25/18 15:15 05/25/18 15:14 Dale Galindo MD Apr 26, 2018 10:37
[2018-04-26 12:00] VITALS: BP 106/71
--- NOTE | 2018-04-26 13:13 | Pulmonology Progress Note ---
Assessment/Plan Assessment/Plan 1. Acute myocardial infarction. 2. Paroxysmal atrial fibrillation. 3. Sepsis with shock. 4. Alcoholic liver disease. 5. Hepatic encephalopathy. 6. Urinary sepsis. 7. Healthcare-acquired pneumonia. 8. Dehydration. 9. Hypernatremia, improved. 10. Metabolic acidosis. 11. Hypomagnesemia. 12. Lymphocytosis w retroperitoneal lymphadenopathy 13. Pancreatic mass, metastatic neuroendocrine tumor 14. Rectal mass vs foreign body, resolved 15. Pleural effusions more alert, responsive G tube aborted due to bradycardia with hypotension passed repeat swallow eval and eating PO disc w GI cardiology stopped beta isabel still had 5 sec pause last night hope he will not need pacer possible dc 1-2 d Subjective ROS Limited/Unobtainable: Yes Allergies: Coded Allergies: No Known Allergies (Unverified , 04/06/18) Objective Last 24 Hour Vital Signs Date Time Temp Pulse Resp B/P (MAP) Pulse Ox O2 Delivery O2 Flow Rate FiO2 04/26/18 09:51 208.4 79 19 100 04/26/18 08:00 63 04/26/18 08:00 97.4 75 20 99/59 100 Room Air 97.4 04/26/18 04:00 79 04/26/18 04:00 98.0 79 19 102/65 100 Room Air 98.0 04/26/18 00:00 98.2 81 19 114/72 100 Room Air 98.2 04/26/18 00:00 88 04/25/18 21:03 89 109/74 04/25/18 20:00 97.8 88 19 109/74 100 Room Air 97.8 04/25/18 20:00 89 04/25/18 16:00 84 04/25/18 16:00 96.8 74 20 101/69 100 Room Air 96.8 Intake and Output 04/25/18 04/26/18 19:00 07:00 Intake Total 320 ml Output Total 150 ml 650 ml Balance 170 ml -650 ml Intake Oral 120 ml IV Total 200 ml Output Urine Total 150 ml 650 ml # Bowel Movements 1 1 General Appearance: no acute distress Respiratory/Chest: lungs clear Cardiovascular: normal rate Laboratory Tests 04/26/18 05:15: White Blood Count 12.3H, Red Blood Count 2.66L, Hemoglobin 7.9L, Hematocrit 24.1L, Mean Corpuscular Volume 90, Mean Corpuscular Hemoglobin 29.5, Mean Corpuscular Hemoglobin Concent 32.6, Red Cell Distribution Width 13.6, Platelet Count 187, Mean Platelet Volume 7.0, Neutrophils (%) (Auto) , Lymphocytes (%) ( Auto) , Monocytes (%) (Auto) , Eosinophils (%) (Auto) , Basophils (%) (Auto) , Neutrophils % (Manual) [Pending], Lymphocytes % (Manual) [Pending], Platelet Estimate [Pending], Platelet Morphology [Pending], Sodium Level 144, Potassium Level 3.4L, Chloride Level 113H, Carbon Dioxide Level 21, Anion Gap 11, Blood Urea Nitrogen 4L, Creatinine 0.7, Estimat Glomerular Filtration Rate > 60, Glucose Level 92, Calcium Level 7.9L, Magnesium Level 2.0, Total Bilirubin 0.5, Aspartate Amino Transf (AST/SGOT) 18, Alanine Aminotransferase (ALT/SGPT) 15, Alkaline Phosphatase 78, Troponin I 0.019, Pro-B-Type Natriuretic Peptide 1075H , Total Protein 5.8L, Albumin 1.8L, Globulin 4.0, Albumin/Globulin Ratio 0.4L Current Medications Medications (Trade) Dose Ordered Sig/Anna Route PRN Reason Start Time Stop Time Status Last Admin Dose Admin Chlorhexidine Gluconate (Nel-Hex 2%) 1 applic DAILY@2000 TOPIC 04/25/18 20:00 05/07/18 19:59 04/25/18 21:03 Dextrose/ Electrolytes 1,000 ml @ 125 mls/hr Q8H IV 04/25/18 18:30 05/25/18 18:29 04/26/18 10:05 Fluconazole (Diflucan) 100 mg DAILY ORAL 04/26/18 09:00 05/02/18 08:59 04/26/18 10:04 Folic Acid (Folate) 1 mg DAILY ORAL 04/26/18 09:00 05/15/18 08:59 04/26/18 10:04 Pantoprazole (Protonix) 40 mg DAILY IVP 04/26/18 09:00 05/07/18 08:59 04/26/18 10:04 Quetiapine Fumarate (SEROquel) 25 mg Q6H PRN ORAL For Anxiety 04/25/18 15:15 05/25/18 15:14 Gene Wood MD Apr 26, 2018 13:13
[2018-04-26 16:00] VITALS: BP 114/67
--- NOTE | 2018-04-26 17:29 | General Progress Note ---
Assessment/Plan Assessment/Plan Dementia with behavioral dist Encephalopathy seroquel prn ativan prn cont restraints. Subjective Date patient seen: Apr 26, 2018 Neurologic/Psychiatric: Reports: anxiety Allergies: Coded Allergies: No Known Allergies (Unverified , 04/06/18) Subjective the pt is calmer today Objective Last 24 Hour Vital Signs Date Time Temp Pulse Resp B/P (MAP) Pulse Ox O2 Delivery O2 Flow Rate FiO2 04/26/18 16:00 98.0 76 18 114/67 100 Room Air 98.0 04/26/18 16:00 72 04/26/18 12:00 97.2 73 20 106/71 100 Room Air 97.2 04/26/18 12:00 65 04/26/18 09:51 208.4 79 19 100 04/26/18 08:00 63 04/26/18 08:00 97.4 75 20 99/59 100 Room Air 97.4 04/26/18 04:00 79 04/26/18 04:00 98.0 79 19 102/65 100 Room Air 98.0 04/26/18 00:00 98.2 81 19 114/72 100 Room Air 98.2 04/26/18 00:00 88 04/25/18 21:03 89 109/74 04/25/18 20:00 97.8 88 19 109/74 100 Room Air 97.8 04/25/18 20:00 89 Intake and Output 04/25/18 04/26/18 19:00 07:00 Intake Total 320 ml Output Total 150 ml 650 ml Balance 170 ml -650 ml Intake Oral 120 ml IV Total 200 ml Output Urine Total 150 ml 650 ml # Bowel Movements 1 1 Laboratory Tests 04/26/18 05:15: White Blood Count 12.3H, Red Blood Count 2.66L, Hemoglobin 7.9L, Hematocrit 24.1L, Mean Corpuscular Volume 90, Mean Corpuscular Hemoglobin 29.5, Mean Corpuscular Hemoglobin Concent 32.6, Red Cell Distribution Width 13.6, Platelet Count 187, Mean Platelet Volume 7.0, Neutrophils (%) (Auto) , Lymphocytes (%) ( Auto) , Monocytes (%) (Auto) , Eosinophils (%) (Auto) , Basophils (%) (Auto) , Differential Total Cells Counted 100, Neutrophils % (Manual) 77H, Lymphocytes % (Manual) 15L, Monocytes % (Manual) 4, Eosinophils % (Manual) 4H, Basophils % ( Manual) 0, Band Neutrophils 0, Platelet Estimate Adequate, Platelet Morphology Normal, Hypochromasia 3+, Anisocytosis 1+, Spherocytes 1+, Sodium Level 144, Potassium Level 3.4L, Chloride Level 113H, Carbon Dioxide Level 21, Anion Gap 11 , Blood Urea Nitrogen 4L, Creatinine 0.7, Estimat Glomerular Filtration Rate > 60, Glucose Level 92, Calcium Level 7.9L, Magnesium Level 2.0, Total Bilirubin 0.5, Aspartate Amino Transf (AST/SGOT) 18, Alanine Aminotransferase (ALT/SGPT) 15, Alkaline Phosphatase 78, Troponin I 0.019, Pro-B-Type Natriuretic Peptide 1075H, Total Protein 5.8L, Albumin 1.8L, Globulin 4.0, Albumin/Globulin Ratio 0.4L Height (Feet): 6 Height (Inches): 6.00 Weight (Pounds): 133 General Appearance: no apparent distress, alert, confused, agitated Ana Cristina Wilson M.D. Apr 26, 2018 17:29
[2018-04-26 20:00] VITALS: BP 114/65
[2018-04-26] MEDS: Dyna-Hex 2% Top Sol 2oz TOPIC SCH (20:39)
--- NOTE | 2018-04-26 23:57 | General Progress Note ---
Assessment/Plan Assessment/Plan Assessment - abnormal pancreas CT - pancreatic neuroendocrine tumor - h/o EtOH cirrhosis per chart records, but no clear evidence for this: - normal INR - normal platelets - no cirrhosis or portal HTN on CT - AMS - ? etiology - ? heptic encephalopahty - does not appear cirrhotic - ? other - compromised swallow Recommendations - modified PO diet - careful po - d/c planning - check NH3 in am Subjective Allergies: Coded Allergies: No Known Allergies (Unverified , 04/06/18) Subjective above noted underwent cardiology eval now tolerating PO Objective Last 24 Hour Vital Signs Date Time Temp Pulse Resp B/P (MAP) Pulse Ox O2 Delivery O2 Flow Rate FiO2 04/26/18 20:00 97.9 83 20 114/65 100 Room Air 97.9 04/26/18 20:00 77 04/26/18 16:00 98.0 76 18 114/67 100 Room Air 98.0 04/26/18 16:00 72 04/26/18 12:00 97.2 73 20 106/71 100 Room Air 97.2 04/26/18 12:00 65 04/26/18 09:51 208.4 79 19 100 04/26/18 08:00 63 04/26/18 08:00 97.4 75 20 99/59 100 Room Air 97.4 04/26/18 04:00 79 04/26/18 04:00 98.0 79 19 102/65 100 Room Air 98.0 04/26/18 00:00 98.2 81 19 114/72 100 Room Air 98.2 04/26/18 00:00 88 Intake and Output 04/25/18 04/26/18 19:00 07:00 Intake Total 320 ml Output Total 150 ml 650 ml Balance 170 ml -650 ml Intake Oral 120 ml IV Total 200 ml Output Urine Total 150 ml 650 ml # Bowel Movements 1 1 Laboratory Tests 04/26/18 05:15: White Blood Count 12.3H, Red Blood Count 2.66L, Hemoglobin 7.9L, Hematocrit 24.1L, Mean Corpuscular Volume 90, Mean Corpuscular Hemoglobin 29.5, Mean Corpuscular Hemoglobin Concent 32.6, Red Cell Distribution Width 13.6, Platelet Count 187, Mean Platelet Volume 7.0, Neutrophils (%) (Auto) , Lymphocytes (%) ( Auto) , Monocytes (%) (Auto) , Eosinophils (%) (Auto) , Basophils (%) (Auto) , Differential Total Cells Counted 100, Neutrophils % (Manual) 77H, Lymphocytes % (Manual) 15L, Monocytes % (Manual) 4, Eosinophils % (Manual) 4H, Basophils % ( Manual) 0, Band Neutrophils 0, Platelet Estimate Adequate, Platelet Morphology Normal, Hypochromasia 3+, Anisocytosis 1+, Spherocytes 1+, Sodium Level 144, Potassium Level 3.4L, Chloride Level 113H, Carbon Dioxide Level 21, Anion Gap 11 , Blood Urea Nitrogen 4L, Creatinine 0.7, Estimat Glomerular Filtration Rate > 60, Glucose Level 92, Calcium Level 7.9L, Magnesium Level 2.0, Total Bilirubin 0.5, Aspartate Amino Transf (AST/SGOT) 18, Alanine Aminotransferase (ALT/SGPT) 15, Alkaline Phosphatase 78, Troponin I 0.019, Pro-B-Type Natriuretic Peptide 1075H, Total Protein 5.8L, Albumin 1.8L, Globulin 4.0, Albumin/Globulin Ratio 0.4L Height (Feet): 6 Height (Inches): 6.00 Weight (Pounds): 133 Objective Thin AA man NCAT supple CTA RRR soft NT ND no edema OBS, awake Lina Palma MD Apr 26, 2018 23:57
[2018-04-27] VITALS: BP 137/84
--- NOTE | 2018-04-27 00:45 | Progress Note ---
DATE: 04/26/2018 CARDIOLOGY PROGRESS NOTE SUBJECTIVE: The patient is seen and evaluated. Case discussed with Dr. Wood. The patient had two pauses last night of up to 5 seconds during sleep. The patient's beta-blockers were discontinued last evening. OBJECTIVE: VITAL SIGNS: Blood pressure 99/59, pulse 75, and respirations 20. Afebrile. GENERAL: The patient is tolerating oral intake. NECK: Supple. LUNGS: Clear. CARDIAC: Regular. Normal S1, S2. ABDOMEN: Soft. EXTREMITIES: Trace edema. IMPRESSION: 1. Pancreatic carcinoma. 2. Anemia. 3. Acute myocardial infarction. 4. Sinus node disease. 5. Conduction system disease likely aggravated by increased vagal tone due to abdominal pathology presently asymptomatic. 6. Recommend no plan for G-tube in view of improvement in dysphagia at this time. 7. No emergent indication for permanent pacemaker in view of asymptomatic status and overall poor prognosis in view of malignancy. PLAN: 1. Continued observation and cardiac monitoring. 2. If no symptomatic bradyarrhythmias, can follow up as outpatient. Lawrence Han M.D. DR: JED JOB#: [id number] CC:
[2018-04-27] MEDS: D5 1/2NS w/KCl 20mEq 1,000 ML IV SCH ×2 (02:22→10:58)
[2018-04-27 04:00] VITALS: BP 131/75
[2018-04-27 08:00] VITALS: BP 127/68
[2018-04-27] MEDS: Pantoprazole Inj IVP SCH (08:42)
[2018-04-27] MEDS: Fluconazole 100mg tab ORAL SCH (08:42)
--- NOTE | 2018-04-27 10:15 | Infectious Diseases Prog Note ---
Assessment/Plan Assessment/Plan A: Pneumonia Leukocytosis Peripancreatic adenopathy, pancreatic tumor Cirrhosis Diarrhea Anemia Paroxysmal A fib Fungal UTI P: Continue Fluconazole X 3 days Subjective ROS Limited/Unobtainable: Yes Neurologic: Reports: confusion, other - on restraint Allergies: Coded Allergies: No Known Allergies (Unverified , 04/06/18) Objective Vital Signs Last 24 Hour Vital Signs Date Time Temp Pulse Resp B/P (MAP) Pulse Ox O2 Delivery O2 Flow Rate FiO2 04/27/18 08:00 97.1 87 20 127/68 96 Room Air 2.0 28 97.1 04/27/18 04:00 97.7 83 20 131/75 96 Room Air 97.7 04/27/18 04:00 89 04/27/18 00:00 97.9 91 20 137/84 95 Room Air 97.9 04/27/18 00:00 98 04/26/18 20:00 97.9 83 20 114/65 100 Room Air 97.9 04/26/18 20:00 77 04/26/18 16:00 98.0 76 18 114/67 100 Room Air 98.0 04/26/18 16:00 72 04/26/18 12:00 97.2 73 20 106/71 100 Room Air 97.2 04/26/18 12:00 65 Height (Feet): 6 Height (Inches): 6.00 Weight (Pounds): 145 General Appearance: no acute distress HEENT: mucous membranes moist Respiratory/Chest: lungs clear Cardiovascular: normal rate Abdomen: soft, non tender Extremities: no edema Neurologic/Psychiatric: other - sleeping Laboratory Tests Test 04/27/18 05:40 Ammonia 19 umol/L (11-32) Current Medications Medications (Trade) Dose Ordered Sig/Anna Route PRN Reason Start Time Stop Time Status Last Admin Dose Admin Chlorhexidine Gluconate (Nel-Hex 2%) 1 applic DAILY@1999 TOPIC 04/25/18 20:00 05/07/18 19:59 04/26/18 20:39 Dextrose/ Electrolytes 1,000 ml @ 125 mls/hr Q8H IV 04/25/18 18:30 05/25/18 18:29 04/27/18 02:22 Fluconazole (Diflucan) 100 mg DAILY ORAL 04/26/18 09:00 05/02/18 08:59 04/27/18 08:42 Folic Acid (Folate) 1 mg DAILY ORAL 04/26/18 09:00 05/15/18 08:59 04/27/18 08:42 Pantoprazole (Protonix) 40 mg DAILY IVP 04/26/18 09:00 05/07/18 08:59 04/27/18 08:42 Quetiapine Fumarate (SEROquel) 25 mg Q6H PRN ORAL For Anxiety 04/25/18 15:15 05/25/18 15:14 Dale Galindo MD Apr 27, 2018 10:15
--- NOTE | 2018-04-27 11:05 | General Progress Note ---
Assessment/Plan Status: stable Assessment/Plan 1. 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 The shape is not that of a typical mass lesion, but the presence of extensive surrounding lymphadenopathy indicates that this is probably a pancreatic malignancy. The possibility of pancreatitis with surrounding phlegmon and reactive lymphadenopathy should also be considered. Biopsy report has been reviewed --> eus with egd completed and PRELIM bx shows neuroendocrine low grade --> have discussed above with pathologist, final report STILL PENDING --> tumor markers reviewed, none particularly elevated --> autoimmune markers reviewed --> If low-grade neuroendocrine pathology is final, do not recommend AGGRESSIVE chemotherapy given poor clinical status and inability to tolerate aggressive treatment, again will need to make decision with help of primary once pathology resulted as FINAL DIAGNOSIS 2. Lymphadenopathy --> likely related to malignancy --> initial pathology report shows low-grade neuroendocrine tumor 3. Coagulopathy likely secondary to underlying cirrhosis. --> INR elevated, given vit K already 4. Anemia secondary to underlying chronic disease. --> Continue to closely monitor. hgb at 8.2 04/14/18 --> Anemia w/u has been reviewed. Will trend cbc prn --> consider transfusion if hgb <7 5. Fever and chills, septic shock. --> resolved 6. Atrial fibrillation initially has been treated. --> Dr. Han is on the case. --> will follow up as outpatient Subjective Date patient seen: Apr 27, 2018 ROS Limited/Unobtainable: Yes Allergies: Coded Allergies: No Known Allergies (Unverified , 04/06/18) All Systems: reviewed and negative except above Subjective No acute overnight events. Currently stable. DC back to snf planning. Objective Last 24 Hour Vital Signs Date Time Temp Pulse Resp B/P (MAP) Pulse Ox O2 Delivery O2 Flow Rate FiO2 04/27/18 08:00 97.1 87 20 127/68 96 Room Air 2.0 28 97.1 04/27/18 08:00 79 04/27/18 04:00 97.7 83 20 131/75 96 Room Air 97.7 04/27/18 04:00 89 04/27/18 00:00 97.9 91 20 137/84 95 Room Air 97.9 04/27/18 00:00 98 6/27/18 20:00 97.9 83 20 114/65 100 Room Air 97.9 04/26/18 20:00 77 04/26/18 16:00 98.0 76 18 114/67 100 Room Air 98.0 04/26/18 16:00 72 04/26/18 12:00 97.2 73 20 106/71 100 Room Air 97.2 04/26/18 12:00 65 Intake and Output 04/26/18 04/27/18 19:00 07:00 Intake Total 1045 ml 1454 ml Output Total 400 ml 1200 ml Balance 645 ml 254 ml Intake Oral 920 ml IV Total 125 ml 1454 ml Output Urine Total 400 ml 1200 ml Laboratory Tests 04/27/18 05:40: Ammonia 19 Height (Feet): 6 Height (Inches): 6.00 Weight (Pounds): 145 General Appearance: no apparent distress EENT: PERRL/EOMI Neck: normal alignment Cardiovascular: normal peripheral pulses Respiratory/Chest: no respiratory distress Abdomen: no mass Parish Trevino MD Apr 27, 2018 11:05
[2018-04-27 11:48] LABS: HEMATOCRIT 24.6 % (42.0-52.0); HEMOGLOBIN 7.8 G/DL (14.2-18.0); MEAN CORPUSCULAR VOLUME 89 FL (80-99); PLATELET COUNT 167 K/UL (150-450); RED BLOOD COUNT 2.75 M/UL (4.70-6.10); RED CELL DISTRIBUTION WIDTH 13.2 % (11.6-14.8)
[2018-04-27 12:00] VITALS: BP 132/82
[2018-04-27 12:19] LABS: ALANINE AMINOTRANSFERASE 14 U/L (12-78); ALBUMIN 1.6 G/DL (3.4-5.0); ALBUMIN/GLOBULIN RATIO 0.4 (1.0-2.7); ALKALINE PHOSPHATASE 73 U/L (46-116); ANION GAP 8 mmol/L (5-15); ASPARTATE AMINO TRANSFERASE 27 U/L (15-37); BILIRUBIN,TOTAL 0.5 MG/DL (0.2-1.0); BLOOD UREA NITROGEN 2 mg/dL (7-18); CALCIUM 7.6 MG/DL (8.5-10.1); CARBON DIOXIDE 20 MMOL/L (21-32); CHLORIDE 110 MMOL/L (98-107); CREATININE 0.6 MG/DL (0.55-1.30); POTASSIUM 3.8 MMOL/L (3.5-5.1); SODIUM 138 MMOL/L (136-145)
--- NOTE | 2018-04-27 12:26 | General Progress Note ---
Assessment/Plan Assessment/Plan Assessment - abnormal pancreas CT - pancreatic neuroendocrine tumor - h/o EtOH cirrhosis per chart records, but no clear evidence for this: - normal INR - normal platelets - no cirrhosis or portal HTN on CT - AMS - ? etiology - ? heptic encephalopahty - does not appear cirrhotic - ? other - compromised swallow Recommendations - modified PO diet - careful po - d/c planning - repeat NH3 normal today Subjective Allergies: Coded Allergies: No Known Allergies (Unverified , 04/06/18) Subjective above noted no complaints today Objective Last 24 Hour Vital Signs Date Time Temp Pulse Resp B/P (MAP) Pulse Ox O2 Delivery O2 Flow Rate FiO2 04/27/18 08:00 97.1 87 20 127/68 96 Room Air 2.0 28 97.1 04/27/18 08:00 79 04/27/18 04:00 97.7 83 20 131/75 96 Room Air 97.7 04/27/18 04:00 89 04/27/18 00:00 97.9 91 20 137/84 95 Room Air 97.9 04/27/18 00:00 98 04/26/18 20:00 97.9 83 20 114/65 100 Room Air 97.9 04/26/18 20:00 77 04/26/18 16:00 98.0 76 18 114/67 100 Room Air 98.0 04/26/18 16:00 72 Intake and Output 04/26/18 04/27/18 19:00 07:00 Intake Total 1045 ml 1454 ml Output Total 400 ml 1200 ml Balance 645 ml 254 ml Intake Oral 920 ml IV Total 125 ml 1454 ml Output Urine Total 400 ml 1200 ml Laboratory Tests 04/27/18 05:40: Ammonia 19 04/27/18 11:40: White Blood Count 8.0, Red Blood Count 2.75L, Hemoglobin 7.8L, Hematocrit 24.6L , Mean Corpuscular Volume 89, Mean Corpuscular Hemoglobin 28.2, Mean Corpuscular Hemoglobin Concent 31.6L, Red Cell Distribution Width 13.2, Platelet Count 167, Mean Platelet Volume 7.0, Neutrophils (%) (Auto) , Lymphocytes (%) (Auto) , Monocytes (%) (Auto) , Eosinophils (%) (Auto) , Basophils (%) (Auto) , Differential Total Cells Counted 100, Neutrophils % ( Manual) 66, Lymphocytes % (Manual) 21, Monocytes % (Manual) 5, Eosinophils % ( Manual) 8H, Basophils % (Manual) 0, Band Neutrophils 0, Platelet Estimate Adequate, Platelet Morphology Normal, Hypochromasia 3+, Anisocytosis 1+, Sodium Level 138, Potassium Level 3.8, Chloride Level 110H, Carbon Dioxide Level 20L, Anion Gap 8, Blood Urea Nitrogen 2L, Creatinine 0.6, Estimat Glomerular Filtration Rate > 60, Glucose Level 123H, Calcium Level 7.6L, Total Bilirubin 0.5, Aspartate Amino Transf (AST/SGOT) 27, Alanine Aminotransferase (ALT/SGPT) 14, Alkaline Phosphatase 73, Total Protein 5.5L, Albumin 1.6L, Globulin 3.9, Albumin/Globulin Ratio 0.4L Height (Feet): 6 Height (Inches): 6.00 Weight (Pounds): 145 Objective Thin AA man NCAT supple CTA RRR soft NT ND no edema OBS, awake Lina Palma MD Apr 27, 2018 12:26
--- NOTE | 2018-04-27 12:39 | General Progress Note ---
Assessment/Plan Assessment/Plan Dementia with behavioral dist Encephalopathy seroquel prn ativan prn cont restraints. Subjective Date patient seen: Apr 27, 2018 Neurologic/Psychiatric: Reports: anxiety, depressed, emotional problems Allergies: Coded Allergies: No Known Allergies (Unverified , 04/06/18) Subjective the pt is calmer still has agitation Objective Last 24 Hour Vital Signs Date Time Temp Pulse Resp B/P (MAP) Pulse Ox O2 Delivery O2 Flow Rate FiO2 04/27/18 08:00 97.1 87 20 127/68 96 Room Air 2.0 28 97.1 04/27/18 08:00 79 04/27/18 04:00 97.7 83 20 131/75 96 Room Air 97.7 04/27/18 04:00 89 04/27/18 00:00 97.9 91 20 137/84 95 Room Air 97.9 04/27/18 00:00 98 04/26/18 20:00 97.9 83 20 114/65 100 Room Air 97.9 04/26/18 20:00 77 04/26/18 16:00 98.0 76 18 114/67 100 Room Air 98.0 04/26/18 16:00 72 Intake and Output 04/26/18 04/27/18 19:00 07:00 Intake Total 1045 ml 1454 ml Output Total 400 ml 1200 ml Balance 645 ml 254 ml Intake Oral 920 ml IV Total 125 ml 1454 ml Output Urine Total 400 ml 1200 ml Laboratory Tests 04/27/18 05:40: Ammonia 19 04/27/18 11:40: White Blood Count 8.0, Red Blood Count 2.75L, Hemoglobin 7.8L, Hematocrit 24.6L , Mean Corpuscular Volume 89, Mean Corpuscular Hemoglobin 28.2, Mean Corpuscular Hemoglobin Concent 31.6L, Red Cell Distribution Width 13.2, Platelet Count 167, Mean Platelet Volume 7.0, Neutrophils (%) (Auto) , Lymphocytes (%) (Auto) , Monocytes (%) (Auto) , Eosinophils (%) (Auto) , Basophils (%) (Auto) , Differential Total Cells Counted 100, Neutrophils % ( Manual) 66, Lymphocytes % (Manual) 21, Monocytes % (Manual) 5, Eosinophils % ( Manual) 8H, Basophils % (Manual) 0, Band Neutrophils 0, Platelet Estimate Adequate, Platelet Morphology Normal, Hypochromasia 3+, Anisocytosis 1+, Sodium Level 138, Potassium Level 3.8, Chloride Level 110H, Carbon Dioxide Level 20L, Anion Gap 8, Blood Urea Nitrogen 2L, Creatinine 0.6, Estimat Glomerular Filtration Rate > 60, Glucose Level 123H, Calcium Level 7.6L, Total Bilirubin 0.5, Aspartate Amino Transf (AST/SGOT) 27, Alanine Aminotransferase (ALT/SGPT) 14, Alkaline Phosphatase 73, Total Protein 5.5L, Albumin 1.6L, Globulin 3.9, Albumin/Globulin Ratio 0.4L Height (Feet): 6 Height (Inches): 6.00 Weight (Pounds): 145 General Appearance: no apparent distress, alert, confused Ana Cristina Wilson M.D. Apr 27, 2018 12:39
[2018-04-27 16:00] VITALS: BP 152/90
[2018-04-27] MEDS ORDERED: DIFLUCAN100 MG ORAL (17:40)
--- NOTE | 2018-04-27 17:42 | Pulmonology Progress Note ---
Assessment/Plan Assessment/Plan 1. Acute myocardial infarction. 2. Paroxysmal atrial fibrillation. 3. Sepsis with shock. 4. Alcoholic liver disease. 5. Hepatic encephalopathy. 6. Urinary sepsis. 7. Healthcare-acquired pneumonia. 8. Dehydration. 9. Hypernatremia, improved. 10. Metabolic acidosis. 11. Hypomagnesemia. 12. Lymphocytosis w retroperitoneal lymphadenopathy 13. Pancreatic metastatic neuroendocrine tumor 14. Rectal mass vs foreign body, resolved 15. Pleural effusions very alert, responsive Eating PO disc w GI and cardiology no more pauses disc w dtr, insurance physician advisor dc to snf AM Subjective ROS Limited/Unobtainable: Yes Allergies: Coded Allergies: No Known Allergies (Unverified , 04/06/18) Objective Last 24 Hour Vital Signs Date Time Temp Pulse Resp B/P (MAP) Pulse Ox O2 Delivery O2 Flow Rate FiO2 04/27/18 12:00 97.6 84 20 132/82 96 Room Air 2.0 28 97.6 04/27/18 12:00 92 04/27/18 08:00 97.1 87 20 127/68 96 Room Air 2.0 28 97.1 04/27/18 08:00 79 04/27/18 04:00 97.7 83 20 131/75 96 Room Air 97.7 04/27/18 04:00 89 04/27/18 00:00 97.9 91 20 137/84 95 Room Air 97.9 04/27/18 00:00 98 04/26/18 20:00 97.9 83 20 114/65 100 Room Air 97.9 04/26/18 20:00 77 Intake and Output 04/26/18 04/27/18 19:00 07:00 Intake Total 1045 ml 1454 ml Output Total 400 ml 1200 ml Balance 645 ml 254 ml Intake Oral 920 ml IV Total 125 ml 1454 ml Output Urine Total 400 ml 1200 ml General Appearance: no acute distress HEENT: atraumatic Respiratory/Chest: lungs clear Cardiovascular: normal rate Abdomen: soft, non tender Laboratory Tests 04/27/18 05:40: Ammonia 19 04/27/18 11:40: White Blood Count 8.0, Red Blood Count 2.75L, Hemoglobin 7.8L, Hematocrit 24.6L , Mean Corpuscular Volume 89, Mean Corpuscular Hemoglobin 28.2, Mean Corpuscular Hemoglobin Concent 31.6L, Red Cell Distribution Width 13.2, Platelet Count 167, Mean Platelet Volume 7.0, Neutrophils (%) (Auto) , Lymphocytes (%) (Auto) , Monocytes (%) (Auto) , Eosinophils (%) (Auto) , Basophils (%) (Auto) , Differential Total Cells Counted 100, Neutrophils % ( Manual) 66, Lymphocytes % (Manual) 21, Monocytes % (Manual) 5, Eosinophils % ( Manual) 8H, Basophils % (Manual) 0, Band Neutrophils 0, Platelet Estimate Adequate, Platelet Morphology Normal, Hypochromasia 3+, Anisocytosis 1+, Sodium Level 138, Potassium Level 3.8, Chloride Level 110H, Carbon Dioxide Level 20L, Anion Gap 8, Blood Urea Nitrogen 2L, Creatinine 0.6, Estimat Glomerular Filtration Rate > 60, Glucose Level 123H, Calcium Level 7.6L, Total Bilirubin 0.5, Aspartate Amino Transf (AST/SGOT) 27, Alanine Aminotransferase (ALT/SGPT) 14, Alkaline Phosphatase 73, Total Protein 5.5L, Albumin 1.6L, Globulin 3.9, Albumin/Globulin Ratio 0.4L Current Medications Medications (Trade) Dose Ordered Sig/Anna Route PRN Reason Start Time Stop Time Status Last Admin Dose Admin Chlorhexidine Gluconate (Nel-Hex 2%) 1 applic DAILY@2000 TOPIC 04/25/18 20:00 05/07/18 19:59 04/26/18 20:39 Dextrose/ Electrolytes 1,000 ml @ 125 mls/hr Q8H IV 04/25/18 18:30 05/25/18 18:29 04/27/18 10:58 Fluconazole (Diflucan) 100 mg DAILY ORAL 04/26/18 09:00 05/02/18 08:59 04/27/18 08:42 Folic Acid (Folate) 1 mg DAILY ORAL 04/26/18 09:00 05/15/18 08:59 04/27/18 08:42 Pantoprazole (Protonix) 40 mg DAILY IVP 04/26/18 09:00 05/07/18 08:59 04/27/18 08:42 Quetiapine Fumarate (SEROquel) 25 mg Q6H PRN ORAL For Anxiety 04/25/18 15:15 05/25/18 15:14 Gene Wood MD Apr 27, 2018 17:42
[2018-04-27 20:00] VITALS: BP 151/92
[2018-04-27] MEDS: Dyna-Hex 2% Top Sol 2oz TOPIC SCH (20:00)
--- NOTE | 2018-04-28 01:31 | Progress Note ---
DATE: 04/27/2018 CARDIOLOGY PROGRESS NOTE SUBJECTIVE: Monitored strips reviewed. Discussed with Dr. Wood. Still with morning episodes of heart block, asymptomatic. OBJECTIVE: VITAL SIGNS: Blood pressure 132/82, pulse 84, respiratory rate 20, and afebrile. LUNGS: Clear. CARDIAC: Regular. Normal S1 and S2. ABDOMEN: Soft. EXTREMITIES: No edema. IMPRESSION: 1. Advanced conduction system disease. 2. Metastatic neuroendocrine tumor of the pancreas. 3. Paroxysmal atrial fibrillation. 4. Recovered sepsis with shock. 5. Acute myocardial infarction. 6. Alcoholic liver disease with hepatic encephalopathy. PLAN: 1. Defer permanent pacemaker in view of the patient's poor prognosis, limited mobility, and asymptomatic status. 2. Avoid all beta-blockers and other drugs with negative chronotropic potential. 3. Oral nutrition with aspiration precautions. 4. Maintain adequate hydration as needed with IV fluids. 5. Check performance status and prognosis change, reconsideration for pacemaker should follow. Lawrence Han M.D. DR: JOE JOB#: [id number] CC:
--- NOTE | 2018-04-28 12:25 | Discharge Summary ---
Discharge Summary Discharge Summary _ DATE OF ADMISSION: 04/06/2018 DATE OF DISCHARGE: 04/27/2018 CONSULTANTS: Dr. Lawrence River [facility] HOSPITAL COURSE: Patient is a 72-year-old male, was transferred from intermediate as patient became poorly responsive. He was recently discharged from [facility]. He has history of cirrhosis and hepatic encephalopathy as well as pneumonia. On arrival to ED, patient was poorly responsive and was hypotensive. Heart rate was elevated to 180s and was in atrial fibrillation with RVR. He was given aggressive IV fluids and received multiple doses of diltiazem, he was eventually started on diltiazem drip. Blood pressure in systolic 80s. A central line was placed to the right femoral. Blood work showed leukocytosis with WBC of 20, lactic acid 2.7, sodium 154, chloride 124, creatinine was elevated to 1.5, troponin was elevated to 0.027. Urinalysis showed urine WBC 20 many to count, urine RBC 20-30, 2+ leukocyte esterase, occasional bacteria, few yeast. Chest x-ray showed mild cardiomegaly with borderline interstitial congestive changes. He was then admitted to ICU for septic shock. He was of followed by medical assistant prn and accounts collector. He was given IV hydration and was given electolyte replacement. He had elevated troponin and was given aspirin. He was continued on Cardizem, he eventually converted to sinus rhythm. Blood pressure improved and was eventually taken off IV pressors. Venous duplex of lower extremity was negative for DVT. He had increasing leukocytosis with lymphocytosis. Infectious disease specialist was consulted. He was continued on Zosyn and vancomycin, metronidazole was added pending culture results. CAT scan of the chest, abdomen and pelvis done showed unusual pancreatic head and body lesion. There was presence of extensive surrounding lymphadenopathy, possible pancreatic malignancy. There was an unusual rectal density seen. Yosvany- oncologist was consulted. Tumor markers were checked. On 04/17/2018, he underwent endoscopic ultrasound by Dr. River. Findings showed distended gallbladder with sludge and stone, there was evidence of pancreatic inflammation extending to the due to addendum, bulb, highly suspicious for pancreatitis. He had normal amylase and lipase. Tumor markers AFP, CEA, CA 153 , CA 199, and PSA were normal. Rectal density seen on CT possibly from retained contrast. Blood culture did not isolate any growth, urine culture with no growth. Influenza A and B were negative. He was taken off antibiotics. Patient was more lethargic, with altered mental status possible due to hepatic encephalopathy. He was given lactulose and trial of Xifaxan. Ammonia level was negative. Head CT showed bilateral frontal encephalomalacia, right parietal encephalomalacia, negative for acute intracranial bleed or mass effect. Patient will eventually need PEG tube placement. On 04/25/2018, patient was taken down for the procedure. He became bradycardic and hypotensive. Procedure was aborted. Patient was confused and agitated. Patient is cognitively impaired. He was diagnosed with dementia with behavioral disturbance and encephalopathy. He was given Seroquel and Ativan, he was placed on restraints. He had episodes of cardiac pauses on the monitor. Beta isabel was discontinued. Conduction system disease likely aggravated by increased vagal tone. There was no emergent indication for permanent pacemaker. Pathology report suspicious for low-grade pancreatic neuroendocrine tumor. Per oncologist's recommendation, not recommended aggressive chemotherapy given poor clinical status. Repeat urine culture showed growth of Lalita. He was given fluconazole. He passed the second swallow evaluation test. And was eating po. Patient was alert and responsive. No further pauses seen on the monitor. He was eventually cleared for discharge. FINAL DIAGNOSES: Sepsis with shock Acute myocardial infarction A. fib with RVR Healthcare acquired pneumonia Dehydration Hypernatremia improved Hypomagnesemia Pancreatic metastatic neuroendocrine tumor Pleural effusion Hepatic encephalopathy Alcoholic liver disease Advanced conduction system disease Dementia with behavioral disturbance Encephalopathy Lymphadenopathy related to malignancy Coagulopathy likely secondary to underlying cirrhosis Anemia secondary to chronic disease Status post EUS DISPOSITION: Patient was eventually discharged to [facility]. DISCHARGE MEDICATIONS: Refer to Discharge Medication List. Continue Diflucan 100 mg daily for 5 more days. DISCHARGE INSTRUCTIONS: Follow up with PCP in a week for pancreatic management. I have been assigned to dictate discharge summary on this account, and I was not involved in the patient's management. Jesi Sunshine NP Apr 28, 2018 12:25
--- NOTE | 2018-04-29 00:30 | Progress Note ---
DATE: 04/28/2018 GCARDIOLOGY PROGRESS NOTE SUBJECTIVE: The patient has not had any change in condition. He has had some asymptomatic pauses up to 1.5 seconds yesterday. No recurrence noted today. Those episodes were all during sleep. The patient has been off beta-blockers. OBJECTIVE: VITAL SIGNS: Blood pressure 152/90, pulse 89, respiratory rate 20. LUNGS: Clear. CARDIAC: Regular. Normal S1 and S2. ABDOMEN: Soft. EXTREMITIES: No edema. IMPRESSION: 1. Metastatic pancreatic tumor. 2. Paroxysmal atrial fibrillation. 3. Acute myocardial infarction. 4. Conduction system disease with heart block. 5. Multiple electrolyte abnormalities corrected. 6. Sepsis with shock resolved. PLAN: 1. Avoid beta-blockers. 2. No emergent indication for pacemaker especially in view of poor prognosis due to pancreatic tumor. 3. Except that abdominal discomfort may increase vagal tone and potentiate conduction disease. 4. Outpatient followup at this time. 5. No emergent indication for pacing. Lawrence Han M.D. DR: Pavan JOB#: [id number] CC:
== END 2018-04-27 22:45 | DRG 871 ==
LOC: EDBD 10:53 → EMR 12:06 → ICU 14:47 → EDBEDREQ 15:02 → 2W 04-07 18:37 → 2E 04-10 18:52 → 4E 04-12 22:22 → 4W 04-21 18:00 → 2E 04-25 09:00
PROC: 06HM33Z Insertion of Infusion Device into Right Femoral Vein, Percutaneous Approach (ICD-10-PCS; principal; 2018-04-06)
PROC: 0FBG8ZX Excision of Pancreas, Via Natural or Artificial Opening Endoscopic, Diagnostic (ICD-10-PCS; 2018-04-17 10:52)
PROC: 0DJ08ZZ Inspection of Upper Intestinal Tract, Via Natural or Artificial Opening Endoscopic (ICD-10-PCS; 2018-04-25)
DX: A41.9 Sepsis, unspecified organism (principal); R65.21 Severe sepsis with septic shock; E43 Unspecified severe protein-calorie malnutrition; I21.9 Acute myocardial infarction, unspecified; J18.9 Pneumonia, unspecified organism; E87.0 Hyperosmolality and hypernatremia; C7B.8 Other secondary neuroendocrine tumors; C7A.8 Other malignant neuroendocrine tumors; F03.91 Unspecified dementia, unspecified severity, with behavioral disturbance; D68.4 Acquired coagulation factor deficiency; B37.49 Other urogenital candidiasis; K72.90 Hepatic failure, unspecified without coma; E86.0 Dehydration; E83.42 Hypomagnesemia; K70.30 Alcoholic cirrhosis of liver without ascites; I25.10 Atherosclerotic heart disease of native coronary artery without angina pectoris; D63.8 Anemia in other chronic diseases classified elsewhere; F10.21 Alcohol dependence, in remission; E87.6 Hypokalemia; I48.0 Paroxysmal atrial fibrillation; R00.1 Bradycardia, unspecified; R13.10 Dysphagia, unspecified; Z53.09 Procedure and treatment not carried out because of other contraindication
CPT/HCPCS: 36415; 70470; 71045; 71260; 72170; 74177; 74230; 80048; 80053; 80202; 81003; 82105; 82140; 82150; 82248; 82270; 82378; 82550; 82553; 82607; 82728; 82746; 82784; 82787; 83090; 83540; 83550; 83605; 83690; 83735; 83880; 83921; 84100; 84153; 84443; 84484; 85007; 85025; 85044; 85384; 85610; 85651; 85730; 86140; 86300; 86710; 86850; 86900; 86901; 87040; 87081; 87086; 93005; 93970; 94003; 94150; 94760; 99285; J2250; J3490; J8499